=== PATIENT | female | born 1950 | race Caucasian/White ===

== ENCOUNTER 2017-11-15 12:07 | Inpatient (IN) | payer MEDICARE, BC ==
[~2017-11-15] VITALS: Ht 154.9 cm; Wt 88.0 kg
[~2017-11-15 12:07] MED LIST: AZILECT1 MG PO; CALTRATE PLUS1 EACH PO; CARBIDOPA-LEVO1 EAC1 PO; CENTRUM SILVER1 EAC3 PO; CULTURELLE CAP1 EACH PO; LOTRIMIN ULTRA12 GM TOP; LOVASTATIN20 MG PO; MIRALAX17 GM PO; PROPRANOLOL HCL20 MG PO; SINEMET 25-1001 EACH PO; SULFAMETHOXAZO1 EAC1; TRIAMCINOLONE A15 G1 TOP
[2017-11-15] MEDS ORDERED: SODIUM CHLORIDE 0.9% 1000ML 1,000 ML IV STA (12:17)
[2017-11-15] MEDS ORDERED: KETOROLAC TROMETHAMINE 30 MG/ML VIAL IV STA (12:17)
[2017-11-15 12:26] LABS: BASOPHILS % 0.3 % (0.0-1.0); EOSINOPHILS # (AUTO) 0.3 (0.0-0.4); HEMOGLOBIN 13.4 g/dL (12.0-16.0); LYMPHOCYTES # (AUTO) 1.8 (1.0-3.2); LYMPHOCYTES % 25.6 % (18.0-39.1); MEAN CORPUSCULAR HEMOGLOBIN 26.3 pg (28-32); MEAN CORPUSCULAR HGB CONC 31.9 g/dL (31-35); MEAN CORPUSCULAR VOLUME 82.5 fL (81-99); MONOCYTES # (AUTO) 0.5 (0.2-0.8); MONOCYTES % 7.6 % (4.4-11.3); NEUTROPHILS # (AUTO) 4.3 (2.1-6.9); NEUTROPHILS % 62.1 % (38.7-80.0); PLATELET COUNT 224 x10e3/uL (140-360); RED BLOOD COUNT 5.09 x10e6/uL (3.6-5.1); RED CELL DISTRIBUTION WIDTH 13.2 % (11.7-14.4)
[2017-11-15 12:35] LABS: INR 0.84; PROTHROMBIN TIME 12.3 seconds (11.9-14.5)
[2017-11-15 12:41] LABS: ALBUMIN 3.9 g/dL (3.5-5.0); ALBUMIN/GLOBULIN RATIO 1.3 (0.8-2.0); ALKALINE PHOSPHATASE 54 IU/L (40-150); ANION GAP 14.1 mmol/L (8-16); BLOOD UREA NITROGEN 23 mg/dL (7-26); BUN/CREATININE RATIO 21 (6-25); CALCIUM 9.1 mg/dL (8.4-10.2); CARBON DIOXIDE 22 mmol/L (22-29); CHLORIDE 107 mmol/L (98-107); CREATINE KINASE 41 IU/L (29-168); CREATININE, SERUM 1.12 mg/dL (0.57-1.11); EST GLOMERULAR FILTRATION RATE 48 ML/MIN (60-); GLUCOSE 104 mg/dL (74-118); POTASSIUM 4.1 mmol/L (3.5-5.1); SODIUM 139 mmol/L (136-145)
[2017-11-15 12:42] LABS: ALANINE AMINOTRANSFERASE < 6 IU/L (0-55)
[2017-11-15 13:14] LABS: CLARITY,URINE HAZY (CLEAR); COLOR,URINE YELLOW (YELLOW)
--- NOTE | 2017-11-15 13:14 | Diagnostic Imaging Report ---
Exam: Right knee 3 views History: pain Comparison: None. Findings: No fracture or malalignment. Mild degenerative arthrosis. No abnormal soft tissue calcification or soft tissue defect. Impression: No acute osseous abnormality Signed by: Dr. Prosper Harris M.D. on 11/15/2017 1:10 PM
[2017-11-15 13:15] LABS: BILIRUBIN,URINE NEGATIVE (NEGATIVE); KETONES,URINE NEGATIVE (NEGATIVE); LEUKOCYTE ESTERASE ,URINE TRACE (NEGATIVE); NITRITE,URINE NEGATIVE (NEGATIVE); PROTEIN,URINE DIPSTICK NEGATIVE (NEGATIVE); URINE UROBILINOGEN 0.2 mg/dL (0.2 - 1)
--- NOTE | 2017-11-15 13:24 | Diagnostic Imaging Report ---
Exam: right shoulder 2 views History: pain Comparison: None. Findings: No acute fracture or malalignment. Remote healed fracture of the distal clavicle. Joint spaces preserved. No abnormal soft tissue calcification or soft tissue defect. Impression: No acute osseous abnormality Signed by: Dr. Prosper Harris M.D. on 11/15/2017 1:21 PM
--- NOTE | 2017-11-15 13:25 | Diagnostic Imaging Report ---
Examination: Single AP view of the chest. COMPARISON: None. INDICATION: Fall DISCUSSION: Lines/tubes: None. Lungs: Low lung volumes with crowding of the vasculature. Pleura: There is no pleural effusion or pneumothorax. Heart and mediastinum: Cardiomegaly. Bones and soft tissues: No acute bony abnormalities. IMPRESSION: Cardiomegaly without decompensation. Signed by: Dr. Prosper Harris M.D. on 11/15/2017 1:22 PM
[2017-11-15 13:27] LABS: BACTERIA,URINE MANY /HPF; EPITHELIAL CELLS,URINE RARE /LPF
--- NOTE | 2017-11-15 13:48 | Diagnostic Imaging Report ---
Exams: Head and cervical spine CTs without IV contrast History: Trauma, fall, syncope Comparison studies: Head CT 12/29/2015, cervical spine right of 02/21/2015, cervical spine CT 02/20/2015 and cervical spine x-ray 02/22/2015. Technique: Axial images were obtained from the brain and cervical spine. Coronal and sagittal images reconstructed from the axial data. Dose modulation, iterative reconstruction, and/or weight based adjustment of the mA/kV was utilized to reduce the radiation dose to as low as reasonably achievable. Intravenous contrast: None Findings: Head CT: Scalp: No abnormalities. Bones: No fractures, blastic or lytic lesions. Extra-axial spaces: No masses. No fluid collections. Brain sulci: Appropriate for age. Ventricles: Normal in size and configuration. No hydrocephalus. Parenchyma: No mass, acute hemorrhage or acute cortical vascular insults. Small chronic lacunar insults versus perivascular spaces in the bilateral subinsular regions. A few scattered subtle hypodensities in the supratentorial white matter are nonspecific most compatible with chronic microvascular ischemic changes. Sellar/suprasellar region: No abnormalities. Craniocervical junction: The foramen magnum is patent. No Chiari one malformation. Cervical spine CT: Fractures: None. Soft tissues: No gross abnormalities. Atlantoaxial articulation: Intact. Alignment: Straightened curvature. No subluxations. Cervicomedullary junction: No abnormalities. The foramen magnum is patent. Vertebrae: No infection or neoplasm. Postsurgical changes: Anterior cervical discectomy and fusion from C5 to C7 with anterior plate fixated via screws at C5 and at C7 without evidence of hardware failure or hardware loosening. Corpectomy changes at C6 with solid interbody fusion from C5 to C7. The left C5-C6 facets are partially fused. Degenerative changes: Small central C3-C4 disc protrusion indents the thecal sac without significant canal stenosis. Mildly degenerated C4-C5 disc with anterior bridging C4-C5 disc osteophyte complex. Mild bilateral C5-C6 and left C6-C7 foraminal stenosis due to uncovertebral arthrosis. Osteophyte complex at C5 and indents the thecal sac and results in mild central canal stenosis. Incidental findings: Atherosclerotic calcifications in the carotid siphons an at the left cervical carotid bulb. IMPRESSION: Head CT: 1. No acute abnormalities. 2. No changes from the previous head CT of 12/29/2015. 3. Mild chronic microvascular ischemic changes. 4. Chronic bilateral subinsular lacunar infarcts vs. prominent perivascular spaces. Cervical spine CT: 1. No cervical spine fracture or subluxation. 2. Surgical changes of C5-C7 ACDF and C6 corpectomy. 3. Degenerative changes as described. 4. Cannot adequately evaluate ligament, spinal cord and or vascular abnormalities on the basis of this examination. Signed by: Dr. Boone Valles M.D. on 11/15/2017 1:45 PM
[2017-11-15] MEDS ORDERED: ONDANSETRON HCL INJ 2 MG/ML VIAL IV PRN (14:15)
[2017-11-15] MEDS ORDERED: ASPIRIN 81 MG CHEW TAB PO ONE (14:15)
[2017-11-15] MEDS ORDERED: POLYETHYLENE GLYCOL 3350 17 GM PACK PO PRN (14:30)
[2017-11-15 15:00] VITALS: BP 131/76
[2017-11-15] MEDS ORDERED: CARBIDOPA/LEVODOPA 25/100 TAB PO SCH (15:00)
[2017-11-15 15:20] VITALS: BP 131/76
--- NOTE | 2017-11-15 15:41 | Polysomnography ---
Job#: [id number] EV MTDEver
--- NOTE | 2017-11-15 16:01 | History and Physical ---
REFERRING PHYSICIAN: Dr. White. CHIEF COMPLAINT: Parkinson's disease with unsteadiness and falling. HISTORY OF PRESENT ILLNESS: The patient is a 67-year-old woman with a history of Parkinson's disease. She is followed by Dr. Jackson as an outpatient. She takes Synthroid, Sinemet as an outpatient several times a day. She also has problems with recurrent urinary tract infections and is on suppressive antibiotics. The patient was using a walker when her right leg gave way. She felt dizzy and unsteady. She fell and injured her ear. She came to the emergency department and had a CT scan of the head and neck which were negative. She is not complaining of pain, but she does still feel lightheaded. PAST SURGICAL HISTORY: Status post cervical spine fusion for diskitis. PAST MEDICAL HISTORY 1. Parkinson's disease. 2. Neurogenic bladder with recurrent urinary tract infections. 3. Thyroid disease. ALLERGIES: THE PATIENT IS ALLERGIC TO CLINDAMYCIN. FAMILY HISTORY: Family history is noncontributory. SOCIAL HISTORY: Patient is not a smoker or drinker. She has strong family support. REVIEW OF SYSTEMS: The patient has no fever. She does not have headache or neck pain. She does not complain of chest pain or difficulty breathing. She has no abdominal pain, nausea or vomiting. She is not having any leg pain. She did have some unsteadiness and fell to the right side. She also reports increased tone and some muscle pain. PHYSICAL EXAMINATION VITAL SIGNS: The patient is afebrile. The vital signs are stable. HEENT: Examination shows no facial swelling or erythema. The nasal mucosa is normal. The oropharynx is normal. LYMPHATIC: Examination shows no submandibular, cervical or supraclavicular adenopathy. CARDIAC: Exam reveals a regular rate and rhythm with a normal S1 and S2. LUNGS: Auscultation reveals clear breath sounds bilaterally. ABDOMEN: Soft and nontender. There is no rebound or guarding. EXTREMITIES: Examination shows no leg edema or calf tenderness. NEUROLOGICAL: Evaluation shows increased tone and bradykinesia consistent with Parkinson's disease. LABORATORY DATA: White count is within normal limits. The creatinine is 1.12, which is up from a baseline of 0.94. The other electrolytes are within normal limits. PT and INR are normal. IMPRESSION 1. Parkinson's disease with unsteadiness and falling. 2. Syncope. 3. Neurogenic bladder with recurrent urinary tract infections. 4. Thyroid disease. PLAN 1. The patient will be observed on telemetry. She will have serial cardiac enzymes. 2. Neurology evaluation. 3. Possible adjustment of Parkinson's medications depending on the opinion of Neurology. 4. Urine culture. Job#: [id number] EV
[2017-11-15] MEDS: CARBIDOPA/LEVODOPA 25/100 TAB PO SCH ×2 (17:00→20:46)
[2017-11-15] MEDS ORDERED: PROPRANOLOL HCL 20 MG PO SCH (17:00)
[2017-11-15] MEDS: OYST-CAL-D 500MG TABLET PO SCH (17:00)
[2017-11-15] MEDS ORDERED: PROPRANOLOL HCL 10 MG TAB PO SCH (17:00)
[2017-11-15 20:00] VITALS: BP 113/61
[2017-11-15] MEDS: SINEMET CR PO SCH ×2 (20:36→21:06)
[2017-11-15] MEDS: CEFTRIAXONE SOD 1 GM VIAL IV SCH (20:44)
[2017-11-15] MEDS: SIMVASTATIN 20 MG TAB PO SCH (20:46)
[2017-11-15] MEDS: CLOTRIMAZOLE 1% CR 15 GM TOP SCH (20:46)
[2017-11-15 20:50] LABS: CREATINE KINASE MB 0.7 ng/mL (0-5.0)
[2017-11-15] MEDS ORDERED: BUTENAFINE HCL TOP SCH (21:00)
[2017-11-15] MEDS ORDERED: NON-FORMULARY MEDICATION (Lovastatin 20 MG) PO SCH (21:00)
--- NOTE | 2017-11-15 21:08 | Consultation ---
DATE OF CONSULTATION: November 15, 2017 NEUROLOGY CONSULT HISTORY OF PRESENT ILLNESS: Ms. Ashton is a 67-year-old right hand dominant woman with past medical history significant for neurogenic bladder with multiple prior urinary tract infections, essential tremor, and Parkinson's disease, admitted to [facility] on November 15, 2017 status post a syncopal event. On the morning of admission, the patient was standing from a seated position when she suddenly developed lightheadedness. Ms. Ashton did not report chest pain or tightness, palpitations, shortness of breath, vertigo, numbness or tingling, or an epigastric rising sensation associated with the lightheadedness. Following the sudden onset of lightheadedness, the patient abruptly lost consciousness and fell towards the floor. As she fell, Ms. Ashton hit the right side of her head and face on her walker. Ms. Ashton reports the period of unconsciousness lasted only a few seconds. She recalls her , who is standing nearby catching her before she fell to the floor. Ms. Ashton was brought to the emergency center at [facility] for further evaluation following her syncopal event. Upon arrival in the emergency center, the patient was afebrile with a blood pressure of 130/68 mmHg and pulse of 56 beats per minute. The patient's neurological examination was documented as being nonfocal. Routine laboratory data revealed the presence of urinary tract infection. A CT of the brain without contrast was performed while the patient was in the emergency center, and did not show evidence of recent large territorial ischemia or hemorrhage. Ms. Ashton was admitted to the hospital as an inpatient for further evaluation and treatment of her symptoms. Ms. Ashton reports being diagnosed with essential tremor and Parkinson's disease in 2014. The first noticeable symptom was a tremor affecting the right hand. The patient saw her primary care physician who prescribed her propranolol for the essential tremor. Ms. Ashton was referred to Dr. Jackson who diagnosed her with Parkinson's disease based on a clinical evaluation. At present, the patient's symptoms include a quivering quality of the voice, both action and resting tremors with the right arm being more affected than the left, slowness of movement, freezing, poor balance and an unsteady gait, and hypophonia. As regards to her poor balance and unsteady gait, Ms. Ashton reports she began using a walker approximately 1 or 2 months ago. Ms. Ashton is followed as an outpatient by Dr. Jorge Jackson. The patient sees Dr. Jackson approximately once every 6 months. Her last appointment was 1 month ago where her medications were adjusted. At present, Ms. Ashton takes carbidopa-levodopa 25/100 mg as follows: One pill at 0630, two pills at 0900, one pill at 11:30, one pill at 1400, and one pill at 1700. Ms. Ashton takes an extended release preparation of carbidopa-levodopa at bedtime. She does not recall the dose of this medication at present. Ms. Ashton takes Azilect 1 mg by mouth at 0630 daily as well. REVIEW OF SYSTEMS: Syncope, lightheadedness, quivering quality of the voice, action tremor, resting tremor, hypophonia, slowness of movement, freezing, poor balance and unsteady gait, urinary frequency, and urinary urgency. Otherwise, the 12-point review of systems is negative. PAST MEDICAL HISTORY: Hyperlipidemia, multiple urinary tract infections, nephrolithiasis, prior history of anxiety disorder, essential tremor, Parkinson's disease, and neurogenic bladder. PAST SURGICAL HISTORY: section, total hysterectomy/appendectomy, wisdom teeth extraction, ureteral stent placement as treatment for kidney stone, and cervical spine fusion (C5 through C7). PAST HOSPITALIZATIONS: Surgeries/procedures as listed, childbirth x2, multiple hospitalizations for urinary tract infections, and hospitalization for C. difficile infection. FAMILY MEDICAL HISTORY: The patient's paternal grandparents are . Their medical histories are unknown. Ms. Ashton's maternal grandparents are . Her maternal grandfather from cancer. Her maternal grandmother's medical history is unknown. The patient's father is . He had a history of prediabetes mellitus. The patient's mother is . She had a history of macular degeneration. Ms. Ashton had 3 brothers, one of whom is alive and healthy. Her twin brother is from coronary artery disease with myocardial infarction. The third brother is from coronary artery disease and myocardial infarction as well. Ms. Ashton has 3 sons, all of whom are alive. The eldest son has hypertension. The other 2 sons are healthy. SOCIAL HISTORY: The patient is . She is retired. Ms. Ashton does not report current or prior tobacco, alcohol, or recreational drug use. HOME MEDICATIONS: Please see the list of home medications available in the electronic medical records. ALLERGIES: CLINDAMYCIN, POSSIBLE ALLERGY TO THIAZIDE DIURETIC. NO KNOWN FOOD ALLERGIES. NO KNOWN ALLERGIES TO LATEX. NO KNOWN ALLERGIES TO IODINE OR OTHER CONTRAST MATERIALS. PHYSICAL EXAMINATION VITAL SIGNS: Height 61 inches, weight 201 pounds, BMI 38.0 kg per meter squared. Blood pressure 131/76 mmHg, pulse 65 beats per minute, respiratory rate 18 breaths per minute, and oxygen saturation 97% on room air. GENERAL: The patient is awake and alert. Does not appear distressed. Mask feces. Obese. HEENT: Normocephalic. Laceration over the right ear. Pupils are equal, round, and reactive to light. Moist mucous membranes. NECK: Supple. No appreciable thyromegaly. No appreciable carotid bruits. CARDIOVASCULAR: S1, S2, regular rate and rhythm. No murmurs, rubs, or gallops. RESPIRATORY: Clear to auscultation bilaterally. No wheezes, rhonchi, or rales. EXTREMITIES: The skin is warm and dry. No clubbing, cyanosis, or edema. The posterior tibial and dorsalis pedis pulses are 2+ and symmetric. SKIN: No rashes or lesions. NEUROLOGIC: MEMORY/ATTENTION: The patient is awake and alert, oriented to person, place, time, and situation. CRANIAL NERVES: Cranial nerve I - Not tested. Cranial nerve II, III, IV, and - Pupils are equal and round, react briskly to light (from 4 mm to 2 mm). Extraocular movements are intact with the exception of impairment of upward gaze. No nystagmus. Cranial nerve V - Sensation to light touch is intact in the bilateral V1 through V3 distributions. Strength of the temporalis and masseter muscles is within normal limits. Cranial nerve VII - The face is symmetric as are all facial movements. Strength is within normal limits. Cranial nerve VIII - Hearing is intact to finger rub bilaterally. Cranial nerve IX, X - The soft palate elevates equally and symmetrically. Cranial nerve X1 - Normal strength of the bilateral sternocleidomastoid and trapezius muscles. Cranial nerve X11 - The tongue protrudes midline and moves symmetrically from [id number]. STRENGTH: Bulk is normal. Strength is 5/5 in the bilateral deltoids, biceps, triceps, wrist flexors and extensors, finger flexors and extensors, intrinsic hand muscles, hip flexors, knee flexors and extensors, ankle dorsiflexion and plantar flexion, and intrinsic foot muscles. Tone is increased in all 4 extremities with cogwheeling in both arms. DTRs: Deep tendon reflexes are 1+ and symmetric at the triceps, biceps, and brachioradialis. Deep tendon reflexes are trace and symmetric at the patellas. Deep tendon reflexes are absent and symmetric at the Achilles. Plantar responses are flexor bilaterally. SENSATION: Sensation is intact to light touch in both arms and both legs. CEREBELLAR: There is a high-frequency, low-amplitude intention tremor seen with jqtxch-bqtn-lopzzt movements, right greater than left. Heel-murray movements are moderately impaired bilaterally. There is segmental hypokinesis with finger and toe tapping bilaterally. GAIT: Deferred. SPEECH: Spontaneous speech is hypophonic with quivering quality. There is no appreciable dysarthria or aphasia. Repetition is intact. INVOLUNTARY MOVEMENTS: Resting and intention tremor are present. PRONATOR DRIFT: None. LABORATORY DATA: The patient's comprehensive metabolic panel is significant for a mildly elevated creatinine of 1.12 and an estimated GFR of 48. Cardiac enzymes are negative x1. The CBC with differential and platelets is unremarkable. PT and INR are within normal limits. PTT is 23.0. A urinalysis reveals trace leukocyte esterase, 6 to 10 white blood cells, and many bacteria. A urine culture has been collected and is pending. DIAGNOSTIC STUDIES 1. Electrocardiogram on November 15, 2017: Sinus bradycardia at 59 beats per minute. 2. CT of the brain without contrast on November 15, 2017: On my review, there is no evidence of recent large territorial ischemia, hemorrhage, mass, or mass effect. There is diffuse cerebral atrophy, appropriate for age. There are findings compatible with mild chronic microvascular ischemic changes. There are hypodensities in the bilateral subinsular regions suspicious for either chronic lacunar infarcts versus prominent perivascular spaces. 3. CT of the cervical spine without contrast on November 15, 2017: A. No cervical spine fracture or subluxation. B. Surgical changes of C5 through C7 ACDF and C6 corpectomy. C. Degenerative changes as described. D. Cannot adequately evaluate ligament, spinal cord, and/or vascular abnormalities on the basis of this examination. 1. Shoulder x-ray on November 15, 2017: No acute osseous abnormality. 2. Knee x-ray of November 15, 2017: No acute osseous abnormality. 3. Chest x-ray on November 15, 2017: Cardiomegaly without decompensation. ASSESSMENT AND PLAN: Ms. Ashton is a 67-year-old right hand dominant woman with past medical history as documented, admitted to [facility] status post syncopal event with urinary tract infection. The patient has undergone a thorough neurological examination with findings detailed above. The patient's laboratory data and other diagnostic studies have been reviewed and are documented above. Unfortunately, assessment of the patient's essential tremor and Parkinson's disease is compromised at present due to multiple missed doses of medication while the patient was in the emergency center. RECOMMENDATIONS 1. Essential tremor - Continue the patient's home medication of propranolol 20 mg by mouth at 0700 and 1900 daily. 2. Parkinson's disease - Continue the patient's home medication of carbidopa-levodopa 25-100 mg as follows: One pill at 0630, two pills at 0900, one pill at 1130, two pill at 1400, and one pill at 1700. Carbidopa-levodopa (dose unknown at present) extended release - One tablet by mouth at bedtime daily. Azilect 1 mg by mouth at 0630 daily. 3. The patient's symptoms will be monitored clinically and adjustments made to her medications as necessary. 4. Defer treatment of the remaining medical comorbidities to the primary and other services following the patient. Thank you for this consultation. I will continue to follow the patient while she remains in the hospital. TIME SPENT: 70 minutes. Job#: [id number] DIEGO CUTLER
[2017-11-15 23:19] VITALS: BP 113/61
--- NOTE | 2017-11-15 23:28 | Consultation ---
DATE OF CONSULTATION: November 15, 2017 CARDIOLOGY CONSULTATION REQUESTING PHYSICIAN: Dr. Ralph Morales. REASON FOR CONSULTATION: Syncope. HISTORY OF PRESENT ILLNESS: This is a 67-year-old woman with history of hyperlipidemia, Parkinson's disease, hypothyroidism, neurogenic bladder with frequent urinary tract infections, and essential tremor who presents after an episode of syncope. The patient reports that she had just gotten up from the commode when she began to feel dizzy and weak. She lost her balance and fell over her walker. She reports that she may have passed out for approximately 1 minute, but quickly regained consciousness. She denied any chest pain, shortness of breath, or palpations at the time of the fall. This was witnessed by the patient's . She denied any tongue-biting or bowel or bladder incontinence. Due to her prior cervical spine surgery, she presented to the ER for further evaluation. CT of the head and neck were without any acute abnormalities. Cardiology was consulted due to patient's syncope. REVIEW OF SYSTEMS: Negative, except as per HPI. PAST MEDICAL HISTORY: Hyperlipidemia, hypothyroidism, Parkinson disease, essential tremor, and neurogenic bladder with frequent urinary tract infections. PAST SURGICAL HISTORY: Cesarian section, hysterectomy, appendectomy, and cervical spine fusion. ALLERGIES: CLINDAMYCIN. MEDICATIONS: Please see EMR. SOCIAL HISTORY: Denies tobacco, alcohol, or illicit drugs. FAMILY HISTORY: Pertinent for 2 brothers as well as father with myocardial infarction. PHYSICAL EXAMINATION VITAL SIGNS: Temperature 97.3 degrees, pulse 67, respiratory rate 18, blood pressure 113/61, and oxygen saturation 93%. GENERAL: Elderly woman in no acute distress, awake and alert, well-developed and well-nourished. HEENT: Normocephalic. Pupils are equal. No scleral icterus. NECK: Supple. No thyromegaly or cervical lymphadenopathy. No carotid bruits. LUNGS: Clear to auscultation bilaterally. No wheezes or crackles. CARDIOVASCULAR: Normal rate, regular rhythm. No murmur. Normal S1 and S2. ABDOMEN: Soft. Nontender. EXTREMITIES: Nonfocal exam. LABS AND DIAGNOSTICS: WBC 6.96, hemoglobin 13.4, hematocrit 42, and platelets 224. Sodium 139, potassium 4.1, chloride 107, CO2 22, BUN 23, creatinine 1.12, and troponin 0.001. Urinalysis, trace leukocyte esterase, 6-10 wbc's, rare epithelial cells, and many bacteria. Chest x-ray, cardiomegaly without decompensation. EKG, sinus bradycardia, left axis deviation voltage criteria for LVH. IMPRESSION 1. Syncope. 2. Acute kidney injury. 3. Abnormal urinalysis, suggestive of urinary tract infection. 4. Hyperlipidemia. 5. Hypothyroidism. 6. Parkinson's disease. 7. Essential tremor. RECOMMENDATIONS: Echocardiogram and cardiac Dopplers have been ordered. Suspect the etiology of patient's symptoms is orthostatic hypotension given description. We will check orthostatic vitals. If positive, patient would benefit from gentle fluid resuscitation. Monitor patient on telemetry for arrhythmias that may have contributed to her episode. Patient's antibiotics per primary service. Further management of essential tremor and Parkinson's per neurology. Thank you for this consult. We will continue to follow. Job#: [id number] GO CUTLER
[2017-11-16] VITALS (10 sets, daily range): BP systolic 100–146; BP diastolic 55–83
[2017-11-16] MEDS: MELATONIN 3 MG TAB PO SCH ×2 (01:08→21:59)
[2017-11-16 04:25] LABS: BASOPHILS % 0.5 % (0.0-1.0); EOSINOPHILS # (AUTO) 0.3 (0.0-0.4); EOSINOPHILS % 4.5 % (0.0-6.0); HEMATOCRIT 39.6 % (34.2-44.1); HEMOGLOBIN 12.7 g/dL (12.0-16.0); LYMPHOCYTES # (AUTO) 1.9 (1.0-3.2); MEAN CORPUSCULAR HGB CONC 32.1 g/dL (31-35); MONOCYTES # (AUTO) 0.7 (0.2-0.8); MONOCYTES % 10.4 % (4.4-11.3); NEUTROPHILS # (AUTO) 3.7 (2.1-6.9); NEUTROPHILS % 55.4 % (38.7-80.0); PLATELET COUNT 204 x10e3/uL (140-360); RED BLOOD COUNT 4.89 x10e6/uL (3.6-5.1); RED CELL DISTRIBUTION WIDTH 13.2 % (11.7-14.4)
[2017-11-16 04:53] LABS: ALBUMIN 3.7 g/dL (3.5-5.0); ALBUMIN/GLOBULIN RATIO 1.3 (0.8-2.0); ALKALINE PHOSPHATASE 53 IU/L (40-150); ANION GAP 14.3 mmol/L (8-16); BLOOD UREA NITROGEN 29 mg/dL (7-26); BUN/CREATININE RATIO 26 (6-25); CALCIUM 9.3 mg/dL (8.4-10.2); CARBON DIOXIDE 22 mmol/L (22-29); CHLORIDE 106 mmol/L (98-107); CREATINE KINASE 64 IU/L (29-168); CREATININE, SERUM 1.13 mg/dL (0.57-1.11); EST GLOMERULAR FILTRATION RATE 48 ML/MIN (60-); GLUCOSE 99 mg/dL (74-118); POTASSIUM 4.3 mmol/L (3.5-5.1); SODIUM 138 mmol/L (136-145)
[2017-11-16 04:55] LABS: ALANINE AMINOTRANSFERASE < 6 IU/L (0-55)
--- NOTE | 2017-11-16 06:16 | Diagnostic Imaging Report ---
EXAM: CHEST SINGLE (PORTABLE), AP 1 view INDICATION: Syncope COMPARISON: AP view of the chest November 07, 2017 FINDINGS: LINES/TUBES: None LUNGS: No consolidations or edema. Bibasilar subsegmental atelectasis. PLEURA: No effusions or pneumothorax. HEART AND MEDIASTINUM: Normal size and contour. BONES AND SOFT TISSUES: No acute findings. Lower cervical spine surgical hardware. IMPRESSION: Bibasilar subsegmental atelectasis. Signed by: Dr. Harriett Whitlock M.D. on 11/16/2017 6:13 AM
[2017-11-16] MEDS: RASAGILINE 1 MG TAB PO SCH (06:27)
[2017-11-16] MEDS: CARBIDOPA/LEVODOPA 25/100 TAB PO SCH ×7 (06:27→20:30)
[2017-11-16] MEDS ORDERED: RASAGILINE 1 MG TAB PO SCH ×2 (06:30→09:00)
[2017-11-16] MEDS: PROPRANOLOL HCL 10 MG TAB PO SCH ×2 (07:38→18:37)
[2017-11-16] MEDS: MULTIVITAMINS/MINERALS TAB PO SCH (07:39)
[2017-11-16] MEDS: OYST-CAL-D 500MG TABLET PO SCH ×2 (07:39→16:56)
[2017-11-16] MEDS ORDERED: NON-FORMULARY MEDICATION (Mu-Vits-Min Th/Lycopene/Lutein (Centrum Silver Tablet) 1 TAB) PO SCH (09:00)
[2017-11-16] MEDS ORDERED: RHAMNOSUS GG PO SCH (09:00)
[2017-11-16] MEDS ORDERED: INULIN PO SCH (09:00)
[2017-11-16] MEDS ORDERED: MINERALS PO SCH (09:00)
[2017-11-16] MEDS: INULIN PO SCH (09:00)
[2017-11-16] MEDS ORDERED: CALCIUM CARB PO SCH (09:00)
[2017-11-16] MEDS: RHAMNOSUS GG PO SCH (09:00)
[2017-11-16] MEDS ORDERED: VIT D3 PO SCH (09:00)
--- NOTE | 2017-11-16 14:32 | Progress Note ---
DATE: November 16, 2017 CARDIOLOGY PROGRESS NOTE SUBJECTIVE: Patient denies chest pain or shortness of breath. OBJECTIVE VITAL SIGNS: Temperature 97.1 degrees, pulse 78, respiratory rate 20, blood pressure 146/75, oxygen saturation 98%. GENERAL: Elderly woman, no acute distress, awake and alert. LUNGS: Clear to auscultation bilaterally. No wheezes or crackles. CARDIOVASCULAR: Normal rate. Regular rhythm. No murmur. Normal S1 and S2. ABDOMEN: Soft, nontender. EXTREMITIES: No edema. CARDIAC MEDICATIONS 1. Propranolol 20 mg p.o. b.i.d. 2. Simvastatin 10 mg p.o. q.h.s. LABS: WBC 6.61, hemoglobin 12.7, hematocrit 39.6, platelets 204. Sodium 138, potassium 4.3, chloride 106, CO2 of 22, BUN 29, creatinine 1.13. Troponin less than 0.001. Chest x-ray with bibasilar subsegmental atelectasis. TELEMETRY: Normal sinus rhythm. IMPRESSION 1. Syncope. 2. Acute kidney injury. 3. Abnormal urinalysis suggestive of urinary tract infection. 4. Hyperlipidemia. 5. Hypothyroidism. 6. Parkinson's disease. 7. Essential tremor. RECOMMENDATIONS: Echocardiogram has been done. We will review the images once they are downloaded. Carotid Dopplers without evidence of hemodynamically significant stenosis, although vessel tortuosity was noted. No arrhythmias have been demonstrated on telemetry to explain patient's symptoms. Patient's orthostatic vitals were negative. Urine culture is growing gram-negative bacilli. Antibiotics per primary service. Thank you for this consult. We will continue to follow. Job#: [id number] JOSLYN
[2017-11-16] MEDS ORDERED: ACETAMINOPHEN 325 MG TAB PO PRN (17:15)
[2017-11-16] MEDS ORDERED: MELOXICAM 7.5 MG TAB PO ONE (17:30)
[2017-11-16] MEDS: CEFTRIAXONE SOD 1 GM VIAL IV SCH (17:42)
--- NOTE | 2017-11-16 18:25 | Consultation ---
DATE OF CONSULTATION: November 16, 2017 UROLOGY CONSULTATION REASON FOR CONSULTATION: Recurrent urinary tract infections. HISTORY OF PRESENT ILLNESS: Inocencia Ashton is a 67-year-old woman with a neurogenic bladder due to Parkinson's disease. She has both urge and stress-type urinary incontinence. The patient had an episode of obstructing urolithiasis and urosepsis. She was brought to the emergency room here, the hospitalist followed, and she was transferred downtown to the [facility], where Dr. Hoffmann placed a stent, followed by lithotripsy, followed by stent removal. The patient has also been seeing by Dr. Connor Pickett for her neurogenic bladder. She has been managed with a probiotic, Bactrim, Estrace vaginal cream for her vaginal atrophy, and Flomax for incomplete bladder emptying. The patient believe she has a residual kidney stone fragment. She has had recurrent urinary tract infections. Currently, she was brought to the hospital following a fall where she injured her right arm and right ear and urological consultation was sought for the patient's urinary tract infection. PAST MEDICAL AND SURGICAL HISTORY 1. 3, para 3; 2 by normal spontaneous vaginal delivery and the last by section. 2. Status post total abdominal hysterectomy, bilateral salpingo-oophorectomy, and appendectomy. 3. Status post fusion of C5-C6. 4. Parkinson's disease. 5. Hypertension. 6. Gastroesophageal reflux disease. 7. Thyroid disease. ALLERGIES: CLINDAMYCIN. CURRENT MEDICATIONS: Please refer to the MAR. SOCIAL HISTORY: The patient denies smoking, ethanol, and drug use. 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 REVIEW OF SYSTEMS: As discussed above in the history of present illness and past medical history, otherwise negative for all systems. PHYSICAL EXAMINATION GENERAL: Chronically ill-appearing woman, sitting up in bed, in no apparent distress. She has a slurred speech due to her Parkinson's disease. VITAL SIGNS: She is currently afebrile. Vital signs are currently stable. ABDOMEN: Soft, nondistended, nontender without costovertebral angle tenderness. Kidneys are not palpable without hepatosplenomegaly. She is obese. GENITOURINARY: Normal external female genitalia. There is a Jain catheter in place, draining clear urine out. For the remaining physical examination systems, please refer to the admission history and physical on the chart. LABORATORY STUDIES: Urine cultures significant for 2 gram-negative bacilli with sensitivities pending. White blood cell count is 6610, hemoglobin 12.7, platelets 204,000. Creatinine is 1.13, it was 1.12 previously. Urinalysis is significant for pyuria. There are no urologically significant radiographic studies in the computer at this time. ASSESSMENT 1. Recurrent urinary tract infections. 2. Chronic renal insufficiency. 3. Mixed-type urinary incontinence. 4. Neurogenic bladder. 5. Atrophic vaginitis. 6. Incomplete bladder emptying. 7. Kidney stones. 8. Obesity. PLAN 1. Recommend awaiting urine culture and adjusting antibiotics as needed. 2. Stone protocol CT. 3. I would leave the Jain catheter in place at the present time, but she will need follow up for management of her bladder infections, stones, and neurogenic bladder. 4. I will prescribe Flomax while she is here to resume that medication, which she needs. 5. We will follow. Thank you very much for involving us in the care of your patient. We will be happy to follow her along with you as well as on outpatient. Job#: [id number] [facility] cc:DR. JIMBO FONTANA
[2017-11-16] MEDS ORDERED: DEXILANT30 MG PO (19:55)
[2017-11-16] MEDS: SIMVASTATIN 20 MG TAB PO SCH (20:30)
[2017-11-16] MEDS: TAMSULOSIN HCL 0.4 MG CAP PO SCH (20:30)
[2017-11-16] MEDS: SINEMET CR PO SCH (20:30)
[2017-11-16] MEDS: CLOTRIMAZOLE 1% CR 15 GM TOP SCH (20:31)
[2017-11-17] VITALS (8 sets, daily range): BP systolic 90–143; BP diastolic 51–80
[2017-11-17] MEDS: CARBIDOPA/LEVODOPA 25/100 TAB PO SCH ×6 (06:34→21:00)
[2017-11-17] MEDS: RASAGILINE 1 MG TAB PO SCH (06:34)
[2017-11-17] MEDS: PROPRANOLOL HCL 10 MG TAB PO SCH ×2 (06:41→22:09)
[2017-11-17] MEDS: INULIN PO SCH (09:00)
[2017-11-17] MEDS: RHAMNOSUS GG PO SCH (09:00)
[2017-11-17] MEDS: OYST-CAL-D 500MG TABLET PO SCH ×2 (09:05→17:12)
[2017-11-17] MEDS: MULTIVITAMINS/MINERALS TAB PO SCH (09:05)
--- NOTE | 2017-11-17 12:51 | Progress Note ---
DATE: November 17, 2017 CARDIOLOGY PROGRESS NOTE SUBJECTIVE: Patient denies chest pain or shortness of breath. OBJECTIVE VITAL SIGNS: Temperature 97.1 degrees, pulse 74, respiratory rate 20, blood pressure 131/80, and oxygen saturation 98%. GENERAL: Elderly woman, in no acute distress, awake and alert. LUNGS: Clear to auscultation bilaterally. No wheezes or crackles. CARDIOVASCULAR: Normal rate, regular rhythm. No murmur. Normal S1 and S2. ABDOMEN: Soft and nontender. EXTREMITIES: No edema. CARDIAC MEDICATIONS 1. Propranolol 20 mg p.o. b.i.d. 2. Simvastatin 10 mg p.o. at bedtime. LABS: Urine culture growing E. coli as well as ESBL Klebsiella pneumoniae. TELEMETRY: Normal sinus rhythm. IMPRESSION 1. Syncope. 2. Acute kidney injury. 3. Urinary tract infection with Escherichia coli as well as extended-spectrum beta-lactamases Klebsiella pneumoniae. 4. Hyperlipidemia. 5. Hypothyroidism. 6. Parkinson's disease. 7. Essential tremor. RECOMMENDATIONS: No cardiac etiology has been identified for the patent's syncope. Patient has been without arrhythmia on telemetry. We will continue to monitor. Continue current cardiac medications. Antibiotics per primary service. No further cardiac evaluation is indicated at this time. Thank you for this consult. We will continue to follow. Job#: [id number] [facility]IE[facility]
[2017-11-17] MEDS: MEROPENEM 1 GM VIAL IV SCH ×2 (13:02→22:09)
[2017-11-17] MEDS ORDERED: MEROPENEM 1GRAM 1 GM in SODIUM CHLORIDE 0.9% 100 ML 100 ML IV SCH (14:00)
--- NOTE | 2017-11-17 17:46 | Consultation ---
DATE OF CONSULTATION: REASON FOR CONSULTATION: UTI, bacteruria, recommendation on antibiotic. HISTORY OF PRESENT ILLNESS: This is a patient who has history of recurrent UTI for sometime now. She has been seen by urology downtown. She has been on several antibiotics. More recently, she has been on Bactrim. The patient and are telling me that she has history of kidney stone and since then for the last 2 years, she has been having problem with the urine. Mainly, she get bad odor. There is no fever or chills. She just get bad odor. The patient tried several medications and still gets recurrent bad odor. She is most recently on Bactrim. Nevertheless this patient, she was at home this time, apparently she was using a walker and she fell and have a cut on her right ear as well as bruising to her right axilla. The patient was admitted. The patient have an underlying history of neurogenic bladder, multiple UTI, essential tremor, and Parkinson disease. She is also debilitated and weak. Since admission, she had neurological workup. She had cultures of the urine which showed 2 different kind of bacteria. REVIEW OF SYSTEM: She is just weak generally now and lightheaded episode has resolved. 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 There is no fever, no chills, no urgency, no frequency, but the urine smells really bad according to both her and the and that is what bother them the most. PAST MEDICAL HISTORY: She does have history of hyperlipidemia, history of multiple UTI, anxiety disorder, and essential tremor, Parkinson disease, and neurogenic bladder. PAST SURGICAL HISTORY: , total hysterectomy, appendectomy, wisdom tooth extraction, stent placement in the urethra, cervical spine fusion C2, C5, and C7. FAMILY HISTORY: Cancer grandfather and grandmother apparently. SOCIAL HISTORY: She is . No smoking, drug abuse, or alcohol use. ALLERGIES: DYAZIDE. REVIEW OF SYSTEMS HEENT: Negative. There is no headache, visual change, hearing changes. GI: There is no nausea, vomiting, or diarrhea. CARDIAC: There is no arrhythmia. NEURO: No seizure activity or local weakness, but she is weak in general. JOINT: No erythema or edema. URINE: There is no urgency or frequency. Also, the said sometime when she stands up suddenly, she cannot control her urine. LABORATORY DATA: White count is 6.96, hemoglobin is 13.4, hematocrit 42, and her platelet of 224. Sodium 138, potassium 4.3, creatinine 1.13. Her cultures of urine on November 15, showed E. coli which was resistant only to Bactrim and Klebsiella pneumoniae which was ESBL, but sensitive to Cipro. PHYSICAL EXAMINATION GENERAL: She is alert and oriented. Does not seem to be in acute distress. VITALS: Stable. Currently afebrile. HEENT: She is not icteric. NECK: Supple. CHEST: Clear. HEART: S1 and S2. No S3, S4 or murmur. ABDOMEN: Soft. IMPRESSION 1. Cystitis, chronic. She is currently on meropenem. Received 1 gram q.8. I think we can give that for a couple of days, then switch to Cipro 500 mg p.o. b.i.d. She probably would benefit from Hiprex 1 pack p.o. b.i.d. after that to see if that will help the odor of the urine. I think she has chronic bacteriuria because I do not think she can empty her bladder well. I am not so sure if she still have a stent. 2. Parkinson's disease. 3. We will follow with you. Job#: [id number] TORI
[2017-11-17] MEDS: SINEMET CR PO SCH (22:09)
[2017-11-17] MEDS: CLOTRIMAZOLE 1% CR 15 GM TOP SCH (22:09)
[2017-11-17] MEDS: SIMVASTATIN 20 MG TAB PO SCH (22:09)
[2017-11-17] MEDS: TAMSULOSIN HCL 0.4 MG CAP PO SCH (22:09)
[2017-11-17] MEDS: MELATONIN 3 MG TAB PO SCH (23:50)
[2017-11-18] VITALS (8 sets, daily range): BP systolic 96–132; BP diastolic 50–64
[2017-11-18] MEDS: RASAGILINE 1 MG TAB PO SCH (06:31)
[2017-11-18] MEDS: CARBIDOPA/LEVODOPA 25/100 TAB PO SCH ×5 (06:31→17:26)
[2017-11-18] MEDS: MEROPENEM 1 GM VIAL IV SCH ×3 (06:31→21:02)
[2017-11-18] MEDS: RHAMNOSUS GG PO SCH (08:53)
[2017-11-18] MEDS: INULIN PO SCH (08:53)
[2017-11-18] MEDS: OYST-CAL-D 500MG TABLET PO SCH ×2 (08:53→17:26)
[2017-11-18] MEDS: MULTIVITAMINS/MINERALS TAB PO SCH (08:53)
[2017-11-18] MEDS: PROPRANOLOL HCL 10 MG TAB PO SCH ×2 (08:54→20:00)
[2017-11-18] MEDS: LACTOBACILLUS ACIDOPHILUS CAPSULE PO SCH (12:58)
--- NOTE | 2017-11-18 12:58 | Progress Note ---
DATE: November 18, 2017 CARDIOLOGY PROGRESS NOTE SUBJECTIVE: No major events overnight. OBJECTIVE VITAL SIGNS: Temperature 98.4, pulse 67, respiratory rate 16, blood pressure 111/61, satting 97% on room air. GENERAL: A well-developed, well-nourished, female in no acute distress. CARDIOVASCULAR: Regular rate and rhythm. No murmurs, rubs or gallops. Palpable carotid pulses. Palpable radial pulses. LUNGS: Clear to auscultation bilaterally. ABDOMEN: Obese, soft, nontender. No masses. NEURO AND PSYCH: Alert and oriented to person, place and time. Normal affect. TELEMETRY DATA: Reviewed. Normal sinus rhythm. CARDIAC MEDICATIONS: Reviewed. LABORATORY DATA: Reviewed. ASSESSMENT 1. Syncope. 2. Acute kidney injury. 3. Urinary tract infection with extended-spectrum beta-lactamase Escherichia coli. 4. Hyperlipidemia. 5. Hypothyroidism. 6. Parkinson's disease. 7. Essential tremor. RECOMMENDATIONS: No cardiac etiology identified for patient's syncope. No significant arrhythmias on telemetry. Will continue to monitor. Continue current cardiac medications. Improving with antibiotics. No further cardiac evaluation is needed at this time unless clinical status changes. Thank you for this consult. Will continue to follow. Job#: [id number] EV
[2017-11-18] MEDS ORDERED: NEOMYCIN/POLYMYXIN/BACITRACIN 15 GM TUBE TOP PRN (15:30)
[2017-11-18] MEDS: TAMSULOSIN HCL 0.4 MG CAP PO SCH (20:00)
[2017-11-18] MEDS: CLOTRIMAZOLE 1% CR 15 GM TOP SCH (20:00)
[2017-11-18] MEDS: SIMVASTATIN 20 MG TAB PO SCH (20:00)
[2017-11-18] MEDS: SINEMET CR PO SCH (21:00)
[2017-11-19] VITALS: BP 130/76
[2017-11-19 04:00] VITALS: BP 120/65
[2017-11-19] MEDS: RASAGILINE 1 MG TAB PO SCH (05:52)
[2017-11-19] MEDS: CARBIDOPA/LEVODOPA 25/100 TAB PO SCH ×4 (05:52→17:09)
[2017-11-19] MEDS: MEROPENEM 1 GM VIAL IV SCH ×2 (05:52→14:56)
[2017-11-19 07:49] VITALS: BP 118/71
[2017-11-19] MEDS: PROPRANOLOL HCL 10 MG TAB PO SCH (08:18)
[2017-11-19] MEDS: INULIN PO SCH (08:18)
[2017-11-19] MEDS: OYST-CAL-D 500MG TABLET PO SCH ×2 (08:18→17:09)
[2017-11-19] MEDS: LACTOBACILLUS ACIDOPHILUS CAPSULE PO SCH (08:18)
[2017-11-19] MEDS: MULTIVITAMINS/MINERALS TAB PO SCH (08:18)
[2017-11-19] MEDS: RHAMNOSUS GG PO SCH (08:18)
[2017-11-19] MEDS ORDERED: CARBIDOPA/LEVODOPA 25/100 TAB PO SCH (09:00)
[2017-11-19 11:24] VITALS: BP 96/62
[2017-11-19 11:52] VITALS: BP 96/62
--- NOTE | 2017-11-19 12:42 | Progress Note ---
DATE: November 19, 2017 CARDIOLOGY PROGRESS NOTE SUBJECTIVE: Patient denies chest pain or shortness of breath. OBJECTIVE VITAL SIGNS: Temperature 96.7 degrees, pulse 72, respiratory rate 18, blood pressure 96/62, oxygen saturation 95% on room air. GENERAL: Elderly woman, chronically ill-appearing, awake and alert, in no acute distress. LUNGS: Clear to auscultation bilaterally. No wheezes or crackles. CARDIOVASCULAR: Normal rate, regular rhythm. No murmur. Normal S1 and S2. ABDOMEN: Soft and nontender. EXTREMITIES: No edema. CARDIAC MEDICATIONS 1. Propranolol 20 mg p.o. b.i.d. 2. Simvastatin 10 mg p.o. at bedtime. LABS: None today. IMPRESSION 1. Syncope. 2. Acute kidney injury. 3. Urinary tract infection with extended spectrum beta lactamase Escherichia coli. 4. Hyperlipidemia. 5. Hypothyroidism. 6. Parkinson's disease. 7. Essential tremor. RECOMMENDATIONS: No cardiac etiology has been identified for the patent's syncope. Continue monitoring the patient on telemetry. Continue current cardiac medications. Antibiotics per infectious disease. No further cardiac evaluation is indicated at this time. Thank you for this consult. We will continue to follow. Job#: [id number]
--- NOTE | 2017-11-19 14:22 | Diagnostic Imaging Report ---
EXAM: CT Abdomen and Pelvis WITHOUT contrast INDICATION: Pain/kidney stone COMPARISON: None. TECHNIQUE: Abdomen and Pelvis was scanned utilizing a multidetector helical scanner without the use of IV contrast. Coronal and sagittal reformations were obtained. IV CONTRAST: None COMPLICATIONS: None RADIATION DOSE: Total DLP: 716 mGy*cm Estimated effective dose: (DLP x 0.015 x size factor) mSv CTDIvol has been reviewed. It is below the limits set by the Radiation Protocol Committee (RPC). Appropriate CT dose reduction techniques were utilized. FINDINGS: Abdomen: Lung Bases: Linear and groundglass opacities lung bases, nonspecific. Statistically atelectasis. Moderate coronary artery calcifications partially visualized. Solid Organs: Tiny nonobstructing calculus left kidney proximally 2 mm. Nonenhanced images liver, adrenals, spleen, and pancreas unremarkable. Upper GI Tract: Decompressed stomach limits evaluation. No small bowel obstructive changes. Vascularity: Moderate aortic vascular calcifications with no aneurysm. Retroaortic left renal vein. Lymph Nodes: No suspicious adenopathy. Other: Diastases ventral abdominal wall with superimposed fat-containing umbilical hernia. Pelvis: Bladder: Decompressed with Jain catheter. Gas presumed procedural. Other: Uterus absent. Colon: Moderate rectal stool. Bones: Degenerative changes. IMPRESSION: 1. Nonobstructing 2 mm calculus left kidney. No hydronephrosis or ureteral calculi. 2. Other findings as above. Signed by: Dr. Demian Alberts MD on 11/16/2017 4:15 PM
[2017-11-19 16:13] VITALS: BP 135/76
--- NOTE | 2017-11-19 18:26 | Progress Note ---
DATE: INFECTIOUS DISEASE PROGRESS NOTE SUBJECTIVE: Ms. Ashton is doing well. There is no new complaint. I discussed with the at length I think the patient has bacteriuria. She is stable at present time. I would suggest to observe the patient clinically. She can use Hiprex 1 tab p.o. b.i.d. since she is concerned about the smell of the urine. Patient is going to the skilled care facility. She finished 3 days of IV antibiotic, and I think that is adequate for treating cystitis. Will follow with you. Job#: [id number] EV
== END 2017-11-19 17:33 | DRG 872 ==
LOC: ER 12:07 → OBSVTOIN 14:22 → ERHOLD 14:22 → MED/SURG3 15:00
PROVIDERS: ADMIT Internal Medicine Critical Care Medicine; ATTEND Internal Medicine Critical Care Medicine
DX: A41.89 Other specified sepsis (principal); N17.9 Acute kidney failure, unspecified; G20 Parkinson's disease; N95.2 Postmenopausal atrophic vaginitis; N20.0 Calculus of kidney; B96.1 Klebsiella pneumoniae [K. pneumoniae] as the cause of diseases classified elsewhere; B96.20 Unspecified Escherichia coli [E. coli] as the cause of diseases classified elsewhere; Z16.12 Extended spectrum beta lactamase (ESBL) resistance; R55 Syncope and collapse; N31.9 Neuromuscular dysfunction of bladder, unspecified; N39.46 Mixed incontinence; E66.9 Obesity, unspecified; Z68.36 Body mass index [BMI] 36.0-36.9, adult; E78.5 Hyperlipidemia, unspecified; K21.9 Gastro-esophageal reflux disease without esophagitis; I12.9 Hypertensive chronic kidney disease with stage 1 through stage 4 chronic kidney disease, or unspecified chronic kidney disease; N18.9 Chronic kidney disease, unspecified; E03.9 Hypothyroidism, unspecified; R33.9 Retention of urine, unspecified; K59.00 Constipation, unspecified; R26.81 Unsteadiness on feet; R53.81 Other malaise; R53.1 Weakness; Z98.1 Arthrodesis status; F41.9 Anxiety disorder, unspecified; Z88.1 Allergy status to other antibiotic agents; Z88.8 Allergy status to other drugs, medicaments and biological substances; S01.311A Laceration without foreign body of right ear, initial encounter; W18.11XA Fall from or off toilet without subsequent striking against object, initial encounter; Y93.9 Activity, unspecified; Y92.002 Bathroom of unspecified non-institutional (private) residence as the place of occurrence of the external cause; N30.20 Other chronic cystitis without hematuria
CPT/HCPCS: 36415; 51700; 70450; 71045; 72125; 74176; 80053; 81001; 82550; 82553; 82948; 84484; 85025; 85610; 85730; 87086; 87186; 90962; 93005; 93306; 93880; 97139; J0696; J1885; J2185; J7030

== ENCOUNTER → 2018-09-11 | Outpatient (CLI) | payer MEDICARE, BC ==
[~2018-09-11] MED LIST changes: +DEXILANT30 MG PO; +REGADENOSON 0.4 MG/5 ML SYR IV ONE
--- NOTE | 2018-09-18 13:38 | Myoview Stress Test ---
DATE OF STUDY: 09/11/2018 11:32:00 Stress Test - Treadmill ONLY PROCEDURE TITLE: Rest/stress single isotope SPECT imaging with pharmacologic stress and gated SPECT imaging. INDICATION: Chest pain. PROCEDURE IN DETAIL: Pharmacologic stress testing was performed with regadenoson per protocol. The heart rate was 86 beats per minute at rest and increased to 103 beats per minute during the regadenoson infusion. The rest blood pressure was 110/74 mmHg and decreased to 65/54 mmHg, which is a normal response. The resting electrocardiogram demonstrated normal sinus rhythm. There were no ST-segment changes suggestive of myocardial ischemia. Myocardial perfusion imaging was performed at rest following the injection of 11 mCi of tetrofosmin. At peak pharmacologic effect, the patient was injected with 29 mCi of tetrofosmin. Gated post-stress tomographic imaging was performed. FINDINGS: The overall quality of study is fair. Left ventricular cavity is noted to be normal size on the rest and stress studies. SPECT images demonstrate homogeneous tracer distribution throughout the myocardium. Gated SPECT imaging reveals normal myocardial thickening and wall motion. The left ventricular ejection fraction was calculated at 61%. IMPRESSION: Myocardial perfusion imaging is normal. Overall, left ventricular systolic function was normal without regional wall motion abnormalities. Hedy Bay MD ABS/MODL /[id number]
== END ==
LOC: NM 11:11
PROVIDERS: ATTEND Internal Medicine Cardiovascular Disease
DX: I20.8 Other forms of angina pectoris (principal); R07.9 Chest pain, unspecified
CPT/HCPCS: 78452; 93017; A9502; J2785

== ENCOUNTER → 2019-01-26 | Day surgery (SDC) | payer MEDICARE, BC ==
[2019-01-22 12:25] LABS: BASOPHILS % 0.4 % (0.0-1.0); EOSINOPHILS # (AUTO) 0.3 (0.0-0.4); EOSINOPHILS % 3.9 % (0.0-6.0); HEMATOCRIT 46.1 % (34.2-44.1); HEMOGLOBIN 14.1 g/dL (12.0-16.0); LYMPHOCYTES # (AUTO) 2.5 (1.0-3.2); LYMPHOCYTES % 30.9 % (18.0-39.1); MEAN CORPUSCULAR HEMOGLOBIN 24.7 pg (28-32); MEAN CORPUSCULAR HGB CONC 30.6 g/dL (31-35); MEAN CORPUSCULAR VOLUME 80.7 fL (81-99); MONOCYTES # (AUTO) 0.6 (0.2-0.8); MONOCYTES % 7.2 % (4.4-11.3); NEUTROPHILS # (AUTO) 4.7 (2.1-6.9); NEUTROPHILS % 57.4 % (38.7-80.0); PLATELET COUNT 266 x10e3/uL (140-360); RED BLOOD COUNT 5.71 x10e6/uL (3.6-5.1); RED CELL DISTRIBUTION WIDTH 14.3 % (11.7-14.4)
[~2019-01-26] MED LIST changes: +ACETAMINOPHEN325 M1 PO; +ACIDOPHILUS PR1 EAC1 PO; +ATORVASTATIN CA10 MG PO; +BACTRIM DS TAB1 EACH PO; +CARBIDOPA PO; +CIPRO500 MG PO; +CLARITIN-D 241 EACH PO; +COMBIVENT RESPIM4 GM IH; +DOCUSATE SODIU100 MG PO; +LACTULOSE20 GM/30 M PO; +LANSOPRAZOLE30 MG PO; +LASIX20 MG PO; +LEVODOPA PO; +MAALOX MAXIMUM355 ML RC; +MELATONIN3 M1 PO; +MULTI-VITAMIN1 EACH PO; +MUPIROCIN22 GM TOP; +NEOSTIGMINE 1 MG/ML 10ML VIAL ONE; +NEUPRO1 EAC1 TD; +PROPOFOL IV EMULSION 10 MG/ML 50 ML VIAL ONE; +PROPRANOLOL HCL10 MG PO; -REGADENOSON 0.4 MG/5 ML SYR IV ONE; +ROBITUSSIN COL237 ML PO; +SENNA LAX8.6 MG PO; +TRANSDERM-SCOP1 EACH TD; +[UNRECOGNIZED DRUG - OTHER] RC
--- OUTSIDE RECORDS SUMMARY | 2019-01-26 09:28 | XMS REPORT ---
Author Author [facility] Address Unknown Phone Unavailable Care Team Providers Care Copra Sampler Name Role Phone Amarilys VELASQUEZ Unavailable Unavailable KHADRA FONTANA Unavailable Unavailable Problems This patient has no known problems. Allergies, Adverse Reactions, Alerts This patient has no known allergies or adverse reactions. Medications This patient has no known medications. Encounters Start Date/Time End Date/Time Encounter Type Admission Type Attending Clinicians Care Facility Care Department Encounter ID 2018-10-02 05:53:00 Inpatient [facility] [id number] 2018-10-24 08:28:00 2018-10-24 08:28:00 Outpatient [facility] [id number] 2018-09-30 16:06:00 2018-09-30 16:06:00 Outpatient [facility] [id number] Results Test Description Test Time Test Comments Text Results Atomic Results Result Comments Stress Test - Treadmill ONLY 2018-09-18 12:07:00 [place] [address] Patient Name : DEWAYNE ROWE MR #: [id number] : 1950 Age/Sex: 68/F Adm Physician : CLAUS VELASQUEZ DO Admit Date : 09/11/18 Location : NE Room/Bed : REPORT: Myoview Stress Test DATE OF STUDY: 09/11/2018 11:32:00 Stress Test - Treadmill ONLY PROCEDURE TITLE: Rest/stress single isotope SPECT imaging with pharmacologic stress and gated SPECT imaging. INDICATION: Chest pain. PROCEDURE IN DETAIL: Pharmacologic stress testing was performed with regadenoson per protocol. The heart rate was 86 beats per minute at rest and increased to 103 beats per minute during the regadenoson infusion. The rest blood pressure was 110/74 mmHg and decreased to 65/54 mmHg, which is a normal response. The resting electrocardiogram demonstrated normal sinus rhythm. There were no ST-segment changes suggestive of myocardial ischemia. Myocardial perfusion imaging was performed at rest following the injection of 11 mCi of tetrofosmin. At peak pharmacologic effect, the patient was injected with 29 mCi of tetrofosmin. Gated post-stress tomographic imaging was performed. FINDINGS: The overall quality of study is fair. Left ventricular cavity is noted to be normal size on the rest and stress studies. SPECT images demonstrate homogeneous tracer distribution throughout the myocardium. Gated SPECT imaging reveals normal myocardial thickening and wall motion. The left ventricular ejection fraction was calculated at 61%. IMPRESSION: Myocardial perfusion imaging is normal. Overall, left ventricular systolic function was normal without regional wall motion abnormalities. Hedy Bya MD ABS/MARIELENA /[id number] Signature Date Dictated By: HEDY BAY MD Transcribed By: MARIELENA on 09/18/18 <Electronically signed by HEDY BAY MD><<Signature on File>>10/28/18 1255 COPY TO: CT ABDOMEN/PELVIS WO 2017-11-16 16:11:00 [place] [address] Patient Name: DEWAYNE ROWE MR #: [id number] : 1950 Age/Sex: 67/F Req #: [id number] Adm Physician: KHADRA FONTANA MD Ordered by: HOLLIE ELLIS MD Report #: [id number] Location: MED/SURG3 Room/Bed: [facility] Procedure: [id number] CT/CT ABDOMEN/PELVIS WO Exam Date: 11/16/17 Exam Time: 1540 REPORT STATUS: Signed EXAM: CT Abdomen and Pelvis WITHOUT contrast INDICATION: Pain/kidney stone COMPARISON: None. TECHNIQUE: Abdomen and Pelvis was scanned utilizing a multidetector helical scanner without the use of IV contrast. Coronal and sagittal reformations were obtained. IV CONTRAST: None COMPLICATIONS: None RADIATION DOSE: Total DLP: 716 mGy*cm Estimated effective dose: (DLP x 0.015 x size factor) mSv CTDIvol has been reviewed. It is below the limits set by the Radiation Protocol Committee (RPC). Appropriate CT dose reduction techniques were utilized. FINDINGS: Abdomen: Lung Bases: Linear and groundglass opacities lung bases, nonspecific. Statistically atelectasis. Moderate coronary artery calcifications partially visualized. Solid Organs: Tiny nonobstructing calculus left kidney proximally 2 mm. Nonenhanced images liver, adrenals, spleen, and pancreas unremarkable. Upper GI Tract: Decompressed stomach limits evaluation. No small bowel obstructive changes. Vascularity: Moderate aortic vascular calcifications with no aneurysm. Retroaortic left renal vein. Lymph Nodes: No suspicious adenopathy. Other: Diastases ventral abdominal wall with superimposed fat-containing umbilical hernia. Pelvis: Bladder: Decompressed with Jain catheter. Gas presumed procedural. Other: Uterus absent. Colon: Moderate rectal stool. Bones: Degenerative changes. IMPRESSION: 1. Nonobstructing 2 mm calculus left kidney. No hydronephrosis or ureteral calculi. 2. Other findings as above. Signed by: Dr. Demian Alberts MD on 11/16/2017 4:15 PM Dictated By: DEMIAN ALBERTS MD [id number] Transcribed By: JENNIFER on 11/16/17 1611 COPY TO: HOLLIE ELLIS MD CHEST SINGLE (PORTABLE) 2017-11-16 06:12:00 [facility] [address] [place] [address] Patient Name: DEWAYNE ROWE MR #: [id number] : 1950 Age/Sex: 67/F Req #: [id number] Adm Physician: KHADRA FONTANA MD Ordered by: KARAN VILLALBA NP Report #: [id number] Location: [facility]/SURG3 Room/Bed: [facility] Procedure: [id number] DX/CHEST SINGLE (PORTABLE) Exam Date: 11/16/17 Exam Time: 0535 REPORT STATUS: Signed EXAM: CHEST SINGLE (PORTABLE), AP 1 view INDICATION: Syncope COMPARISON: AP view of the chest November 07, 2017 FINDINGS: LINES/TUBES: None LUNGS: No consolidations or edema. Bibasilar subsegmental atelectasis. PLEURA: No effusions or pneumothorax. HEART AND MEDIASTINUM: Normal size and contour. BONES AND SOFT TISSUES: No acute findings. Lower cervical spine surgical hardware. IMPRESSION: Bibasilar subsegmental atelectasis. Signed by: Dr. Ryann Whitlock M.D. on 11/16/2017 6:13 AM Dictated By: RYANN WHITLOCK MD 2 Transcribed By: JENNIFER on 11/16/17612 COPY TO: KARAN VILLALBA NP CT BRAIN WO 2017-11-15 13:22:00 [place] [address] Patient Name: DEWAYNE ROWE MR #: [id number] : 1950 Age/Sex: 67/F Req #: [id number] Adm Physician: Ordered by: KARAN VILLALBA NP Report #: [id number] Location: Room/Bed: Procedure: [id number] CT/CT BRAIN WO Exam Date: 11/15/17 Exam Time: 1230 REPORT STATUS: Signed Exams: Head and cervical spine CTs without IV contrast History: Trauma, fall, syncope Comparison studies: Head CT 12/29/2015, cervical spine right of 02/21/2015, cervical spine CT 02/20/2015 and cervical spine x-ray 02/22/2015. Technique: Axial images were obtained from the brain and cervical spine. Coronal and sagittal images reconstructed from the axial data. Dose modulation, iterative reconstruction, and/or weight based adjustment of the mA/kV was utilized to reduce the radiation dose to as low as reasonably achievable. Intravenous contrast: None Findings: Head CT: Scalp: No abnormalities. Bones: No fractures, blastic or lytic lesions. Extra-axial spaces: No masses. No fluid collections. Brain sulci: Appropriate for age. Ventricles: Normal in size and configuration. No hydrocephalus. Parenchyma: No mass, acute hemorrhage or acute cortical vascular insults. Small chronic lacunar insults versus perivascular spaces in the bilateral subinsular regions. A few scattered subtle hypodensities in the supratentorial white matter are nonspecific most compatible with chronic microvascular ischemic changes. Sellar/suprasellar region: No abnormalities. Craniocervical junction: The foramen magnum is patent. No Chiari one malformation. Cervical spine CT: Fractures: None. Soft tissues: No gross abnormalities. Atlantoaxial articulation: Intact. Alignment: St raightened curvature. No subluxations. Cervicomedullary junction: No abnormalities. The foramen magnum is patent. Vertebrae: No infection or neoplasm. Postsurgical changes: Anterior cervical discectomy and fusion from C5 to C7 with anterior plate fixated via screws at C5 and at C7 without evidence of hardware failure or hardware loosening. Corpectomy changes at C6 with solid interbody fusion from C5 to C7. The left C5-C6 facets are partially fused. Degenerative changes: Small central C3-C4 disc protrusion indents the thecal sac without significant canal stenosis. Mildly degenerated C4-C5 disc with anterior bridging C4-C5 disc osteophyte complex. Mild bilateral C5- C6 and left C6-C7 foraminal stenosis due to uncovertebral arthrosis. Osteophyte complex at C5 and indents the thecal sac and results in mild central canal stenosis. Incidental findings: Atherosclerotic calcifications in the carotid siphons an at the left cervical carotid bulb. IMPRESSION: Head CT: 1. No acute abnormalities. 2. No changes from the previous head CT of 12/29/2015. 3. Mild chronic microvascular ischemic changes. 4. Chronic bilateral subinsular lacunar infarcts vs. prominent perivascular spaces. Cervical spine CT: 1. No cervical spine fracture or subluxation. 2. Surgical changes of C5-C7 ACDF and C6 corpectomy. 3. Degenerative changes as described. 4. Cannot adequately evaluate ligament, spinal cord and or vascular abnormalities on the basis of this examination. Signed by: Dr. Gloria Valles M.D. on 11/15/2017 1:45 PM Dictated By: GLORIA VALLES MD 1345 Transcribed By: JENNIFER on 11/15/17 1345 COPY TO: KARAN VILLALBA NP CT CERVICAL SPINE WO 2017-11-15 13:22:00 [place] [address] Patient Name: DEWAYNE ROWE MR #: [id number] : 1950 Age/Sex: 67/F Req #: [id number] Adm Physician: Ordered by: KARAN VILLALBA NP Report #: [id number] Location: ER Room/Bed: Procedure: [id number] CT/CT CERVICAL SPINE WO Exam Date: 11/15/17 Exam Time: 1230 REPORT STATUS: Signed Exams: Head and cervical spine CTs without IV contrast History: Trauma, fall, syncope Comparison studies: Head CT 12/29/2015, cervical spine right of 02/21/2015, cervical spine CT 02/20/2015 and cervical spine x-ray 02/22/2015. Technique: Axial images were obtained from the brain and cervical spine. Coronal and sagittal images reconstructed from the axial data. Dose modulation, iterative reconstruction, and/or weight based adjustment of the mA/kV was utilized to reduce the radiation dose to as low as reasonably achievable. Intravenous contrast: None Findings: Head CT: Scalp: No abnormalities. Bones: No fractures, blastic or lytic lesions. Extra-axial spaces: No masses. No fluid collections. Brain sulci: Appropriate for age. Ventricles: Normal in size and configuration. No hydrocep halus. Parenchyma: No mass, acute hemorrhage or acute cortical vascular insults. Small chronic lacunar insults versus perivascular spaces in the bilateral subinsular regions. A few scattered subtle hypodensities in the supratentorial white matter are nonspecific most compatible with chronic microvascular ischemic changes. Sellar/suprasellar region: No abnormalities. Craniocervical junction: The foramen magnum is patent. No Chiari one malformation. Cervical spine CT: Fractures: None. Soft tissues: No gross abnormalities. Atlantoaxial articulation: Intact. Alig nment: Straightened curvature. No subluxations. Cervicomedullary junction: No abnormalities. The foramen magnum is patent. Vertebrae: No infection or neoplasm. Postsurgical changes: Anterior cervical discectomy and fusion from C5 to C7 with anterior plate fixated via screws at C5 and at C7 without evidence of hardware failure or hardware loosening. Corpectomy changes at C6 with solid interbody fusion from C5 to C7. The left C5-C6 facets are partially fused. Degenerative changes: Small central C3-C4 disc protrusion indents the thecal sac without significant canal stenosis. Mildly degenerated C4-C5 disc with anterior bridging C4-C5 disc osteophyte complex. Mild bilateral C5- C6 and left C6-C7 foraminal stenosis due to uncovertebral arthrosis. Osteophyte complex at C5 and indents the thecal sac and results in mild central canal stenosis. Incidental findings: Atherosclerotic calcifications in the carotid siphons an at the left cervical carotid bulb. IMPRESSION: Head CT: 1. No acute abnormalities. 2. No changes from the previous head CT of 12/29/2015. 3. Mild chronic microvascular ischemic changes. 4. Chronic bilateral subinsular lacunar infarcts vs. prominent perivascular spaces. Cervical spine CT: 1. No cervical spine fracture or subluxation. 2. Surgical changes of C5-C7 ACDF and C6 corpectomy. 3. Degenerative chowdhury es as described. 4. Cannot adequately evaluate ligament, spinal cord and or vascular abnormalities on the basis of this examination. Signed by: Dr. Gloria Valles M.D. on 11/15/2017 1:45 PM Dictated By: GLORIA VALLES MD 1345 Transcribed By: JENNIFER on 11/15/17 1345 COPY TO: KARAN VILLALBA NP CHEST SINGLE (PORTABLE) 2017-11-15 13:21:00 [place] [address] Patient Name: DEWAYNE ROWE MR #: [id number] : 1950 Age/Sex: 67/F Req #: [id number] Adm Physician: Ordered by: KARAN VILLALBA NP Report #: [id number] Location: ER Room/Bed: Procedure: [id number] DX/CHEST SINGLE (PORTABLE) Exam Date: Exam Time: REPORT STATUS: Signed Examination: Single AP view of the chest. COMPARISON: None. INDICATION: Fall DISCUSSION: Lines/tubes: None. Lungs: Low lung volumes with crowding of the vasculature. Pleura: There is no pleural effusion or pneumothorax. Heart and mediastinum: Cardiomegaly. Bones and soft tissues: No acute bony abnormalities. IMPRESSION: Cardiomegaly without decompensation. Signed by: Dr. Estelle Dao M.D. on 11/15/2017 1:22 PM Dictated By: ESTELLE DAO MD 21 Transcribed By: JENNIFER on 11/15/171321 COPY TO: KARAN VILLALBA NP SHOULDER RIGHT COMPLETE 2017-11-15 13:12:00 [place] [address] Patient Name: DEWAYNE ROWE MR #: [id number] : 1950 Age/Sex: 67/F Req #: [id number] Adm Physician: Ordered by: KARAN VILLALBA NP Report #: [id number] Location: ER Room/Bed: Procedure: [id number] DX/SHOULDER RIGHT COMPLETE Exam Date: Exam Time: REPORT STATUS: Signed Exam: right shoulder 2 views History: pain Comparison: None. Findings: No acute fracture or malalignment. Remote healed fracture of the distal clavicle. Joint spaces preserved. No abnormal soft tissue calcification or soft tissue defect. Impression: No acute osseous abnormality Signed by: Dr. Estelle Dao M.D. on 11/15/2017 1:21 PM Dictated By: ESTELLE DAO MD 20 Transcribed By: JENNIFER on 11/15/171320 COPY TO: KARAN VILLALBA NP KNEE RIGHT THREE VIEWS 2017-11-15 13:06:00 [place] [address] Patient Name: DEWAYNE ROWE MR #: [id number] : 1950 Age/Sex: 67/F Req #: [id number] [facility] Physician: Ordered by: KARAN VILLALBA NP Report #: [id number] Location: ER Room/Bed: Procedure: [id number] DX/KNEE RIGHT THREE VIEWS Exam Date: Exam Time: REPORT STATUS: Signed Exam: Right knee 3 views History: pain Comparison: None. Findings: No fracture or malalignment. Mild degenerative arthrosis. No abnormal soft tissue calcification or soft tissue defect. Impression: No acute osseous abnormality Signed by: Dr. Estelle Dao M.D. on 11/15/2017 1:10 PM Dictated By: ESTELLE DAO MD 131 Transcribed By: JENNIFER on 11/15/17 131 COPY TO: KARAN VILLALBA NP
[2019-01-26 12:35] VITALS: BP 100/59
--- NOTE | 2019-01-26 16:57 | Operative Report ---
DATE OF PROCEDURE: 01/26/2019 SURGEON: Saulo Bhakta MD PROCEDURES: EGD with biopsies and a PEG tube removal. INDICATIONS FOR PROCEDURE: Status post PEG tube insertion, the patient now swallowing well. She is in for an EGD and tube removal. MEDICATIONS: The patient was done under MAC, please see anesthesiologist's note. PROCEDURE IN DETAIL: With the patient in the supine position, the flexible fiberoptic Olympus gastroscope was introduced into the esophagus under direct visualization without any difficulty. There was some patchy erythema noted in distal esophagus. The scope was then advanced with ease into the stomach traversing a small sliding hiatal hernia. The mucosa overlying the antrum and the body revealed some diffuse erythema and [id number] edema, and biopsies were obtained and sent to stain for H. pylori. Pylorus was of normal contour and shape. It was intubated with ease and the scope was advanced all the way to the second portion of the duodenum. The scope was then withdrawn slowly. Mucosa overlying the proximal second portion and duodenal bulb appeared to be within normal limits. The scope was then withdrawn back into the stomach and retroflexed. Mucosa overlying the fundus and the cardia appeared to be within normal limits. The scope was then straightened out. G-tube was then removed and pulled in the usual pull traction method. The scope was subsequently withdrawn and the patient tolerated the procedure well. IMPRESSION: 1. Distal esophagitis, mild. 2. Small sliding hiatal hernia. 3. Gastritis, biopsied, biopsies sent to stain for Helicobacter pylori. 4. PEG tube removed per the pull traction method. The patient tolerated the procedure well. PLAN: Follow up histology. Initiate Protonix 40 mg 1 p.o. q.a.m. before meals. Dietary instructions given. MD JERMAINE Ghosh/MARIELENA /[id number] cc: Jose Ramon White
== END | disposition home or self-care (01) ==
LOC: OR 09:08
PROVIDERS: ATTEND Internal Medicine Gastroenterology
DX: Z43.1 Encounter for attention to gastrostomy (principal); K21.9 Gastro-esophageal reflux disease without esophagitis; K59.00 Constipation, unspecified; Z88.1 Allergy status to other antibiotic agents; G20 Parkinson's disease; E78.5 Hyperlipidemia, unspecified; E55.9 Vitamin D deficiency, unspecified; I10 Essential (primary) hypertension; K20.9 Esophagitis, unspecified; K29.70 Gastritis, unspecified, without bleeding; K44.9 Diaphragmatic hernia without obstruction or gangrene; Z01.810 Encounter for preprocedural cardiovascular examination; Z01.812 Encounter for preprocedural laboratory examination
CPT/HCPCS: 36415; 43239; 43247; 85025; 88305; 88312; 93005; J2704; J2710; 43246

== ENCOUNTER 2019-04-07 09:56 | Inpatient (IN) | payer MEDICARE, BC ==
[~2019-04-07] VITALS: Ht 154.9 cm; Wt 74.4 kg
[~2019-04-07 09:56] MED LIST changes: -NEOSTIGMINE 1 MG/ML 10ML VIAL ONE; -PROPOFOL IV EMULSION 10 MG/ML 50 ML VIAL ONE
[2019-04-07] MEDS ORDERED: SODIUM CHLORIDE 0.9% 1000ML 1,000 ML IV STA ×4 (10:00→16:28)
[2019-04-07] MEDS ORDERED: ACETAMINOPHEN 325 MG TAB PO STA (10:00)
[2019-04-07 10:46] LABS: BASOPHILS % 0.2 % (0.0-1.0); EOSINOPHILS % 0.5 % (0.0-6.0); HEMATOCRIT 38.3 % (34.2-44.1); HEMOGLOBIN 12.1 g/dL (12.0-16.0); LYMPHOCYTES # (AUTO) 1.7 (1.0-3.2); LYMPHOCYTES % 20.3 % (18.0-39.1); MEAN CORPUSCULAR HEMOGLOBIN 25.9 pg (28-32); MEAN CORPUSCULAR HGB CONC 31.6 g/dL (31-35); MEAN CORPUSCULAR VOLUME 81.8 fL (81-99); MONOCYTES % 12.3 % (4.4-11.3); NEUTROPHILS # (AUTO) 5.6 (2.1-6.9); NEUTROPHILS % 66.5 % (38.7-80.0); PLATELET COUNT 161 x10e3/uL (140-360); RED BLOOD COUNT 4.68 x10e6/uL (3.6-5.1); RED CELL DISTRIBUTION WIDTH 15.2 % (11.7-14.4)
[2019-04-07 11:04] LABS: ALBUMIN 3.3 g/dL (3.5-5.0); ALBUMIN/GLOBULIN RATIO 1.1 (0.8-2.0); ALKALINE PHOSPHATASE 53 IU/L (40-150); ANION GAP 14.3 mmol/L (8-16); BLOOD UREA NITROGEN 16 mg/dL (7-26); BUN/CREATININE RATIO 16 (6-25); CALCIUM 9.2 mg/dL (8.4-10.2); CARBON DIOXIDE 23 mmol/L (22-29); CHLORIDE 105 mmol/L (98-107); CREATINE KINASE 37 IU/L (29-168); CREATININE, SERUM 1.03 mg/dL (0.57-1.11); EST GLOMERULAR FILTRATION RATE 53 ML/MIN (60-); GLUCOSE 111 mg/dL (74-118); POTASSIUM 4.3 mmol/L (3.5-5.1); SODIUM 138 mmol/L (136-145)
[2019-04-07] MEDS: PIPER-TAZ 3.375 GM 50 ML IV SCH ×3 (11:09→23:45)
[2019-04-07 11:14] LABS: B-TYPE NATRIURETIC PEPTIDE2 14.9 pg/mL (0-100)
--- NOTE | 2019-04-07 11:16 | Diagnostic Imaging Report ---
EXAMINATION: CHEST 2 VIEWS INDICATION: Fever COMPARISON: Chest radiograph 11/15/2017 FINDINGS: LINES/TUBES:Implanted device in the anterior left chest with leads extending cranially. LUNGS:The lungs are moderately inflated. There is perihilar fullness and indistinctness of the pulmonary vasculature. No focal consolidation. PLEURA:No pleural effusion or pneumothorax. MEDIASTINUM:The cardiomediastinal silhouette appears normal in size and shape. Atherosclerotic calcifications of the thoracic aorta. BONES/SOFT TISSUES:No acute osseous injury. Cervical spine fusion hardware. ABDOMEN:No free air under the diaphragm. IMPRESSION: Mild pulmonary interstitial edema. No focal pneumonia. Signed by: Jordana Girard MD on 04/07/2019 11:14 AM
[2019-04-07 11:22] LABS: ALANINE AMINOTRANSFERASE < 6 IU/L (0-55)
[2019-04-07] MEDS ORDERED: ACETAMINOPHEN 325 MG TAB PO PRN (12:15)
[2019-04-07] MEDS ORDERED: LEVALBUTEROL HCL SOLN NEBU 0.63 MG/3 ML NEB INH PRN (15:30)
[2019-04-07 18:05] LABS: BILIRUBIN,URINE NEGATIVE (NEGATIVE); CLARITY,URINE CLEAR (CLEAR); COLOR,URINE YELLOW (YELLOW); KETONES,URINE NEGATIVE (NEGATIVE); LEUKOCYTE ESTERASE ,URINE NEGATIVE (NEGATIVE); NITRITE,URINE NEGATIVE (NEGATIVE); PROTEIN,URINE DIPSTICK NEGATIVE (NEGATIVE); URINE UROBILINOGEN 0.2 mg/dL (0.2 - 1)
[2019-04-07 18:16] LABS: BACTERIA,URINE FEW /HPF; EPITHELIAL CELLS,URINE MODERATE /LPF
[2019-04-07 18:56] LABS: CREATINE KINASE 78 IU/L (29-168)
[2019-04-07] MEDS: LEVALBUTEROL HCL SOLN NEBU 0.63 MG/3 ML NEB INH SCH (19:05)
--- NOTE | 2019-04-07 20:00 | NUR ---
PATIENT'S REPORTED THAT HE GAVE PATIENT LOVASTATIN 20 MG TAB PO AND WILL CONTINUE HER HOME MEDICATIONS UNTIL THEY ARE RESTARTED BY ATTENDING MD. ALSO REPORTS THAT HE HELD THE PATEINT'S USUALLY SCHEDULED PROPANOLOL DUE TO EPISODES OF LOW BP UPON ARRIVAL TO THE ED.
--- NOTE | 2019-04-07 23:15 | NUR ---
PATIENT'S HAS ELECTED TO ADMINISTER PATIENT'S HOME MEDS UNTIL THEY ARE CONTINUED IN eMAR BY ATTENDING MD. ADMINISTERED PATIENT'S NIGHTTIME MEDS, CARBIDOPA/LEVODOPA ER 50-200 TAB AND COLACE 100 MG PO. PATIENT TOLERATED WITHOUT ANY C/O OR S/S DISTRESS.
[2019-04-08] VITALS (7 sets, daily range): BP systolic 96–187; BP diastolic 56–92
[2019-04-08] MEDS: LEVALBUTEROL HCL SOLN NEBU 0.63 MG/3 ML NEB INH SCH ×4 (01:15→20:30)
[2019-04-08] MEDS ORDERED: COLACE100 MG PO (01:25)
[2019-04-08] MEDS ORDERED: CARBIDOPA-LEVO1 EAC4 PO (01:25)
[2019-04-08] MEDS ORDERED: METHENAMINE HIPP1 GM PO (01:25)
--- NOTE | 2019-04-08 03:03 | NUR ---
SBAR REPORT RECEIVED BY CHEMICALS DISTILLER, PATIENT PENDING ARRIVAL TO THE FLOOR, ADVISED PT IS AOX3, BEDBOUND, WITH IV ACCESS IN RIGHT AND LEFT ARM, PATENT FLUSHING WELL, HX OF PARKINSONS WITH SLOW SLURRED SPEECH, COMING VIA BED TO FLOOR PENDING ARRIVAL
[2019-04-08 03:49] LABS: CREATINE KINASE 230 IU/L (29-168)
--- NOTE | 2019-04-08 03:50 | NUR ---
PATIENT ORIENTED TO THE ROOM AND STAFF, AWAKE ALERT, ORIENTED x 3, SLURRED-SLOW SPEECH, BUT ABLE TO MAKE NEEDS KNOWN, NO FAMILY AT BEDSIDE, STATES " KNOWS" MEDICAL INFORMATION, ORIENTED TO CALL LIGHT USE, ABLE TO CALL FOR ASSISTANCE, PLACED WITHIN REACH, IV ABT PENDING 0400
[2019-04-08] MEDS: PIPER-TAZ 3.375 GM 50 ML IV SCH ×4 (04:32→22:07)
--- NOTE | 2019-04-08 04:33 | NUR ---
PATIENT WORDS ARE SLURRED ONLY ABLE TO UNDERSTAND PARTIAL COMMUNICATION, SIMPLE PHRASES, CALLED AT NUMBER GIVEN BY PATIENT, GOOD HISTORIAN ABLE TO REPORT, HX OF PARKINSON'S, HTN, HYPERLIPIDEMIA, CARDIOMEGALY, DVS(DEEP VEIN STIMULUS IMPLANT),SX HX OF HYSTERECTOMY, , PEG TUBE PLACEMENT(PREVIOUS REMOVED ONE MONTH PRIOR TO ADMISSION), HX OF CONSTIPATION REPORTS LBM OVER 5 DAYS AGO, WILL MAKE MD AWARE, INFORMED ME OF PATIENT CARBIDOPA/LEVODOPA 25-100 QID GIVEN AT 0700, 0930, 1200, AND 1630. DIFFERENT DOSE OF MEDICATION GIVEN AT NIGHT PATIENT STATES HE WILL COME IN THIS MORNING TO GO OVER MEDICATION
[2019-04-08 05:35] LABS: BASOPHILS % 0.2 % (0.0-1.0); EOSINOPHILS # (AUTO) 0.1 (0.0-0.4); EOSINOPHILS % 0.9 % (0.0-6.0); HEMATOCRIT 38.2 % (34.2-44.1); HEMOGLOBIN 11.9 g/dL (12.0-16.0); LYMPHOCYTES # (AUTO) 1.8 (1.0-3.2); LYMPHOCYTES % 19.7 % (18.0-39.1); MEAN CORPUSCULAR HEMOGLOBIN 25.7 pg (28-32); MEAN CORPUSCULAR HGB CONC 31.2 g/dL (31-35); MEAN CORPUSCULAR VOLUME 82.5 fL (81-99); MONOCYTES # (AUTO) 0.8 (0.2-0.8); MONOCYTES % 9.1 % (4.4-11.3); NEUTROPHILS # (AUTO) 6.4 (2.1-6.9); NEUTROPHILS % 69.9 % (38.7-80.0); PLATELET COUNT 158 x10e3/uL (140-360); RED BLOOD COUNT 4.63 x10e6/uL (3.6-5.1); RED CELL DISTRIBUTION WIDTH 15.1 % (11.7-14.4)
[2019-04-08 06:05] LABS: ALANINE AMINOTRANSFERASE 9 IU/L (0-55); ALBUMIN 3.2 g/dL (3.5-5.0); ALBUMIN/GLOBULIN RATIO 1.1 (0.8-2.0); ALKALINE PHOSPHATASE 51 IU/L (40-150); ANION GAP 13.2 mmol/L (8-16); BLOOD UREA NITROGEN 13 mg/dL (7-26); BUN/CREATININE RATIO 14 (6-25); CALCIUM 8.2 mg/dL (8.4-10.2); CARBON DIOXIDE 21 mmol/L (22-29); CHLORIDE 110 mmol/L (98-107); CREATININE, SERUM 0.91 mg/dL (0.57-1.11); EST GLOMERULAR FILTRATION RATE > 60 ML/MIN (60-); GLUCOSE 104 mg/dL (74-118); POTASSIUM 4.2 mmol/L (3.5-5.1); SODIUM 140 mmol/L (136-145)
[2019-04-08] MEDS: SCOPOLAMINE 1.5 MG PATCH TD SCH (12:43)
[2019-04-08] MEDS: PROPRANOLOL HCL 10 MG TAB PO SCH ×2 (12:43→16:55)
--- NOTE | 2019-04-08 13:00 | NUR ---
wound care visited patient and new care orders received.
--- NOTE | 2019-04-08 14:08 | NUR ---
WOUND CARE CONSULT FOR 69 YO FEMALE HX OF PNEUMONIA SARAH 9 ON STRICT PUP STATUS AND INTERVENTIONS AND ALTERNATING PRESSURE MATTRESS LABS: WBC-9.13 HGB_11.9 GLUCOSE-104 SKIN ASSESSMENT COMPLETE PATIENT PRESENTS WITH SACRAL PRESSURE INJURY STAGE 1 AREA SURROUNDING .5CM X.5CMX.1 CM STAGE 2 ULCER RECOMMENDATIONS: NURSING TO CONTINUE TO MAINTAIN STRICT PUP STATUS AND INTERVENTIONS AND ALTERNATING PRESSURE MATTRESS NURSING TO CONTINUE TO ASSIST PATIENT OUT OF BED FOR MEALS AND MUCH TOLERATED NURSING TO CONTINUE TO ASSIST PATIENT NEEDED WITH MEALS AND NUTRITIONAL SUPPLEMENTS TO ENSURE PROPER REQUIREMENTS FOR HEALING NURSING TO CONTINUE TO OFFLOAD FEET AND HEELS NEEDED WITH PILLOW SUSPENSION WHEN IN BED NURSING TO CLEAN SACRAL STAGE 2 WITH NORMAL SALINE DAILY AND APPLY VENELEX OINTMENT AND ALLEVYN FOAM DRESSING Addendum: 04/08/19 at 1414 by Tomer Gr RN Amended: Links added.
--- NOTE | 2019-04-08 14:58 | NUR ---
Nutrition Screen Note RD Recommendation for Physician: - Continue current diet per MD/NEEDLE CONTROL CHENILLER - Assist with meals Plan of Care: RD following, monitoring for tolerance and adequacy Nutrition reason for involvement: Nutrition Risk Trigger- MST2 Primary Diagnose(s): pneumonia PMH: (per RN notes, no H&P available) parkinson's, HTN, HLD, constipation, PEG (removed over a month ago per ) Ht: 61 in Wt: 174.05 lb BMI: 32.9 kg/m2 IBW: [address] Assessment: (04/08) 69 YOF admitted for pneumonia. Pt seen today per MST screen. Pt unable to provided hx, pt's at bedside reports good appetite and intake [employer]. He reports pt passed her MBS and the PEG was removed over a month ago, he reports she does well with a regular textured diet and denies any difficulty chewing or swallowing, however needs feeding assistance. Pt's reports baseline constipation with BM every 3-5 days, he reports there is a plan for an enema today. with no questions or concerns at time of visit. Chart reviewed. Labs and meds reviewed. Will continue to monitor. Current Diet: Cardiac Malnutrition Evaluation (04/08/19) The patient does not meet criteria for a specified degree of malnutrition at this time. Will re-evaluate at follow-up as appropriate. Energy intake: good po intake reported Weight loss: no wt loss reported Fat loss: none, ample skinfold thickness Muscle loss: none, shoulder round, clavicle not visible Supporting Evidence: Fluid accumulation: none observed Functional Status: not assessed Diet Education Needs Assessment: Diet education not indicated. Diet tolerance: tolerating po Nutrition Care Level: low Signed: Madeleine Crowder RD, LD, [facility]
[2019-04-08] MEDS: CARBIDOPA/LEVODOPA 25/100 TAB PO SCH (16:30)
[2019-04-08] MEDS: (Methenamine Hippurate 1 GM) PO SCH (16:49)
[2019-04-08] MEDS ORDERED: PROPRANOLOL HCL 20 MG PO SCH (17:00)
--- NOTE | 2019-04-08 20:30 | NUR ---
PATIENT ADVISED ME THAT PATIENT SCRIPT FOR PROPRANOLOL WAS REFILLED AT HOME PHARMACY, AND HE THE DOSE WAS INCREASED, HAS THE MEDICATION WITH HIM,
[2019-04-08] MEDS ORDERED: NON-FORMULARY MEDICATION (Lovastatin 20 MG) PO SCH (21:00)
[2019-04-08] MEDS ORDERED: CARBIDOPA PO SCH (21:00)
[2019-04-08] MEDS ORDERED: LEVODOPA PO SCH (21:00)
--- NOTE | 2019-04-08 22:02 | Consultation ---
DATE OF CONSULTATION: 04/08/2019 REASON FOR CONSULTATION: Sepsis, UTI, pneumonia. HISTORY OF PRESENT ILLNESS: This is a patient who is a very pleasant and well known to me, 69-year-old white female, who has a history of Parkinson disease pretty severe, history of aspiration pneumonia, history of recurrent UTI. She was recently in a skilled care facility. The patient comes in with fever and chills for 2 days, altered mental status for 2 days. The patient is known to have history of UTI and she is on suppressive treatment, Hiprex as an outpatient. Her at the bedside, who is very knowledgeable and caring. I have met her a couple of times in my office also before. She does have a history of recurrent UTI, anxiety, essential tremor, Parkinson disease, neurogenic bladder. PAST SURGICAL HISTORY: , total hysterectomy, appendectomy, stent placement, urethra, cervical spine fusion. FAMILY HISTORY: Significant for cancer. SOCIAL HISTORY: There is no smoking, drug abuse, or alcohol abuse. FAMILY HISTORY: As above. ALLERGIES: DYAZIDE. REVIEW OF SYSTEMS: GENERAL: She is currently alert. She seems to be more alert according to the . After she came here, her fever came down. She has a Jain catheter. She did have a feeding tube, which was removed. Apparently, she did have some aspiration, but she got better. LABORATORY DATA: White count 8.37, hemoglobin 12. Her sodium is 141, potassium 4.2 with creatinine 0.9. REVIEW OF SYSTEMS: All other symptoms within normal limits at the present time. LABORATORY DATA: Reviewed. MEDICATION LIST: At the present time, she is on: 1. Xopenex. 2. Adderall. 3. Scopolamine. 4. Zosyn. 5. Melatonin. She had a chest x-ray, which showed interstitial infiltrate. PHYSICAL EXAMINATION: GENERAL: She is currently alert, follows commands. VITAL SIGNS: T-max 101.5. HEENT: Normocephalic. NECK: Supple. CHEST: A few crackles. COR: S1 and S2. No S3, S4, or murmur. ABDOMEN: Soft. Bowel sounds present. No tenderness. EXTREMITIES: No edema. SKIN: No rash. IMPRESSION: 1. Sepsis, present on admission. 2. Fever. Agree with Zosyn. Await culture. We will follow. MD ANISA Perez/MARIELENA /[id number]
[2019-04-08] MEDS: SIMVASTATIN 20 MG TAB PO SCH (22:07)
[2019-04-08] MEDS: CARBIDOPA/LEVODOPA 25/100 CR TAB PO SCH (22:07)
[2019-04-08] MEDS: MELATONIN 5 MG TABLET PO SCH (22:07)
[2019-04-08] MEDS: DOCUSATE SODIUM 100 MG CAP PO SCH (22:07)
[2019-04-09] VITALS (10 sets, daily range): BP systolic 81–142; BP diastolic 49–79
[2019-04-09] MEDS: LEVALBUTEROL HCL SOLN NEBU 0.63 MG/3 ML NEB INH SCH ×4 (02:00→20:00)
[2019-04-09] MEDS: PIPER-TAZ 3.375 GM 50 ML IV SCH ×2 (03:27→09:09)
[2019-04-09] MEDS: CARBIDOPA/LEVODOPA 25/100 TAB PO SCH ×3 (06:30→16:50)
[2019-04-09] MEDS: (Methenamine Hippurate 1 GM) PO SCH ×2 (06:48→16:50)
--- NOTE | 2019-04-09 07:02 | NUR ---
BSSR GIVEN TO SILVIA MANCUSO, UPDATED WITH PATIENT VITALS OVERNIGHT AND PLAN OF CARE, PATIENT CURRENTLY STABLE, Q2T, ALERT, SPEECH SLOW & SLURRED AT TIMES, BUT ABLE TO MAKE NEEDS KNOWN, HX OF PARKINSONS, CALL LIGHT WITHIN REACH
[2019-04-09] MEDS: LACTOBACILLUS ACIDOPHILUS CAPSULE PO SCH (08:37)
[2019-04-09] MEDS: MULTIVITAMINS/MINERALS TAB PO SCH (08:37)
[2019-04-09] MEDS: RASAGILINE 1 MG TAB PO SCH (08:40)
[2019-04-09] MEDS: PROPRANOLOL HCL 10 MG TAB PO SCH ×2 (08:43→16:50)
[2019-04-09] MEDS ORDERED: MELATONIN 3 MG TAB PO SCH (09:00)
[2019-04-09] MEDS ORDERED: [UNRECOGNIZED DRUG - MIXTURE] PO SCH (09:00)
[2019-04-09] MEDS: DOCUSATE SODIUM 100 MG CAP PO SCH ×2 (09:00→22:58)
[2019-04-09] MEDS: BALSAM PERU/CASTOR OIL 60 GM OINT...G. TP SCH (09:07)
[2019-04-09] MEDS: CEFTRIAXONE SOD 1 GM/NS 50 ML 50 ML IV SCH (12:37)
[2019-04-09] MEDS: DEXTROSE 5%/0.225% SOD CHL 1,000 ML IV SCH ×2 (13:14→18:43)
--- NOTE | 2019-04-09 18:23 | NUR ---
paged an hour ago for patients family complaint that patient has not had a bm for 11 days. Abd is large, active bowel sounds, not tender. rectal vault is empty per digital stimulation, with no results. MD repaged endy escobar
--- NOTE | 2019-04-09 19:08 | NUR ---
called again for Dr. Bhakta, 3rd call, ans service attempting to contact directly while I am on hold...... came to phone and states he gave gisela the order
[2019-04-09] MEDS ORDERED: LACTULOSE SYRUP 20 GM/30 ML UDC PO PRN (19:30)
[2019-04-09] MEDS: MELATONIN 5 MG TABLET PO SCH (22:58)
[2019-04-09] MEDS: CARBIDOPA/LEVODOPA 25/100 CR TAB PO SCH (22:58)
[2019-04-09] MEDS: SIMVASTATIN 20 MG TAB PO SCH (22:58)
[2019-04-10] VITALS (10 sets, daily range): BP systolic 94–133; BP diastolic 55–81
[2019-04-10] MEDS: LEVALBUTEROL HCL SOLN NEBU 0.63 MG/3 ML NEB INH SCH ×4 (01:30→19:00)
[2019-04-10] MEDS: DEXTROSE 5%/0.225% SOD CHL 1,000 ML IV SCH ×3 (04:16→19:15)
[2019-04-10] MEDS: CARBIDOPA/LEVODOPA 25/100 TAB PO SCH ×3 (05:54→16:30)
[2019-04-10] MEDS: (Methenamine Hippurate 1 GM) PO SCH ×2 (09:00→14:44)
[2019-04-10] MEDS: RASAGILINE 1 MG TAB PO SCH (09:00)
[2019-04-10] MEDS: DOCUSATE SODIUM 100 MG CAP PO SCH ×2 (10:34→21:03)
[2019-04-10] MEDS: MULTIVITAMINS/MINERALS TAB PO SCH (10:35)
[2019-04-10] MEDS: PROPRANOLOL HCL 10 MG TAB PO SCH ×2 (10:35→16:42)
[2019-04-10] MEDS: LACTOBACILLUS ACIDOPHILUS CAPSULE PO SCH (10:35)
[2019-04-10] MEDS: BALSAM PERU/CASTOR OIL 60 GM OINT...G. TP SCH ×2 (10:35→21:30)
[2019-04-10] MEDS ORDERED: SOD PHOSPHATE/SOD BIPHOSPHATE ENEMA 132 ML BTL PR ONE (10:45)
[2019-04-10] MEDS: CEFTRIAXONE SOD 1 GM/NS 50 ML 50 ML IV SCH (14:43)
--- NOTE | 2019-04-10 15:05 | NUR ---
Received patient from [facility], alert and appears slightly confused, history of parkinson's disease, transfer RN giving patient enema at this time, IV fluids in place running, no distress but some audible wheezing noted, call light within reach, will monitor.
--- NOTE | 2019-04-10 15:15 | NUR ---
OBTAINED CHOICE FILED IN CHART, CONTACTED FACILITY AND FAXED CLINICALS
--- NOTE | 2019-04-10 16:24 | NUR ---
Patient had a medium formed stool after administration of enema, repositioned to side
--- NOTE | 2019-04-10 19:00 | NUR ---
WALKING ROUNDS PERFORMED, RECEIVED PT LAYING FOWLERS IN BED, AAOX3, RR EVEN AND NON-LABORED, ON ROOM AIR. NO S/SX OF DISTRESS NOTED. FAMILY AT BEDSIDE. LEFT PT LAYING FOWLERS IN BED, BED IN LOW LOCKED POSITION, SDIE RAILS UPX2, CALL LIGHT AND PHONE WITHIN REACH.
--- NOTE | 2019-04-10 21:00 | NUR ---
APPLIED ALTERNATING AIR PRESSURE PUMP TO MATTRESS FOR PUP.
[2019-04-10] MEDS: CARBIDOPA/LEVODOPA 25/100 CR TAB PO SCH (21:03)
[2019-04-10] MEDS: SIMVASTATIN 20 MG TAB PO SCH (21:03)
[2019-04-10] MEDS: MELATONIN 5 MG TABLET PO SCH (21:03)
--- NOTE | 2019-04-10 21:30 | NUR ---
CLEANSED SACRAL WOUND WITH SOAP AND WATER. PAT DRIED. APPLIED VENELEX AND ALLEVYN TO COVER.
[2019-04-11] VITALS (8 sets, daily range): BP systolic 100–160; BP diastolic 57–78
[2019-04-11] MEDS: LEVALBUTEROL HCL SOLN NEBU 0.63 MG/3 ML NEB INH SCH ×4 (00:35→19:50)
[2019-04-11] MEDS: DEXTROSE 5%/0.225% SOD CHL 1,000 ML IV SCH ×2 (00:42→10:43)
[2019-04-11] MEDS: CARBIDOPA/LEVODOPA 25/100 TAB PO SCH ×3 (06:37→15:32)
--- NOTE | 2019-04-11 07:00 | NUR ---
RECEIVED PATIENT RESTING IN BED NO S/S OF DISTRESS. BED LOW, WHEELS LOCKED, SIDE RAILS X2. CALL LIGHT IN REACH WILL CONTINUE TO MONITOR PATIENT.
[2019-04-11] MEDS: MULTIVITAMINS/MINERALS TAB PO SCH (08:27)
[2019-04-11] MEDS: LACTOBACILLUS ACIDOPHILUS CAPSULE PO SCH (08:27)
[2019-04-11] MEDS: (Methenamine Hippurate 1 GM) PO SCH ×2 (08:27→16:06)
[2019-04-11] MEDS: DOCUSATE SODIUM 100 MG CAP PO SCH ×2 (08:27→20:25)
[2019-04-11] MEDS: RASAGILINE 1 MG TAB PO SCH (08:27)
[2019-04-11] MEDS: PROPRANOLOL HCL 10 MG TAB PO SCH ×2 (08:27→17:27)
[2019-04-11] MEDS: BALSAM PERU/CASTOR OIL 60 GM OINT...G. TP SCH (10:33)
--- NOTE | 2019-04-11 11:30 | NUR ---
PATIENT A/O X3, EVEN RESPIRATIONS ON RA. SLURRED SPEECH, TREMORS PRESENT. TELEMETRY #8 SR. 1+ BLE EDEMA NON-PITTING. NO PAIN OR DISCOMFORT AT THIS TIME. RIGHT AC 20 GAUGE IV WITH D51/4NS @ 125 CC/HR. PATIENT TOTAL ASSIST. STAGE II PRESSURE ULCER TO SACRUM, DAILY DRESSING CHANGE PERFORMED AND VENELEX APPLIED COVERED WITH ALLEVYN. ALTERNATING PRESSURE MATTRESS IN PLACE. CALL LIGHT IN REACH WILL CONTINUE TO MONITOR PATIENT.
[2019-04-11] MEDS: CEFTRIAXONE SOD 1 GM/NS 50 ML 50 ML IV SCH (11:56)
[2019-04-11] MEDS: LISINOPRIL 10 MG TAB PO SCH (13:31)
[2019-04-11] MEDS: SCOPOLAMINE 1.5 MG PATCH TD SCH (13:31)
--- NOTE | 2019-04-11 16:07 | Progress Note ---
DATE: 04/11/2019 Internal Medicine Progress Note SUBJECTIVE: The patient is feeling better today. PHYSICAL EXAMINATION: VITAL SIGNS: Blood pressure 160/73, temperature 37.2, heart rate 72 per minute, respiratory rate 20 per minute, O2 saturation 96%. HEART: Showed regular rhythm. Normal S1, S2 sound. LUNGS: Clear bilaterally. ABDOMEN: Soft. EXTREMITIES: Show no evidence of cyanosis or hematoma. LABORATORY DATA: On the BMP; sodium 140, potassium 4.2, chloride 110, CO2 21, BUN 13, creatinine 0.91, glucose 104. On the CBC; white count 9.13, hemoglobin 11.9, hematocrit 38.2, platelet count 150,000. AST 7, ALT 9, total bilirubin 0.3, alkaline phosphatase 51. Blood cultures so far negative. Urine culture negative. FINAL IMPRESSION: 1. Sepsis, on admission. 2. Anemia of chronic disease. 3. Parkinson disease. 4. Hypertension. 5. Constipation. PLAN OF TREATMENT: Continue albuterol q.6 hours as needed, ceftriaxone 2 g IV once a day, Tylenol 650 mg q.4 hours as needed for pain or fever, 1 mg daily, lactobacillus acidophilus one tablet daily, Sinemet 1 tablet three times a day, multivitamin one tablet daily, scopolamine patch q.72 hours, Balsam Erika/castor oil 1 application daily, Colace 100 mg daily. Melatonin 5 mg at bedtime. Zocor 10 mg daily, lactulose 20 g twice a day. Sinemet 2 tablets at bedtime. Propranolol 20 mg twice a day. Lisinopril 10 mg daily because of hypertension. MD HANNA Womack/MARIELENA /[id number]
--- NOTE | 2019-04-11 19:00 | NUR ---
Received patient from day nurse, patient is stable and in bed, safety and fall precautions maintained as per hospital protocol: bed in lowest position and locked, needed items close to patient, patient encouraged and instructed to call for help at all times, patient is currently stable, will continue to monitor.
[2019-04-11] MEDS: CARBIDOPA/LEVODOPA 25/100 CR TAB PO SCH (20:11)
[2019-04-11] MEDS: MELATONIN 5 MG TABLET PO SCH (20:25)
[2019-04-11] MEDS: SIMVASTATIN 20 MG TAB PO SCH (20:25)
[2019-04-12] VITALS (8 sets, daily range): BP systolic 102–168; BP diastolic 59–75
[2019-04-12] MEDS: LEVALBUTEROL HCL SOLN NEBU 0.63 MG/3 ML NEB INH SCH ×4 (01:00→20:30)
[2019-04-12] MEDS: CARBIDOPA/LEVODOPA 25/100 TAB PO SCH ×3 (06:30→16:30)
--- NOTE | 2019-04-12 07:00 | NUR ---
RECEIVED PATIENT AWAKE RESTING IN BED NO S/S OF DISTRESS. BED LOW, WHEELS LOCKED, SIDE RAILS X2. CALL LIGHT IN REACH WILL CONTINUE TO MONITOR PATIENT.
--- NOTE | 2019-04-12 07:08 | NUR ---
Patient endorsed to next shift for continuity of care.
[2019-04-12] MEDS: (Methenamine Hippurate 1 GM) PO SCH ×2 (08:01→16:48)
[2019-04-12] MEDS: RASAGILINE 1 MG TAB PO SCH (08:01)
--- NOTE | 2019-04-12 08:13 | NUR ---
Met with patient to discuss order on 04/09 for SNF. He stated pt was at [facility] in January, and he would like for her to return there for PT. He signed choice letter and it was placed in pt chart. CM updated nurse. Clinicals faxed to [facility] at [address] [address] office [phone] fax: [phone]
--- NOTE | 2019-04-12 08:22 | NUR ---
Courtyaelbas was notified 04/09 of eval and initiated. CM faxed updated PT notes today.
[2019-04-12] MEDS: BALSAM PERU/CASTOR OIL 60 GM OINT...G. TP SCH (08:41)
[2019-04-12] MEDS: LISINOPRIL 10 MG TAB PO SCH ×2 (09:00→12:09)
[2019-04-12] MEDS: DOCUSATE SODIUM 100 MG CAP PO SCH ×2 (09:14→21:00)
[2019-04-12] MEDS: MULTIVITAMINS/MINERALS TAB PO SCH (09:14)
[2019-04-12] MEDS: LACTOBACILLUS ACIDOPHILUS CAPSULE PO SCH (09:14)
[2019-04-12] MEDS: PROPRANOLOL HCL 10 MG TAB PO SCH ×2 (09:15→17:02)
[2019-04-12] MEDS: CEFTRIAXONE SOD 1 GM/NS 50 ML 50 ML IV SCH (11:09)
--- NOTE | 2019-04-12 13:50 | Progress Note ---
DATE: 04/12/2019 Internal Medicine Progress Note SUBJECTIVE: The patient has no specific complaint. PHYSICAL EXAMINATION: HEART: Showed regular rhythm. Normal S1 and S2 sound. LUNGS: Clear bilaterally. ABDOMEN: Soft. EXTREMITIES: Show no evidence of edema. VITAL SIGNS: Blood pressure is 123/59, temperature 99.3, heart rate 73 per minute, respiratory rate 18 per minute, and oxygen saturation 93%. LABORATORY DATA: On the CBC, white blood count 9.13, hemoglobin 11.9, hematocrit 38.2, and platelet count a 158,000. On the BMP; sodium 140, potassium 4.2, chloride 110, CO2 21, BUN 13, creatinine 0.91, and glucose 104. Lactic acid 1.1. Calcium 8.2. Total bilirubin 0.3, AST7, ALT 9, and alkaline phosphatase 51. Creatine kinase elevated at 230 and troponin 0.001. Total protein 6.2, albumin 3.2, and globulin 3.0. FINAL IMPRESSION: 1. Sepsis. 2. Anemia of chronic disease. 3. Parkinson disease. 4. Constipation. 5. Hypertension. PLAN OF TREATMENT: Continue physical and occupational therapy. Continue current antibiotic regimen with ceftriaxone 1 g IV daily, Tylenol 650 mg every 4 hours as needed for pain or fever, ointment one application daily, Sinemet 25/100 mg 3 times a day, and Sinemet CR 25/100 two tablets at bedtime. Continue Colace 100 mg daily and 100 mg in the morning and 100 mg in the evening. Continue lactobacillus acidophilus one tablet daily, lactulose 20 g twice a day as needed for constipation, Xopenex q.6 hours as needed for shortness of breath, and Xopenex q.6 hours around the clock. Also, continue lisinopril 10 mg daily, melatonin 5 mg at bedtime, multivitamin one tablet daily, propranolol 20 mg twice a day, rasagiline, which is Azilect 1 mg daily, scopolamine patch q.72 hours, and Zocor 100 mg daily. Continue physical and occupational therapy also. Discussed with the . Labs have been reviewed. Medication list has been reviewed. MD HANNA Womack/MODL /[id number]
[2019-04-12] MEDS: CARBIDOPA/LEVODOPA 25/100 CR TAB PO SCH (20:50)
[2019-04-12] MEDS: MELATONIN 5 MG TABLET PO SCH (21:00)
[2019-04-12] MEDS: SIMVASTATIN 20 MG TAB PO SCH (21:00)
[2019-04-13 00:33] VITALS: BP 140/69
[2019-04-13] MEDS: LEVALBUTEROL HCL SOLN NEBU 0.63 MG/3 ML NEB INH SCH ×3 (00:45→13:50)
--- NOTE | 2019-04-13 00:55 | NUR ---
resting comfortably, resp unlabored call light in reach. will cont to monitor.
[2019-04-13 05:40] VITALS: BP 104/55
[2019-04-13] MEDS: CARBIDOPA/LEVODOPA 25/100 TAB PO SCH ×2 (06:30→11:30)
--- NOTE | 2019-04-13 06:59 | NUR ---
Report given to oncoming Nurse, walking rounds complete. Pt stable at this time.
--- NOTE | 2019-04-13 07:00 | NUR ---
BEDSIDE SHIFT REPORT RECEIVED, PT IN STABLE CONDITION, DENIES PAIN AT THIS TIME, R FA 20G SL NO SS OF INFILTRATION NOTED,UPDATED ON POC VOICED UNDERSTANDING, CALL LIGHT IN REACH WILL CONTINUE TO MONITOR
[2019-04-13 08:30] VITALS: BP 109/58
[2019-04-13 08:40] VITALS: BP 109/58
[2019-04-13] MEDS: DOCUSATE SODIUM 100 MG CAP PO SCH (09:00)
[2019-04-13] MEDS: (Methenamine Hippurate 1 GM) PO SCH (09:00)
[2019-04-13] MEDS: RASAGILINE 1 MG TAB PO SCH (09:00)
[2019-04-13] MEDS: PROPRANOLOL HCL 10 MG TAB PO SCH (09:08)
[2019-04-13] MEDS: MULTIVITAMINS/MINERALS TAB PO SCH (09:09)
[2019-04-13] MEDS: LACTOBACILLUS ACIDOPHILUS CAPSULE PO SCH (09:09)
[2019-04-13] MEDS: LISINOPRIL 10 MG TAB PO SCH (09:17)
[2019-04-13] MEDS: BALSAM PERU/CASTOR OIL 60 GM OINT...G. TP SCH (09:18)
[2019-04-13] MEDS: CEFTRIAXONE SOD 1 GM/NS 50 ML 50 ML IV SCH (10:42)
--- NOTE | 2019-04-13 11:33 | NUR ---
CHOICE WAS ALREADY IN CHART PRIOR TO WEEKEND PERSON APPROACHING THE FAMILY, CLINICALS HAD BEEN SENT AND STARTED PROCESS, RTF IS ON CHART AND WAITING ON AUTH, SPOKE WITH BUILDING AND SHOULD GET TODAY.
--- NOTE | 2019-04-13 11:34 | NUR ---
EDUCATED ABOUT IMM, SIGNED, FILED IN CHART, WITH COPY LEFT WITH FAMILY AT BEDSIDE.
--- NOTE | 2019-04-13 11:34 | NUR ---
GAVE COPY OF BPCI LETTER
[2019-04-13 12:28] VITALS: BP 109/53
--- NOTE | 2019-04-13 13:58 | NUR ---
ASSISTED FACILITY DISCHARGE INFORMATION PATIENT HAS BEEN ACCEPTED TO: NAME: [facility] ADDRESS: [id number] ACCEPTING BOARD LINING MACHINE OPERATOR: CAMILLA FORD MD: BETZAIDA ROOM: [id number] NURSE CALL REPORT TO: [phone] IMM SIGNED AND OBTAINED (if applicable): YES THE FOLLOWING DOCUMENTS MUST ACCOMPANY PATIENT FOR TRANSFER: COPIED CHART: PACKET AT NURSES STATION
--- NOTE | 2019-04-13 14:52 | NUR ---
REPORT CALLED TO NIKO WITH [employer], ALL QUESTIONS ANSWERED, R AC 20G LEFT IN PLACE, SUKHWINDER ALVARENGA TO BEDSIDE DRAINAGE, CALL LIGHT IN REACH WILL CONTINUE TO MONITOR
[2019-04-13 16:00] VITALS: BP 109/53
--- NOTE | 2019-04-21 09:11 | Diagnostic Imaging Report ---
PROCEDURE: X-RAY MODIFIED BARIUM SWALLOW COMPARISON: None. INDICATION: Aspiration Radiation Details: Fluoroscopy time: 1.8 minutes Cumulative dose: 2.2 mGy DISCUSSION: Fluoroscopic examination was performed in conjunction with speech pathology during swallowing a variety of thin and thick liquid consistencies. Provided images demonstrate laryngeal penetration but no aspiration. CONCLUSION: Modified barium swallow demonstrating laryngeal penetration but no aspiration. Please refer to the speech pathology report for further details. Signed by: Jordana Girard MD on 04/21/2019 9:08 AM
--- NOTE | 2019-05-26 09:50 | Discharge Summary ---
CHIEF COMPLAINT: Shortness of breath and wheezing. FINAL DIAGNOSES: 1. Parkinsonism. 2. Fever, resolved. 3. Bedbound, wheelchair-bound. DISPOSITION: SNF facility. HOSPITAL COURSE: A 69-year-old female with known history of advanced Parkinsonism, radically wheelchair-bound, able to take few steps with walker with the 's help. Brought into the ER with increasing shortness of breath, wheezing, congestion, fever. No other complaints. The patient does have an onboard PEG tube. She was reviewed in the emergency room, noted to be lethargic, but responds to verbal commands. Chest was showing inspiratory crackles and expiratory wheezes. PEG site reveals healed stoma. Neurological issue appears to be lethargic, hypokinetic. Admitted for treatment regarding increased shortness of breath, wheezing, acute asthmatic bronchitis, questionable problems , parkinsonism. We will begin IV antibiotic coverage, respiratory treatments, home medications will be continued as well. The patient was admitted to [facility], continuing on her cardiac diet, was noted to be resting comfortably. Was started to feel better overall with aggressive care. She was receiving IV fluids, the IV antibiotic. Her daily medications were continuing as well. Vital signs were monitored. Laboratory studies were monitoring. She was also responding well to nebulized treatments. She was noted to be eating well. Her fever was resolving. She was responding well to Zosyn. Even though she was feeling better, she seems to be very weak. She began having some issues with not accepting p.o. intake. She states she has no strength in her leg. Her care was continuing. She is also being placed on Rocephin. She began having issues with constipation, began aggressive bowel cleansing protocols. She was having few words in conversation to having noticeable findings of being aphasic. Discussions are being placed for long-term care. junior account manager was brought into discuss options with family. She will be transferred to the [facility], at [place]. Her IV access will be left. Her Jain catheter will continue at that location. IMAGING: Chest x-ray shows mild pulmonary interstitial edema. No focal pneumonia. Modified barium swallow study for evaluation of possible aspiration. Study shows a modified barium swallow demonstrating laryngeal penetration, but no aspiration. Cultures; blood as well as urine were negative. LABORATORY STUDIES: Begins with a CBC revealing initial white cell count to be normal. H and H were normal. Followup CBC continued to be normal. Urinalysis was revealing 6 to 10 wbc's by high-power field, few bacteria. Chemistries; initial studies, electrolytes stable, glucose 111. Followup chemistries; continued to reveal stable electrolytes. Followup glucose 104. It was pretty well while in the facility, but she will continue to any care regarding her advanced Parkinsonism. No case management assistance. She was able to be transferred to the [facility] at [place] for continued care. She will continue on her current diet. She will continue with her medications. Her IV access will continue. She will need further antibiotics. She will continue with the Jain care. Activity level as tolerated. The patient is the patient's condition by the staff at that location as well as evaluating appropriately at occasion. Staff will be contacting me for any questions or concerns, or updates. Dictated by SANG Comer Yoav Bhakta MD CC/MODL /[id number]
== END 2019-04-13 16:22 | DRG 871 ==
LOC: ER 09:56 → ERHOLD 13:10 → IMCU 04-08 02:31 → OBSVTOIN 04-09 10:58 → MED/SURG 04-10 14:50
DX: A41.9 Sepsis, unspecified organism (principal); J18.9 Pneumonia, unspecified organism; N39.0 Urinary tract infection, site not specified; R47.01 Aphasia; J45.901 Unspecified asthma with (acute) exacerbation; D63.8 Anemia in other chronic diseases classified elsewhere; G20 Parkinson's disease; K59.00 Constipation, unspecified; I10 Essential (primary) hypertension; N31.9 Neuromuscular dysfunction of bladder, unspecified; L89.152 Pressure ulcer of sacral region, stage 2; Z74.01 Bed confinement status
CPT/HCPCS: 36415; 51700; 71046; 74230; 80053; 81001; 82550; 82553; 83605; 83880; 84484; 85025; 87040; 87086; 93005; 94640; 97139; 99251; 99284; G0378; J0696; J2543; J7030

== ENCOUNTER 2019-06-16 14:17 | Inpatient (IN) | payer MEDICARE, BC, OTHER ==
[~2019-06-16] VITALS: Ht 154.9 cm; Wt 68.9 kg
[~2019-06-16 14:17] MED LIST changes: +CARBIDOPA-LEVO1 EAC4 PO; +COLACE100 MG PO; +METHENAMINE HIPP1 GM PO
[2019-06-16] MEDS ORDERED: ONDANSETRON HCL INJ 2MG/ML 2ML 2 MG/ML VIAL IV STA (14:43)
[2019-06-16] MEDS ORDERED: PANTOPRAZOLE 40 MG 10ML VIAL IV STA (14:43)
[2019-06-16] MEDS ORDERED: SODIUM CHLORIDE 0.9% 1000ML 1,000 ML IV STA (14:43)
--- NOTE | 2019-06-16 15:13 | Diagnostic Imaging Report ---
EXAM: CHEST SINGLE (PORTABLE) DATE: 06/16/2019 2:55 PM INDICATION: Hypertension COMPARISON: 04/07/2019 FINDINGS: Implanted neurostimulator device again identified overlying the left hemithorax with leads extending superiorly. Lungs are symmetrically expanded without evidence for large focal consolidation, pneumothorax, or significant pleural effusion. The cardiomediastinal silhouette is stable in appearance. No acute osseous abnormalities identified. IMPRESSION: No acute cardiopulmonary process identified Signed by: Dr. Dany Vasquez MD on 06/16/2019 3:10 PM
[2019-06-16 15:51] LABS: BASOPHILS % 0.4 % (0.0-1.0); EOSINOPHILS # (AUTO) 0.4 (0.0-0.4); EOSINOPHILS % 5.1 % (0.0-6.0); HEMATOCRIT 42.2 % (34.2-44.1); HEMOGLOBIN 13.2 g/dL (12.0-16.0); LYMPHOCYTES # (AUTO) 2.1 (1.0-3.2); LYMPHOCYTES % 28.2 % (18.0-39.1); MEAN CORPUSCULAR HEMOGLOBIN 25.6 pg (28-32); MEAN CORPUSCULAR HGB CONC 31.3 g/dL (31-35); MEAN CORPUSCULAR VOLUME 81.8 fL (81-99); MONOCYTES # (AUTO) 0.6 (0.2-0.8); MONOCYTES % 8.4 % (4.4-11.3); NEUTROPHILS # (AUTO) 4.3 (2.1-6.9); NEUTROPHILS % 57.6 % (38.7-80.0); PLATELET COUNT 241 x10e3/uL (140-360); RED BLOOD COUNT 5.16 x10e6/uL (3.6-5.1); RED CELL DISTRIBUTION WIDTH 13.5 % (11.7-14.4)
[2019-06-16 16:04] LABS: INR 0.97; PROTHROMBIN TIME 13.5 seconds (11.9-14.5)
[2019-06-16 16:05] LABS: PARTIAL THROMBOPLASTIN TIME 26.1 seconds (23.8-35.5)
[2019-06-16 16:08] LABS: ALBUMIN 3.6 g/dL (3.5-5.0); ALBUMIN/GLOBULIN RATIO 1.2 (0.8-2.0); ALKALINE PHOSPHATASE 64 IU/L (40-150); ANION GAP 13.8 mmol/L (8-16); BLOOD UREA NITROGEN 11 mg/dL (7-26); BUN/CREATININE RATIO 14 (6-25); CALCIUM 9.3 mg/dL (8.4-10.2); CARBON DIOXIDE 26 mmol/L (22-29); CHLORIDE 103 mmol/L (98-107); CREATINE KINASE 31 IU/L (29-168); CREATININE, SERUM 0.81 mg/dL (0.57-1.11); EST GLOMERULAR FILTRATION RATE > 60 ML/MIN (60-); GLUCOSE 105 mg/dL (74-118); MAGNESIUM 1.7 MG/DL (1.3-2.1); POTASSIUM 3.8 mmol/L (3.5-5.1); SODIUM 139 mmol/L (136-145)
[2019-06-16] MEDS ORDERED: SIMVASTATIN20 MG PO (16:08)
[2019-06-16] MEDS ORDERED: GLYCOPYRRO0.2 MG/1 M PO (16:08)
[2019-06-16 16:15] LABS: ALANINE AMINOTRANSFERASE < 6 IU/L (0-55)
[2019-06-16 16:39] LABS: BILIRUBIN,URINE NEGATIVE (NEGATIVE); CLARITY,URINE SL CLOUDY (CLEAR); COLOR,URINE STRAW (YELLOW); KETONES,URINE TRACE (NEGATIVE); LEUKOCYTE ESTERASE ,URINE TRACE (NEGATIVE); NITRITE,URINE NEGATIVE (NEGATIVE); PROTEIN,URINE DIPSTICK 1+ (NEGATIVE); URINE UROBILINOGEN 0.2 mg/dL (0.2 - 1)
[2019-06-16] MEDS ORDERED: ONDANSETRON HCL INJ 2MG/ML 2ML 2 MG/ML VIAL IV PRN (16:45)
[2019-06-16 16:53] LABS: BACTERIA,URINE FEW /HPF; CALCIUM OXALATE CRYSTALS,UR RARE (FEW); EPITHELIAL CELLS,URINE FEW /LPF; RBC,URINE 0-5 /HPF (0-5)
[2019-06-16] MEDS ORDERED: PIPER-TAZ 3.375 GM 50 ML IV SCH (18:00)
--- NOTE | 2019-06-16 19:15 | NUR ---
Patient arrived on unit from ER. ER nurse stated that patient going to go to CT. Patient off unit for CT.
[2019-06-16] MEDS ORDERED: SODIUM CHLORIDE 0.9% 50ML 50 ML ONE (19:17)
[2019-06-16] MEDS ORDERED: IOPAMIDOL 370 MG/ML 200 ML INFUS..BTL INJ ONE (19:17)
--- NOTE | 2019-06-16 19:29 | NUR ---
Patient back from CT. Transferred to bed with assistance. Oriented to room and environmnet and call light. Instructed to call for assistance or on the onset of pain or SOB. Call light within reach. Will continue to monitor. Addendum: 06/16/19 at 2147 by Jayshree Barreto RN Environment
[2019-06-16 20:00] VITALS: BP 138/85
[2019-06-16] MEDS: SODIUM CHLORIDE 0.9% 1000ML 1,000 ML IV SCH (20:10)
--- NOTE | 2019-06-16 20:45 | NUR ---
Home medications reviewed with spouse Latoya Phoenix via phone. Phone given to patient to talk with spouse after meds reviewed.
--- NOTE | 2019-06-16 21:17 | Diagnostic Imaging Report ---
EXAM: CT Chest WITH contrast 06/16/2019 7:15 PM INDICATION: Bronchogenic Carcinoma COMPARISON: None TECHNIQUE: Chest was scanned utilizing a multidetector helical scanner from the lung apex through the level of the adrenal glands without administration of IV contrast. Coronal and sagittal reformations were obtained. Routine protocol was performed. IV CONTRAST: 100 mL of Omnipaque 300 COMPLICATIONS: None RADIATION DOSE: Total DLP: 478.02 mGy*cm Estimated effective dose: (DLP x 0.014 x size factor) mSv CTDIvol has been reviewed. It is below the limits set by the Radiation Protocol Committee (RPC). FINDINGS: LINES/ TUBES: Implanted neurostimulator device again identified overlying the left hemithorax with leads extending superiorly. LUNGS AND AIRWAYS: There is bibasilar atelectasis. No focal mass or consolidation is seen. Diffuse groundglass opacities are seen bilaterally predominantly in the right middle lobe and lower lobes seen.There is a 0.6 and 0.7 cm pulmonary nodule in the right lower lobe adjacent to the right major fissure (series 3, images 44 and 49) Bronchiectatic changes are seen predominantly in lower lobes. PLEURA: The pleural spaces are clear. HEART AND MEDIASTINUM: The thyroid gland is normal. Subcentimeter bilateral hilar and mediastinal lymph nodes are nonspecific. The heart is normal in size.. There is no pericardial effusion. There are filling defects within the subsegmental pulmonary arteries of the right lower lobe. UPPER ABDOMEN: Unremarkable. BONES: There are degenerative changes in the thoracic spine. SOFT TISSUES: Unremarkable. IMPRESSION: No definite focal mass or consolidation noted. Two nonspecific right lower lobe pulmonary nodules measuring up to 0.7 cm. Diffuse bilateral groundglass opacities predominantly in the right middle lobe and lower lobes likely infectious in etiology, less likely neoplastic. Bronchiectatic changes are seen predominantly in lower lobes. Questionable filling defects are seen within the subsegmental pulmonary arteries of the right lower lobe. Please note that this study was not obtained to evaluate for pulmonary embolus. Recommend further evaluation with V/Q scan. Signed by: Reyes Sutton MD on 06/16/2019 9:14 PM
--- NOTE | 2019-06-16 21:25 | NUR ---
Radiology called and sated that Dr Sutton would like Dr Morales to know there was a filling defect noted on CT and would recommend a VQ scan in am. If Dr Morales has questions he can call and speak with him.
--- NOTE | 2019-06-16 21:28 | NUR ---
Spoke with Dr Morales regarding CT results, stated to call Dr Sofie Bhakta, patient admitted under him.
--- NOTE | 2019-06-16 21:30 | NUR ---
Page placed to Dr Sofie Bhakta regarding CT results and home medications. Spoke with Linda. Awaiting call back.
[2019-06-16] MEDS ORDERED: CARBIDOPA/LEVODOPA 25/100 TAB PO SCH (22:30)
[2019-06-16] MEDS ORDERED: SCOPOLAMINE 1.5 MG PATCH TD SCH (22:30)
[2019-06-16] MEDS ORDERED: ENOXAPARIN SODIUM INJ 100 MG/ML SYR SC SCH (22:30)
--- NOTE | 2019-06-16 22:36 | NUR ---
Return call from Dr Sofie Bhakta. CT results reviewed regarding filling defect noted and radiologist recommending vq scan in am. New orders received.
[2019-06-16] MEDS ORDERED: ENOXAPARIN INJ 80 MG/0.8 ML SYR SC ONE (23:35)
[2019-06-16] MEDS: ENOXAPARIN INJ 80 MG/0.8 ML SYR SC SCH (23:50)
[2019-06-17] VITALS (8 sets, daily range): BP systolic 80–165; BP diastolic 45–84
[2019-06-17] MEDS: PIPER-TAZ 3.375 GM 50 ML IV SCH ×4 (02:14→20:00)
[2019-06-17] MEDS ORDERED: PANTOPRAZOLE SO40 MG PO (04:31)
[2019-06-17] MEDS: CARBIDOPA/LEVODOPA 25/100 TAB PO SCH ×5 (04:43→20:00)
[2019-06-17] MEDS ORDERED: RASAGILINE 1 MG TAB PO SCH ×4 (04:45→09:00)
[2019-06-17] MEDS: RASAGILINE 1 MG TAB PO SCH (04:53)
[2019-06-17] MEDS: SODIUM CHLORIDE 0.9% 1000ML 1,000 ML IV SCH (05:21)
[2019-06-17 05:50] LABS: BASOPHILS % 0.4 % (0.0-1.0); EOSINOPHILS # (AUTO) 0.3 (0.0-0.4); EOSINOPHILS % 3.4 % (0.0-6.0); HEMATOCRIT 40.3 % (34.2-44.1); HEMOGLOBIN 12.2 g/dL (12.0-16.0); LYMPHOCYTES # (AUTO) 2.5 (1.0-3.2); LYMPHOCYTES % 33.8 % (18.0-39.1); MEAN CORPUSCULAR HEMOGLOBIN 24.8 pg (28-32); MEAN CORPUSCULAR HGB CONC 30.3 g/dL (31-35); MEAN CORPUSCULAR VOLUME 81.9 fL (81-99); MONOCYTES # (AUTO) 0.7 (0.2-0.8); MONOCYTES % 9.8 % (4.4-11.3); NEUTROPHILS # (AUTO) 3.9 (2.1-6.9); NEUTROPHILS % 52.5 % (38.7-80.0); PLATELET COUNT 224 x10e3/uL (140-360); RED BLOOD COUNT 4.92 x10e6/uL (3.6-5.1); RED CELL DISTRIBUTION WIDTH 13.6 % (11.7-14.4)
[2019-06-17 06:13] LABS: ALBUMIN 3.2 g/dL (3.5-5.0); ALBUMIN/GLOBULIN RATIO 1.2 (0.8-2.0); ALKALINE PHOSPHATASE 54 IU/L (40-150); BLOOD UREA NITROGEN 9 mg/dL (7-26); BUN/CREATININE RATIO 12 (6-25); CALCIUM 8.6 mg/dL (8.4-10.2); CARBON DIOXIDE 24 mmol/L (22-29); CHLORIDE 111 mmol/L (98-107); CREATININE, SERUM 0.78 mg/dL (0.57-1.11); EST GLOMERULAR FILTRATION RATE > 60 ML/MIN (60-); GLUCOSE 104 mg/dL (74-118); SODIUM 141 mmol/L (136-145)
[2019-06-17 06:15] LABS: ALANINE AMINOTRANSFERASE < 6 IU/L (0-55)
--- NOTE | 2019-06-17 07:00 | NUR ---
BEDSIDE SHIFT REPORT RECEIVED PT IN STABLE CONDITION, IVF INFUSING TO L AC 20G NO SS OF INFILTRATION NOTED, ARABELLA PAIN AT THIS TIME, CALL LIGHT IN REACH WILL CONTINUE TO MONITOR
--- NOTE | 2019-06-17 07:05 | NUR ---
Bedside report and walking rounds completed with on coming nurse. Patient in bed and call light within reach. No issues or concerns noted.
--- NOTE | 2019-06-17 07:10 | NUR ---
Spoke with regarding non-formulary medication, will bring this am.
[2019-06-17] MEDS: PANTOPRAZOLE SOD 40 MG TABEC PO SCH (07:30)
[2019-06-17] MEDS: PROPRANOLOL HCL 10 MG TAB PO SCH ×2 (09:00→16:27)
[2019-06-17] MEDS: NON-FORMULARY MEDICATION (Methenamine Hippurate 1 GM) PO SCH ×2 (09:00→16:20)
[2019-06-17] MEDS: GLYCOPYRROLATE 1 MG TAB PO SCH ×2 (09:00→16:27)
--- NOTE | 2019-06-17 09:40 | NUR ---
Pt. expressed no spiritual or emotional concerns at this time. [facility] provided hospitality and information on how to reach road design draftsperson, if needed. No need to follow at this time. JASON RAMOS [facility] O: [phone]
[2019-06-17] MEDS: MULTIVITAMINS/MINERALS TAB PO SCH (09:52)
--- NOTE | 2019-06-17 09:52 | NUR ---
BEDSIDE SWALLOW IN PROGRESS
[2019-06-17] MEDS: ENOXAPARIN INJ 80 MG/0.8 ML SYR SC SCH (11:42)
--- NOTE | 2019-06-17 15:42 | Diagnostic Imaging Report ---
Perfusion Lung Scan NOTE: Lung ventilation studies with xenon are not being performed per the recommendation of the Society of Nuclear Medicine and Molecular Imaging. It is not possible to be certain that the ventilation system is adequately disinfected. Ventilation studies with Tc-99m DTPA particles is contraindicated because the delivery by nebulization generates too many water droplets from the patient's airway. Clinical Information: SOB; decreased oral intake Comparison: Chest CT with contrast 06/06/2019; chest radiograph 06/16/2019 Discussion: Ventilation images were not obtained. See note above. Perfusion images of the lungs were obtained in multiple projections following intravenous administration of approximately 5.8 mCi of Tc-99m MAA. Distribution of tracer is irregular throughout the lungs. There are no segmental perfusion defects of any size. The cardiomediastinal silhouette is unremarkable. Impression: 1. Scan findings represent a VERY LOW probability for acute pulmonary embolic disease based on the perfusion-only PIOPED criteria. 2. Scan findings are compatible with diffuse parenchymal and/or obstructive lung disease. 3. A ventilation scan would not have altered the assigned probability for acute PE. Signed by: Dr. Bailey Olivarez M.D. on 06/17/2019 3:39 PM
--- NOTE | 2019-06-17 16:28 | NUR ---
Nutrition Intervention Note RD Recommendation(s) for Physician: - Continue Mechanical Soft diet, texture per MD/PUMP TECHNICIAN - Recommend Ensure Compact BID - Recommend MVI with minerals once daily for adequacy - Assist with meals Pt meets criteria for moderate protein calorie malnutrition Plan of Care: RD following, monitoring for tolerance and adequacy Nutrition reason for involvement: Nutrition Risk Trigger RD Assessment 06/16: 69 YOF admitted from SNF for decreased oral intake and failure to thrive. Pt known from prior admit. 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 Pt denies any N/V/C/D. Pt currently tolerating mechanical soft diet, denies difficulty chewing or swallowing, however reports fatigue and unable finish meal. Assisted/fed pt for lunch, tolerated 50% of meal before needing a break. Noted pt with 19# wt loss since Mar admit, significant change. RN notified that pt requires assistance/needing to be fed for meals. Will continue to monitor. Principal Problems/Diagnoses: decreased oral intake, failure to thrive PMH: Parkinson's, HTN, HLD, hx of PEG GI: LBM 06/16 Skin: sacral stage II PU Labs: 06/16: Na 141, K 4, BUN 9, Cr 0.78, Gluc 109, Ca 8.6 Meds: sinemet, MVI, abx, protonix, zocor, zofran Ht: 61 in Wt: 145.13 lb BMI: 24.7 kg/m2 IBW: 105 lb Malnutrition Evaluation (06/17/19) The patient meets criteria for MODERATE protein-calorie malnutrition. Energy intake: <75% of estimated energy requirements for >7 days Weight loss: >7.5% in 3 months (Acute) Fat loss: none, Muscle loss: none, shoulder round Supporting Evidence: Fluid accumulation: agdaagux observed Functional Status: markedly reduced 2/2 medical condition, no change to baseline Nutrition Prescription (Diet Order): Cardiac Estimated Nutritional Needs: 3854-2346 calories/day (18-22 kcal/kg CBW) 66-99 g protein/day (1-1.5 g pro/kg CBW) Diet Adequacy: Not meeting calorie needs, Not meeting protein needs Diet Tolerance: tolerating po Diet Education Needs Assessment: Diet education not indicated at this time. Nutrition Care Level: Mod Nutrition Diagnosis: Inadequate energy and protein intake related to current medical condition as evidenced by not meeting needs, wt loss, and requiring assistance with meals. Goal: Patient will meet 75-100% of estimated needs by follow up Progress: N/A Interventions: -Texture modified diet, Commercial beverage, Multivitamin/mineral supplement therapy, Recommend modifications Monitoring/Evaluation: -Total energy intake, Total protein intake, Modified diet, Liquid supplement, Weight change Signed: Madeleine Crowder RD, LD, [facility]
--- NOTE | 2019-06-17 19:00 | NUR ---
Bedside report completed with morning nurse. Pt alert to name, lying in bed HOB 75 degrees. No s/o of pain noted. Bed low and locked. Call light within reach. Bed alarm on.
[2019-06-17] MEDS: SIMVASTATIN 20 MG TAB PO SCH (21:00)
[2019-06-18] VITALS (8 sets, daily range): BP systolic 109–147; BP diastolic 55–78
[2019-06-18] MEDS: CARBIDOPA/LEVODOPA 25/100 TAB PO SCH ×6 (00:30→20:55)
[2019-06-18] MEDS: ENOXAPARIN INJ 80 MG/0.8 ML SYR SC SCH ×2 (00:30→12:51)
[2019-06-18] MEDS: PIPER-TAZ 3.375 GM 50 ML IV SCH ×4 (02:00→20:55)
[2019-06-18] MEDS: RASAGILINE 1 MG TAB PO SCH (04:00)
--- NOTE | 2019-06-18 07:00 | NUR ---
bedside shift report received pt in stable condition, denies pain at this time, l ac 20g no ss of infiltration noted, updated on poc voiced understanding, call light in reach will continue to monitor
--- NOTE | 2019-06-18 07:05 | NUR ---
Report given to morning nurse. Pt with no acute distress.
[2019-06-18] MEDS: PANTOPRAZOLE SOD 40 MG TABEC PO SCH (08:20)
[2019-06-18] MEDS: MULTIVITAMINS/MINERALS TAB PO SCH (08:55)
[2019-06-18] MEDS: PROPRANOLOL HCL 10 MG TAB PO SCH ×2 (08:55→17:00)
[2019-06-18] MEDS ORDERED: SODIUM CHLORIDE 0.9% 250ML 250 ML ONE (08:57)
[2019-06-18] MEDS: NON-FORMULARY MEDICATION (Methenamine Hippurate 1 GM) PO SCH ×2 (09:00→17:00)
[2019-06-18] MEDS ORDERED: SCOPOLAMINE 1.5 MG PATCH TD SCH (09:00)
[2019-06-18] MEDS: GLYCOPYRROLATE 1 MG TAB PO SCH ×2 (09:00→17:00)
--- NOTE | 2019-06-18 10:15 | NUR ---
SPOKE WITH DR ESPARZA AND SHARIFA ALL ARE IN AGREEMENT FOR [facility], COMPLETED PAPERWORK WILL CONTACT HOSPICE.
[2019-06-18] MEDS: SCOPOLAMINE 1.5 MG PATCH TD SCH (10:45)
--- NOTE | 2019-06-18 16:08 | NUR ---
SPOKE HELGA KHAN WITH [facility] SIGNED PAPERWORK BUT TOLD THEM PT WILL NOT BE DISCHARGED UNTIL AFTER PEG TUBE PLACED TOMORROW. NO ONE AVAILABLE IN OR TO FIND OUT WHAT TIME, WILL NEED TO LET [facility] KNOW SO CAN SET UP DISCHARGE POST PLACEMENT.
--- NOTE | 2019-06-18 19:00 | NUR ---
RECEIVED PATIENT IN BEDSIDE SHIFT REPORT. PATIENT RESTING WITH EYES CLOSED, SLOW TO AWAKEN, BUT IS RESPONSIVE TO VOICE. NO PAIN NOTED. NO S&S OF DISTRESS NOTED. BED ALARM ON. BED LOCKED IN LOWEST POSITION, SIDE RAILS UPX2, CALL LIGHT IN REACH.
--- NOTE | 2019-06-18 20:45 | NUR ---
ALTERNATING PRESSURE MATTRESS PUMP APPLIED AT THIS TIME.
[2019-06-18] MEDS: SIMVASTATIN 20 MG TAB PO SCH (20:55)
[2019-06-19] VITALS (8 sets, daily range): BP systolic 120–149; BP diastolic 67–91
[2019-06-19] MEDS: ENOXAPARIN INJ 80 MG/0.8 ML SYR SC SCH
[2019-06-19] MEDS: CARBIDOPA/LEVODOPA 25/100 TAB PO SCH ×6 (00:15→20:00)
--- NOTE | 2019-06-19 00:35 | NUR ---
SPOKE WITH MD Augusta ESPARZA TO CONFIRM TO HOLD LOVENOX D/T PROCEDURE TOMORROW, HOLD AT THIS TIME. ALSO NEW ORDER FOR COVID-19 TEST PRIOR TO PROCEDURE D/T NEW POLICY.
[2019-06-19] MEDS: RASAGILINE 1 MG TAB PO SCH (02:25)
[2019-06-19] MEDS: PIPER-TAZ 3.375 GM 50 ML IV SCH ×4 (02:25→21:29)
--- NOTE | 2019-06-19 06:37 | NUR ---
ADDITION OF EGD MADE TO CONSENT FORM VIA TELEPHONE WITH SHARIFA ROWE, . WITNESS WITH RONNY RN.
--- NOTE | 2019-06-19 07:02 | NUR ---
BEDSIDE SHIFT REPORT RECEIVED FROM PM NURSE. PT RESTING IN BED, RESPIRATIONS EVEN AND NONLABORED, EASIILY AROUSABLE, NO SIGNS OF DISTRESS. WILL CONTINUE TO MONITOR.
[2019-06-19] MEDS: PANTOPRAZOLE SOD 40 MG TABEC PO SCH (07:30)
[2019-06-19] MEDS: GLYCOPYRROLATE 1 MG TAB PO SCH ×2 (09:00→17:00)
[2019-06-19] MEDS: PROPRANOLOL HCL 10 MG TAB PO SCH ×2 (09:00→17:00)
[2019-06-19] MEDS: NON-FORMULARY MEDICATION (Methenamine Hippurate 1 GM) PO SCH ×2 (09:00→17:00)
[2019-06-19] MEDS: MULTIVITAMINS/MINERALS TAB PO SCH (09:00)
--- NOTE | 2019-06-19 14:42 | NUR ---
PT GONE TO OR FOR PEG TUBE PLACEMENT.
--- NOTE | 2019-06-19 14:57 | NUR ---
Nutrition Intervention Note RD Recommendation(s) for Physician: When PEG tube is placed, recommend: -If continuous: Jevity 1.2 @ goal rate of 50 mL/hr and water flush of 115 mL q4hrs or water flush per MD (provides 1440 kcal, 67 g protein, and 1658 mL water) -If bolus: Jevity 1.2 @ goal of 240 mL 5x/day and water flush of 70 mL before and after each feed or water flush per MD (provides 1440 kcal, 67 g protein, and 1668 mL water) Pt meets criteria for moderate protein calorie malnutrition Plan of Care: RD following, monitoring for tolerance and adequacy Nutrition reason for involvement: follow up RD Assessment 06/18: Follow up. Pt was discussed during interdisciplinary rounds. Per RN, pt is going to receive a PEG tube today. It is recorded that pt consumed 25% of meals yesterday. Tube feed recommendations provided for when PEG tube is placed. Will continue to monitor. 06/16: 69 YOF admitted from SNF for decreased oral intake and failure to thrive. Pt known from prior admit. 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 Pt denies any N/V/C/D. Pt currently tolerating mechanical soft diet, denies difficulty chewing or swallowing, however reports fatigue and unable finish meal. Assisted/fed pt for lunch, tolerated 50% of meal before needing a break. Noted pt with 19# wt loss since Mar admit, significant change. RN notified that pt requires assistance/needing to be fed for meals. Will continue to monitor. Principal Problems/Diagnoses: decreased oral intake, failure to thrive PMH: Parkinson's, HTN, HLD, hx of PEG GI: soft, non-tender abdomen Skin: sacral stage II PU Labs: 06/16: Na 141, K 4, BUN 9, Cr 0.78, Gluc 109, Ca 8.6 Meds: antibiotic, zocor, protonix, Sinemet, MV with minerals, zofran Ht: 61 in Wt: 151 lbs (06/18) 145.13 lb (06/15) BMI: 28.6 kg/m2 IBW: 105 lb Malnutrition Evaluation (06/17/19) The patient meets criteria for MODERATE protein-calorie malnutrition. Energy intake: <75% of estimated energy requirements for >7 days Weight loss: >7.5% in 3 months (Acute) Fat loss: none, Muscle loss: none, shoulder round Supporting Evidence: Fluid accumulation: none observed Functional Status: markedly reduced 2/2 medical condition, no change to baseline Nutrition Prescription (Diet Order): NPO Estimated Nutritional Needs: Calories: 6488-4078 calories/day (18-22 kcal/kg CBW) Weight used: 145 lbs Protein: 66-99 g protein/day (1-1.5 g pro/kg CBW) Weight used: 145 lbs Fluid: 1647 mL (25 mL/kg) Weight used: 145 lbs Diet Adequacy: Not meeting calorie needs, Not meeting protein needs Diet Tolerance: pt is currently NPO Diet Education Needs Assessment: Diet education not indicated at this time. Nutrition Care Level: Moderate Nutrition Diagnosis: Inadequate energy and protein intake related to current medical condition as evidenced by not meeting needs, wt loss, and need for enteral nutrition Goal: Patient will meet 75-100% of estimated needs by follow up Progress: not progressing Interventions: -EN: Rate, Route, Collaboration with other providers Monitoring/Evaluation: -Total energy intake, Total protein intake, Formula/Solution, Weight change Signed: Kathleen Conrad RD, LD
--- NOTE | 2019-06-19 15:55 | NUR ---
WOUND CARE SCREENING/CONSULT FOR 69 YO FEMALE HX OF DECREASED ORAL INTAKE, AND FAILURE TO THRIVE IN ADULT. SARAH 13 ON MODERATE PUP STATUS AND INTERVENTIONS AND ALTERNATING PRESSURE MATTRESS. LABS: WBC- 7.46 HGB- 12.2 GLUCOSE-104 SKIN ASSESSMENT COMPLETE PATIENT PRESENTS WITH: 1)STAGE II PRESSURE ULCER TO POSTERIO SACROGLUTEAL AREA ; MEASURING 5 CM X 3 CM X 2 CM WITH MINIMAL SEROUSANGUINEOUS DRAINAGE, AND 80 % PINK GRANULATION AND 20 % YELLOW SLOUGH AND RED BLANCHABLE PERIWOUND TO SACROGLUTEAL AREA. RECOMMENDATIONS: NURSING TO CONTINUE TO MONITOR PATIENT AND TO FOLLOW MODERATE PUP INTERVENTIONS NURSING TO CONTINUE TO GET PATIENT OUT OF BED FOR MEALS AND MUCH TOLERATED NURSING TO CLEAN STAGE II PRESSURE POSTERIOR SACROGLUTEAL AREA WITH NORMAL SALINE, PAT DRY WITH 4X4 GAUZE, APPLY FIBRACOL TO WOUND BED AND APPLY VENELEX OINTMENT TO PERIWOUND COVER WITH ALLEVYN FOAM DRESSING DAILY AND NEEDED. NURSING TO CONTINUE TO ASSIST PATIENT NEEDED WITH MEALS AND NUTRITIONAL SUPPLEMENTS TO ENSURE PROPER REQUIREMENTS FOR HEALING NURSING TO CONTINUE TO OFFLOAD FEET AND HEELS NEEDED WITH PILLOW SUSPENSION WHEN IN BED. NURSING TO APPLY BILATERAL HEEL PROTECTORS WHILE IN BED. NURSING TO REPOSITION PATIENT SIDE TO SIDE Q2H AND PRN. NURSING TO CONSULT WOUND CARE NEEDED. Addendum: 06/19/19 at 1603 by Roselia Padilla RN Amended: Links added.
--- NOTE | 2019-06-19 16:01 | NUR ---
CALL THANH WITH [facility] WHEN PT IS READY FOR DISCHARGE. SHE WILL SET UP TRANSPORT HOME VIA AMBULANCE. HER NUMBER IS [phone]
--- NOTE | 2019-06-19 16:17 | NUR ---
REPORT FROM PACU: PT HAD PEG TUBE PLACED, APPLIED ABD BINDER. PT RECEIVED 50 PROPOFOL AND 50 CC'S FLUID. LAST VITALS: 116/74, HR 84, RR 18, 100% ON 2L NC.
--- NOTE | 2019-06-19 16:30 | NUR ---
pt back from PACU; PEG tube in place, clamped off. no signs of distress.
--- NOTE | 2019-06-19 16:46 | NUR ---
SPOKE WITH DR. ESPARZA WHO STATES PT CAN START TUBE FEEDINGS TOMORROW AT 1500.
[2019-06-19] MEDS ORDERED: PROPOFOL IV EMULSION 10 MG/ML 20 ML VIAL ONE (18:30)
[2019-06-19] MEDS ORDERED: LIDOCAINE HCL 2% LOCAL INJ 5 ML SDV VIAL INJ ONE (18:30)
--- NOTE | 2019-06-19 19:00 | NUR ---
RECEIVED PATIENT IN BEDSIDE SHIFT REPORT. PATIENT RESTING IN BED. A&OX3. REMEMBERS WHEN SHE HAD THE SURGERY AND THAT SHE CANNOT EAT OR DRINK UNTIL TOMORROW. MILD PAIN REPORTED. NO S&S OF DISTRESS NOTED. BED LOCKED IN LOWEST POSITION, SIDE RAILS UPX2, CALL LIGHT IN REACH.
[2019-06-19] MEDS: SIMVASTATIN 20 MG TAB PO SCH (21:00)
--- NOTE | 2019-06-19 22:30 | Operative Report ---
DATE OF PROCEDURE: 06/19/2019 SURGEON: Saulo Bhakta MD PROCEDURE: EGD and PEG tube placement. INDICATIONS FOR PROCEDURE: Dysphagia, poor p.o. intake. MEDICATIONS: The patient was done under MAC, please see anesthesiologist's note. PROCEDURE IN DETAIL: With the patient in the supine position, a flexible fiberoptic Olympus gastroscope was introduced into the esophagus under direct visualization without any difficulty. There were some mild inflammatory changes noted in the distal esophagus. The scope was then advanced with ease into the stomach traversing a small hiatal hernia. Mucosa overlying the antrum and the body revealed some patchy erythema. The pylorus was of normal contour and shape, it was intubated with ease and the scope was advanced all the way to the second portion of the duodenum. The scope was then withdrawn slowly. Mucosa overlying the proximal second portion and the duodenal bulb appeared to be within normal limits. The scope was then withdrawn back into the stomach and retroflexed and the previously described hiatal hernia was also noted in the retroflexed position. The fundus appeared to be within normal limits. The scope was then straightened out and after delineation of a safe entry point per external digital palpation and transabdominal illumination, PEG tube insertion was carried out in the usual fashion. The scope was subsequently withdrawn after documenting a good positioning of the intragastric bumper. The patient tolerated the procedure well. IMPRESSION: 1. Distal esophagitis, mild. 2. Small hiatal hernia. 3. Gastritis, mild. 4. PEG tube insertion, carried out in the usual fashion. The patient tolerated the procedure well. PLAN: G-tube to drain to gravity and a Jain bag x24 hours then can use. Apply abdominal binder. Saulo Bhakta MD [facility] /[id number] cc: Yoav Bhakta MD
--- NOTE | 2019-06-19 22:59 | NUR ---
NEW ORDERS FROM MD Augusta ESPARZA FOR PAIN AND IV HYDRATION ENTERED.
[2019-06-19] MEDS ORDERED: MORPHINE SULFATE 2 MG/ML SYR 1ML IV PRN (23:00)
[2019-06-19] MEDS: DEXTROSE 5%/LACTATED RINGERS 1,000 ML IV SCH (23:10)
[2019-06-20] VITALS (8 sets, daily range): BP systolic 92–184; BP diastolic 61–91
[2019-06-20] MEDS: PIPER-TAZ 3.375 GM 50 ML IV SCH ×4 (02:15→20:15)
[2019-06-20] MEDS: CARBIDOPA/LEVODOPA 25/100 TAB PO SCH ×6 (04:00→20:49)
[2019-06-20] MEDS: RASAGILINE 1 MG TAB PO SCH (04:00)
--- NOTE | 2019-06-20 07:00 | NUR ---
RECEIVED PATIENT AWAKE AT THIS TIME. NO S/S OF DISTRESS. BED LOW, WHEELS LOCKED, SIDE RAILS X2. CALL LIGHT IN REACH WILL CONTINUE TO MONITOR PATIENT.
[2019-06-20] MEDS: PANTOPRAZOLE SOD 40 MG TABEC PO SCH (07:30)
[2019-06-20] MEDS: NON-FORMULARY MEDICATION (Methenamine Hippurate 1 GM) PO SCH ×2 (07:48→15:47)
[2019-06-20] MEDS: MULTIVITAMINS/MINERALS TAB PO SCH (07:48)
[2019-06-20] MEDS: GLYCOPYRROLATE 1 MG TAB PO SCH ×2 (07:49→17:00)
[2019-06-20] MEDS: BALSAM PERU/CASTOR OIL 60 GM OINT...G. TP SCH (08:24)
[2019-06-20] MEDS: PROPRANOLOL HCL 10 MG TAB PO SCH ×2 (08:24→17:26)
--- NOTE | 2019-06-20 13:20 | NUR ---
SPOKE WITH DR. ERIN ESPARZA. OK TO FEED PATIENT BY MOUTH AND START JEVITY @ 30 CC/HR. NEW ORDERS IMPLEMENTED.
[2019-06-20] MEDS: DEXTROSE 5%/LACTATED RINGERS 1,000 ML IV SCH (14:13)
[2019-06-20] MEDS: SIMVASTATIN 20 MG TAB PO SCH (20:41)
[2019-06-21] MEDS: CARBIDOPA/LEVODOPA 25/100 TAB PO SCH ×4 (00:10→12:18)
[2019-06-21 00:47] VITALS: BP 101/56
[2019-06-21] MEDS: DEXTROSE 5%/LACTATED RINGERS 1,000 ML IV SCH ×2 (01:40→12:18)
[2019-06-21] MEDS: PIPER-TAZ 3.375 GM 50 ML IV SCH ×2 (02:10→08:45)
[2019-06-21] MEDS: RASAGILINE 1 MG TAB PO SCH (04:10)
[2019-06-21 05:00] VITALS: BP 94/60
--- NOTE | 2019-06-21 07:00 | NUR ---
RECEIVED PATIENT AWAKE AT THIS TIME. NO S/S OF DISTRESS. BED LOW, WHEELS LOCKED, SIDE RAILS X2. CALL LIGHT IN REACH WILL CONTINUE TO MONITOR PATIENT.
[2019-06-21] MEDS: NON-FORMULARY MEDICATION (Methenamine Hippurate 1 GM) PO SCH (07:22)
[2019-06-21] MEDS: GLYCOPYRROLATE 1 MG TAB PO SCH (08:24)
[2019-06-21] MEDS: BALSAM PERU/CASTOR OIL 60 GM OINT...G. TP SCH (08:24)
[2019-06-21 08:28] VITALS: BP 129/66
[2019-06-21] MEDS: PROPRANOLOL HCL 10 MG TAB PO SCH (08:45)
[2019-06-21] MEDS: MULTIVITAMINS/MINERALS TAB PO SCH (08:45)
[2019-06-21] MEDS: SCOPOLAMINE 1.5 MG PATCH TD SCH (08:45)
[2019-06-21] MEDS: PANTOPRAZOLE SOD 40 MG TABEC PO SCH (08:45)
[2019-06-21 09:15] VITALS: BP 129/66
--- NOTE | 2019-06-21 10:20 | NUR ---
SPOKE WITH MR. ROWE REGARDING DR. ESPARZA CLEARING PATIENT TO GO HOME TODAY. NOTIFIED FAMILY MEMBER THAT [facility] WILL BE ARRANGING AMBULANCE FOR TRANSFER HOME.
--- NOTE | 2019-06-21 10:57 | NUR ---
REPORT GIVEN TO NURSE VOGEL WITH [facility].
[2019-06-21] MEDS ORDERED: ONDANSETRON HCL 4 MG ORAL DISINTEGRATING TAB PO PRN (11:15)
--- NOTE | 2019-06-21 11:24 | NUR ---
SPOKE WITH [facility] NURSE DELFINO. [facility] WILL BE PICKING PATIENT UP TO GO HOME AT 2 PM.
--- NOTE | 2019-06-21 11:38 | NUR ---
[facility] WILL HAVE AMBULANCE PICK PT UP AT 14:00 TODAY.
[2019-06-21 12:22] VITALS: BP 183/93
--- NOTE | 2019-06-21 13:47 | NUR ---
removed patients iv. catheter tip intact and pressure dressing applied.
--- NOTE | 2019-06-21 14:09 | NUR ---
PATIENT DISCHARGED FROM FACILITY. GATHERED ALL PATIENTS BELONGINGS. PATIENT LEFT WITH DISCHARGE PACKET. TRANSFERRED HOME WITH [facility]. WENT HOME WITH [facility]. NO S/S OF DISTRESS WHEN LEAVING FACILITY.
== END 2019-06-21 14:10 | disposition home or self-care (01) | DRG 689 ==
LOC: ER 14:17 → ERHOLD 16:46 → MED/SURG 19:15 → OBSVTOIN 06-17 09:23
PROC: 0DH63UZ Insertion of Feeding Device into Stomach, Percutaneous Approach (ICD-10-PCS; principal; 2019-06-19 15:00)
DX: N30.21 Other chronic cystitis with hematuria (principal); J18.9 Pneumonia, unspecified organism; E44.0 Moderate protein-calorie malnutrition; R53.1 Weakness; G20 Parkinson's disease; F02.80 Dementia in other diseases classified elsewhere, unspecified severity, without behavioral disturbance, psychotic disturbance, mood disturbance, and anxiety; I10 Essential (primary) hypertension; E78.5 Hyperlipidemia, unspecified; Z88.1 Allergy status to other antibiotic agents; Z83.3 Family history of diabetes mellitus; Z82.49 Family history of ischemic heart disease and other diseases of the circulatory system; I95.9 Hypotension, unspecified; R55 Syncope and collapse; R62.7 Adult failure to thrive; K20.9 Esophagitis, unspecified; K29.70 Gastritis, unspecified, without bleeding; K44.9 Diaphragmatic hernia without obstruction or gangrene; Z51.5 Encounter for palliative care; Z68.27 Body mass index [BMI] 27.0-27.9, adult; L89.152 Pressure ulcer of sacral region, stage 2
CPT/HCPCS: 36415; 43246; 71045; 71260; 78580; 80053; 81001; 82550; 82553; 83735; 83880; 84484; 85025; 85610; 85730; 87040; 87086; 87635; 93005; 96361; 97139; 99251; 99284; A9540; G0378; J1650; J2001; J2405; J2543; J7030; J7050; Q9967

== ENCOUNTER 2019-11-26 21:28 | Observation (INO) | payer MEDICARE, BC ==
[~2019-11-26] VITALS: Ht 157.5 cm; Wt 68.9 kg
[~2019-11-26 21:28] MED LIST changes: +GLYCOPYRRO0.2 MG/1 M PO; +PANTOPRAZOLE SO40 MG PO; +SIMVASTATIN20 MG PO
--- OUTSIDE RECORDS SUMMARY | 2019-11-26 22:02 | XMS REPORT | Continuity of Care Document ---
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 Role Phone [facility] [employer] Unavailable Un available Problems Problem Status Onset Date Classification Date Reported Comments Source PARKINSON'S DISEASE Active 08/26/[facility] PARKINSON Active 08[facility]26/[facility] G20 Active 0 08/26/2018 [facility] Parkinson's disease (disorder) Active Problem 09/2018 [facility] Simple obesity (disorder) Acti ve Problem 09/2018 [facility] PARKINSON'S DISEASE Active [facility] Medications Medication Details Route Status Patient Instructions Ordering Provider Order Date Source Oxycodone Hydrochloride 1 MG/ML Oral Solution 5 mg, 5 mL, Route: PEG, ONCE, Dosing Weight 77.273, kg, Priority: NOW, Start date: 10/24/18 15:25:00 CDT, Stop date: 10/24/18 15:25:00 CDT Inactive 10/24/2018 [facility] Cephalexin 500 MG Oral Capsule [Keflex] 500 mg = 1 cap, PO, TID, X 10 day, # 30 cap, 0 Refill(s) Active 10/24/2018 [facility] nter Ondansetron 4 MG Disintegrating Tablet [Zofran] 4 mg = 1 tab, PO, BID, PRN Nausea and Vomiting, Dissolve tab under tongue, # 10 tab, 0 Refill(s) Active 10/24/2018 [facility] sugammadex Notes: (Same as: Minh smith) No Longer Active 10/24/2018 [facility] ondansetron (ANES) Route: IV, Drug form: INJ, ONCE, Stop date: 10/24/18 14:24:00 CDT Inactive 10/24/2018 [facility] nt sugammadex (ANES) Route: IV, D rug form: SOLN, ONCE, Stop date: 10/24/18 14:24:00 CDT Inactive 10/24/2018 [facility] nter rocuronium (ANES) Route: IV, D rug form: INJ, ONCE, Stop date: 10/24/18 13:28:00 CDT Inactive 10/24/2018 [facility] nter fentaNYL (ANES) Route: IV, Clark g form: INJ, ONCE, Stop date: 10/24/18 13:28:00 CDT Inactive 10/24/2018 [facility] nter ceFAZolin (ANES) Route: IV, Dr ug form: INJ, ONCE, Stop date: 10/24/18 13:28:00 CDT Inactive 10/24/2018 [facility] nter lidocaine (ANES) Route: IV, Dr ug form: INJ, ONCE, Stop date: 10/24/18 13:23:00 CDT Inactive 10/24/2018 [facility] nter propofol (ANES) Route: IV, Clark g form: INJ, ONCE, Stop date: 10/24/18 13:23:00 CDT Inactive 10/24/2018 [facility] nter Acetaminophen Notes: Max aceta minophen 4000 mg/day (4 gm/day). (Same as: Tylenol Extra Strength) No Longer Active 10/24/2018 [facility] Oxycodone Hydrochloride 5 MG Oral Tablet Notes: (Same as: Roxicodone) No Longer Active 10/24/2018 [facility] Flumazenil Notes: (Same as: Ro mazicon) No Longer Active 10/24/2018 [facility] Naloxone Notes: Same as Narcan No Longer Active 10/24/2018 [facility] Ondansetron Notes: (Same as: Radha sumner) MEDICATION WASTE Product Size: 4 mg Product Wasted: ___ mg No Longer Active 10/24/2018 [facility] Lactated Ringers Injection IV (ANES) 1000 mL Route: IV, Total Volume: 1,000, Start date: 10/24/18 12:24:00 CDT, Stop date: 10/24/18 13:24:00 CDT Inactive 10/24/2018 [facility] ceFAZolin Notes: (Same as Brady f) No Longer Active 10/24/2018 [facility] Zinc Sulfate 220 mg, GT, Daily , 0 Refill(s) Active 10/23/2018 [facility] Vitamin C 500 mg, GT, BID, 0 R efill(s) Active 10/23/2018 [facility] ceFAZolin + sterile water 20 mL Notes: (Same As: Ancef Kefzol) MEDICATION WASTE Product Size: 1000 mg Product Wasted: ___ mg No Longer Active 10/16/2018 [facility] Sulfamethoxazole 800 MG / Trimethoprim 1 60 MG Oral Tablet [Bactrim] 1 tab, PO, Q12H, X 5 day, # 10 tab, 0 Re fill(s) Active 10/15/2018 [facility] atorvastatin 10 mg oral tablet 10 mg = 1 tab, GT, Daily, 0 Refill(s) Active 10/15/2018 [facility] lansoprazole GT, Daily, 0 Refi ll(s) Active 10/15/2018 [facility] 24 HR Rotigotine 0.167 MG/HR Transdermal Patch TOP, Daily, 0 Refill(s) Active 10/15/2018 [facility] sennosides, RESIDENTIAL 8.6 MG Oral Tablet 8.6 mg = 1 tab, PO, BID, 0 Refill(s) Active 10/15/2018 [facility] Sodium Chloride 1000 MG Oral Tablet 3 gm, 3 tab, Route: GT, Drug form: TAB, Q8H, Dosing Weight 86.3, kg, Priority: NOW, Start date: 10/14/18 12:21:00 CDT, Duration: 30 day, Stop date: 11/13/18 14:00:00 CDT, 0 No Longer Active 10/14/2018 [facility] phenol 1 spray, Route: MUCOUS MEM, TID, Drug form: SPRY, PRN Sore Throat, Start date: 10/14/18 6:26:00 CDT, Duration: 30 day, Stop date: 11/13/18 6:25:00 CDT, 0 No Longer Active 10/14/2018 [facility] nter Fentanyl 50 microgram, Route: IV, ONCE, Dosing Weight 86.3, kg, Start date: 10/13/18 16:23:00 CDT, Stop date: 10/13/18 16:23:00 CDT Inactive 10/13/2018 [facility] Epinephrine 0.01 MG/ML / Lidocaine Sterling chloride 10 MG/ML Injectable Solution 12 mL, Route: SUB-Q, Dosing Weight 86.3, ONCE, Start date: 10/13/18 16:22:00 CDT, Stop date: 10/13/18 16:22:00 CDT Inactive 10/13/2018 [facility] Glucagon 1 mg, Route: IV, ONCE , Dosing Weight 86.3, kg, Start date: 10/13/18 16:07:00 CDT, Stop date: 10/13/18 16:07:00 CDT Inactive 10/13/2018 [facility] Lactated Ringers IV 1,000 mL 1 ,000 mL, Rate: 100 ml/hr, Infuse over: 10 hr, Route: IV, Dosing Weight 86.3 kg, Total Volume: 1,000, Start date: 10/13/18 5:32:00 CDT, Duration: 30 day, Stop date: 11/12/18 5:31:00 CDT, 1.97, m2, 0 No Longer Active 10/13/2018 [facility] Vancomycin 2001 mg: infuse ov er 2.5 hours For adult patients only: Round to nearest 250 mg per Medical Staff approval MEDICATION WASTE Product Size: 1000 mg Product Wasted: ___ mg No Longer Active 10/13/2018 [facility] Vancomycin 2001 mg: infuse ov er 2.5 hours For adult patients only: Round to nearest 250 mg per Medical Staff approval MEDICATION WASTE Product Size: 1000 mg Product Wasted: ___ mg Inactive 10/12/2018 [facility] cefepime /= 60 ml/min), Start date: 10/12/18 10:00:00 CDT, Duration: 7 day, Stop date: 10/19/18 2:00:00 CDT, ABX Indication: Pneumonia Inactive 10/12/2018 [facility] Flagyl Notes: (Same as: Flagyl ) Avoid alcohol. No Longer Active 10/12/2018 [facility] Albuterol 0.833 MG/ML / Ipratropium Brom veena 0.167 MG/ML Inhalant Solution [DuoNeb] Notes: (Same as: Duoneb) No Longer Active 10/11/2018 [facility] rasagiline Notes: Same as Azil ect Non Formulary Item No Longer Active 10/10/2018 [facility] rotigotine Notes: (Same as: Katy hendrix) Application sites should be rotated on a daily basis. Do not apply to same application site more than once every 14 days or apply patch to oily, irritated or damaged skin. No Longer Active 10/09/2018 [facility] rasagiline Notes: Same as Azil ect Non Formulary Item No Longer Active 10/09/2018 [facility] 24 HR Rotigotine 0.125 MG/HR Transdermal Patch 1 patch, Route: TOP, Drug Form: ERFILM, Dosing Weight 86.3, kg, Daily, Start date: 10/09/18 9:00:00 CDT, Duration: 30 day, Stop date: 11/07/18 9:00:00 CDT Inactive 10/09/2018 [facility] propofol 10 mg/mL (Titrate.) IV 1,000 mg 1,000 mg, 100 mL, Rate: Titrate, Start Dose: 30 microgram/kg/min, Titration: DO NOT TITRATE, Goal(s): per MD status epilepticus dosing, Route: IV, Dosing Weight 86.3 kg, Total Volume: 100, Start date: 10/08/18 6:41:00 CDT, Duration: 30 day, Stop date:... Inactive 10/08/2018 [facility] Prevacid Notes: Take 1 hour be fore or 2 hours after meal; Expires in 14 days. Shake well before use. (Same as:Prevacid) Compounded Product - formulation not commercially available No Longer Active 10/07/2018 [facility] Dextrose 50% Syringe 12.5 gm, 25 mL, Route: IVP, Drug Form: INJ, Dosing Weight 86.3, kg, PRN, PRN Blood Glucose Results, Start date: 10/07/18 8:27:00 CDT, Duration: 30 day, Stop date: 11/06/18 8:26:00 CDT, 0 No Longer Active 10/07/2018 [facility] Glucagon 1 mg, Route: IM, Drug form: PDR/INJ, PRN, Dosing Weight 86.3, kg, PRN Blood Glucose Results, Start date: 10/07/18 8:27:00 CDT, Duration: 30 day, Stop date: 11/06/18 8:26:00 CDT, 0 No Longer Active 10/07/2018 [facility] Insulin regular Notes: (Same a s: Humulin R) Roll in palms of hands gently; Do not shake vigorously. WASTE: F/P - Black; E - Municipal Trash Bin Stable for 31 days at room temperature Expires in days from Date No Longer Active 10/07/2018 [facility] nter potassium phosphate Notes: ([facility] as: K Phosphate.) Do not infuse phosphorous concurrently in the same line as TPN or IVF that contains calcium. For double lumen central lines, phosphorous may be infused in a separate lumen from TPN. 1 mMol phoshate has 1.47 mEq potassium Infuse over 4 hours Inactive 10/07/2018 [facility] Valproic Acid 100 MG/ML Injectable Solution 3,000 mg, Route: IVPB, ONCE, Dosing Weight 86.3, kg, Priority: STAT, Start date: 10/06/18 17:24:00 CDT, Stop date: 10/06/18 17:24:00 CDT Inactive 10/06/2018 [facility] nter Albuterol 0.833 MG/ML / Ipratropium Brom veena 0.167 MG/ML Inhalant Solution [DuoNeb] Notes: (Same as: Duoneb) No Longer Active 10/06/2018 [facility] Dexamethasone Notes: Concentra tion: 4mg/ml No Longer Active 10/06/2018 [facility] Racepinephrine 22.5 MG/ML Inhalant Solution 11.25 mg, 0.5 mL, Route: NEB, Drug Form: SOLN, Dosing Weight 86.3, kg, RQ6H, PRN Stridor, Start date: 10/06/18 11:37:00 CDT, Duration: 30 day, Stop date: 11/05/18 11:36:00 CDT, Pediatric Dosing, 0 No Longer Active 10/06/2018 [facility] nter remove patch Notes: Remove pat ch 24 hours after application Remove old patch before application of new patch. No Longer Active 10/06/2018 [facility] Amitriptyline Notes: (Same as: Elavil) No Longer Active 10/06/2018 [facility] Lipitor Notes: (Same As: Lipit or) No Longer Active 10/06/2018 [facility] Sodium Chloride 0.9% (Bolus) IV 500 mL, 1000 ml/hr, Infuse Over: 0.5 hr, Route: IV, 500, Drug form: INJ, ONCE, Priority: STAT, Dosing Weight 86.3 kg, Start date: 10/05/18 16:04:00 CDT, Stop date: 10/05/18 16:04:00 CDT, 0 Inactive 10/05/2018 [facility] Zosyn Notes: (Same as: Zosyn) Dosing based on Piperacillin component MEDICATION WASTE Product Size: 3375 mg Product Wasted: ___ mg No Longer Active 10/05/2018 [facility] nter rotigotine Notes: (Same as: Katy upro) Application sites should be rotated on a daily basis. Do not apply to same application site more than once every 14 days or apply patch to oily, irritated or damaged skin. No Longer Active 10/05/2018 [facility] 24 HR Rotigotine 0.0417 MG/HR Transderma l Patch [Neupro] 1 patch, Route: TOP, Drug Form: ERFILM, Dosing Weight 86.3, kg, Daily, Start date: 10/05/18 9:00:00 CDT, Duration: 30 day, Stop date: 11/03/18 9:00:00 CDT Inactive 10/05/2018 [facility] Carbidopa 25 MG / Levodopa 100 MG Oral T ablet [Sinemet 25-100] Notes: Take with milk or food. (Same As: Sinemet) No Longer Active 10/05/2018 [facility] NS (Bolus) IV 1,000 mL, 1,000 ml/hr, Infuse Over: 1 hr, Route: IV, 1,000, Drug form: INJ, ONCE, Priority: STAT, Dosing Weight 86.3 kg, Start date: 10/05/18 0:54:00 CDT, Stop date: 10/05/18 0:54:00 CDT, 0 Inactive 10/05/2018 [facility] Famotidine Notes: (Same as: Pe pcid) Can be dilute in 5- 10cc NS IVP: Slow IV push over at least 2 minutes. Inactive 10/05/2018 [facility] nter chlorhexidine gluconate 1.2 MG/ML Mouthwash Notes: (Same As: Peridex) No Longer Active 10/05/2018 [facility] propofol 10 mg/mL (Titrate.) IV 1,000 mg Notes: If Diprivan - change bottle & tubing every 12 hr Per state nursing law propofol can only be given by a nurse if patient is intubated or being intubated (unless the nurse is a COTTON BREEDER). Same as: Diprivan Inactive 10/04/2018 [facility] nter ocular lubricant Notes: (Same as: Lacri-Lube, Puralube, Duratears Naturale, Artificial Tears, and Tears Again ) No Longer Active 10/04/2018 [facility] Iohexol Notes: (same as:Omnipa que 350). WASTE: F/P - Black; E - Municipal Trash Bin No Longer Active 10/04/2018 [facility] nter chlorhexidine gluconate 1.2 MG/ML Mouthwash Notes: (Same As: Peridex) No Longer Active 10/04/2018 [facility] Potassium Chloride Notes: ([facility] as: KCL) Infuse no faster than 10 mEq/hr if given peripherally. No Longer Active 10/04/2018 [facility] sodium phosphate Notes: Infuse over 4 hour. Do not infuse phosphorous concurrently in the same line as TPN or IVF that contains calcium. For double lumen central lines, phosphorous may be infused in a separate lumen from TPN. No Longer Active 10/04/2018 [facility] nter potassium phosphate Notes: ([facility] as: K Phosphate.) Do not infuse phosphorous concurrently in the same line as TPN or IVF that contains calcium. For double lumen central lines, phosphorous may be infused in a separate lumen from TPN. 1 mMol phoshate has 1.47 mEq potassium Infuse over 4 hours No Longer Active 10/04/2018 [facility] potassium phosphate-sodium phosphate 250 mg-280 mg-160 mg oral powder for reconstitution Notes: (Same as: Phos-NaK) Each 1.5 gm pkt has 250mg phosphorous. Mix w/2.5oz water and stir. No Longer Active 10/04/2018 [facility] Magnesium Sulfate Notes: WASTE : F/P - Sink; E - Municipal Trash Bin No Longer Active 10/04/2018 [facility] nter Magnesium Oxide Notes: (Same a s: Mag-Ox 400) Magnesium oxide [id number] elemental magnesium Dose=____mg magnesium oxide (___mg elemental magnesium) No Longer Active 10/04/2018 [facility] nter Calcium Gluconate Notes: WASTE : F/P - Sink; E - Municipal Trash Bin No Longer Active 10/04/2018 [facility] nter Calcium Carbonate 500 MG Chewable Tablet Notes: (Same As: Tums) Calcium Carbonate 500 mg = 200 mg elemental calcium Dose = mg calcium carbonate ( mg elemental calcium) No Longer Active 10/04/2018 [facility] heparin sodium, porcine 2500 UNT/ML Injectable Solutio n Notes: porcine heparin No Longer Active 10/04/2018 [facility] nter Albuterol 0.833 MG/ML / Ipratropium Brom veena 0.167 MG/ML Inhalant Solution [DuoNeb] Notes: (Same as: Duoneb) No Longer Active 10/04/2018 [facility] Dextrose 50% Syringe 12.5 gm, 25 mL, Route: IVP, Drug Form: INJ, Dosing Weight 86.3, kg, PRN, PRN Blood Glucose Results, Start date: 10/04/18 14:46:00 CDT, Duration: 30 day, Stop date: 11/03/18 14:45:00 CDT, 0 No Longer Active 10/04/2018 [facility] Glucagon 1 mg, Route: IM, Drug form: PDR/INJ, PRN, Dosing Weight 86.3, kg, PRN Blood Glucose Results, Start date: 10/04/18 14:46:00 CDT, Duration: 30 day, Stop date: 11/03/18 14:45:00 CDT, 0 No Longer Active 10/04/2018 [facility] Insulin regular Notes: (Same a s: Humulin R) Roll in palms of hands gently; Do not shake vigorously. WASTE: F/P - Black; E - Municipal Trash Bin Stable for 31 days at room temperature Expires in days from Date No Longer Active 10/04/2018 [facility] nter heparin Notes: porcine heparin No Longer Active 10/03/2018 [facility] Dexilant 30 mg, Route: PO, Clark g form: DRC, Daily, Dosing Weight 86.3, kg, Start date: 10/03/18 9:00:00 CDT, Duration: 30 day, Stop date: 11/01/18 9:00:00 CDT No Longe r Active 10/03/2018 [facility] nter Lovastatin 20 mg, Route: PO, D rug form: TAB, Daily, Dosing Weight 86.3, kg, Start date: 10/03/18 9:00:00 CDT, Duration: 30 day, Stop date: 11/01/18 9:00:00 CDT No Longer Active 10/03/2018 [facility] nter rasagiline 1 mg, 1 tab, Route: PO, Drug form: TAB, Daily, Dosing Weight 86.3, kg, Start date: 10/03/18 9:00:00 CDT, Duration: 30 day, Stop date: 11/01/18 9:00:00 CDT, 0 No Longer Active 10/03/2018 [facility] nt Protonix Notes: Tablet should not be chewed or crushed. (Same as: Protonix) No Longer Active 10/03/2018 [facility] nt Lipitor Notes: (Same As: Lipit or) No Longer Active 10/03/2018 [facility] Saline Flush 0.9% Notes: (Same as: BD Posiflush) No Longer Active 10/03/2018 [facility] Carbidopa 50 MG / Levodopa 200 MG Extend ed Release Tablet Notes: "Do Not Crush" Take with milk or food. (Same As: Sinemet CR) No Longer Active 10/03/2018 [facility] Melatonin Notes: (Same as: Crista atonin) No Longer Active 10/03/2018 [facility] Cefazolin Notes: (Same as Ance f) No Longer Active 10/03/2018 [facility] Docusate 50 mg, Route: PO, Clark g form: CAP, BID, Dosing Weight 86.3, kg, Start date: 10/02/18 17:00:00 CDT, Duration: 30 day, Stop date: 11/01/18 9:00:00 CDT, Pediatric Dosing Inactive 10/02/2018 [facility] nter sennosides, RESIDENTIAL Notes: (Same a s: Senokot) No Longer Active 10/02/2018 [facility] Docusate Sodium 100 MG Oral Capsule [Colace] Notes: (Same as: Colace) No Longer Active 10/02/2018 [facility] nter Amitriptyline Notes: (Same as: Elavil) No Longer Active 10/02/2018 [facility] Propranolol Notes: Give with f ood. (Same as: Inderal) No Longer Active 10/02/2018 [facility] Carbidopa 25 MG / Levodopa 100 MG Oral Tablet Notes: Take with milk or food. (Same As: Sinemet) No Longer Active 10/02/2018 [facility] levETIRAcetam (ANES) Route: IV , Drug form: INJ, ONCE, Stop date: 10/02/18 14:38:00 CDT Inactive 10/02/2018 [facility] nter Sodium Chloride 0.9% IV 1,000 mL 1,000 mL, Rate: 50 ml/hr, Infuse over: 20 hr, Route: IV, Dosing Weight 86.3 kg, Total Volume: 1,000, Start date: 10/02/18 14:24:00 CDT, Duration: 30 day, Stop date: 11/01/18 14:23:00 CDT, 1.97, m2, 0 No Longer Active 10/02/2018 [facility] nter Labetalol 10 mg, 2 mL, Route: IVP, Drug form: INJ, Q15Min, Dosing Weight 86.3, kg, PRN Elevated BP, Start date: 10/02/18 14:24:00 CDT, Duration: 3 doses or times, Stop date: Limited # of times, 0 No Longer Active 10/02/2018 [facility] Hydralazine Notes: (Same as: A presoline) Push over 5 minutes No Longer Active 10/02/2018 [facility] Ondansetron Notes: (Same as: Radha sumner) MEDICATION WASTE Product Size: 4 mg Product Wasted: ___ mg No Longer Active 10/02/2018 [facility] Acetaminophen 325 MG / Hydrocodone Mateo trate 10 MG Oral Tablet [Wilson 10/325] Notes: Do not exceed 4gm/day of acetamin ophen. (Same as: Wilson 325/10) No Longer Active 10/02/2018 [facility] Dilaudid Notes: Same as Dilaud id No Longer Active 10/02/2018 [facility] Benadryl Notes: (Same as: [place] dryl) No Longer Active 10/02/2018 [facility] phenol Notes: Chloraseptic Spr ay (Same as: Chloraseptic, Sore Throat [place]) WASTE: F/P - Black; E - Municipal Trash Bin No Longer Active 10/02/2018 [facility] Bisacodyl Notes: (Same As: Dul colax, Bisco-Lax) No Longer Active 10/02/2018 [facility] Robaxin Notes: (Same as:Robaxi n) No Longer Active 10/02/2018 [facility] Melatonin 3 MG Extended Release Tablet 3 mg, 1 tab, Route: PO, Dosing Weight 86.3, kg, Bedtime, PRN as needed for insomnia, Start date: 10/02/18 14:24:00 CDT, Duration: 30 day, Stop date: 11/01/18 14:23:00 CDT Inactive 10/02/2018 [facility] Tylenol Notes: Do not exceed 4 gm/day. (Same as: Tylenol) No Longer Active 10/02/2018 [facility] Phenergan Notes: Do not give I V push. (Same as: Phenergan) No Longer Active 10/02/2018 [facility] Potassium Chloride Notes: (Bruce e as: K-Dur 20) "Do Not Crush" Give with food and full glass of water For patients unable to swallow tablet, dissolve in one half glass of water. Allow about 2 minutes for the tab lets to disintegrate. Stir before giving to prepare slurry and administer. Please exclude Patients with feeding tube less than 14 Palestinian (Dobhoff, J-tube etc) and pediatric and patients. No Longer Active 10/02/2018 [facility] nter Saline Flush 0.9% Notes: (Same as: BD Posiflush) No Longer Active 10/02/2018 [facility] Tylenol Notes: Max acetaminoph en 4000 mg/day (4 gm/day). (Same as: Tylenol Extra Strength) Inactive 10/02/2018 [facility] nt fentaNYL (ANES) Route: IV, Clark g form: INJ, ONCE, Stop date: 10/02/18 10:55:00 CDT Inactive 10/02/2018 [facility] nt hydrALAZINE (ANES) Route: IV, Drug form: INJ, ONCE, Stop date: 10/02/18 10:55:00 CDT Inactive 10/02/2018 [facility] nt Hydralazine Notes: (Same as: A presoline) Push over 5 minutes Inactive 10/02/2018 [facility] Labetalol 10 mg, 2 mL, Route: IVP, Drug form: INJ, Q5Min, Dosing Weight 86.3, kg, PRN Elevated BP, Start date: 10/02/18 10:46:00 CDT, Duration: 5 doses or times, Stop date: 10/03/18 0:00:00 CDT, 0 Inactive 10/02/2018 [facility] Metoprolol Notes: (Same as: Lo pressor) Push over 2 minutes Inactive 10/02/2018 [facility] Oxycodone Hydrochloride 5 MG Oral Tablet Notes: (Same as: Roxicodone) Inactive 10/02/2018 [facility] Hydromorphone Notes: Same as D ilaudid Inactive 10/02/2018 [facility] Flumazenil Notes: (Same as: Ro mazicon) Inactive 10/02/2018 [facility] Naloxone Notes: Same as Narcan Inactive 10/02/2018 [facility] Ondansetron Notes: (Same as: Radha sumner) MEDICATION WASTE Product Size: 4 mg Product Wasted: ___ mg Inactive 10/02/2018 [facility] ceFAZolin (ANES) Route: IV, Dr ug form: INJ, ONCE, Stop date: 10/02/18 10:45:00 CDT Inactive 10/02/2018 [facility] nt propofol (ANES) Route: IV, Clark g form: INJ, ONCE, Stop date: 10/02/18 10:09:00 CDT Inactive 10/02/2018 [facility] nter acetaminophen (ANES) Route: IV , Drug form: INJ, ONCE, Stop date: 10/02/18 9:54:00 CDT Inactive 10/02/2018 [facility] nt esmolol (ANES) Route: IV, Drug form: INJ, ONCE, Stop date: 10/02/18 9:24:00 CDT Inactive 10/02/2018 [facility] nter dexmedetomidine (ANES) 200 microgram Route: IV, Drug form: INJ, Start date: 10/02/18 9:24:00 CDT, Stop date: 10/02/18 10:24:00 CDT Inactive 10/02/2018 [facility] Isolyte S PH 7.4 (ANES) 1000 mL Route: IV, Total Volume: 1,000, Start date: 10/02/18 9:10:00 CDT, Stop date: 10/02/18 10:10:00 CDT Inactive 10/02/2018 [facility] Lactated Ringers Injection IV (ANES) 1000 mL Route: IV, Total Volume: 1,000, Start date: 10/02/18 8:26:00 CDT, Stop date: 10/02/18 9:26:00 CDT Inactive 10/02/2018 [facility] ceFAZolin + sterile water 20 mL Notes: (Same As: Alicia Jolly) MEDICATION WASTE Product Size: 1000 mg Product Wasted: ___ mg No Longer Active 10/02/2018 [facility] Doxycycline 20 MG Oral Tablet 0 Refill(s) Active 07/08/2018 [facility] amitriptyline 10 mg oral tablet 0 Refill(s) Active 06/23/2018 [facility] Carbidopa 25 MG / Levodopa 100 MG Oral Tablet 0 Refill(s) Active 06/23/2018 [facility] Carbidopa 50 MG / Levodopa 200 MG Extend ed Release Tablet 0 Refill(s) Active 06/23/2018 [facility] ciprofloxacin 500 mg oral tablet 0 Refill(s) Active 06/23/2018 [facility] Docusate Sodium 100 MG Oral Capsule [Colace] 1 tab, At night, 0 Refill(s) Active 06/23/2018 [facility] dexlansoprazole 30 MG Enteric Coated Capsule [Dexilant ] 0 Refill(s) Active 06/23/2018 [facility] Dulcolax Laxative 0 Refill(s) Active 06/23/2018 [facility] lovastatin 20 mg oral tablet 0 Refill(s) Active 06/23/2018 [facility] propranolol 20 mg oral tablet 0 Refill(s) Active 06/23/2018 [facility] Melatonin 10 mg oral capsule 0 Refill(s) Active 06/23/2018 [facility] multivitamin 0 Refill(s) Active 06/23/2018 [facility] rasagiline 1 mg oral tablet 0 Refill(s) Active 06/23/2018 [facility] methenamine hippurate 1 g oral tablet 0 Refill(s) Active 06/23/2018 [facility] Allergies, Adverse Reactions, Alerts Substance Category Reaction Severity Reaction type Status Date Reported Comments Source clindamycin Assertion Drug allergy Active [facility] Immunizations No Data Provided for This Section Results Order Name Results Value Reference Range Date Interpretation Comments Source BLOOD BANK RESULTS ABO/Rh B POS 10/24/2018 [facility] BLOOD BANK RESULTS Antibody Scrn Negative (10/24/18 11:11 AM) 10/24/2018 [facility] CHEM PANEL Glucose Lvl 166 70 - 99 10/15/2018 [facility] CHEM PANEL BUN 21 7 - 22 10/15/2018 [facility] CHEM PANEL Creatinine Lvl 0.60 0.50 - 1.40 10/15/2018 [facility] CHEM PANEL Sodium Lvl 136 135 - 145 10/15/2018 [facility] CHEM PANEL Potassium Lvl 4.3 3.5 - 5.1 10/15/2018 [facility] CHEM PANEL Chloride Lvl 102 95 - 109 10/15/2018 [facility] CHEM PANEL CO2 27 24 - 32 10/15/2018 [facility] CHEM PANEL AGAP 11.3 10.0 - 20.0 10/15/2018 [facility] CHEM PANEL Calcium Lvl 9.0 8.5 - 10.5 10/15/2018 [facility] CHEM PANEL eGFR 93 10/15/2018 Result Comment: The eGFR is calculated using the CKD-EPI formula. In most young, healthy individuals the eGFR will be >90 mL/min/1.73m2. The eGFR declines with age. An eGFR of 60-89 may be normal in some populations, particularly the elderly, for whom the CKD-EPI formula has not been extensively validated. Use of the eGFR is not recommended in the following populations:

Individuals with unstable creatinine concentrations, including patients and those with serious co-morbid conditions.

Patients with extremes in muscle mass or diet.

The data above are obtained from the National Kidney Disease Education Program (NKDEP) which additionally recommends that when the eGFR is used in patients with extremes of body mass index for purposes of drug dosing, the eGFR should be multiplied by the estimated BMI. [facility] HEMATOLOGY PT 14.4 12.0 - 14.7 10/15/2018 [facility] HEMATOLOGY INR 1.14 0.85 - 1.17 10/15/2018 [facility] HEMATOLOGY PTT 30.2 22.9 - 35.8 10/15/2018 [facility] HEMATOLOGY WBC 10.4 3.7 - 10.4 10/15/2018 [facility] HEMATOLOGY RBC 4.43 4.20 - 5.40 10/15/2018 [facility] HEMATOLOGY Hgb 11.7 12.0 - 16.0 10/15/2018 [facility] HEMATOLOGY Hct 35.7 36.0 - 48.0 10/15/2018 [facility] HEMATOLOGY MCV 80.5 80.0 - 98.0 10/15/2018 [facility] HEMATOLOGY MCH 26.5 27.0 - 31.0 10/15/2018 [facility] HEMATOLOGY MCHC 32.9 32.0 - 36.0 10/15/2018 [facility] HEMATOLOGY RDW 13.9 11.5 - 14.5 10/15/2018 [facility] HEMATOLOGY Platelet 297 133 - 450 10/15/2018 [facility] HEMATOLOGY MPV 7.0 7.4 - 10.4 10/15/2018 [facility] HEMATOLOGY Segs 73.3 45.0 - 75.0 10/15/2018 [facility] HEMATOLOGY Lymphocytes 14.5 20.0 - 40.0 10/15/2018 [facility] HEMATOLOGY Monocytes 10.1 2.0 - 12.0 10/15/2018 [facility] HEMATOLOGY Eosinophils 1.5 0.0 - 4.0 10/15/2018 [facility] HEMATOLOGY Basophils 0.6 0.0 - 1.0 10/15/2018 [facility] HEMATOLOGY Neutrophils # 7.6 1.5 - 8.1 10/15/2018 [facility] HEMATOLOGY Lymphocytes # 1.5 1.0 - 5.5 10/15/2018 [facility] HEMATOLOGY Monocytes # 1.1 0.0 - 0.8 10/15/2018 [facility] HEMATOLOGY Eosinophils # 0.2 0.0 - 0.5 10/15/2018 [facility] HEMATOLOGY Basophils # 0.1 0.0 - 0.2 10/15/2018 [facility] CHEM PANEL Glucose Lvl 102 70 - 99 10/14/2018 [facility] CHEM PANEL BUN 16 7 - 22 10/14/2018 [facility] CHEM PANEL Creatinine Lvl 0.61 0.50 - 1.40 10/14/2018 [facility] CHEM PANEL Sodium Lvl 135 135 - 145 10/14/2018 [facility] CHEM PANEL Potassium Lvl 4.5 3.5 - 5.1 10/14/2018 [facility] CHEM PANEL Chloride Lvl 96 95 - 109 10/14/2018 [facility] CHEM PANEL CO2 31 24 - 32 10/14/2018 [facility] CHEM PANEL Calcium Lvl 8.8 8.5 - 10.5 10/14/2018 [facility] CHEM PANEL AGAP 12.5 10.0 - 20.0 10/14/2018 [facility] CHEM PANEL eGFR 92 10/14/2018 Result Comment: The eGFR is calculated using the CKD-EPI formula. In most young, healthy individuals the eGFR will be >90 mL/min/1.73m2. The eGFR declines with age. An eGFR of 60-89 may be normal in some populations, particularly the elderly, for whom the CKD-EPI formula has not been extensively validated. Use of the eGFR is not recommended in the following populations:

Individuals with unstable creatinine concentrations, including patients and those with serious co-morbid conditions.

Patients with extremes in muscle mass or diet.

The data above are obtained from the National Kidney Disease Education Program (NKDEP) which additionally recommends that when the eGFR is used in patients with extremes of body mass index for purposes of drug dosing, the eGFR should be multiplied by the estimated BMI. [facility] CHEM PANEL Glucose Lvl 104 70 - 99 10/14/2018 [facility] CHEM PANEL BUN 16 7 - 22 10/14/2018 [facility] CHEM PANEL Creatinine Lvl 0.57 0.50 - 1.40 10/14/2018 [facility] CHEM PANEL CO2 27 24 - 32 10/14/2018 [facility] CHEM PANEL Calcium Lvl 9.1 8.5 - 10.5 10/14/2018 [facility] CHEM PANEL eGFR 94 10/14/2018 Result Comment: The eGFR is calculated using the CKD-EPI formula. In most young, healthy individuals the eGFR will be >90 mL/min/1.73m2. The eGFR declines with age. An eGFR of 60-89 may be normal in some populations, particularly the elderly, for whom the CKD-EPI formula has not been extensively validated. Use of the eGFR is not recommended in the following populations:

Individuals with unstable creatinine concentrations, including patients and those with serious co-morbid conditions.

Patients with extremes in muscle mass or diet.

The data above are obtained from the National Kidney Disease Education Program (NKDEP) which additionally recommends that when the eGFR is used in patients with extremes of body mass index for purposes of drug dosing, the eGFR should be multiplied by the estimated BMI. [facility] CHEM PANEL Sodium Lvl 130 135 - 145 10/14/2018 [facility] CHEM PANEL Potassium Lvl 4.7 3.5 - 5.1 10/14/2018 [facility] CHEM PANEL Chloride Lvl 96 95 - 109 10/14/2018 [facility] CHEM PANEL AGAP 11.7 10.0 - 20.0 10/14/2018 [facility] HEMATOLOGY WBC 13.8 3.7 - 10.4 10/14/2018 [facility] HEMATOLOGY RBC 4.36 4.20 - 5.40 10/14/2018 [facility] HEMATOLOGY Hgb 11.5 12.0 - 16.0 10/14/2018 [facility] HEMATOLOGY Hct 35.4 36.0 - 48.0 10/14/2018 [facility] HEMATOLOGY MCV 81.2 80.0 - 98.0 10/14/2018 [facility] HEMATOLOGY MCH 26.3 27.0 - 31.0 10/14/2018 [facility] HEMATOLOGY MCHC 32.3 32.0 - 36.0 10/14/2018 [facility] HEMATOLOGY RDW 13.9 11.5 - 14.5 10/14/2018 [facility] HEMATOLOGY Platelet 282 133 - 450 10/14/2018 [facility] HEMATOLOGY MPV 6.7 7.4 - 10.4 10/14/2018 [facility] HEMATOLOGY Segs 79.7 45.0 - 75.0 10/14/2018 [facility] HEMATOLOGY Lymphocytes 4.5 20.0 - 40.0 10/14/2018 [facility] HEMATOLOGY Monocytes 14.4 2.0 - 12.0 10/14/2018 [facility] HEMATOLOGY Eosinophils 0.8 0.0 - 4.0 10/14/2018 [facility] HEMATOLOGY Basophils 0.6 0.0 - 1.0 10/14/2018 [facility] HEMATOLOGY Neutrophils # 11.0 1.5 - 8.1 10/14/2018 [facility] HEMATOLOGY Lymphocytes # 0.6 1.0 - 5.5 10/14/2018 [facility] HEMATOLOGY Monocytes # 2.0 0.0 - 0.8 10/14/2018 [facility] HEMATOLOGY Eosinophils # 0.1 0.0 - 0.5 10/14/2018 [facility] HEMATOLOGY Basophils # 0.1 0.0 - 0.2 10/14/2018 [facility] BLOOD BANK RESULTS Antibody Scrn Negative (10/13/18 12:07 AM) 10/13/2018 [facility] BLOOD BANK RESULTS ABO/Rh B POS 10/13/2018 [facility] HEMATOLOGY RBC Morph Della l (10/13/18 12:07 AM) Normal 10/13/2018 [facility] HEMATOLOGY Plt Morph Della l (10/13/18 12:07 AM) Normal 10/13/2018 [facility] HEMATOLOGY Segs 75.9 45.0 - 75.0 10/13/2018 [facility] HEMATOLOGY Lymphocytes 12.3 20.0 - 40.0 10/13/2018 [facility] HEMATOLOGY Monocytes 9.1 2.0 - 12.0 10/13/2018 [facility] HEMATOLOGY Eosinophils 1.8 0.0 - 4.0 10/13/2018 [facility] HEMATOLOGY Basophils 0.9 0.0 - 1.0 10/13/2018 [facility] HEMATOLOGY Neutrophils # 12.1 1.5 - 8.1 10/13/2018 [facility] HEMATOLOGY Lymphocytes # 2.0 1.0 - 5.5 10/13/2018 [facility] HEMATOLOGY Monocytes # 1.5 0.0 - 0.8 10/13/2018 [facility] HEMATOLOGY Eosinophils # 0.3 0.0 - 0.5 10/13/2018 [facility] HEMATOLOGY Basophils # 0.2 0.0 - 0.2 10/13/2018 [facility] HEMATOLOGY WBC 16.0 3.7 - 10.4 10/13/2018 [facility] HEMATOLOGY RBC 4.16 4.20 - 5.40 10/13/2018 [facility] HEMATOLOGY Hgb 10.9 12.0 - 16.0 10/13/2018 [facility] HEMATOLOGY Hct 33.7 36.0 - 48.0 10/13/2018 [facility] HEMATOLOGY MCV 81.1 80.0 - 98.0 10/13/2018 [facility] HEMATOLOGY MCH 26.3 27.0 - 31.0 10/13/2018 [facility] HEMATOLOGY MCHC 32.4 32.0 - 36.0 10/13/2018 [facility] HEMATOLOGY RDW 13.8 11.5 - 14.5 10/13/2018 [facility] HEMATOLOGY Platelet 238 133 - 450 10/13/2018 [facility] HEMATOLOGY MPV 7.3 7.4 - 10.4 10/13/2018 [facility] HEMATOLOGY INR 0.96 0.85 - 1.17 10/13/2018 [facility] HEMATOLOGY PT 12.6 12.0 - 14.7 10/13/2018 [facility] HEMATOLOGY PTT 26.3 22.9 - 35.8 10/13/2018 [facility] MOXIFLOXACIN:SUSC:PT:ISOLATE:ORDQN:CHRISTA Gram Stain Report Gram Stain Performed By: Raul odell [facility] 10/12/2018 [facility] MOXIFLOXACIN:SUSC:PT:ISOLATE:ORDQN:CHRISTA Culture: Respiratory w/Gram Stain Many Serratia marcescens 10/12/2018 [facility] MOXIFLOXACIN:SUSC:PT:ISOLATE:ORDQN:CHRISTA Serratia marcescens Serratia marcescens 10/12/2018 [facility] URINE AND STOOL UA Color Yellow *NA* (10/12/18 11:31 AM) Yellow 10/12/2018 [facility] URINE AND STOOL UA Turbidity Slight *ABN* (10/12/18 11:31 AM) Clear 10/12/2018 [facility] URINE AND STOOL UA Spec Grav 1.016 <=1.030 10/12/2018 [facility] URINE AND STOOL UA pH 7.0 5.0 - 8.0 10/12/2018 [facility] URINE AND STOOL UA Protein Negative mg/dL Negative mg/dL 10/12/2018 [facility] URINE AND STOOL UA Glucose Negative mg/dL Negative mg/dL 10/12/2018 [facility] URINE AND STOOL UA Ketones Trace mg/dL Negative mg/dL 10/12/2018 [facility] URINE AND STOOL UA Bili Negative *NA* (10/12/18 11:31 AM) Negative 10/12/2018 [facility] URINE AND STOOL UA Blood Negative (10/12/18 11:31 AM) Negative 10/12/2018 [facility] URINE AND STOOL UA Urobilinogen <1.0 0.1 - 1.0 10/12/2018 [facility] URINE AND STOOL UA Nitrite Positive *ABN* (10/12/18 11:31 AM) Negative 10/12/2018 [facility] URINE AND STOOL UA Leuk Est Negative (10/12/18 11:31 AM) Negative 10/12/2018 [facility] URINE AND STOOL UA WBC 2 0 - 5 10/12/2018 [facility] URINE AND STOOL UA RBC 1 0 - 2 10/12/2018 [facility] URINE AND STOOL UA Bacteria Many /HPF None Seen /HPF 10/12/2018 [facility] URINE AND STOOL UA Mucus Few /LPF None Seen /LPF 10/12/2018 [facility] URINE AND STOOL UA Sq Epi None Seen 10/12/2018 [facility] CHEM PANEL Procalcitonin Lvl <0.05 0.00 - 0.10 10/12/2018 [facility] CHEM PANEL Phosphorus 2.9 2.5 - 4.5 10/10/2018 [facility] CHEM PANEL Magnesium Lvl 2.4 1.8 - 2.4 10/10/2018 [facility] PARATHYROID PROFILE Ca Ion WB 1.08 1.05 - 1.25 10/10/2018 [facility] PARATHYROID PROFILE Ca Norm WB 1.12 1.05 - 1.25 10/10/2018 [facility] CHEM PANEL Phosphorus 2.2 2.5 - 4.5 10/09/2018 [facility] CHEM PANEL Magnesium Lvl 2.0 1.8 - 2.4 10/09/2018 [facility] PARATHYROID PROFILE Ca Ion WB 1.14 1.05 - 1.25 10/09/2018 [facility] PARATHYROID PROFILE Ca Norm WB 1.15 1.05 - 1.25 10/09/2018 [facility] CHEM PANEL Procalcitonin Lvl <0.05 ng/mL 0.00 - 0.10 10/08/2018 [facility] CHEM PANEL Magnesium Lvl 2.2 1.8 - 2.4 10/08/2018 [facility] CHEM PANEL Phosphorus 2.7 2.5 - 4.5 10/08/2018 [facility] HEMATOLOGY RBC Morph Della l (10/08/18 12:01 AM) Normal 10/08/2018 [facility] HEMATOLOGY Plt Morph Della l (10/08/18 12:01 AM) Normal 10/08/2018 [facility] PARATHYROID PROFILE Ca Ion WB 1.18 1.05 - 1.25 10/08/2018 [facility] PARATHYROID PROFILE Ca Norm WB 1.21 1.05 - 1.25 10/08/2018 [facility] CARDIAC ENZYMES Troponin-I <0.02 ng/mL 0.00 - 0.40 10/07/2018 [facility] CARDIAC ENZYMES Troponin-I <0.02 0.00 - 0.40 10/05/2018 Result Comment: Specimen Slightly Hemoly zed. [facility] Gram Stain Report Gram Stain Perf ormed By: [facility] [place] [place] 10/05/2018 [facility] Culture: Respiratory w/Gram Stain F ew Yeast Isolated Normal Respiratory Peggy Isolated 10/05/2018 [facility] BACTERIAL - SEROLOGY MRSA by PCR Negative (10/04/18 6:03 PM) 10/04/2018 [facility] CARDIAC ENZYMES Troponin-I <0.02 0.00 - 0.40 10/04/2018 [facility] CHEM PANEL Procalcitonin Lvl <0.05 ng/mL 0.00 - 0.10 10/04/2018 [facility] CHEM PANEL B/C Ratio 31 6 - 25 10/04/2018 [facility] CHEM PANEL Total Protein 6.5 6.4 - 8.4 10/04/2018 [facility] CHEM PANEL Albumin Lvl 2.8 3.5 - 5.0 10/04/2018 [facility] CHEM PANEL Globulin 3.7 2.7 - 4.2 10/04/2018 [facility] CHEM PANEL A/G Ratio 0.8 0.7 - 1.6 10/04/2018 [facility] CHEM PANEL ALT <6 0 - 65 10/04/2018 [facility] CHEM PANEL AST 14 0 - 37 10/04/2018 [facility] CHEM PANEL Alk Phos 70 39 - 136 10/04/2018 [facility] CHEM PANEL Bili Total 0.7 0.2 - 1.3 10/04/2018 [facility] CHEM PANEL Lactic Acid Lvl 0.8 0.5 - 2.2 10/04/2018 [facility] HEMATOLOGY PT 13.4 12.0 - 14.7 10/03/2018 [facility] HEMATOLOGY INR 1.04 0.85 - 1.17 10/03/2018 [facility] HEMATOLOGY PTT 27.2 22.9 - 35.8 10/03/2018 [facility] BLOOD BANK RESULTS ABO/Rh B POS 10/02/2018 [facility] BLOOD BANK RESULTS Antibody Scrn Negative (10/02/18 7:01 AM) 10/02/2018 [facility] CHEM PANEL POC Creatinine 0.8 0.5 - 1.4 09/30/2018 [facility] CHEM PANEL eGFR 75 09/30/2018 Result Comment: The eGFR is calculated using the CKD-EPI formula. In most young, healthy individuals the eGFR will be >90 mL/min/1.73m2. The eGFR declines with age. An eGFR of 60-89 may be normal in some populations, particularly the elderly, for whom the CKD-EPI formula has not been extensively validated. Use of the eGFR is not recommended in the following populations:

Individuals with unstable creatinine concentrations, including patients and those with serious co-morbid conditions.

Patients with extremes in muscle mass or diet.

The data above are obtained from the National Kidney Disease Education Program (NKDEP) which additionally recommends that when the eGFR is used in patients with extremes of body mass index for purposes of drug dosing, the eGFR should be multiplied by the estimated BMI. [facility] Pathology Reports No Data Provided for This Section Diagnostic Reports Report Value Date Source Gastric tube placement VR PROC EDURE: Gastrostomy tube placement Procedural Personnel Attending physician(s): Cisco Drake MD Fellow physician(s): None Resident physician(s): Bayron Irby MD Advanced practice provider(s): None Pre-procedure diagnosis supplemental nutrition Post-procedure diagnosis: Supplemental nutrition Indication: Nutritional support Additional clinical history: None Complications: No immediate complications. IMPRESSION: Percutaneous placement of 18 Palestinian push-type gastrostomy tube. Plan: Nothing by mouth for 12 hours. If no peritoneal signs, then titrated of the distal area. PROCEDURE SUMMARY: - Gastrostomy tube placement under fluor oscopic guidance - Additional procedure(s): None PROCEDURE DETAILS: Pre-procedure Consent: Informed consent for the procedure including risks, benefits and alternatives was obtained and time-out was performed prior to the procedure. Preparation: The site was prepared and draped using maximal sterile barrier technique including cutaneous antisepsis. Anesthesia/sedation Level of anesthesia/sedation: No sedation Anesthesia/sedation administered by: Not applicable Total intra-service sedation time (minutes): 0 Gastrostomy tube placement The liver margin was not localized by ultrasound. An indwelling orogastric/nasogastric tube was already in place. Local anesthesia was administered. The stomach was inflated with air and judged appropriate for access. 3 T-fasteners were placed under fluoroscopic guidance. The stomach was accessed and a wire was placed. The tract was dilated, the gastrostomy tube was advanced into the stomach, and intragastric position was confirmed with contrast injection. The tube was capped. Gastrostomy tube placed: 18-Palestinian CHRISTA Internal catheter securement: Balloon External catheter securement: Retention disc Contrast Contrast agent: 10 mL Visipaque 320 Contrast volume (mL): 10 Radiation Dose Fluoroscopy time (minutes): 1.5 Reference air kerma (mGy): 16.2 Additional Details Additional description of procedure: None Equipment details: None Specimens removed: None Estimated blood loss (mL): Less than 10 Standardized report: [id number] Attestation Signer name: Cisco Drake MD I attest that I was present for the entire procedure. I reviewed the stored images and agree with the report as written. 10/13/2018 [facility] Chest 1view DX EXAM: XR CHEST 1 VIEW DATE: 10/11/2018 7:14 CDT INDICATION: - eval pneumonia COMPARISON: 10/09/2018 TECHNIQUE: AP chest IMPRESSION: Stable feeding tube coursing to the stomach. Stable cardiomediastinal silhouette. The aortic knob is calcified and thoracic aorta is tortuous. Low lung volumes with subsegmental left greater than right linear atelectasis. No pleural effusion. No definite pneumothorax in this non-upright radiograph. Unchanged skeletal structures. Surgical hardware cervical spine. CONCLUSION: No significant change compared to the most recent radiograph. 10/11/2018 [facility] Chest 1view DX EXAM: XR CHEST 1 VIEW DATE: 10/09/2018 0017 hours INDICATION: - secretions, consider pna infection COMPARISON: Chest x-ray from 10/08/2018 0020 hours TECHNIQUE: AP chest. FINDINGS: Lines, tubes and hardware: Partially seen lower neck spinal hardware and feeding tube. Lungs and pleura: Prominent bilateral lung reticulations are unchanged with mild interval improvement in streaky opacities in bilateral lungs.The costophrenic sulci are sharp without effusion. No pneumothorax is identified on this semiupright radiograph. Heart and mediastinum: The cardiomediastinal silhouette is unchanged. Bones, soft tissues: Unchanged. IMPRESSION: 1. Mild interval improvement in bilater al lower lung streaky opacities with residual atelectasis present. 2. Remaining prominent bilateral lung r eticulations, suggestive of ongoing edema or infection. 10/09/2018 [facility] Chest 1view DX EXAM: XR CHEST 1 VIEW DATE: 10/08/2018 3:00 CDT INDICATION: - trach/tube COMPARISON: 10/05/2018 TECHNIQUE: AP chest. IMPRESSION: Stable post surgical changes in the lower neck. ET tube has been removed. Feeding tube remains in position. Stable cardiomediastinal silhouette. Patchy opacities in the left retrocardiac region may represent atelectasis, aspiration or pneumonia. Right lower lung subsegmental atelectasis. Trace left pleural effusion possible. CONCLUSION: 1. ET tube has been removed. 2. Patchy opacities in the left retroca rdiac region may represent atelectasis, aspiration or pneumonia. 3. Right lower lung subsegmental atelec tasis. 4. Trace left pleural effusion possible . 10/08/2018 [facility] Chest 1view DX EXAM: XR CHEST 1 VIEW DATE: 10/06/2018 3:00 CDT INDICATION: - intubated. TECHNIQUE: Chest 1 view FINDINGS: Comparison is made to October 04. Cardiomediastinal silhouette is unchanged. C-spine fusion hardware. Life support lines and tubes remain in place. Bilateral lower lobe and right perihilar subsegmental atelectasis. No pleural effusions. IMPRESSION: Bilateral lower lobe and right perihilar subsegmental atelectasis. 10/06/2018 [facility] Chest Pulmonary Embolism CTA EXAM: CTA CHEST WITH CONTRAST DATE: 10/04/2018 5:16 PM CDT INDICATION: - respiratory distress COMPARISON: No prior CT chest available for comparison. TECHNIQUE: Volumetric CT of the chest is acquired during pulmonary arterial phase following intravenous administration of contrast. Volumetric CT of the abdomen and pelvis during the venous phase. Axial, sagittal, coronal, and oblique MIP reconstructions are created at the acquisition workstation. IV Contrast: 100 cc Omnipaque DLP: 647 mGy-cm FINDINGS: Lines and tubes: Well-positioned ET tube above the delfina. Feeding tube courses the esophagus with distal tip below the diaphragm and outside of field of view of CT chest. Lower neck: Unremarkable. Axilla: No enlarged axillary lymph nodes. Airway: Patent. Lungs and pleura: Mild dependent consolidative opacities with homogeneous enhancing in the bilateral lower lobes are most consistent with subsegmental atelectasis. No pleural effusions. Scattered small linear opacities seen in the bilateral upper lobes and lingula are most consistent of scarring/subsegmental atelectasis. No pneumothorax. Mediastinum, dotty and intrathoracic lymph nodes: No enlarged mediastinal or hilar lymph nodes. Previously seen radiograph at prominence of the right hilar region corresponds to superimposed vascular structures. Heart, pericardium and great vessels: Mild atherosclerotic changes in the aorta and coronary arteries. Pulmonary emboli: None. Pulmonary trunk: 2.6 cm. Ascending aorta: 3.2 cm. Heart: Mild cardiomegaly. No right heart strain. RV/LV less than 1. Pericardium: No pericardial fluid. Upper abdomen: Hypodense focal lesion in the spleen measures 1.6 cm on axial image 132 of series 5. Bones: Hardware fixation in the lower cervical spine. Degenerative changes in the thoracic spine including disc disease in the lower thoracic spine. Bones are diffusely demineralized. No acute osseous lesions. Soft tissues: Normal. IMPRESSION: 1. No CT signs of pulmonary embolism. N o right heart strain. 2. Subsegmental atelectasis in the lowe r lobes. Additional small scarring/subsegmental atelectasis seen the upper lobes and lingula. 3. Mild atherosclerotic changes in the aorta and coronary arteries. 4. Suboptimal evaluation of hypodense f ocal lesion in the spleen, which may represent a cyst although underlying etiology cannot be excluded. Further evaluation with sonographic study or abdominal CT may be performed. 10/04/2018 [facility] Brain wo contrast CT EXAM: CT HEAD WITHOUT CONTRAST DATE: 10/04/2018 5:03 PM CDT INDICATION: 68 years old Female patient with history of - chg in exam. TECHNIQUE: Multiple axial images were obtained through the head from vertex to the skull base. Axial bone algorithm reconstruction images are provided. COMPARISON: MRI brain 09/30/2018 FINDINGS: Interval placement of a stimulating electrodes in bilateral subthalamic regions. The streak metallic artifacts from the electrodes limits evaluation of the adjacent structures. No acute cranial hemorrhage is identified. No significant mass effect or midline shift is present. The ventricles are unchanged in size. Mild. Ventricular white matter hypodensities, nonspecific and most, secondary to chronic microvascular ischemia. The visualized paranasal sinuses are clear. No mastoid effusion is identified. IMPRESSION: 1. Interval placement of a stimulating electrodes in bilateral subthalamic regions. No CT evidence of acute intracranial abnormality to the limitation of exam. 10/04/2018 [facility] Abdomen 1 v for Placement DX E XAM: XR ABDOMEN 1 VIEW DATE: 10/04/2018 5:00 PM CDT INDICATION: - s/p dht ADDITIONAL INFORMATION: None. COMPARISON: 10/02/2018 TECHNIQUE: Limited AP view of the abdomen for tube placement assessment. Number of images: 1 FINDINGS: Transesophageal feeding tube tip: Terminating in the 1st portion of duodenum. Transesophageal suction tube sidehole: None Other tubes and lines: None. Small colonic stool burden. IMPRESSION: 1. Tube position as above. 10/04/2018 [facility] Chest 1 v for Placement DX EXA M: XR CHEST 1 VIEW DATE: 10/04/2018 5:00 PM CDT INDICATION: Line Placement - s/p ETT COMPARISON: 10/04/2018 TECHNIQUE: AP chest. IMPRESSION: Interval placement of well-positioned ET tube above the delfina. Feeding tube remains in position. Small left pleural effusion. Stable bilateral retrocardiac opacities are likely bilateral pleural effusions with or without consolidation or atelectasis. Platelike atelectasis in the right midlung. Prominent right hilar region may represent adenopathy/mass or may be due to low lung volumes. Reassessment recommended. CONCLUSION: 1. Interval placement of well-positione d ET tube above the delfina. 2. Stable bilateral retrocardiac opacit ies. 3. Small left pleural effusion. 4. Platelike atelectasis in the right m idlung. 5. Stable prominent right hilar region. 10/04/2018 [facility] Chest 1view DX EXAM: XR CHEST 1 VIEW DATE: 10/04/2018 3:38 PM CDT INDICATION: - secretions COMPARISON: None. TECHNIQUE: AP chest. IMPRESSION: Postsurgical changes in the cervical spine. Feeding tube has its tip projecting over the antropyloric region. Prominent cardiomediastinal silhouette. Low lung volumes with bronchovascular crowding. Bilateral retrocardiac opacities are likely bilateral pleural effusions with or without consolidation or atelectasis. Small bilateral pleural effusions. No pneumothorax. Prominent right hilar region may be due to low lung volumes, although underlying adenopathy/mass cannot be excluded. CONCLUSION: 1. Bilateral retrocardiac opacities and small bilateral pleural effusions. 2. Postsurgical changes in the cervical spine. 3. Feeding tube in position. 4. Prominent right hilar region may be due to low lung volumes, although underlying adenopathy/mass cannot be excluded. Chest radiograph reassessment with better aerated lungs recommended. 10/04/2018 [facility] Abdomen 1 v for Placement DX E XAM: XR ABDOMEN 1 VIEW DATE: 10/02/2018 18:50 CDT INDICATION: - evaluate NJ tube placement ADDITIONAL INFORMATION: None. COMPARISON: None. TECHNIQUE: Limited AP view of the abdomen for tube placement assessment. Number of images: 4 FINDINGS: Feeding tube (tip): Multiple images showing adjustment of Dobbhoff tube with final image revealing distal tip overlying in the antropyloric region. Enteric suction tube (sidehole): None present. Other tubes, lines and hardware: None. Other: No other changes. IMPRESSION: 1. The final image reveals Dobbhoff tub e with the distal tip in the antropyloric region.. 10/02/2018 [facility] Brain w/wo contrast MRI EXAM: MRI BRAIN WITH AND WITHOUT CONTRAST DATE: 09/30/2018 20:13 CDT INDICATION: P[facility]INSON - MRI BRAIN COMPARISON: None. TECHNIQUE: Multiplanar, multisequence MRI of the brain with and without intravenous contrast. IV contrast: 17 mL MultiHance FINDINGS: No intracranial hemorrhage seen. There is no mass lesion, signal change, or structural abnormality. Diffuse enlargement of the perivascular spaces present. Mild global cerebral volume loss. The ventricles are normal. Periventricular T2 hyperintensities, consistent with chronic microvascular ischemic changes. The intracranial arterial and venous structures demonstrate normal flow voids. The visible paranasal sinuses and skull base are unremarkable. Post-contrast images reveal no abnormal parenchymal or leptomeningeal enhancement. The vascular structures enhance uneventfully. IMPRESSION: Mild global volume loss with mild chronic microvascular ischemic changes. No acute intracranial abnormality. 09/30/2018 [facility] Consultation Notes No Data Provided for This Section Discharge Summaries No Data Provided for This Section History and Physicals No Data Provided for This Section Vital Signs Vital Sign Value Date Comments Source Respitory Rate 16 10/24/2018 [facility] Systolic (mm Hg) 129 10/24/2018 [facility] Diastolic (mm Hg) 60 10/24/2018 [facility] Respitory Rate 16 10/24/2018 [facility] Systolic (mm Hg) 115 10/24/2018 [facility] Diastolic (mm Hg) 63 10/24/2018 [facility] Respitory Rate 17 10/24/2018 [facility] Systolic (mm Hg) 119 10/24/2018 [facility] Diastolic (mm Hg) 58 10/24/2018 [facility] Weight 77.273 10/24/2018 [facility] BMI Calculated 31.16 10/24/2018 [facility] Heart Rate 98 10/24/2018 [facility] Height 157.48 cm 10/23/2018 [facility] Respitory Rate 18 10/15/2018 [facility] Systolic (mm Hg) 113 10/15/2018 [facility] Diastolic (mm Hg) 61 10/15/2018 [facility] Respitory Rate 19 10/15/2018 [facility] Systolic (mm Hg) 134 10/15/2018 [facility] Diastolic (mm Hg) 58 10/15/2018 [facility] Respitory Rate 18 10/15/2018 [facility] Systolic (mm Hg) 129 10/15/2018 [facility] Diastolic (mm Hg) 69 10/15/2018 [facility] Height 157.48 cm 10/12/2018 [facility] Weight 86.3 10/12/2018 [facility] Height 157.48 cm 10/12/2018 [facility] Temperature Oral (F) 98.0 F 10/12/2018 [facility] Height 157.48 cm 10/11/2018 [facility] Temperature Oral (F) 98.0 F 10/11/2018 [facility] Temperature Oral (F) 98.4 F 10/11/2018 [facility] Heart Rate 82 10/02/2018 [facility] Weight 86.3 09/18/2018 [facility] BMI Calculated 34.8 09/18/2018 [facility] Heart Rate 74 09/18/2018 [facility] Weight 86.3 09/18/2018 [facility] BMI Calculated 34.8 09/18/2018 [facility] Encounters Location Location Details Encounter Type Encounter Number Reason For Visit Attending Provider ADM Date DC Date Status Source Outpatient [id number] Thom Evans Jr 07/09/2018 [facility] Outpatient [id number] Thom Evans Jr 07/09/2018 07/10/2018 [facility] Outpatient [id number] Thom Evans Jr 09/30/2018 10/01/2018 [facility] Outpatient [id number] Thom Evans Jr 10/02/2018 [facility] Inpatient [id number] Thom Evans Jr 10/02/2018 10/15/2018 [facility] Outpatient [id number] Thom Evans Jr 10/16/2018 Active [facility] Day Surgery [id number] Thom Evans 10/24/2018 10/25/2018 [facility] Procedures Procedure Code Date Perfomer Comments Source back surgery [id number] 02/18/2015 [facility] Spine surgery [id number] 02/18/2015 [facility] Hysterectomy [id number] 02/18/1993 [facility] section [id number] 02/19/1992 [facility] Procedure<sup>1</sup> [id number] DEEP BRAIN STIMULATOR [facility] Assessment and Plan Assessment and Plan Date Source Extracted from:Title: Medicine Consult F ollow Up Author: Shawn Molina DO Date: 10/14/18 The patient is a 68 year old woman with PMH of Parkinson's, chronic dysphagia, recurrent UTI'swho [facility] and developed acute hypoxic respiratory failure post-operatively in the setting of narcotic administrationbut has been extubated, now with worsening leukocytosis since 10/09. Patient has not fevered yet, but given she has multiple risk factors for pneumonia (particularly aspiration), would obtain cultures and start empiric antibiotics. Other potential sources of infection also include UTI (hx of recurrent UTI's per ), [employer] source given recent instrumentation,less likely to bereactive from recent surgery given time frame and recent worsening. 1.Hospital-acquired pneumonia(J18.9) 2.Pneumonia due to Serratia marcescens(J15.6) -As noted on sputum culture -c/w Cefepime for now at current dose, I have taken the liberty ofdiscontinuing Vancomycin and Flagyl >Can continue Cefepime while inpatient and then discharge on Bactrim DS 1 tab PO BID to complete a seven day course of antibiotics (last full day is 10/18) 3.Renal insufficiency(N28.9) -resolving -can discontinue LR as now on TF's 4.Hyponatremia(E87.1) -would repeat as result may be contaminated by LR Acute neuromuscular respiratory failure(J96.90) Dysphagia(R13.10) Feeding difficulties(R63.3) Nutritional deficiency(E63.9) Parkinson's disease(G20) -s/p PEG by GI Status post deep brain stimulator placement(Z96.89) -management as per primary team heparin TID as per primary team Addendum by Shawn Molina DO on 10/14/2018 13:42 CDT Thank you for the courtesy of this consult. Medicine will continue to follow. Please [employer] with any additional questions or concerns. Addendum by Shawn Molina DO on 10/14/2018 22:08 CDT Hyponatremia likely lab error from IV draw. Medicine will sign off. Please re- consult as needed. Extracted from:Title: Interventional Radiology Author: Irasema Song NP Date: 10/13/18 Interventional Radiology Consult Reason for Consultation: Peg placment for Enteral Nutrition Referring Physician: Dr. Nathan Tavarez History of Present Illness: Patient is a 68 yo female with a History of HLD, Parkinson's Disease, and recent Level 1 Deep Brain Stimulation Surgery on 10/02/2018. Postoperatively she remains drowsy and difficult to awake at times and has required enteral nutrition per her NGT, IR is now consulted for a Peg tube. Past Medical History: HLD Parkinson's Disease Hx Cdiff Hx Recurrent UTI Past Surgical History: DBS Stage I Procedure: Left and Right frontal craniotomy for DBS electrode placement, Stereotactic volumetric 3-D imaging for target determination, Microelectrode recording of deep brain structures, Intraoperative programming assessment of implanted devices. Hx C1/C2 cervical fusion Total hysterectomy Section Social History: Tobacco Details: Use: Unknown if ever smoked. Tobacco smoke exposure: None. Did the Patient Smoke Cigarettes Anytime During the Last 365 Days? No. Cessation Counseling Provided? No. Drug Abuse: None Alcohol: None Family History: Heart disease Hx. PD in cousin Allergies Reviewed: Allergies: clindamycin Current Medications: Medications (53) Active Scheduled Meds (15): 10/06/18 atorvastatin (Lipitor) 10 mg GT Daily 10/05/18 (Suspended) carbidopa-levodopa (carbidopa-levodopa 50 mg-200 mg oral tablet, extended release) 1 tab PO Bedtime 10/05/18 carbidopa-levodopa (Sinemet 25 mg-100 mg oral tablet) 1 tab GT Q4Hnow 10/12/18 cefepime 2 gm IVPB ABXQ8H 10/02/18 docusate 100 mg PO QPM 10/04/18 heparin (heparin 5000 units/mL injectable solution) 5,000 unit SUB-Q Q8H 10/07/18 lansoprazole (Prevacid) 30 mg G T Daily 10/12/18 metroNIDAZOLE (Flagyl) 500 mg I VPB ABXQ8H 200 ml/hr 10/08/18 propranolol 20 mg GT BID 10/10/18 rasagiline 1 mg PO Daily 10/06/18 remove patch 1 patch TOP Q24H 10/09/18 rotigotine 4 mg TOP Daily 10/02/18 senna 8.6 mg PO BID 10/02/18 sodium chloride (Saline Flush 0 .9%) 10 ml IVP Q12H 10/12/18 vancomycin + Sodium Chloride 0. 9% IV 250 mL 1.25 gm IVPB [id number] 166.67 ml/hr Unscheduled Meds (1): 10/01/18 ceFAZolin + sterile water 20 mL 2 gm IV PRE OP 200 ml/hr PRN Meds (35): 10/07/18 Dextrose 50% in Water IV (Dextr ose 50% Syringe) 12.5 gm IVP PRN 10/07/18 Dextrose 50% in Water IV (Dextr ose 50% Syringe) 25 gm IVP PRN 10/07/18 Insulin regular 2 unit SUB-Q Sl iding Scale 10/07/18 Insulin regular 4 unit SUB-Q Sl iding Scale 10/07/18 Insulin regular 6 unit SUB-Q Sl iding Scale 10/07/18 Insulin regular 8 unit SUB-Q Sl iding Scale 10/07/18 Insulin regular 10 unit SUB-Q S liding Scale 10/02/18 acetaminophen (Tylenol) 650 mg PO Q6H 10/11/18 albuterol-ipratropium (DuoNeb i nhalation solution) 3 ml NEB RQ6H 10/02/18 bisacodyl 10 mg FL Daily 10/04/18 calcium carbonate (calcium carb clara 500 mg (200 mg elemental calcium) oral tablet) 500 mg PO PRN 10/04/18 calcium carbonate (calcium carb clara 500 mg (200 mg elemental calcium) oral tablet) 1,000 mg PO PRN 10/04/18 calcium gluconate + Sodium Chlo ride 0.9% IV 50 mL 1 gm IVPB PRN 120 ml/hr 10/07/18 glucagon 1 mg IM PRN 10/02/18 hydrALAZINE 20 mg IVP Q4H 10/02/18 labetalol 10 mg IVP Q15Min 10/04/18 magnesium oxide 800 mg PO PRN 10/04/18 magnesium sulfate 2 gm IVPB PRN 25 ml/hr 10/02/18 ondansetron 4 mg IVP Q6H 10/02/18 phenol topical (Chloraseptic 1. 4% spray) 1 spray TOP Daily 10/02/18 potassium chloride 40 mEq PO FL N 10/04/18 potassium chloride 20 mEq IVPB PRN 50 ml/hr 10/04/18 potassium chloride 10 mEq IVPB PRN 50 ml/hr 10/04/18 potassium chloride 20 mEq PO FL N 10/04/18 potassium chloride 20 mEq NJ FL N 10/04/18 potassium phosphate + Sodium Ch loride 0.9% IV 250 mL 15 mmol IVPB PRN 63.75 ml/hr 10/04/18 potassium phosphate + Sodium Ch loride 0.9% IV 250 mL 30 mmol IVPB PRN 65 ml/hr 10/04/18 potassium phosphate + Sodium Ch loride 0.9% IV 250 mL 45 mmol IVPB PRN 66.25 ml/hr 10/04/18 potassium phosphate-sodium phos phate (potassium phosphate-sodium phosphate 250 mg-280 mg-160 mg oral powder for reconstitution) 2 pkt PO PRN 10/02/18 promethazine (Phenergan) 12.5 m g IVPB Q6H 10/06/18 racepinephrine (racemic epineph rine 2.25% inhalation solution) 11.25 mg NEB RQ6H 10/02/18 sodium chloride (Saline Flush 0 .9%) 10 ml IVP PRN 10/04/18 sodium phosphate + Sodium Chlor veena 0.9% IV 250 mL 15 mmol IVPB PRN 63.75 ml/hr 10/04/18 sodium phosphate + Sodium Chlor veena 0.9% IV 250 mL 30 mmol IVPB PRN 65 ml/hr 10/04/18 sodium phosphate + Sodium Chlor veena 0.9% IV 250 mL 45 mmol IVPB PRN 66.25 ml/hr One Time Meds (1): 10/12/18 (Completed) vancomycin + Sodiu m Chloride 0.9% IV 500 mL 1.75 gm IVPB ONCE 250 ml/hr Continuous Infusions (1): 10/13/18 Lactated Ringers Injection IV 1 ,000 mL (Lactated Ringers IV 1,000 mL) 1,000 mL 100 ml/hr Labs: 24hr Labs 10/13 0007 ABO/Rh B POS Antibody Scrn Negative Glucose Lvl 169 H BUN 26 H Creatinine Lvl 0.61 Sodium Lvl 133 L Potassium Lvl 4.7 Chloride Lvl 100 CO2 28 AGAP 9.7 L Calcium Lvl 8.8 eGFR 92 WBC 16.0 H RBC 4.16 L Hgb 10.9 L Hct 33.7 L MCV 81.1 MCH 26.3 L MCHC 32.4 RDW 13.8 Platelet 238 MPV 7.3 L PT 12.6 INR 0.96 PTT 26.3 Segs 75.9 H Monocytes 9.1 Lymphocytes 12.3 L Eosinophils 1.8 Basophils 0.9 Neutrophils # 12.1 H Lymphocytes # 2.0 Monocytes # 1.5 H Eosinophils # 0.3 Basophils # 0.2 RBC Morph Normal Plt Morph Normal 10/12 1131 UA Color Yellow UA Turbidity Slight UA Spec Grav 1.016 UA pH 7.0 UA Protein Negative UA Glucose Negative UA Ketones Trace UA Bili Negative UA Blood Negative UA Urobilinogen <1.0 UA Nitrite Positive UA Leuk Est Negative UA RBC 1 UA WBC 2 UA Bacteria Many UA Mucus Few UA Sq Epi None Seen 10/12 0552 Procalcitonin Lvl <0.05 Imaging Studies: Review of Systems: Difficult to assess as patient is somnolent. She did not answer questions when asked, just smiled. Physical Examination: Gen: AAO x3, NAD, WNWD Vitals Tmp(F) Pulse BP RR SpO2 FIO2 10/13 07:55 ---- --- ----- - - 94 2.0L/m 10/13 07:00 ---- 83 106/51 1 7 97 --- 10/13 06:00 ---- 81 109/53 1 7 96 2.0L/m 10/13 05:00 ---- 80 102/50 1 8 96 --- 10/13 04:00 98.2 80 129/56 2 1 95 2.0L/m 24 Hr Tmax: 98.8F (37.11c) at 10/13 00:0 0 Vital Signs are the last 5 in the past 48 hours. HEENT: normocephalic, PERRLA, no drainage, mouth dry , +FlexiFlow NGT clamped Neck: Supple, no JVD Resp: Mildly course bilaterally anteriorly, nonlabored, nasal trupet in lef nare CV: RRR, no murmurs, rubs, or gallops Abd: soft, non-tender, non-distended, BS present Extrem: mild BLE edema Neuro: Somnolent, did not answer questions, follows simple commands Skin: Clear, no rashes or jaundice Impression: 1. Parkinson's Disease 2. Dysphagia 3. Acute Encephalopathy 4. Leukocytosis Plan: IR is consulted for an Image Guided Peg placement. Risks, benefits, alternative therapies, and moderate sedation have been discussed with the patient who is willing to proceed with the procedure. Informed consent has been obtained. Patient has been NPO since midnight. Anticoagulation is currently on hold. IR plans to perform the procedure as soon as the schedule allows (today or tomorrow. I will let her RN know when we schedule it. Please call if there are any questions. Thank you. Plan of care discussed with patient, , RN, Primary Team, and IR Attending, Dr. Echeverria. Irasema Song, [facility] Interventional Radiology THANK YOU FOR CONSULTING INTERVENTIONAL RADIOLOGY, IF YOU HAVE ANY QUESTIONS, PLEASE CONTACT [phone]. 10/15/2018 [facility] Plan of Care No Data Provided for This Section Social History Social History Date Source Social History TypeResponse Smoking Status Unknown if ever smoked; Type: Cigarettes; Exposure to Tobacco Smoke None; Cigarette Smoking Last 365 Days No; Reg Smoking Cessation Counseling No entered on: 10/24/18 10/24/2018 [facility] Social History TypeResponse Smoking Status Unknown if ever smoked; Exposure to Tobacco Smoke None; Cigarette Smoking Last 365 Days No; Reg Smoking Cessation Counseling No entered on: 07/08/18 07/08/2018 [facility] Family History No Data Provided for This Section Advance Directives No Data Provided for This Section Functional Status No Data Provided for This Section
--- OUTSIDE RECORDS SUMMARY | 2019-11-26 22:02 | XMS REPORT | Clinical Summary ---
Author Author [email or web address] Organization 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 Active carbidopa-levodopa Take 1 half 0 (SINEMET) 12.5-50 mg tablet by halftab half tablet mouth 2 (two) times daily. Active rasagiline 1 mg Tab Take 1 mg by 0 mouth daily. Active propranolol (INDERAL) 20 Take 20 mg by 0 MG tabletIndications: mouth 2 (two) essential tremor times daily Takes for tremors, not HTN.. Active lovastatin (MEVACOR) 20 Take 20 mg by 0 MG tablet mouth nightly. Active docusate sodium (COLACE) Take 100 mg 0 100 MG capsule by mouth daily. Active bisacodyl (DULCOLAX) 5 mg Take 5 mg by 0 EC tablet mouth daily as needed for Constipation. Active L.ACID/B.INF/B.BIFID/B.AN Take 1 0 IMAL (PROBIOTIC DIGESTIVE capsule by SYSTEM SUP ORAL) mouth daily . Active multivitamin per tablet Take 1 tablet 0 by mouth daily gummies. Active calcium carbonate-vitamin Take 2 0 D3 (CALCIUM-VITAMIN D) tablets by 500 mg(1,250mg) -200 unit mouth daily. per tablet Active levofloxacin (LEVAQUIN) Take 500 mg 0 500 MG tablet by mouth daily. Active Problems Problem Noted Date Renal stone 02/29/2016 E coli bacteremia 01/01/2016 Acute pyelonephritis 01/01/2016 Nephrolithiasis 01/01/2016 Hydronephrosis with obstructing calculus 01/01/2016 Thrombocytopenia 12/31/2015 Anemia 12/31/2015 Acute kidney injury 12/31/2015 Sepsis 12/30/2015 Septic shock 12/30/2015 H/O Parkinson's disease 12/30/2015 Social History Date Tobacco Use Types Packs/Day Years Used Never Smoker Smokeless Tobacco: Never Used Alcohol Use Drinks/Week oz/Week Comments No Sex Assigned at Date Recorded Not on file Industry Job Start Date Occupation Not on file Not on file Not on file Travel End Travel History Travel Start No recent travel history available. Last Filed Vital Signs Not on file Plan of Treatment Not on file Implants Device Identifier Shelf Expiration Date Model / Serial / L ot Implanted Type Area Manufactur er 06/07/2017 [id number] / / [id number] Stent Uret Cntour Inj [id number] Uro Stent Left: Ureter [employer] [id number] - [id number] SCI:UROLOG Implanted: Qty: 1 on 02/29/2016 by Y/Edwar Gonzalez MD GY Results Not on fileafter 11/25/2018 Insurance Payer Benefit Subscriber ID Type Phone Address Plan / Group MEDICARE MEDICARE A xxxxxxxxxx Medicare B BLUE CROSS/BLUE SHIELD BCBS xxxxxxxxxxxx [facility] [address] [place] [address] [place] [phone] Advance Directives For more information, please contact: [facility] [address] [place] [id number] Date Inactivated Comments Code Status Date Activated 03/01/2016 12:32 PM Full Code 02/29/2016 10:15 PM This code status was determined by: Patient 01/05/2016 7:49 PM Full Code 12/30/2015 2:19 AM This code status was determined by: Patient 12/30/2015 2:19 AM Full Code 12/30/2015 2:19 AM This code status was determined by: Patient
--- OUTSIDE RECORDS SUMMARY | 2019-11-26 22:03 | XMS REPORT | Continuity of Care Document ---
Author Author [facility] t Organization [facility] Address [facility] [place] [address] Phone Unavailable Care Team Providers Care Body And Frame Technician Name Role Phone MYNOR, (NON STAFF) JIMBO PCP ESPARZA, SOUHEIL Attphys Unavailable Leon Evans Jr Attphys Amarilys VELASQUEZ Attphys Unavailable KHADRA FONTANA Attphys Unavailable ESPARZA, SOUHEIL Admphys Unavailable Leon Evans Jr Admphys KHADRA FONTANA Admphys Unavailable Payers Payer Name Policy Type Policy Number Effective Date Expiration Date S [facility] NA 2014 00:00:00 [facility] Medicare A & B NA 2013 00:00:00 [facility] Problems Condition Name Condition Details Condition Category Status Onset Date Resolution Date Last Treatment Date Treating Clinician Comments Source PARKINSON'S DISEASE PARK INSON'S DISEASE Active 08/26/2018 [facility] Diagnosis Active 2018-08-26 00:00:00 2018-10-27 22:22:00 Raul William PARKINSON PARK INSON Active 08/26/2018 [facility] Diagnosis Active 2018-08-26 00:00:00 2018-09-30 16:16:00 Raul William G20 G20 Active 08/26/2018 [facility] Diagnosis Active 2018-08-26 00:00:00 2018-10-24 10:13:00 Raul William Renal stone Renal stone Disease Active 2016-02-29 00:00:00 [facility] E coli bacteremia E coli bacteremia Disease Active 2016-01-01 00:00:00 [facility] Acute pyelonephritis Acute pyelonephritis Disease Active 00:00:00 [facility] Nephrolithiasis Nephrolithiasis Disease Active 2016-01-01 00:00:00 [facility] Hydronephrosis with obstructing calculus Hydronephrosi s with obstructing calculus Disease Active 2016-01-01 00:00:00 [facility] Thrombocytopenia Thrombocytopenia Disease Active 2015-12-31 00:00:00 [facility] Anemia Anemia Disease Active 2015-12-31 00:00:00 [facility] Acute kidney injury Acute kidney injury Disease Active 2015-12-31 [facility] Active 2015-12-30 00:00:00 [facility] Septic shock Septic shock Disease Active 2015-12-30 00:00:00 [facility] H/O Parkinson's disease H/O Parkinson's disease Disease Active 2015-12-30 00:00:00 [facility] Cervical radiculopathy Cervical radiculopathy Problem Active 2015-02-21 00:00:00 [facility] 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 Active [facility] Decreased oral intake Problem Active [facility] Urinary tract infection Problem Active [facility] Parkinson's disease (disorder) Parkinson's disease (disorder) Active Problem 10/26/2018 [facility] Problem Active 2018-10-26 22:53:26 [facility] Simple obesity (disorder) Simp le obesity (disorder) Active Problem 10/26/2018 [facility] Problem Active 2018-10-26 22:53:26 [facility] Allergies, Adverse Reactions, Alerts Allergy Name Allergy Type Status Severity Reaction(s) Onset Date Inacti ve Date Treating Clinician Comments Source Clindamycin Drug Intolerance Active Other (See Comments) 2015-12-30 00:00:00 Had c diff after taking clinda in the [facility] clindamycin clindamycin Active [facility] Social History Social Habit Start Date Stop Date Quantity Comments Source Sex Assigned At [facility] Smoking Status Start Date Stop Date Source Never smoker [facility] Medications Ordered Medication Name Filled Medication Name Start Date Stop Da te Current Medication? Ordering Clinician Indication Dosage Frequency Signature (SIG) Comments Components Source Oxycodone Hydrochloride 1 MG/ML Oral Solution 2018-10-24 20:25:0 0 No 5 mg, 5 mL, Route: PEG, ONCE, Dosing Juan ght 77.273, kg, Priority: NOW, Start date: 10/24/18 15:25:00 CDT, Stop date: 10/24/18 15:25:00 CDT Raul Chamberlainann Cephalexin 500 MG Oral Capsule [Keflex] 2018-10-24 19:36:00 Yes 500 mg = 1 cap, PO, TID, X 10 day, # 30 cap, 0 Refill(s) Raul Chamberlainann Ondansetron 4 MG Disintegrating Tablet [Zofran] 2018-10-24 19:36 :00 Yes 4 mg = 1 tab, PO, BID, PRN N ausea and Vomiting, Dissolve tab under tongue, # 10 tab, 0 Refill(s) Raul Chamberlainann sugammadex 2018-10-24 19:25:00 No Notes: (S leobardo as: Bridion) Raul Chamberlainann ondansetron (ANES) 2018-10-24 19:24:00 No Route: IV, Drug form: INJ, ONCE, Stop date: 10/24/18 14:24:00 CDT Raul Chamberlainann sugammadex (ANES) 2018-10-24 19:24:00 No Route: IV, Drug form: SOLN, ONCE, Stop date: 10/24/18 14:24:00 CDT Raul Chamberlainann rocuronium (ANES) 2018-10-24 18:28:00 No Route: IV, Drug form: INJ, ONCE, Stop date: 10/24/18 13:28:00 CDT Augusta William fentaNYL (ANES) 2018-10-24 18:28:00 No Route: IV, Drug form: INJ, ONCE, Stop date: 10/24/18 13:28:00 CDT Augusta nayeli William ceFAZolin (ANES) 2018-10-24 18:28:00 No Route: IV, Drug form: INJ, ONCE, Stop date: 10/24/18 13:28:[facility] 2018-10-24 18:23:00 No Route: IV, Drug form: INJ, ONCE, Stop date: 10/24/18 13:23:00 CDT [facility] propofol (ANES) 2018-10-24 18:23:00 No Route: IV, Drug form: INJ, ONCE, Stop date: 10/24/18 13:23:00 [facility]T [facility] Acet[facility] 2018-10-24 18:14:00 No Notes: Max acetaminophen 4000 mg/day (4 gm/day). (Same as: Tylenol Extra Strength) [facility] Oxycodone Hydrochloride 5 MG Oral Tablet 2018-10-24 18:14:00 No Notes: (Same as: Roxicodone) [facility] Flumazenil 2018-10-24 18:14:00 No Notes: (S leobardo as: Romazicon) [facility] Naloxone 2018-10-24 18:14:00 No Notes: Same as Narcan [facility] Ondansetron 2018-10-24 18:14:00 No Notes: (Same as: Zofran) MEDICATION WASTE Product Size: 4 mg Product Wasted: ___ mg [facility] Lactated Ringers Injection IV ([facility]) 1000 mL 2018-10-24 17:24:00 No Route: IV, Total Volume: 1,000, Start date: 10/24/18 12:24:00 CDT, Stop date: 10/24/18 13:24:[address] [facility] ceFAZolin 2018-10-24 04:00:00 No Notes: (Sa me as Ancef) [facility] Zinc Sulfate 2018-10-23 14:39:00 Yes 220 mg, GT, Daily, 0 Refill(s) [facility] Vitamin C 2018-10-23 14:38:00 Yes 500 mg, GT , BID, 0 Refill(s) [facility] ceFAZolin + sterile water 20 mL 2018-10-16 08:00:00 No Notes: (Same As: Ancef, Kefzol) MEDICATION WASTE Product Size: 1000 mg Product Wasted: ___ mg [facility] Sulfamethoxazole 800 MG / Trimethoprim 160 MG Oral Tablet [B actrim] 2018-10-15 22:16:00 Yes 1 tab, PO, Q12H, X 5 day, # 10 tab, 0 Refill(s) Raul William atorvastatin 10 mg oral tablet 2018-10-15 22:01:00 Yes 10 mg = 1 tab, GT, Daily, 0 Refill(s) Raul de leon lansoprazole 2018-10-15 22:01:00 Yes GT, Heidy ly, 0 Refill(s) Raul Stewart 24 HR Rotigotine 0.167 MG/HR Transdermal Patch 2018-10-15 22:01: 00 Yes TOP, Daily, 0 Refill(s) Haja William sennosides, [facility] 8.6 MG Oral Tablet 2018-10-15 22:01:00 Yes 8.6 mg = 1 tab, PO, BID, 0 Refill(s) Raul de leon Sodium Chloride 1000 MG Oral Tablet 2018-10-14 17:21:00 No 3 gm, 3 tab, Route: GT, Drug form: TAB, Q8H, Dosing Weight 86.3, kg, Priority: NOW, Start date: 10/14/18 12:21:00 CDT, Duration: 30 day, Stop date: 11/13/18 14:00:00 CDT, 0 Raul William phenol 2018-10-14 11:26:00 No 1 spray, Route: MUCOUS MEM, TID, Drug form: SPRY, PRN Sore Throat, Start date: 10/14/18 6:26:00 CDT, Duration: 30 day, Stop date: 11/13/18 6:25:00 CDT, 0 Haja quinn Stewart Fentanyl 2018-10-13 21:23:00 No 50 microgram, Route: IV, ONCE, Dosing Weight 86.3, kg, Start date: 10/13/18 16:23:00 CDT, Stop date: 10/13/18 16:23:00 CDT Raul William Epinephrine 0.01 MG/ML / Lidocaine Hydrochloride 10 MG/ML In jectable Solution 2018-10-13 21:22:00 No 12 mL, Route: SUB-Q, Dosing Weight 86.3, ONCE, Start date: 10/13/18 16:22:00 CDT, Stop date: 10/13/18 16:22:00 CDT Raul William Glucagon 2018-10-13 21:07:00 No 1 mg, Route: IV, ONCE, Dosing Weight 86.3, kg, Start date: 10/13/18 16:07:00 CDT, Stop date: 10/13/18 16:07:00 CDT Raul William Lactated Ringers IV 1,000 mL 2018-10-13 10:32:00 No 1,000 mL, Rate: 100 ml/hr, Infuse over: 10 hr, Route: IV, Dosing Weight 86.3 kg, Total Volume: 1,000, Start date: 10/13/18 5:32:00 CDT, Duration: 30 day, Stop date: 11/12/18 5:31:00 CDT, 1.97, m2, 0 Raul Calderon n Vancomycin 2018-10-13 04:30:00 No 2001 mg: infuse over 2.5 hours For adult patients only: Round to nearest 250 mg per Medical Staff approval MEDICATION WASTE Product Size: 1000 mg Product Wasted: ___ mg Raul William Vancomycin 2018-10-12 15:57:00 No 2001 mg: infuse over 2.5 hours For adult patients only: Round to nearest 250 mg per Medical Staff approval MEDICATION WASTE Product Size: 1000 mg Product Wasted: ___ mg Raul William cefepime 2018-10-12 15:00:00 No /= 60 ml/min), Start date: 10/12/18 10:00:00 CDT, Duration: 7 day, Stop date: 10/19/18 2:00:00 CDT, ABX Indication: Pneumonia Raul William Flagyl 2018-10-12 15:00:00 No Notes: (Same as: Flagyl) Avoid alcohol. Raul Chamberlainann Albuterol 0.833 MG/ML / Ipratropium Brom veena 0.167 MG/ML Inhalant Solution [DuoNeb] 2018-10-11 12:12:00 No Notes: (S leobardo as: Duoneb) Raul Wililam rasagiline 2018-10-10 16:00:00 No Notes: Same as Azilect Non Formulary Item Raul William rotigotine 2018-10-09 18:00:00 No Notes: (Same as: Neupro) Application sites should be rotated on a daily basis. Do not apply to same application site more than once every 14 days or apply patch to oily, irritated or damaged skin. Raul William rasagiline 2018-10-09 15:00:00 No Notes: Same as Azilect Non Formulary Item Raul William 24 HR Rotigotine 0.125 MG/HR Transdermal Patch 2018-10-09 14:00: 00 No 1 patch, Route: TOP, Drug Form: ERFILM, Dosing Weight 86.3, kg, Daily, Start date: 10/09/18 9:00:00 CDT, Duration: 30 day, Stop date: 11/07/18 9:00:00 CDT Raul William propofol 10 mg/mL (Titrate.) IV 1,000 mg 2018-10-08 11:41:00 No 1,000 mg, 100 mL, Rate: Titrate, Start Dose: 30 microgram/kg/min, Titration: DO NOT TITRATE, Goal(s): per MD status epilepticus dosing, Route: IV, Dosing Weight 86.3 kg, Total Volume: 100, Start date: 10/08/18 6:41:00 CDT, Duration: 30 day, Stop date:... Raul William Prevacid 2018-10-07 14:00:00 No Notes: Take 1 hour before or 2 hours after meal; Expires in 14 days. Shake well before use. (Same as:Prevacid) Compounded Product - formulation not commercially available Raul William Dextrose 50% Syringe 2018-10-07 13:27:00 No 12.5 gm, 25 mL, Route: IVP, Drug Form: INJ, Dosing Weight 86.3, kg, PRN, PRN Blood Glucose Results, Start date: 10/07/18 8:27:00 CDT, Duration: 30 day, Stop date: 11/06/18 8:26:00 CDT, 0 Raul William Glucagon 2018-10-07 13:27:00 No 1 mg, Route: IM, Drug form: PDR/INJ, PRN, Dosing Weight 86.3, kg, PRN Blood Glucose Results, Start date: 10/07/18 8:27:00 CDT, Duration: 30 day, Stop date: 11/06/18 8:26:00 CDT, 0 Raul William Insulin regular 2018-10-07 13:27:00 No Notes: (Same as: Humulin R) Roll in palms of hands gently; Do not shake vigorously. WASTE: F/P - Black; E - Municipal Trash Bin Stable for 31 days at room temperature Expires in days from Date Raul William potassium phosphate 2018-10-07 12:22:00 No Notes: (Same as: K Phosphate.) Do not infuse phosphorous concurrently in the same line as TPN or IVF that contains calcium. For double lumen central lines, phosphorous may be infused in a separate lumen from TPN. 1 mMol phoshate has 1.47 mEq potassium Infuse over 4 hours Raul William Valproic Acid 100 MG/ML Injectable Solution 2018-10-06 22:24:00 No 3,000 mg, Route: IVPB, ONCE, Dosing Weight 86.3, kg, Priority: STAT, Start date: 10/06/18 17:24:00 CDT, Stop date: 10/06/18 17:24:00 CDT aRul William Albuterol 0.833 MG/ML / Ipratropium Brom veena 0.167 MG/ML Inhalant Solution [DuoNeb] 2018-10-06 20:00:00 No Notes: (S leobardo as: Duoneb) Raul [place] Dexamethasone 2018-10-06 17:00:00 No Notes: Concentration: 4mg/ml Raul William Racepinephrine 22.5 MG/ML Inhalant Solution 2018-10-06 16:37:00 No 11.25 mg, 0.5 mL, Route: NEB, Drug Form: SOLN, Dosing Weight 86.3, kg, RQ6H, PRN Stridor, Start date: 10/06/18 11:37:00 CDT, Duration: 30 day, Stop date: 11/05/18 11:36:00 CDT, Pediatric Dosing, 0 Raul [place] remove patch 2018-10-06 15:00:00 No Notes: Remove patch 24 hours after application Remove old patch before application of new patch. Raul William Amitriptyline 2018-10-06 14:00:00 No Notes: (Same as: Elavil) Raul William Lipitor 2018-10-06 14:00:00 No Notes: (Same As: Lipitor) Raul William Sodium Chloride 0.9% (Bolus) IV 2018-10-05 21:04:00 No 500 mL, 1000 ml/hr, Infuse Over: 0.5 hr, Route: IV, 500, Drug form: INJ, ONCE, Priority: STAT, Dosing Weight 86.3 kg, Start date: 10/05/18 16:04:00 CDT, Stop date: 10/05/18 16:04:00 CDT, 0 Raul Kvng n Zosyn 2018-10-05 21:00:00 No Notes: (Same as: Zosyn) Dosing based on Piperacillin component MEDICATION WASTE Product Size: 3375 mg Product Wasted: ___ mg Raul William rotigotine 2018-10-05 15:00:00 No Notes: (Same as: Neupro) Application sites should be rotated on a daily basis. Do not apply to same application site more than once every 14 days or apply patch to oily, irritated or damaged skin. Raul William 24 HR Rotigotine 0.0417 MG/HR Transdermal Patch [Neupro] 2018-10-05 14:00:00 No 1 patch, Route : TOP, Drug Form: ERFILM, Dosing Weight 86.3, kg, Daily, Start date: 10/05/18 9:00:00 CDT, Duration: 30 day, Stop date: 11/03/18 9:00:00 CDT Raul William Carbidopa 25 MG / Levodopa 100 MG Oral Tablet [Sinemet 25-10 0] 2018-10-05 07:00:00 No Notes: Take with milk or food . (Same As: Sinemet) Raul William NS (Bolus) IV 2018-10-05 05:54:00 No 1,000 mL, 1,000 ml/hr, Infuse Over: 1 hr, Route: IV, 1,000, Drug form: INJ, ONCE, Priority: STAT, Dosing Weight 86.3 kg, Start date: 10/05/18 0:54:00 CDT, Stop date: 10/05/18 0:54:00 CDT, 0 Raul William Famotidine 2018-10-05 02:00:00 No Notes: (Same as: Pepcid) Can be dilute in 5-10cc NS IVP: Slow IV push over at least 2 minutes. Raul William chlorhexidine gluconate 1.2 MG/ML Mouthwash 2018-10-05 01:00:00 No Notes: (Same As: Peridex) Raul leyva propofol 10 mg/mL (Titrate.) IV 1,000 mg 2018-10-04 23:20:00 No Notes: If Diprivan - change bottle & tubing every 12 hr Per state nursing law propofol can only be given by a nurse if patient is intubated or being intubated (unless the nurse is a [employer] MANAGER). Same as: Diprivan Raul William ocular lubricant 2018-10-04 23:00:00 No Notes: (Same as: Lacri-Lube, Puralube, Duratears Naturale, Artificial Tears, and Tears Again ) Raul William Iohexol 2018-10-04 22:21:00 No Notes: (same as:Omnipaque 350). WASTE: F/P - Black; E - Municipal Trash Bin Raul William chlorhexidine gluconate 1.2 MG/ML Mouthwash 2018-10-04 21:41:00 No Notes: (Same As: Peridex) Raul leyva Potassium Chloride 2018-10-04 21:40:00 No Notes: (Same as: KCL) Infuse no faster than 10 mEq/hr if given peripherally. Raul William sodium phosphate 2018-10-04 21:40:00 No Notes: Infuse over 4 hour. Do not infuse phosphorous concurrently in the same line as TPN or IVF that contains calcium. For double lumen central lines, phosphorous may be infused in a separate lumen from TPN. Raul hutchison potassium phosphate 2018-10-04 21:40:00 No Notes: (Same as: K Phosphate.) Do not infuse phosphorous concurrently in the same line as TPN or IVF that contains calcium. For double lumen central lines, phosphorous may be infused in a separate lumen from TPN. 1 mMol phoshate has 1.47 mEq potassium Infuse over 4 hours [facility] potassium phosphate-sodium phosphate 250 mg-280 mg-160 mg oral powder for reconstitution 2018-10-04 21:40:00 No Notes: (Same as: Phos-NaK) Each 1.5 gm pkt has 250mg phosphorous. Mix w/2.5oz water and stir. [facility] Magnesium Sulfate 2018-10-04 21:40:00 No Notes: WASTE: F/P - Sink; E - Municipal Trash Bin [facility] Magnesium Oxide 2018-10-04 21:40:00 No Notes: (Same as: Mag-Ox 400) Magnesium oxide [id number] elemental magnesium Dose=____mg magnesium oxide (___mg elemental magnesium) Raul de leon Calcium Gluconate 2018-10-04 21:40:00 No Notes: WASTE: F/P - Sink; E - [facility] Calcium Carbonate 500 MG Chewable Tablet 2018-10-04 21:40:00 No Notes: (Same As: Tums) Calcium Carbonate 500 mg = 200 mg elemental calcium Dose = mg calcium carbonate ( mg elemental calcium) [facility] heparin sodium, porcine 2500 UNT/ML Injectable Solution 2018-10-04 21:00:00 No Notes: porcine heparin [facility] Albuterol 0.833 MG/ML / Ipratropium Brom veena 0.167 MG/ML Inhalant Solution [DuoNeb] 2018-10-04 20:38:00 No Notes: (S leobardo as: Duoneb) [facility] Dextrose 50% Syringe 2018-10-04 19:46:00 No 12.5 gm, 25 mL, Route: IVP, Drug Form: INJ, Dosing Weight 86.3, kg, PRN, PRN Blood Glucose Results, Start date: 10/04/18 14:46:00 CDT, Duration: 30 day, Stop date: 11/03/18 14:45:00 CDT, 0 [facility] Glucagon 2018-10-04 19:46:00 No 1 mg, Route: IM, Drug form: PDR/INJ, PRN, Dosing Weight 86.3, kg, PRN Blood Glucose Results, Start date: 10/04/18 14:46:00 CDT, Duration: 30 day, Stop date: 11/03/18 14:45:00 CDT, 0 [facility] Insulin regular 2018-10-04 19:46:00 No Notes: (Same as: Humulin R) Roll in palms of hands gently; Do not shake vigorously. WASTE: F/P - Black; E - Municipal Trash Bin Stable for 31 days at room temperature Expires in days from Date [facility] heparin 2018-10-03 21:00:00 No Notes: porci ne heparin [facility] Dexilant 2018-10-03 14:00:00 No 30 mg, Route: PO, Drug form: DRC, Daily, Dosing Weight 86.3, kg, Start date: 10/03/18 9:00:00 CDT, Duration: 30 day, Stop date: 11/01/18 9:00:[facility] 2018-10-03 14:00:00 No 20 mg, Route: PO, Drug form: TAB, Daily, Dosing Weight 86.3, kg, Start date: 10/03/18 9:00:00 CDT, Duration: 30 day, Stop date: 11/01/18 9:00:[facility] 2018-10-03 14:00:00 No 1 mg, 1 tab, Route: PO, Drug form: TAB, Daily, Dosing Weight 86.3, kg, Start date: 10/03/18 9:00:00 CDT, Duration: 30 day, Stop date: 11/01/18 9:00:00 CDT, [address] [facility] Protonix 2018-10-03 14:00:00 No Notes: Tablet should not be chewed or crushed. (Same as: Protonix) [facility] Lipitor 2018-10-03 14:00:00 No Notes: (Same As: Lipitor) [facility] Saline Flush 0.9% 2018-10-03 02:00:00 No Notes: (Same as: BD Posiflush) [facility] Carbidopa 50 MG / Levodopa 200 MG Extended Release Tablet 2018-10-03 02:00:00 No Notes: "Do Not Crush" Take with milk or food. (Same As: Sinemet CR) [facility] Melatonin 2018-10-03 02:00:00 No Notes: (Sa me as: Melatonin) [facility] Cefazolin 2018-10-03 00:00:00 No Notes: (Sa me as Ancef) [facility] Docusate 2018-10-02 22:00:00 No 50 mg, Route: PO, Drug form: CAP, BID, Dosing Weight 86.3, kg, Start date: 10/02/18 17:00:00 CDT, Duration: 30 day, Stop date: 11/01/18 9:00:00 CDT, Pediatric Dosing Raul Chamberlainann sennosides, [facility] 2018-10-02 22:00:00 No Notes: (Same as: Senokot) Raul William Docusate Sodium 100 MG Oral Capsule [Colace] 2018-10-02 22:00:00 No Notes: (Same as: Colace) Raul Calderon n Amitriptyline 2018-10-02 22:00:00 No Notes: (Same as: Elavil) Raul William Propranolol 2018-10-02 22:00:00 No Notes: Give with food. (Same as: Inderal) Raul William Carbidopa 25 MG / Levodopa 100 MG Oral Tablet 2018-10-02 21:00:0 0 No Notes: Take with milk or food. (Same As: Sinemet) Raul William levETIRAcetam (ANES) 2018-10-02 19:38:00 No Route: IV, Drug form: INJ, ONCE, Stop date: 10/02/18 14:38:00 CDT Raul William Sodium Chloride 0.9% IV 1,000 mL 2018-10-02 19:24:00 No 1,000 mL, Rate: 50 ml/hr, Infuse over: 20 hr, Route: IV, Dosing Weight 86.3 kg, Total Volume: 1,000, Start date: 10/02/18 14:24:00 CDT, Duration: 30 day, Stop date: 11/01/18 14:23:00 CDT, 1.97, m2, 0 Memor ial Stewart Labetalol 2018-10-02 19:24:00 No 10 mg, 2 mL, Route: IVP, Drug form: INJ, Q15Min, Dosing Weight 86.3, kg, PRN Elevated BP, Start date: 10/02/18 14:24:00 CDT, Duration: 3 doses or times, Stop date: Limited # of times, 0 Raul William Hydralazine 2018-10-02 19:24:00 No Notes: (Same as: Apresoline) Push over 5 minutes [facility] Ondansetron 2018-10-02 19:24:00 No Notes: (Same as: Zofran) MEDICATION WASTE Product Size: 4 mg Product Wasted: ___ mg [facility] Acetaminophen 325 MG / Hydrocodone Bitartrate 10 MG Or al Tablet [Schlater 10/325] 2018-10-02 19:24:00 No Note s: Do not exceed 4gm/day of acetaminophen. (Same as: Schlater 325/10) [facility] Dilaudid 2018-10-02 19:24:00 No Notes: Same as Dilaudid [facility] Benadryl 2018-10-02 19:24:00 No Notes: (Bruce e as: Benadryl) [facility] phenol 2018-10-02 19:24:00 No Notes: Chloraseptic Eagar (Same as: Chloraseptic, Sore Throat Eagar) WASTE: F/P - Black; E - Municipal Trash Bin [facility] Bisacodyl 2018-10-02 19:24:00 No Notes: (Same As: Dulcolax, Bisco-Lax) [facility] Robaxin 2018-10-02 19:24:00 No Notes: (Same as:Robaxin) [facility] Melatonin 3 MG Extended Release Tablet 2018-10-02 19:24:00 No 3 mg, 1 tab, Route: PO, Dosing Weight 86.3, kg, Bedtime, PRN as needed for insomnia, Start date: 10/02/18 14:24:00 CDT, Duration: 30 day, Stop date: 11/01/18 14:23:00 CDT [facility] Tylenol 2018-10-02 19:24:00 No Notes: Do not exceed 4 gm/day. (Same as: Tylenol) [facility] Phenergan 2018-10-02 19:24:00 No Notes: Do not give IV push. (Same as: Phenergan) [facility] Potassium Chloride 2018-10-02 19:24:00 No Notes: (Same as: K-Dur 20) "Do Not Crush" Give with food and full glass of water For patients unable to swallow tablet, dissolve in one half glass of water. Allow about 2 minutes for the tablets to disintegrate. Stir before giving to prepare slurry and administer. Please exclude Patient s with feeding tube less than 14 Montserratian (Dobhoff, J-tube etc) and pediatric and patients. [facility] Saline Flush 0.9% 2018-10-02 19:24:00 No Notes: (Same as: BD Posiflush) [facility] Tylenol 2018-10-02 19:16:00 No Notes: Max acetaminophen 4000 mg/day (4 gm/day). (Same as: Tylenol Extra Strength) [facility] fentaNYL ([facility]) 2018-10-02 15:55:00 No Route: IV, Drug form: INJ, ONCE, Stop date: 10/02/18 10:55:00 CDT [facility] hydrALAZINE ([facility]) 2018-10-02 15:55:00 No Route: IV, Drug form: INJ, ONCE, Stop date: 10/02/18 10:55:[facility] 2018-10-02 15:46:00 No Notes: (Same as: Apresoline) Push over [address] [facility] Labetalol 2018-10-02 15:46:00 No 10 mg, 2 mL, Route: IVP, Drug form: INJ, Q5Min, Dosing Weight 86.3, kg, PRN Elevated BP, Start date: 10/02/18 10:46:00 CDT, Duration: 5 doses or times, Stop date: 10/03/18 0:00:00 CDT, [address] [facility] Metoprolol 2018-10-02 15:46:00 No Notes: (Same as: Lopressor) Push over [address] [facility] Oxycodone Hydrochloride 5 MG Oral Tablet 2018-10-02 15:46:00 No Notes: (Same as: Roxicodone) [facility] Hydromorphone 2018-10-02 15:46:00 No Notes: Same as Dilaudid [facility] Flumazenil 2018-10-02 15:46:00 No Notes: (S leobardo as: Romazicon) [facility] Naloxone 2018-10-02 15:46:00 No Notes: Same as Narcan [facility] Ondansetron 2018-10-02 15:46:00 No Notes: (Same as: Zofran) MEDICATION WASTE Product Size: 4 mg Product Wasted: ___ mg Raul William ceFAZolin (ANES) 2018-10-02 15:45:00 No Route: IV, Drug form: INJ, ONCE, Stop date: 10/02/18 10:45:00 CDT nayeli William propofol (ANES) 2018-10-02 15:09:00 No Route: IV, Drug form: INJ, ONCE, Stop date: 10/02/18 10:09:00 CDT nayeli William acetaminophen (ANES) 2018-10-02 14:54:00 No Route: IV, Drug form: INJ, ONCE, Stop date: 10/02/18 9:54:00 CDT [facility] Stewart esmolol (ANES) 2018-10-02 14:24:00 No Route: IV, Drug form: INJ, ONCE, Stop date: 10/02/18 9:24:00 CDT [facility] Stewart dexmedetomidine (ANES) 200 microgram 2018-10-02 14:24:00 No Route: IV, Drug form: INJ, Start date: 10/02/18 9:24:00 CDT, Stop date: 10/02/18 10:24:00 [facility] Is[facility] S PH 7.4 (ANES) 1000 mL 2018-10-02 14:10:00 No Route: IV, Total Volume: 1,000, Start date: 10/02/18 9:10:00 CDT, Stop date: 10/02/18 10:10:00 CDT [facility] Lactated Ringers Injection IV (ANES) 1000 mL 2018-10-02 13:26:00 No Route: IV, Total Volume: 1,000, Start date: 10/02/18 8:26:00 CDT, Stop date: 10/02/18 9:26:00 CDT [facility] ceFAZolin + sterile water 20 mL 2018-10-02 04:00:00 No Notes: (Same As: Alicia Jolly) MEDICATION WASTE Product Size: 1000 mg Product Wasted: ___ mg [facility] Doxycycline 20 MG Oral Tablet 2018-07-08 14:39:00 Yes 0 Refill(s) [facility] amitriptyline 10 mg oral tablet 2018-06-23 21:48:00 Yes 0 Refill(s) Raul William Carbidopa 25 MG / Levodopa 100 MG Oral Tablet 2018-06-23 21:47:0 0 Yes 0 Refill(s) Raul William Carbidopa 50 MG / Levodopa 200 MG Extended Release Tablet 2018-06-23 21:47:00 Yes 0 Refill(s) Haja William ciprofloxacin 500 mg oral tablet 2018-06-23 21:47:00 Yes 0 Refill(s) Raul William Docusate Sodium 100 MG Oral Capsule [Colace] 2018-06-23 21:46:00 Yes 1 tab, At night, 0 Refill(s) Maria De Jesus orial [facility] dexlansoprazole 30 MG Enteric Coated Capsule [Dexilant] 2018-06-23 21:46:00 Yes 0 Refill(s) Raul de leon Dulcolax Laxative 2018-06-23 21:46:00 Yes 0 Refill(s) Raul William lovastatin 20 mg oral tablet 2018-06-23 21:46:00 Yes 0 Refill(s) Raul William propranolol 20 mg oral tablet 2018-06-23 21:46:00 Yes 0 Refill(s) Raul William Melatonin 10 mg oral capsule 2018-06-23 21:46:00 Yes 0 Refill(s) Raul William multivitamin 2018-06-23 21:45:00 Yes 0 Refil l(s) Raul William rasagiline 1 mg oral tablet 2018-06-23 21:45:00 Yes 0 Refill(s) Raul William methenamine hippurate 1 g oral tablet 2018-06-23 21:45:00 Y es 0 Refill(s) Raul William L.ACID/B.INF/B.BIFID/B.ANIMAL (PROBIOTIC DIGESTIVE SYSTEM KOEHLER P ORAL) 2016-02-29 11:12:22 Yes 1{capsule} QD Take 1 capsule by mouth daily . [facility] propranolol (INDERAL) 20 MG tablet 2016-02-22 12:15:02 Yes essential tremor 20mg Q.5D Take 20 mg by mouth 2 (two) times daily Takes for tremors, not HTN.. [facility] multivitamin per tablet 2016-02-22 12:15:02 Yes 1{tbl} QD Take 1 tablet by mouth daily gummies. [facility] levofloxacin (LEVAQUIN) 500 MG tablet 2016-02-22 12:15:02 Y es 500mg QD Take 500 mg by mouth daily. [facility] carbidopa-levodopa (SINEMET) 25-100 mg per tablet 2016-01-02 10:56:05 Yes 1{tbl} Q.25D Take 1 tablet by mouth 4 (four) times daily . [facility] rasagiline 1 mg Tab 2016-01-02 10:56:05 Yes 1mg QD Take 1 mg by mouth daily. [facility] lovastatin (MEVACOR) 20 MG tablet 2016-01-02 10:56:05 Yes 20mg QD Take 20 mg by mouth nightly. [facility] docusate sodium (COLACE) 100 MG capsule 2016-01-02 10:56:05 Yes 100mg QD Take 100 mg by mouth daily. [facility] bisacodyl (DULCOLAX) 5 mg EC tablet 2016-01-02 10:56:05 Yes 5mg Take 5 mg by mouth daily as needed for Constipation. [facility] calcium carbonate-vitamin D3 (CALCIUM- TAMIN D) 500 mg(1,250mg) -200 unit per tablet 2016-01-02 10:56:05 Yes 2{tbl} QD Take 2 tablets by mouth daily. [facility] carbid[facility] (SINEMET) 12.5-50 mg halftab half tablet 2016-01-02 10:49:41 Yes Q.5D Take 1 half tablet by mouth 2 (two) times daily. [facility] Carbidopa/Levodopa (Carbidopa-Levodopa 25-100 Tab) 1 E ach TABLET Carbidopa/Levodopa (Carbidopa-Levodopa 25-100 Tab) 1 Each TABLET Yes 1 Every 4 Hours [facility] Glycopyrrolate Glycopyrrolate Yes 2 Three Time s A Day [facility] Methenamine Hippurate Methenamine Hippurate Yes 1 Twice A Day [facility] Multivitamin (Multi-Vitamin Daily) 1 Each TABLET Multi vitamin (Multi-Vitamin Daily) 1 Each TABLET Yes 1 Daily [facility] Pantoprazole Sodium (Protonix) 40 Mg TABLET. Pantopr azole Sodium (Protonix) 40 Mg TABLET. Yes 40 Before Breakfast [facility] Propranolol Hcl Propranolol Hcl Yes 10 Twice A Day [facility] Rasagiline Mesylate (Azilect) 1 Mg TABLET Rasagiline M esylate (Azilect) 1 Mg TABLET Yes 1 Daily [facility] Scopolamine Hydrobromide (Transderm-Scop) 1 Each PATCH .TD72 Scopolamine Hydrobromide (Transderm-Scop) 1 Each PATCH.TD72 Yes 1 Every 3 Days [facility] Simvastatin Simvastatin Yes 20 Today At 9:00PM [facility] Carbidopa/Levodopa (Carbidopa-Levo Er 50-200 Tab) 1 Ea ch TABLET.ER Carbidopa/Levodopa (Carbidopa-Levo Er 50-200 Tab) 1 Each TABLET.ER 2019-06-16 00:00:00 No 1 Bedtime [facility] Docusate Sodium Docusate Sodium 2019-06-16 00:00:00 No 100 Daily [facility] Docusate Sodium (Colace) 100 Mg CAP Docusate Sodium (Colace) 100 Mg CAP 2019-06-16 00:00:00 No 100 Bedtime [facility] Lactobacillus Acidophilus/Fos (Acidophilus Probiotic T ablet) 1 Each TABLET Lactobacillus Acidophilus/Fos (Acidophilus Probiotic Tablet) 1 Each TABLET 2019-06-16 00:00:00 No 1 Daily [facility] Lovastatin Lovastatin 2019-06-16 00:00:00 No 20 Bed time [facility] Melatonin Melatonin 2019-06-16 00:00:00 No 5 Daily [facility] Atorvastatin Calcium Atorvastatin Calcium 2019-04-08 00:00:00 No 10 Bedtime [facility] Acetaminophen Acetaminophen 2019-01-26 00:00:00 No 32 5 Every 6 Hours [facility] Bysacodyl Bysacodyl 2019-01-26 00:00:00 No 10 As Ne eded [facility] Carvidopa-Levodopa Carvidopa-Levodopa 2019-01-26 00:00:00 No Daily [facility] Ciprofloxacin Hcl (Cipro) 500 Mg TABLET Ciprofloxacin Hcl (C ipro) 500 Mg TABLET 2019-01-26 00:00:00 No 250 Daily [facility] Diphenhyd/Phenyleph/Acetaminop (Robitussin Cold-Flu Ni ght Liq) 237 Ml LIQUID Diphenhyd/Phenyleph/Acetaminop (Robitussin Cold-Flu Night Liq) 237 Ml LIQUID 2019-01-26 00:00:00 No As Needed [facility] Furosemide (Lasix) 20 Mg TABLET Furosemide (Lasix) 20 Mg TABLET 2019-01-26 00:00:00 No 20 Daily [facility] Ipratropium/Albuterol Sulfate (Combivent Respimat Inha l Eagar) 4 Gm AER.W.ADAP Ipratropium/Albuterol Sulfate (Combivent Respimat Inhal Eagar) 4 Gm AER.W.ADAP 2019-01-26 00:00:00 No 0 As Needed [facility] Lactulose Lactulose 2019-01-26 00:00:00 No 30 [facility] Lansoprazole Lansoprazole 2019-01-26 00:00:00 No 30 Daily [facility] Loratadine/Pseudoephedrine (Claritin-D 24 Hour Tablet) 1 Each TAB.ER.24H Loratadine/Pseudoephedrine (Claritin-D 24 Hour Tablet) 1 Each TAB.ER.24H 2019-01-26 00:00:00 No 1 Daily [facility] Mag Hydrox/Al Hydrox/Simeth (Maalox Maximum Strength S fpc) 355 Ml ORAL.SUSP Mag Hydrox/Al Hydrox/Simeth (Maalox Maximum Strength Susp) 355 Ml ORAL.SUSP 2019-01-26 00:00:00 No As Needed [facility] Mu-Vits-Min Th/Lycopene/Lutein (Centrum Silver Tablet) 1 Each TABLET Mu-Vits-Min Th/Lycopene/Lutein (Centrum Silver Tablet) 1 Each TABLET 20 05-02-09 00:00:00 No 1 Daily [facility] Mupirocin Mupirocin 2019-01-26 00:00:00 No 0 Twice A Day [facility] Propranolol Hcl Propranolol Hcl 2019-01-26 00:00:00 No 20 [facility] Rasagiline Mesylate (Azilect) 1 Mg TABLET Rasagiline M esylate (Azilect) 1 Mg TABLET 2019-01-26 00:00:00 No 1 Daily [facility] Rotigotine (Neupro) 1 Each PATCH.TD24 Rotigotine (Neupro) 1 Each PATCH.TD24 2019-01-26 00:00:00 No [facility] Sennosides (Senna Lax) 8.6 Mg TABLET Sennosides (Senna Lax) 8.6 Mg TABLET 2019-01-26 00:00:00 No 8.6 Daily [facility] Sulfamethoxazole/Trimethoprim (Bactrim Ds Tablet) 1 Ea ch TABLET Sulfamethoxazole/Trimethoprim (Bactrim Ds Tablet) 1 Each TABLET 2019-01-26 00:00:00 No 1 Twice A Day [facility] Triamcinolone Acet (Triamcinolone Acetonide) 15 Gm CR Triamcinolone Acet (Triamcinolone Acetonide) 15 Gm CR 2019-01-26 00:00:00 No 1 Twice A Day [facility] Butenafine Hcl (Lotrimin Ultra) 12 Gm CREAM..G. Butena fine Hcl (Lotrimin Ultra) 12 Gm CREAM..G. 2019-01-22 00:00:00 No 1 Bedtime [facility] Calcium Carb/Vit D3/Minerals (Caltrate Plus Tablet) 1 Each TABLET Calcium Carb/Vit D3/Minerals (Caltrate Plus Tablet) 1 Each TABLET 20 05-02-05 00:00:00 No 2 Daily [facility] Dexlansoprazole (Dexilant) 30 Mg Dexlansopra zole (Dexilant) 30 Mg 2019-01-22 00:00:00 No 30 Daily [facility] L. Rhamnosus Gg/Inulin (Culturelle Capsule) 1 Each CAP .SPRINK L. Rhamnosus Gg/Inulin (Culturelle Capsule) 1 Each CAP.SPRINK 2019-01-22 00:00:00 N o 1 Daily [facility] Polyethylene Glycol 3350 (Miralax) 17 Gm POWD.PACK [place] yethylene Glycol 3350 (Miralax) 17 Gm POWD.PACK 2019-01-22 00:00:00 No 1 Daily as needed for Constipation [facility] Carbidopa/Levodopa (Sinemet 25-100 Mg Tablet) 1 Each T ABLET Carbidopa/Levodopa (Sinemet 25-100 Mg Tablet) 1 Each TABLET 2017-11-15 00:00:00 No .5 Twice A Day [facility] Sulfamethoxazole/Trimethoprim (Sulfamethoxazole-Tmp Ds Tablet) 1 Each TABLET Sulfamethoxazole/Trimethoprim (Sulfamethoxazole-Tmp Ds Tablet) 1 Each TABLET 2015-02-20 00:00:00 No [facility] Vital Signs Vital Name Observation Time Observation Value Comments Source Body Temperature 2019-06-21 12:22:00 96.9 [degF] [facility] Weight 2019-06-20 00:41:00 152 [lb_av] [facility] BMI (Body Mass Index) 2019-06-20 00:41:00 28.7 kg/m2 [facility] Respitory Rate 2018-10-24 21:15:00 [facility] Systolic (mm Hg) 2018-10-24 21:15:00 Haja rial [place] Diastolic (mm Hg) 2018-10-24 21:15:00 Mem o[facility] Respitory Rate 2018-10-24 21:00:00 [facility] Systolic (mm Hg) 2018-10-24 21:00:00 Haja rial [place] Diastolic (mm Hg) 2018-10-24 21:00:00 Mem [facility] [place] Respitory Rate 2018-10-24 20:45:00 [facility] [place] Systolic (mm Hg) 2018-10-24 20:45:00 Haja rial [place] Diastolic (mm Hg) 2018-10-24 20:45:00 [facility] Weight 2018-10-24 15:00:00 [facility] BMI Calculated 2018-10-24 15:00:00 [facility] Heart Rate 2018-10-24 15:00:00 [facility] Height 2018-10-23 14:44:00 157.48 cm [facility] Respitory Rate 2018-10-15 20:00:00 [facility] [place] Systolic (mm Hg) 2018-10-15 20:00:00 Haja rial [place] Diastolic (mm Hg) 2018-10-15 20:00:00 Mem [facility] [place] Respitory Rate 2018-10-15 17:00:00 [facility] Systolic (mm Hg) 2018-10-15 17:00:00 Haja rial [place] Diastolic (mm Hg) 2018-10-15 17:00:00 Mem [facility] [place] Respitory Rate 2018-10-15 16:00:00 [facility] Systolic (mm Hg) 2018-10-15 16:00:00 Haja rial [facility] Diastolic (mm Hg) 2018-10-15 16:00:00 [facility] [place] Height 2018-10-12 14:37:00 157.48 cm [facility] Weight 2018-10-12 14:37:00 [facility] Height 2018-10-12 12:50:00 157.48 cm [facility] Temperature Oral (F) 2018-10-12 01:00:00 98.0 F [facility] Height 2018-10-11 11:48:00 157.48 cm [facility] Temperature Oral (F) 2018-10-11 09:00:00 98.0 F [facility] Temperature Oral (F) 2018-10-11 05:00:00 98.4 F [facility] Heart Rate 2018-10-02 11:53:00 [facility] Weight 2018-09-18 20:02:00 [facility] BMI Calculated 2018-09-18 20:02:00 [facility] Heart Rate 2018-09-18 19:31:00 [facility] Weight 2018-09-18 19:30:00 [facility] BMI Calculated 2018-09-18 19:30:00 [facility] Procedures Procedure Date / Time Performed Performing Clinician [facility] e Computed tomography of chest with contrast 2019-06-16 00:00:00 [facility] X-ray of chest, two views 2019-04-07 00:00:00 SALOME KAPOOR CH, I [facility] EGD BIOPSY SINGLE/MULTIPLE 2019-01-26 00:00:00 Jannie PAREKH [facility] EGD REMOVE FOREIGN BODY 2019-01-26 00:00:00 [facility] back surgery 2015-02-18 00:00:00 [facility] Her de leon Hysterectomy 1993-02-18 00:00:00 [facility] Her de leon section 1992-02-19 00:00:00 [facility] Procedure<sup>1</sup> [facility] Plan of Care Planned Activity Planned Date Details Comments Source Instructions Urinary Tract Infection - Women [facility] Encounters Start Date/Time End Date/Time Encounter Type Admission Type [facility] Care Department Encounter ID Source 2018-10-02 05:53:00 Inpatient [id number] [facility] 2019-06-17 09:23:00 2019-06-21 14:10:00 Discharged Inpatient 1 [facility] [id number] [facility] 2019-04-09 09:58:00 2019-04-13 15:22:00 Discharged Inpatient 1 [facility] [id number] [facility] 2019-01-26 08:08:00 2019-01-26 08:08:00 Registered Surgical Day Care [facility] [id number] [facility] 2018-10-24 08:28:00 2018-10-24 23:59:00 Outpatient Nadine Evans [facility] [id number] 2018-10-24 08:28:00 2018-10-24 08:28:00 Outpatient [facility] [id number] [facility] 2018-10-02 05:53:00 2018-10-15 18:09:00 Outpatient Nadine Evans [facility] [id number] 2018-09-30 16:06:00 2018-09-30 23:59:00 Outpatient Nadine Evans [facility] [id number] 2018-09-30 16:06:00 2018-09-30 16:06:00 Outpatient [facility] [id number] [facility] 2018-09-11 11:11:00 2018-09-11 11:11:00 Registered Clinic 3 CLAUS VELASQUEZ [facility] [id number] [facility] 2018-07-09 15:30:00 2018-07-09 23:59:59 Outpatient Thom Evans [facility] [id number] 2017-11-15 14:22:00 2017-11-19 17:33:00 Discharged Inpatient 1 [facility] [id number] [facility] Results Test Description Test Time Test Comments Results Result Comments Source Fluoroscopic procedure less than one hour duration 1 00:49:00 Test Item Coronavirus (PCR) (test code = Coronavirus (PCR)) NOT DETECTED NOTD ETECTED SARS-COV2/RT-PCRNegative results do not preclude SARS-CoV-2 infection and should not be used as the sole basis for patient management decisions. Negative result s must be combined with clinical observations, patient history, and epidemiologi ruby information. A false negative result may occur if a specimen is improperly c ollected, transported or handled.The limit of detection for this assay is 250 co pies/mLThe SARS-CoV-2 test is a rapid, real-time RT-PCR test intended for the qu alitative detection of nucleic acid from SARS-CoV-2 in nasopharyngeal swab speci men collected from individuals suspected of COVID-19 by their healthcare provide r. This test has not been Food and Drug Administration (FDA) cleared or approved and has been authorized by FDA under an Emergency Use Authorization (EUA). This EUA will be effective until the declaration that circumstances exist justifying the authorization of the emergency use of in vitro diagnostic test for detectio n and or diagnosis of COVID-19 is terminated under section 564(b) of the Act, or the the EUA is revoked under 564(g) of the ACT.Testing performed by [address] [id number] [id number] 15:34:00 [facility] [address] [address] Patient Name: DEWAYNE ROWE MR #: [id number] : [id number] Age/Sex: 69/F Req #: [id number] Adm Physician: JASBIR ESPARZA MD Ordered by: JASBIR ESPARZA MD Report #: [id number] Location: MED/SURG Room/Bed: [facility] Procedure: [id number] NM/LUNG PER FUSION Exam Date: 06/17/19 Exam Time: 1400 REPORT STATUS: Signed Perfusion Lung Scan NOTE: Lung ventilation studies with xenon are not being performed per the recommendation of the Society of Nuclear Medicine and Molecular Imaging. It i s not possible to be certain that the ventilation system is adequately disin fected. Ventilation studies with Tc-99m DTPA particles is contraindicated bec ause the delivery by nebulization generates too many water droplets from the p atient's airway. Clinical Information: SOB; decreased oral intake Co mparison: Chest CT with contrast 06/06/2019; chest radiograph 06/16/2019 Disc ussion: Ventilation images were not obtained. See note above. Perfusion i mages of the lungs were obtained in multiple projections following intravenous administration of approximately 5.8 mCi of Tc-99m MAA. Distribution of tracer is irregular throughout the lungs. There are no segmental perfusion defects of any size. The cardiomediastinal silhouette is unremarkable. Impre ssion: 1. Scan findings represent a VERY LOW probability for acute pulmon maik embolic disease based on the perfusion-only PIOPED criteria. 2. Scan findings are compatible with diffuse parenchymal and/or obstructive lung disea se. 3. A ventilation scan would not have altered the assigned probability fo r acute PE. Signed by: Dr. Bailey Olivarez M.D. on 06/17/2019 3:39 PM Dictated By: BAILEY OLIVAREZ MD 38 COPY TO: OBEY ESPARZA MD Blood leukocytes automated count (number/volume)2019-06-17 05:25:00 * Test Item Value Reference Range Interpretation Comments White Blood Count (test code = 6690-2) 7.46 4.8-10.8 [facility] count (number/volume)2019-06-17 05:25:00* Test Item Value Reference Range Interpretation Comments Red Blood Count (test code = 789-8) 4.92 3.6-5.1 [facility] measurement (moles/volume)2019-06-17 05:25:00* Test Item Value Reference Range Interpretation Comments Hemoglobin (test code = 32373-1) 12.2 12.0-16.0 [facility] hematocrit (volume fraction)2019-06-17 05:25:00* Test Item Value Reference Range Interpretation Comments Hematocrit (test code = 4544-3) 40.3 34.2-44.1 [facility] mean corpuscular [id number] 05:25:00* Test Item Value Reference Range Interpretation Comments Mean Corpuscular Volume (test code = 787-2) 81.9 81-99 [facility] mean corpuscular hemoglobin (mass per erythrocyte)2019-06-17 05:25:00* Test Item Value Reference Range Interpretation Comments Mean Corpuscular Hemoglobin (test code = 785-6) 24.8 28-32 [facility] mean corpuscular hemoglobin concentration measurement (mass/volume)2019-06-17 05:25:00* Test Item Value Reference Range Interpretation Comments Mean Corpuscular Hemoglobin Concent (test code = 786-4) 30.3 31-35 [facility] [id number] 05:25:00* Test Item Value Reference Range Interpretation Comments Red Cell Distribution Width (test code = 52004-8) 13.6 11.7 -14.4 [facility] platelet count (count/volume)2019-06-17 05:25:00* Test Item Value Reference Range Interpretation Comments Platelet Count (test code = 777-3) 224 140-360 [facility] segmented neutrophil count as percentage of total [id number] 05:25:00* Test Item Value Reference Range Interpretation Comments Neutrophils (%) (Auto) (test code = 99650-0) 52.5 38.7-80.0 [facility] lymphocyte count as percentage ot total [id number] 05:25:00* Test Item Value Reference Range Interpretation Comments Lymphocytes (%) (Auto) (test code = 736-9) 33.8 18.0-39.1 [facility] monocyte count as percentage of total [id number] 05:25:00* Test Item Value Reference Range Interpretation Comments Monocytes (%) (Auto) (test code = 5905-5) 9.8 4.4-11.3 [facility] eosinophil count as percentage of total [id number] 05:25:00* Test Item Value Reference Range Interpretation Comments Eosinophils (%) (Auto) (test code = 713-8) 3.4 0.0-6.0 [facility] basophil count as percentage of total [id number] 05:25:00* Test Item Value Reference Range Interpretation Comments Basophils (%) (Auto) (test code = 706-2) 0.4 0.0-1.0 [facility] Austin[facility]oroscopic procedure less than one hour [id number] 05:25:00* Test Item Value Reference Range Interpretation Comments IM GRANULOCYTES % (test code = IM GRANULOCYTES %) 0.1 0.0- 1.0 [facility] neutrophil count 2019-06-17 05:25:00* Test Item Value Reference Range Interpretation Comments Neutrophils # (Auto) (test code = 751-8) 3.9 2.1-6.9 [facility] lymphocytes count (number/volume) 2019-06-17 05:25:00* Test Item Value Reference Range Interpretation Comments Lymphocytes # (Auto) (test code = 42081-5) 2.5 1.0-3.2 [facility] monocytes automated count (number/volume)2019-06-17 05:25:00* Test Item Value Reference Range Interpretation Comments Monocytes # (Auto) (test code = 742-7) 0.7 0.2-0.8 [facility] eosinophil count 2019-06-17 05:25:00* Test Item Value Reference Range Interpretation Comments Eosinophils # (Auto) (test code = 711-2) 0.3 0.0-0.4 [facility] basophil count (count/volume)2019-06-17 05:25:00* Test Item Value Reference Range Interpretation Comments Basophils # (Auto) (test code = 704-7) 0.0 0.0-0.1 [facility]or[facility] procedure less than one hour [id number] 05:25:00* Test Item Value Reference Range Interpretation Comments Absolute Immature Granulocyte (auto (felecia t code = Absolute Immature Granulocyte (auto) 0.01 0-0.1 [facility] sodium measurement (moles/volume)2019-06-17 05:25:00* Test Item Value Reference Range Interpretation Comments Sodium Level (test code = 2951-2) 141 136-145 [facility] Antonio[facility] or plasma potassium measurement (moles/volume)2019-06-17 05:25:00* Test Item Value Reference Range Interpretation Comments Potassium Level (test code = 2823-3) 4.0 3.5-5.1 [facility] Antonio[facility] or plasma chloride measurement (moles/volume)2019-06-17 05:25:00* Test Item Value Reference Range Interpretation Comments Chloride Level (test code = 2075-0) 111 98-107 [facility] Antonio[facility]um or plasma carbon dioxide, total measurement (moles/volume)2019-06-17 05:25:00* Test Item Value Reference Range Interpretation Comments Carbon Dioxide Level (test code = 2028-9) 24 22-29 [facility] Antonio[facility] or plasma anion [id number] 05:25:00* Test Item Value Reference Range Interpretation Comments Anion Gap (test code = 87163-1) 10.0 8-16 [facility] Antonio[facility] or plasma urea nitrogen measurement (mass/volume)2019-06-17 05:25:00* Test Item Value Reference Range Interpretation Comments Blood Urea Nitrogen (test code = 3094-0) 9 7-26 [facility] Antonio[facility] or plasma creatinine measurement (mass/volume)2019-06-17 05:25:00* Test Item Value Reference Range Interpretation Comments Creatinine (test code = 2160-0) 0.78 0.57-1.11 [facility] Antonio[facility]um or plasma urea nitrogen/creatinine mass whjbm9139-43-47 05:25:00* Test Item Value Reference Range Interpretation Comments BUN/Creatinine Ratio (test code = 3097-3) 12 6-25 [facility] AustinEstimated glomerular filtration rate (GFR) xnxpsonpshdxz8147-57-19 05:25:00* Test Item Value Reference Range Interpretation Comments Estimat Glomerular Filtration Rate (test code = 993170087) > 60 >60 Ranges were taken from the National Kidney Disease Education Program and the [facility] literature.Reference ranges:60 or greater: Hpacas02-62 ( for 3 consecutive months): Chronic kidney disease 15 or less: Kidney failureHeart Hospital of AustinGlucose qasruiaefun9513-54-55 05:25:00* Test Item Value Reference Range Interpretation Comments Glucose Level (test code = FKW3782) 104 74-118 [facility] Antonio[facility] or plasma calcium measurement (mass/volume)2019-06-17 05:25:00* Test Item Value Reference Range Interpretation Comments Calcium Level (test code = 06025-6) 8.6 8.4-10.2 [facility] Antonio[facility]um or plasma total bilirubin measurement (mass/volume)2019-06-17 05:25:00* Test Item Value Reference Range Interpretation Comments Total Bilirubin (test code = 1975-2) 0.6 0.2-1.2 [facility] AustinFluoroscopic procedure less than one hour srmzmket9811-91-27 05:25:00* Test Item Value Reference Range Interpretation Comments Aspartate Amino Transf (AST/SGOT) (test code = Aspartate Amino Transf (AST/SGOT)) 8 5-34 [facility] Antonioerum or plasma alanine aminotransferase measurement (enzymatic activity/volume)2019-06-17 05:25:00* Test Item Value Reference Range Interpretation Comments Alanine Aminotransferase (ALT/SGPT) (test code = 1742-6) < 6 0-55 [facility] Antonioerum or plasma protein measurement (mass/volume)2019-06-17 05:25:00* Test Item Value Reference Range Interpretation Comments Total Protein (test code = 2885-2) 5.8 6.5-8.1 [facility] Antonioerum or plasma albumin measurement (mass/volume)2019-06-17 05:25:00* Test Item Value Reference Range Interpretation Comments Albumin (test code = 1751-7) 3.2 3.5-5.0 [facility] AustinPlasma globulin measurement (mass/volume) 2019-06-17 05:25:00* Test Item Value Reference Range Interpretation Comments Globulin (test code = 69607-9) 2.6 2.3-3.5 [facility] Antonioerum or plasma albumin/globulin mass zsmrw9995-61-86 05:25:00* Test Item Value Reference Range Interpretation Comments Albumin/Globulin Ratio (test code = 1759-0) 1.2 0.8-2.0 [facility] Antonioerum or plasma alkaline phosphatase measurement (enzymatic activity/volume)2019-06-17 05:25:00* Test Item Value Reference Range Interpretation Comments Alkaline Phosphatase (test code = 6768-6) 54 40-150 [facility] AustinCT CHEST J3104-30-83 20:34:00 [facility] [address] [address] Patient Name: DEWAYNE ROWE MR #: [id number] : 1950 Age/Sex: 69/F Req #: [id number] Adm Physician: KHADRA FONTANA MD Ordered by: KHADRA FONTANA MD Report #: [id number] Location: MED/SURG Room/Bed: [facility] Procedure: [id number] CT/CT CHEST W Exam Date: 06/16/19 Exam Time: 1914 REPORT STATUS: Signed EXAM: CT Chest WITH contra st 06/16/2019 7:15 PM INDICATION: Bronchogenic Carcinoma COMPARISON: None TECHNIQUE: Chest was scanned utilizing a multidetector helical scanner from the lung apex through the level of the adrenal glands without administration o f IV contrast. Coronal and sagittal reformations were obtained. Routine protoc ol was performed. IV CONTRAST: 100 mL of Omnipaque 300 COMPLICATIO NS: None RADIATION DOSE: Total DLP: 478.02 mGy*cm Estimated effective dose: (DLP x 0.014 x size factor) mSv CTDIvol has been reviewed . It is below the limits set by the Radiation Protocol Committee (RPC). F INDINGS: LINES/ TUBES: Implanted neurostimulator device again identified ov erlying the left hemithorax with leads extending superiorly. LUNGS AND AI RWAYS: There is bibasilar atelectasis. No focal mass or consolidation is see n. Diffuse groundglass opacities are seen bilaterally predominantly in the rig ht middle lobe and lower lobes seen.There is a 0.6 and 0.7 cm pulmonary nodule in the right lower lobe adjacent to the right major fissure (series 3, images 44 and 49) Bronchiectatic changes are seen predominantly in lower lobes. PLEURA: The pleural spaces are clear. HEART AND MEDIASTINUM: The thyroid g land is normal. Subcentimeter bilateral hilar and mediastinal lymph nodes are nonspecific. The heart is normal in size.. There is no pericardial effus ion. There are filling defects within the subsegmental pulmonary arteries of the right lower lobe. UPPER ABDOMEN: Unremarkable. BONES: There are degenerative changes in the thoracic spine. SOFT TISSUES: Unremarkable. IMPRESSION: No definite focal mass or consolidation noted. Two nonspecif ic right lower lobe pulmonary nodules measuring up to 0.7 cm. Diffuse bi lateral groundglass opacities predominantly in the right middle lobe and lower lobes likely infectious in etiology, less likely neoplastic. Bronchiectati c changes are seen predominantly in lower lobes. Questionable filling defec ts are seen within the subsegmental pulmonary arteries of the right lower lobe . Please note that this study was not obtained to evaluate for pulmonary embol us. Recommend further evaluation with V/Q scan. Signed by: Reyes tanner MD on 06/16/2019 9:14 PM Dictated By: REYES BERNAL MD Elect ronically Signed By: REYES BERNAL MD on 06/16/192113 Transcribed By: TIMO GARVIN on 06/16/192113 COPY TO: KHADRA FONTANA MD Urine color gpaehltexfhhe0728-20-18 16:15:00* Test Item Value Reference Range Interpretation Comments Urine Color (test code = 5778-6) STRAW YELLOW [facility] AustinUrine pktjnzw2105-70-30 16:15:00* Test Item Value Reference Range Interpretation Comments Urine Clarity (test code = 16755-4) SL CLOUDY CLEAR [facility] Antoniopecific gravity of Urine by Test strip 2019-06-16 16:15:00* Test Item Value Reference Range Interpretation Comments Urine Specific [place] (test code = 5811-5) 1.025 1.010-1.02 5 [facility] AustinUrine pH measurement by automated test qxgcy0536-48-61 16:15:00* Test Item Value Reference Range Interpretation Comments Urine pH (test code = 99946-1) 6.5 5-7 [facility] AustinUrine leukocyte esterase detection by pjrxacha1534-31-71 16:15:00* Test Item Value Reference Range Interpretation Comments Urine Leukocyte Esterase (test code = 5799-2) TRACE NEGATIVE [facility] AustinUrine nitrite rfscykblp7320-28-09 16:15:00* Test Item Value Reference Range Interpretation Comments Urine Nitrite (test code = 23532-3) NEGATIVE NEGATIVE [facility] AustinUrine protein measurement by test strip (mass/volume)2019-06-16 16:15:00* Test Item Value Reference Range Interpretation Comments Urine Protein (test code = 5804-0) 1+ NEGATIVE [facility] AustinUrine glucose fjjagwbij8763-70-96 16:15:00* Test Item Value Reference Range Interpretation Comments Urine Glucose (UA) (test code = 2349-9) NEGATIVE NEGATIVE [facility] AustinUrine ketones detection by automated test yvpjb2727-98-99 16:15:00* Test Item Value Reference Range Interpretation Comments Urine Ketones (test code = 69899-3) TRACE NEGATIVE [facility] AustinUrine urobilinogen measurement by test strip (mass/volume)2019-06-16 16:15:00* Test Item Value Reference Range Interpretation Comments Urine Urobilinogen (test code = 12385-2) 0.2 0.2-1 [facility] AustinUrine total bilirubin measurement (mass/volume)2019-06-16 16:15:00* Test Item Value Reference Range Interpretation Comments Urine Bilirubin (test code = 1978-6) NEGATIVE NEGATIVE [facility] AustinUrine erythrocytes kdwwkpbwb2692-27-75 16:15:00* Test Item Value Reference Range Interpretation Comments Urine Blood (test code = 68225-8) TRACE NEGATIVE [facility] AustinAutomated urine sediment leukocyte count by microscopy (number/high power field)2019-06-16 16:15:00* Test Item Value Reference Range Interpretation Comments Urine WBC (test code = 5821-4) 6-10 0-5 [facility] AustinErythrocytes detection in urine sediment by light zoruijaoqz0024-05-30 16:15:00* Test Item Value Reference Range Interpretation Comments Urine RBC (test code = 70606-9) 0-5 0-5 [facility] AustinBacteria detection in urine sediment by light looisikwal5985-91-19 16:15:00* Test Item Value Reference Range Interpretation Comments Urine Bacteria (test code = 65352-1) FEW NONE [facility] AustinEpithelial cells detection in urine sediment by light tdnhcftoaw9435-99-06 16:15:00* Test Item Value Reference Range Interpretation Comments Urine Epithelial Cells (test code = 44936-8) FEW NONE [facility] AustinCalcium oxalate crystals detection in urine sediment by light djuxmykdle3011-98-01 16:15:00* Test Item Value Reference Range Interpretation Comments Urine Calcium Oxalate Crystals (test code = 5774-5) RARE FE W [facility] AustinProthrombin time (PT) in platelet poor plasma by coagulation dixox2173-14-54 15:41:00* Test Item Value Reference Range Interpretation Comments Prothrombin Time (test code = 5902-2) 13.5 11.9-14.5 [facility] AustinINR in Platelet poor plasma by Coagulation picge4531-33-36 15:41:00* Test Item Value Reference Range Interpretation Comments Prothromb Time International Ratio (test code = 6301-6) 0.97 Oral Anticoagulant Therapy INR Values:1. Low Intensity Therapy 1.5 - 2.02 . Moderate Intensity Therapy 2.0 - 3.03. High Intensity Therapy(1) 2.5 - 3. 54. High Intensity Therapy(2) 3.0 - 4.05. Panic Value INR > 5.0 [facility] AustinActivated partial thromboplastin time (aPTT) in platelet poor plasma by coagulation omdwm8285-46-79 15:41:00* Test Item Value Reference Range Interpretation Comments Activated Partial Thromboplast Time (test code = 30361-8) 26.1 23.8-35.5 [facility] Antonioerum or plasma magnesium measurement (mass/volume)2019-06-16 15:41:00* Test Item Value Reference Range Interpretation Comments Magnesium Level (test code = 85979-1) 1.7 1.3-2.1 [facility] AustinBNP Zpw-cCpw4928-26-28 15:41:00* Test Item Value Reference Range Interpretation Comments B-Type Natriuretic Peptide (test code = 49479-1) 17.9 0-100 [facility] Antonioerum or plasma creatine kinase measurement (enzymatic activity/volume)2019-06-16 15:41:00* Test Item Value Reference Range Interpretation Comments Creatine Kinase (test code = 2157-6) 31 29-168 [facility] Antonioerum or plasma creatine kinase MB measurement (mass/volume)2019-06-16 15:41:00* Test Item Value Reference Range Interpretation Comments Creatine Kinase MB (test code = 05775-0) 0.80 0-5.0 [facility] AustinTroponin I measurement by highly sensitive enzyme biarlbqkkqf2405-88-27 15:41:00* Test Item Value Reference Range Interpretation Comments Troponin I (test code = 58417-4) < 0.001 0-0.300 [facility] AustinBlood fqbpuwk4547-97-42 15:41:00* Test Item Value Reference Range Interpretation Comments Blood Culture (test code = 39381659) NO GROWTH AFTER 5 DAYS, FINAL REPORT [facility] AustinCHEST SINGLE (PORTABLE)2019-06-16 15:02:00 [facility] [address] [place] [address] Patient Name: DEWAYNE ROWE MR #: [id number] : 1950 Age/Sex: 69/F Req #: [id number] Adm Physician: JASBIR ESPARZA MD Ordered by: MATT HOUSE MD Report #: [id number] Location: MED/SURG Room/Bed: 110 Procedure: [id number] DX/CHEST SIN GLE (PORTABLE) Exam Date: 06/16/19 Exam Time: 1455 REPORT STATUS: Signed EXAM: VILLA Serra SINGLE (PORTABLE) DATE: 06/16/2019 2:55 PM INDICATION: Hypertension COMPARISON: 04/07/2019 FINDINGS: Implanted neurostimulator device again identified overlying the left hemithorax with leads extending superiorly . Lungs are symmetrically expanded without evidence for large focal conso lidation, pneumothorax, or significant pleural effusion. The cardiomediastinal silhouette is stable in appearance. No acute osseous abnormalities identified . IMPRESSION: No acute cardiopulmonary process identified Sign ed by: Dr. Dany Vasquez MD on 06/16/2019 3:10 PM Dictated By: DANY Looney MD 09 Transcribed By : JENNIFER on 06/16/191509 COPY TO: MATT HOUSE MD MODIFIED BA. IJYDXYQ1000-58-88 09:05:[address] [address] Patient Name: DEWAYNE ROWE MR #: [id number] : 1950 Age/Sex: 69/F Req #: [id number] Adm Physician: JASBIR ESPARZA MD Ordered by: JASBIR ESPARZA MD Report #: [id number] Location: MED/SURG Room/Bed: Replaced by [facility] Procedure: [id number] DX/MODIFIED BA. SWALLOW Exam Date: 04/10/19 Exam T bruna: 0930 REPORT STATUS: Signed PROCEDURE: X-RAY MODIFIED BARIUM SWALLOW COMPARISON: None. INDICATION : Aspiration Radiation Details: Fluoroscopy time: 1.8 minutes Cumulativ e dose: 2.2 mGy DISCUSSION: Fluoroscopic examination was performed in conju nction with speech pathology during swallowing a variety of thin and thick liq uid consistencies. Provided images demonstrate laryngeal penetration but no as piration. CONCLUSION: Modified barium swallow demonstrating laryngeal p enetration but no aspiration. Please refer to the speech pathology report for further details. Signed by: Marcella Higgins MD on 04/21/2019 9:08 AM Dicta greardo By: MARCELLA HIGGINS MD 7 Transcribed By: JENNIFER on 04/21/19907 COPY TO: JASBIR ESPARZA MD Blood Cbrmquv6871-47-51 10:40:00* Test Item Value Reference Range Interpretation Comments Blood Culture (test code = 06401498) NO GROWTH AFTER 5 DAYS, FINAL REPORT [facility] Antonioodium Svyef4965-45-32 06:09:00* Test Item Value Reference Range Interpretation Comments Sodium Level (test code = 2951-2) 140 136-145 [facility] AustinPotassium Cdhfv2851-44-68 06:09:00* Test Item Value Reference Range Interpretation Comments Potassium Level (test code = 2823-3) 4.2 3.5-5.1 [facility] AustinChloride Teyis1762-96-08 06:09:00* Test Item Value Reference Range Interpretation Comments Chloride Level (test code = 2075-0) 110 98-107 H [facility] AustinCarbon Dioxide Oxhrn3999-34-61 06:09:00* Test Item Value Reference Range Interpretation Comments Carbon Dioxide Level (test code = 2028-9) 21 22-29 L [facility] AustinAnion Kao7478-92-55 06:09:00* Test Item Value Reference Range Interpretation Comments Anion Gap (test code = 93491-4) 13.2 8-16 [facility] AustinBlood Urea Okfpvtpp6351-90-22 06:09:00* Test Item Value Reference Range Interpretation Comments Blood Urea Nitrogen (test code = 3094-0) 13 7-26 [facility] AustinCreatinine2020-02-19 06:09:00* Test Item Value Reference Range Interpretation Comments Creatinine (test code = 2160-0) 0.91 0.57-1.11 [facility] AustinBUN/Creatinine Hjiiq6245-17-21 06:09:00* Test Item Value Reference Range Interpretation Comments BUN/Creatinine Ratio (test code = 3097-3) 14 6-25 [facility] AustinEstimat Glomerular Filtration Rate 2019-04-08 06:09:00* Test Item Value Reference Range Interpretation Comments Estimat Glomerular Filtration Rate (test code = 812141634) > 60 >60 Ranges were taken from the National Kidney Disease Education Program and the [facility] Kidney Foundation literature.Reference ranges:60 or greater: Krdvrt82-56 ( for 3 consecutive months): Chronic kidney disease 15 or less: Kidney failureHeart Hospital of AustinGlucose Eeujd5647-61-84 06:09:00* Test Item Value Reference Range Interpretation Comments Glucose Level (test code = KXN5958) 104 74-118 [facility] AustinCalcium Cgqab3152-80-16 06:09:00* Test Item Value Reference Range Interpretation Comments Calcium Level (test code = 95458-5) 8.2 8.4-10.2 L [facility] AustinTotal Qoghyurym0918-01-87 06:09:00* Test Item Value Reference Range Interpretation Comments Total Bilirubin (test code = 1975-2) 0.3 0.2-1.2 [facility] AustinAspartate Amino Transf (AST/SGOT) 2019-04-08 06:09:00* Test Item Value Reference Range Interpretation Comments Aspartate Amino Transf (AST/SGOT) (test code = Aspartate Amino Transf (AST/SGOT)) 7 5-34 [facility] AustinAlanine Aminotransferase (ALT/SGPT) 2019-04-08 06:09:00* Test Item Value Reference Range Interpretation Comments Alanine Aminotransferase (ALT/SGPT) (test code = 1742-6) 9 0-55 [facility] AustinTotal Cogvjbf8010-58-16 06:09:00* Test Item Value Reference Range Interpretation Comments Total Protein (test code = 2885-2) 6.2 6.5-8.1 L [facility] AustinAlbumin2020-02-19 06:09:00* Test Item Value Reference Range Interpretation Comments Albumin (test code = 1751-7) 3.2 3.5-5.0 L [facility] AustinGlobulin2020-02-19 06:09:00* Test Item Value Reference Range Interpretation Comments Globulin (test code = 62762-6) 3.0 2.3-3.5 [facility] AustinAlbumin/Globulin Uozci8979-36-42 06:09:00 * Test Item Value Reference Range Interpretation Comments Albumin/Globulin Ratio (test code = 1759-0) 1.1 0.8-2.0 [facility] AustinAlkaline Tfglhaxmyuc7793-13-29 06:09:00* Test Item Value Reference Range Interpretation Comments Alkaline Phosphatase (test code = 6768-6) 51 40-150 [facility] AustinWhite Blood Jmrne0408-49-92 05:36:00* Test Item Value Reference Range Interpretation Comments White Blood Count (test code = 6690-2) 9.13 4.8-10.8 [facility] AustinRed Blood Iagby3383-12-02 05:36:00* Test Item Value Reference Range Interpretation Comments Red Blood Count (test code = 789-8) 4.63 3.6-5.1 [facility] AustinHemoglobin2020-02-19 05:36:00* Test Item Value Reference Range Interpretation Comments Hemoglobin (test code = 75304-7) 11.9 12.0-16.0 L [facility] AustinHematocrit2020-02-19 05:36:00* Test Item Value Reference Range Interpretation Comments Hematocrit (test code = 4544-3) 38.2 34.2-44.1 [facility] AustinMean Corpuscular Thwffg0372-72-81 05:36:00* Test Item Value Reference Range Interpretation Comments Mean Corpuscular Volume (test code = 787-2) 82.5 81-99 [facility] AustinMean Corpuscular Twqkudsmmp7379-20-43 05:36:00* Test Item Value Reference Range Interpretation Comments Mean Corpuscular Hemoglobin (test code = 785-6) 25.7 28-32 L [facility] AustinMean Corpuscular Hemoglobin Concent 2019-04-08 05:36:00* Test Item Value Reference Range Interpretation Comments Mean Corpuscular Hemoglobin Concent (test code = 786-4) 31.2 31-35 [facility] AustinRed Cell Distribution Pdtdw7407-86-17 05:36:00* Test Item Value Reference Range Interpretation Comments Red Cell Distribution Width (test code = 36592-6) 15.1 11.7 -14.4 H [facility] AustinPlatelet Oabqo9448-69-57 05:36:00* Test Item Value Reference Range Interpretation Comments Platelet Count (test code = 777-3) 158 140-360 [facility] AustinNeutrophils (%) (Auto)2019-04-08 05:36:00 * Test Item Value Reference Range Interpretation Comments Neutrophils (%) (Auto) (test code = 11161-0) 69.9 38.7-80.0 [facility] AustinLymphocytes (%) (Auto)2019-04-08 05:36:00 * Test Item Value Reference Range Interpretation Comments Lymphocytes (%) (Auto) (test code = 736-9) 19.7 18.0-39.1 [facility] AustinMonocytes (%) (Auto)2019-04-08 05:36:00* Test Item Value Reference Range Interpretation Comments Monocytes (%) (Auto) (test code = 5905-5) 9.1 4.4-11.3 [facility] AustinEosinophils (%) (Auto)2019-04-08 05:36:00 * Test Item Value Reference Range Interpretation Comments Eosinophils (%) (Auto) (test code = 713-8) 0.9 0.0-6.0 [facility] AustinBasophils (%) (Auto)2019-04-08 05:36:00* Test Item Value Reference Range Interpretation Comments Basophils (%) (Auto) (test code = 706-2) 0.2 0.0-1.0 [facility] AustinIM GRANULOCYTES %2019-04-08 05:36:00* Test Item Value Reference Range Interpretation Comments IM GRANULOCYTES % (test code = IM GRANULOCYTES %) 0.2 0.0- 1.0 [facility] AustinNeutrophils # (Auto)2019-04-08 05:36:00* Test Item Value Reference Range Interpretation Comments Neutrophils # (Auto) (test code = 751-8) 6.4 2.1-6.9 [facility] AustinLymphocytes # (Auto)2019-04-08 05:36:00* Test Item Value Reference Range Interpretation Comments Lymphocytes # (Auto) (test code = 86443-2) 1.8 1.0-3.2 [facility] AustinMonocytes # (Auto)2019-04-08 05:36:00* Test Item Value Reference Range Interpretation Comments Monocytes # (Auto) (test code = 742-7) 0.8 0.2-0.8 [facility] AustinEosinophils # (Auto)2019-04-08 05:36:00* Test Item Value Reference Range Interpretation Comments Eosinophils # (Auto) (test code = 711-2) 0.1 0.0-0.4 [facility] AustinBasophils # (Auto)2019-04-08 05:36:00* Test Item Value Reference Range Interpretation Comments Basophils # (Auto) (test code = 704-7) 0.0 0.0-0.1 [facility] AustinAbsolute Immature Granulocyte (auto 2019-04-08 05:36:00* Test Item Value Reference Range Interpretation Comments Absolute Immature Granulocyte (auto (felecia t code = Absolute Immature Granulocyte (auto) 0.02 0-0.1 [facility] AustinCreatine Uqbarm8165-55-54 03:49:00* Test Item Value Reference Range Interpretation Comments Creatine Kinase (test code = 2157-6) 230 29-168 H VERIFIED PREVIOUS RESULTSHeart Hospital of AustinCreatine Kinase SZ1900-41-42 03:49:00* Test Item Value Reference Range Interpretation Comments Creatine Kinase MB (test code = 38797-3) 1.10 0-5.0 [facility] AustinTroponin B1341-53-00 03:49:00* Test Item Value Reference Range Interpretation Comments Troponin I (test code = HLN9249) < 0.001 0-0.300 [facility] AustinLactic Acid Nlbrj0385-52-54 18:52:00* Test Item Value Reference Range Interpretation Comments Lactic Acid Level (test code = Lactic Acid Level) 1.1 0.5- 2.0 [facility] AustinUrine WPY6596-46-58 18:16:00* Test Item Value Reference Range Interpretation Comments Urine WBC (test code = 5821-4) 6-10 0-5 H [facility] AustinUrine PGQ9907-17-23 18:16:00* Test Item Value Reference Range Interpretation Comments Urine RBC (test code = 22399-0) NONE 0-5 [facility] AustinUrine Nerkwvht8929-55-51 18:16:00* Test Item Value Reference Range Interpretation Comments Urine Bacteria (test code = 93082-2) FEW NONE [facility] AustinUrine Epithelial Pxozt2089-61-51 18:16:00 * Test Item Value Reference Range Interpretation Comments Urine Epithelial Cells (test code = 56540-7) MODERATE NONE [facility] AustinUrine Btadv1560-88-37 18:05:00* Test Item Value Reference Range Interpretation Comments Urine Color (test code = 5778-6) YELLOW YELLOW [facility] AustinUrine Kijcowv4483-05-80 18:05:00* Test Item Value Reference Range Interpretation Comments Urine Clarity (test code = 37874-4) CLEAR CLEAR [facility] AustinUrine Specific Cnhrwwm0391-04-90 18:05:00 * Test Item Value Reference Range Interpretation Comments Urine Specific [place] (test code = 5811-5) 1.020 1.010-1.02 5 [facility] AustinUrine yC7972-90-22 18:05:00* Test Item Value Reference Range Interpretation Comments Urine pH (test code = 09131-0) 6 5-7 [facility] AustinUrine Leukocyte Uwjwzdkc2194-66-62 18:05:00* Test Item Value Reference Range Interpretation Comments Urine Leukocyte Esterase (test code = 5799-2) NEGATIVE NEGATIVE [facility] AustinUrine Wgmwjgx2992-29-13 18:05:00* Test Item Value Reference Range Interpretation Comments Urine Nitrite (test code = 94851-5) NEGATIVE NEGATIVE [facility] AustinUrine Jrnhwku2007-64-29 18:05:00* Test Item Value Reference Range Interpretation Comments Urine Protein (test code = 5804-0) NEGATIVE NEGATIVE [facility] AustinUrine Glucose (UA)2019-04-07 18:05:00* Test Item Value Reference Range Interpretation Comments Urine Glucose (UA) (test code = 2349-9) NEGATIVE NEGATIVE [facility] AustinUrine Xicqwiy8806-85-21 18:05:00* Test Item Value Reference Range Interpretation Comments Urine Ketones (test code = 96451-3) NEGATIVE NEGATIVE [facility] AustinUrine Kudezfwssqjm8571-34-11 18:05:00* Test Item Value Reference Range Interpretation Comments Urine Urobilinogen (test code = 60399-3) 0.2 0.2-1 [facility] AustinUrine Yovvtisia1907-24-25 18:05:00* Test Item Value Reference Range Interpretation Comments Urine Bilirubin (test code = 1978-6) NEGATIVE NEGATIVE [facility] Austin[facility] Cmeah7305-30-44 18:05:00* Test Item Value Reference Range Interpretation Comments Urine Blood (test code = 47559-5) NEGATIVE NEGATIVE [facility] AustinFluoroscopic procedure less than one hour golezuya4079-65-83 17:21:00* Test Item Value Reference Range Interpretation Comments Lactic Acid Level (test code = Lactic Acid Level) 1.1 0.5- 2.0 [facility] AustinB-Type Natriuretic Wkrnbje2580-93-98 11:22:00* Test Item Value Reference Range Interpretation Comments B-Type Natriuretic Peptide (test code = 72231-9) 14.9 0-100 [facility] AustinCHEST 2 FEMIW1504-28-64 11:11:00 [facility] [address] [place] [address] Patient Name: DEWAYNE ROWE MR #: [id number] : 1950 Age/Sex: 69/F Req #: [id number] Adm Physician: Ordered by: SALOME KAPOOR DO Report #: [id number] Location: ER Room/Bed: Procedure: [id number] DX /CHEST 2 VIEWS Exam Date: Exam Time: REPORT STATUS: Signed EXAMINATION: CHEST 2 V IEWS INDICATION: Fever COMPARISON: Chest radiograph 11/15/2017 FINDINGS: LINES/TUBES:Implanted device in the anterior left chest wit h leads extending cranially. LUNGS:The lungs are moderately inflated. The re is perihilar fullness and indistinctness of the pulmonary vasculature. No f ocal consolidation. PLEURA:No pleural effusion or pneumothorax. MEDIAS TINUM:The cardiomediastinal silhouette appears normal in size and shape. Ather osclerotic calcifications of the thoracic aorta. BONES/SOFT TISSUES:No acut e osseous injury. Cervical spine fusion hardware. ABDOMEN:No free air under the diaphragm. IMPRESSION: Mild pulmonary interstitial edema. No foc al pneumonia. Signed by: Marcella Higgins MD on 04/07/2019 11:14 AM Dictat ed By: MARCELLA HIGGINS MD 1114 Transcribed By: JENNIFER on 04/07/19 1114 COPY TO: SALOME KAPOOR DO BLOOD BANK NZGLRXS3927-26-06 16:11:00Negative (10/24/18 11:11 AM)[facility] ZQNTR1938-63-70 09:45:95218Dbvtltac HermannCHEM FPOMK7863-24-88 09:45:0021[facility]annCHEM LQJAK7490-76-46 09:45:000.60[facility]annCHEM YURTW4840-67-92 09:45:32299Dpapuoru [facility]annCHEM CWYLT5548-75-40 09:45:004.3 [facility] NSWAJ5739-71-76 09:45:30006Frxxsxvr [facility]annCHEM PANEL 2018-10-15 09:45:0027[facility]annCHEM FNKIQ3391-50-36 09:45:0011.3[facility]annCHE[facility] TNOWB7724-58-06 09:45:009.0[facility]annCHE[facility] PHVHP8776-41-62 09:45:0093[facility] DnvosgeJOICHHWVDY6170-65-12 09:45:00* Test Item Value Reference Range Interpretation Comments PT (test code = PT) 14.4 s 12.0-14.7 [facility] PhpvgmpZGYQOBJAVG5287-11-45 09:45:00* Test Item Value Reference Range Interpretation Comments INR (test code = INR) 1.14 1 0.85-1.17 [facility] HdyvriuISXXZUKOEO2329-79-04 09:45:00* Test Item Value Reference Range Interpretation Comments PTT (test code = PTT) 30.2 s 22.9-35.8 [facility] HpfhgwuKDUAZOLAFP1962-34-97 09:45:0010.4[facility]annHEMATOLOGY 2018-10-15 09:45:004.43[facility] ZsnoobxEJYQYHUSJI5880-74-00 09:45:0011.7[facility] QyennphCFCYOJYJUB0038-47-23 09:45:0035.7[facility] QtbqjmeFGFZJRBWNV1890-38-88 09:45:0080.5[facility] MkdgvffUTCBVEJRNT7064-97-57 09:45:00* Test Item Value Reference Range Interpretation Comments MCH (test code = MCH) 26.5 pg 27.0-31.0 [facility] QzdvwsyNPUKSTSKQY3681-94-60 09:45:0032.9[facility]annHEMATOLOGY 2018-10-15 09:45:0013.9[facility] OdoqgqpJPHSOUKTER7171-05-15 09:45:31130Hbtrtduj YkexrmjVRIWUOJRHG0178-00-66 09:45:007.0[facility] VmdomwtXWHYKPCSPZ5603-62-66 09:45:0073.3[facility] IqawetqQJRXUOXDHR6038-62-54 09:45:0014.5[facility] ZLJRGTPCEK5066-89-76 09:45:0010.1[facility] PtkymfoKEHUXHAHEK4796-90-17 09:45:00 1.5[facility] DieqlqgTTCSEWCTNT2241-55-60 09:45:000.6[facility]annHEMATOLOGY 2018-10-15 09:45:007.6[facility] KqckyxfCXHNTOXOXA4869-64-87 09:45:001.5[facility] AsfdbjeXUVVEFIEKL6171-47-04 09:45:001.1[facility] LxgvuhiQGFEQBKVKZ4074-74-74 09:45:000.2[facility] FvuxibjPISHSNBQHS0018-73-19 09:45:000.1[facility]annCHEM GGUNQ7747-53-55 17:47:30904Rqupraxl [facility]annCHE[facility] YWKXQ0800-94-31 17:47:0016 [facility]annCHE[facility] LWENB5433-19-69 17:47:000.61[facility]annCHEM PANEL 2018-10-14 17:47:69098Gkklnmai [facility]annCHEM URXHT1175-23-82 17:47:004.5[facility]annCHE[facility] YGJLE5385-73-45 17:47:0096[facility]annCHE[facility] RBFHA3696-93-77 17:47:0031[facility]CHE[facility] XISQJ6315-05-98 17:47:008.8[facility]annCHEM ELXXA3936-32-09 17:47:0012.5[facility]annCHE[facility] BYUBZ3570-03-36 17:47:0092 [facility]CHE[facility] QKHYJ1859-01-44 12:55:12795Zwnaznzd HermannCHEM PANEL 2018-10-14 12:55:0016[facility]annCHEM DMHRV4649-71-78 12:55:000.57[facility]annCHEM YWRWD0469-56-19 12:55:0027[facility]CHE[facility] GFSGJ3044-03-39 12:55:009.1[facility]annCHE[facility] DZYAH8908-73-84 12:55:0094[facility]annCHE[facility] WKBOF3147-04-03 12:55:50142Hopbdhcp [facility]annCHEM IWEOY1528-79-28 12:55:004.7 [facility]CHE[facility] QKCEP2651-37-74 12:55:0096[facility]annCHEM PANEL 2018-10-14 12:55:0011.7[facility] JgknpwrQQVOYWFKWM7608-00-16 12:55:0013.8[facility] PrzvzixCKLBKGNOSW2931-18-08 12:55:004.36[facility] RfvtextHMWZYJLGFD5725-42-86 12:55:0011.5[facility] ZwmleyqHGFWAWMAWH9735-55-20 12:55:0035.4[facility] WXBWNRODLG9151-55-56 12:55:0081.2[facility] EvdxsqrMUUNSMJRFG3328-70-72 12:55:00* Test Item Value Reference Range Interpretation Comments MCH (test code = MCH) 26.3 pg 27.0-31.0 [facility] IbeqdcdLPLMUWTFBS3491-87-98 12:55:0032.3[facility] HermannHEMATOLOGY 2018-10-14 12:55:0013.9[facility] RwtlbhmKJMMLAEVPY0414-59-92 12:55:75619Nnaeztpa AkjajfmWQINCYXOXC2243-50-57 12:55:006.7[facility] GsfvybwILOIGKXIVF9737-48-96 12:55:0079.7[facility] RpbdcouDMJHTBHWGS1065-75-13 12:55:004.5[facility] JMTTQPHYWO5813-08-25 12:55:0014.4[facility] MbdqouvVZNOWEYXCK1465-29-25 12:55:00 0.8[facility] DrcctifACHOSFUFJN3929-39-82 12:55:000.6[facility]annHEMATOLOGY 2018-10-14 12:55:0011.0[facility] GfswvgwWMTEYJDMIV3716-02-09 12:55:000.6[facility] YtgbredMSCZZIRGRR5001-76-92 12:55:002.0[facility] ErmowmjJGNMJGVKCK1898-03-14 12:55:000.1[facility] CaytabzLLAUJMGWMW7043-65-97 12:55:000.1[facility] HermannBLOOD BANK HMSRYLX5109-17-86 05:07:00Negative (10/13/18 12:07 AM)[facility] QBPPCNFRID8593-19-55 05:07:00Normal (10/13/18 12:07 AM)[facility]annHEMATOLOGY 2018-10-13 05:07:00Normal (10/13/18 12:07 AM)[facility] NgcvpbgIDYVYPOOSM2106-20-75 05:07:0075.9[facility] IwpspgxAYOQXNTFYS2920-26-08 05:07:0012.3[facility] PJQZXUDUPV5903-50-40 05:07:009.1[facility] IjgycukGFKHAPDDGC3685-96-39 05:07:001.8 [facility] UplxfsyQHHXMVTXWY1980-91-66 05:07:000.9[facility]annHEMATOLOGY 2018-10-13 05:07:0012.1[facility] MlmckvxHBUUUEYEBM8583-31-59 05:07:002.0[facility] VateiotTQWGTCMEBD5741-11-43 05:07:001.5[facility] AvcxfouPYKUEAWLGU7271-55-33 05:07:000.3[facility] YrsjumvZVSSXKTOZS3002-10-89 05:07:000.2[facility] RWKOOMCXDM4923-84-72 05:07:0016.0[facility] NaswpubVQCQLKFEWP3686-07-01 05:07:00 4.16[facility] SaczbksTDWRRAUACB0978-48-22 05:07:0010.9[facility] HermannHEMATOLOGY 2018-10-13 05:07:0033.7[facility] GkftfrmDLXTWYMRZH7266-06-23 05:07:0081.1[facility] UfikwuxPHKYBEKUNR7693-48-82 05:07:00* Test Item Value Reference Range Interpretation Comments MCH (test code = MCH) 26.3 pg 27.0-31.0 [facility] EzqegtvQHTNKWMPMZ2700-07-69 05:07:0032.4[facility]annHEMATOLOGY 2018-10-13 05:07:0013.8[facility] UeguijoKSJDQMFTOS7035-12-35 05:07:46820Juedpuil PvwemwmFMAFOIHUEM4619-38-78 05:07:007.3[facility] WvlvkjaHIPNWHLKUD4086-30-15 05:07:00* Test Item Value Reference Range Interpretation Comments INR (test code = INR) 0.96 1 0.85-1.17 [facility] NgkprkhNBPLKZAZSI4893-76-46 05:07:00* Test Item Value Reference Range Interpretation Comments PT (test code = PT) 12.6 s 12.0-14.7 [facility] OfpquynXTBGHUEYQJ7061-77-13 05:07:00* Test Item Value Reference Range Interpretation Comments PTT (test code = PTT) 26.3 s 22.9-35.8 [facility] HermannMOXIFLOXACIN:SUSC:PT:ISOLATE:ORDQN:SMO1513-91-41 22:30:00 Serratia marcescensMemorial HermannURINE AND HIYTJ0124-59-79 16:31:00Yellow *NA*(10/12/18 11:31 AM)[facility] AND FDQVE5808-59-57 16:31:00Slight *ABN*(10/12/18 11:31 AM)[facility] EHVFA0124-54-22 16:31:00* Test Item Value Reference Range Interpretation Comments UA Spec Grav (test code = UA Spec Grav) 1.016 1 [facility] AND WSVEY3219-92-72 16:31:00* Test Item Value Reference Range Interpretation Comments UA pH (test code = UA pH) 7.0 1 5.0-8.0 [facility] IVBER5307-83-69 16:31:00Negative *NA*(10/12/18 11:31 AM)[facility] AND WUOOH0678-57-57 16:31:00Negative (10/12/18 11:31 AM) [facility] COAMA3625-08-44 16:31:00<1.0[facility] AND HBQSU1439-03-93 16:31:00Positive *ABN*(10/12/18 11:31 AM)[facility] TALIN6605-05-57 16:31:00Negative (10/12/18 11:31 AM)[facility] AND GOPHT8309-53-86 16:31:002[facility]annURINE AND IZMEB2779-61-62 16:31:001 [facility]annCHEM OFXJC5618-06-54 10:52:00<0.05[facility] HermannCHEM PANEL 2018-10-10 05:38:002.9[facility] HermannCHEM XJVIZ0448-78-80 05:38:002.4[facility] HermannPARATHYROID BOQMEPK2366-20-01 05:38:001.08[facility] HermannPARATHYROID GYSXDYH9758-92-20 05:38:001.12[facility]annCHEM ZHPKM4899-62-18 05:48:002.2 [facility]annCHEM HYAIL6761-29-46 05:48:002.0[facility] HermannPARATHYROID HYNKSIS5957-75-44 05:48:001.14[facility] HermannPARATHYROID WKYWAMV8904-22-23 05:48:001.15[facility]annCHEM QOBLV5700-99-98 05:01:002.2[facility]annCHEM HVYAM0883-17-01 05:01:002.7[facility] WranvbnPJJLYTZYRS9124-59-39 05:01:00Normal (10/08/18 12:01 AM)[facility] IwisdzjEQEFGBYBBB8033-15-15 05:01:00Normal (10/08/18 12:01 AM)[facility] HermannPARATHYROID HIMCZNT1072-82-92 05:01:001.18[facility] HermannPARATHYROID DUZUEXN0447-57-67 05:01:001.21[facility] HermannCARDIAC ENZYMES 2018-10-05 06:36:00<0.02[facility] HermannBACTERIAL - SAQVQPJI8501-73-57 23:03:00 Negative (10/04/18 6:03 PM)[facility] HermannCARDIAC PLKTSEN3862-29-21 23:03:00< 0.02[facility]annCHEM ZRBTF8555-25-73 23:03:00* Test Item Value Reference Range Interpretation Comments B/C Ratio (test code = B/C Ratio) 31 1 -25 [facility]annCHEM MNKSQ8648-86-95 23:03:006.5[facility]annCHEM PANEL 2018-10-04 23:03:002.8[facility]annCHEM MBTZV5535-35-88 23:03:003.7[facility]annCHEM WPBTF3764-88-66 23:03:00* Test Item Value Reference Range Interpretation Comments A/G Ratio (test code = A/G Ratio) 0.8 1 0.7-1.6 [facility]annCHE[facility] YVKON5579-98-75 23:03:00<6[facility]annCHEM PANEL 2018-10-04 23:03:0014[facility]annCHEM DWYCQ1635-35-83 23:03:0070[facility]annCHEM SJOZM5440-95-17 23:03:000.7[facility]annCHEM SONYP7989-05-43 23:03:000.8[facility] UwzigfvAGATYJCSXO6030-10-99 01:47:00* Test Item Value Reference Range Interpretation Comments PT (test code = PT) 13.4 s 12.0-14.7 [facility]HizaxmzSGGDIZMADA3928-82-88 01:47:00* Test Item Value Reference Range Interpretation Comments INR (test code = INR) 1.04 1 0.85-1.17 [facility]enPlhtpzkGJPDYUCRSJ8502-77-51 01:47:00* Test Item Value Reference Range Interpretation Comments PTT (test code = PTT) 27.2 s 22.9-35.8 [facility] BANK IKENIOX7151-42-53 12:01:00Negative (10/02/18 7:01 AM) [facility] HermannCHEM VVJBH8517-65-19 23:59:000.8[facility] HermannCHEM PANEL 2018-09-30 23:59:0075[facility] HermannStress Test - Treadmill BTFG5822-20-27 12:07:00 [place] [address] Patient Name : DEWAYNE ROWE MR #: [id number] : 1950 Age/Sex: 68/F Adm Physician : CLAUS VELASQUEZ DO Admit Date : 09/11/18 Location : PA Room/Bed : _ REPORT: Mallory Chacko s Test DATE OF STUDY: 09/11/2018 11:32:00 Stress Test - Treadmill ONLY PROCEDURE TITLE: Rest/stress single isotope SPECT imaging with pharmacol ogic stress and gated SPECT imaging. INDICATION: Chest pain. PRO CEDURE IN DETAIL: Pharmacologic stress testing was performed with regadenoson p er protocol. The heart rate was 86 beats per minute at rest and increased to 103 beats per minute during the regadenoson infusion. The rest blood pressure was 110/74 mmHg and decreased to 65/54 mmHg, which is a normal response. The resting electrocardiogram demonstrated normal sinus rhythm. There were no ST -segment changes suggestive of myocardial ischemia. Myocardial perfusio n imaging was performed at rest following the injection of 11 mCi of tetrofosm in. At peak pharmacologic effect, the patient was injected with 29 mCi of tet rofosmin. Gated post-stress tomographic imaging was performed. FINDINGS: The overall quality of study is fair. Left ventricular cavity is noted to be normal size on the rest and stress studies. SPECT images demonstrate homogene ous tracer distribution throughout the myocardium. Gated SPECT imaging reveal s normal myocardial thickening and wall motion. The left ventricular ejection fraction was calculated at 61%. IMPRESSION: Myocardial perfusion imag ing is normal. Overall, left ventricular systolic function was normal without regional wall motion abnormalities. Hedy Bay MD ABS/MARIELENA T: 09/18 12:46:45 /[id number] Signature Date D ictated By: HEDY BAY MD Transcribed By: KATELINL on 09/18/18 < Electronically signed by HEDY BAY MD><<Signature on File>>10/28/18 1255 COPY TO: Bacterial urine uetsukm8894-46-03 05:57:00* Test Item Value Reference Range Interpretation Comments Urine Culture (test code = 630-4) Organism: ESCHERICHIA COLI [facility]PELVIS BL2837-51-33 16:11:00 [facility] [address] [address] Patient Name: DEWAYNE ROWE MR #: [id number] : 1950 Age/Sex: 67/F Req #: [id number] Adm Physicia n: KHADRA FONTANA MD Ordered by: HOLLIE ELLIS MD Report #: [id number] Location: MED/SURG3 Room/Bed: [facility] Procedure: [id number] CT/CT ABDOMEN/PELVIS WO Exam Date: 11/16/17 Exam Time: 15 40 REPORT STATUS: Signed EXAM: CT Abdomen and Pelvis WITHOUT contrast INDICATION: Pain/kidney stone COMPARISON: None. TECHNIQUE: Ab domen and Pelvis was scanned utilizing a multidetector helical scanner without the use of IV contrast. Coronal and sagittal reformations were obtained. IV CONTRAST: None COMPLICATIONS: None RADI ATION DOSE: Total DLP: 716 mGy*cm Estimated effective dose: (DLP x 0.015 x size factor) mSv CTDIvol has been reviewed. It is below the limi ts set by the Radiation Protocol Committee (RPC). Appropriate CT dose reductio n techniques were utilized. FINDINGS: Abdomen: Lung Bases : Linear and groundglass opacities lung bases, nonspecific. Statistically atel ectasis. Moderate coronary artery calcifications partially visualized. So lid Organs: Tiny nonobstructing calculus left kidney proximally 2 mm. Nonenhan ozzie images liver, adrenals, spleen, and pancreas unremarkable. Upper GI Tra ct: Decompressed stomach limits evaluation. No small bowel obstructive changes . Vascularity: Moderate aortic vascular calcifications with no aneurysm. Retroaortic left renal vein. Lymph Nodes: No suspicious adenopathy. Ot her: Diastases ventral abdominal wall with superimposed fat-containing umbilic al hernia. Pelvis: Bladder: Decompressed with Jain catheter. G as presumed procedural. Other: Uterus absent. Colon: Moderate rectal s tool. Bones: Degenerative changes. IMPRESSION: 1. Nonobstructin g 2 mm calculus left kidney. No hydronephrosis or ureteral calculi. 2. O ther findings as above. Signed by: Dr. Merissa Alberts MD on 11/16/2017 4:15 P M Dictated By: MERISSA ALBERTS MD 14 Transcribed By: JENNIFER on 11/16/171614 COPY TO: HOLLIE ELLIS MD Bedside Toynykg5853-47-12 16:07:00* Test Item Value Reference Range Interpretation Comments Bedside Glucose (test code = 55265-2) 106 70-120 Meter ID: [id number] [facility] SINGLE (PORTABLE)2017-11-16 06:12:00 [place] [address] Patient Name: DEWAYNE ROWE MR #: [id number] : 1950 Age/Sex: 67/F Req #: [id number] Adm Physician: KHADRA FONTANA MD Ordered by: KARAN VILLALBA PRESCRIPTION CLERK LENSES Report #: [id number] Location: MED/SURG3 Room/Bed: 284-1 Procedure: [id number] DX /CHEST SINGLE (PORTABLE) Exam Date: 11/16/17 Exam Ti me: 0535 REPORT STATUS: Signed EXAM: CHEST SINGLE (PORTABLE), AP 1 view INDICATION: Syncope COMPARISON: AP view of the chest November 07, 2017 FINDINGS: LINES/TUBES: None LUNGS: No consolidations or edema. Bibasila r subsegmental atelectasis. PLEURA: No effusions or pneumothorax. HEAR T AND MEDIASTINUM: Normal size and contour. BONES AND SOFT TISSUES: No acut e findings. Lower cervical spine surgical hardware. IMPRESSION: Bibasil ar subsegmental atelectasis. Signed by: Dr. Ryann Whitlock M.D. o cass 11/16/2017 6:13 AM Dictated By: RYANN WHITLOCK MD 2 Transcribed By: JENNIFER on 11/16/17612 COPY TO: KARAN VILLALBA NP Creatine Kinase YV2865-79-21 05:06:00* Test Item Value Reference Range Interpretation Comments Creatine Kinase MB (test code = 97163-8) 0.60 0-5.0 [facility]Troponin C7972-27-48 05:06:00* Test Item Value Reference Range Interpretation Comments Troponin I (test code = PMP9563) -0.001 0-0.300 [facility] Qnroi7176-29-49 04:55:00* Test Item Value Reference Range Interpretation Comments Sodium Level (test code = 2951-2) 138 136-145 [facility] AustinPotassium Ysaqj2164-74-20 04:55:00* Test Item Value Reference Range Interpretation Comments Potassium Level (test code = 2823-3) 4.3 3.5-5.1 [facility] AustinChloride Ithvw0109-03-57 04:55:00* Test Item Value Reference Range Interpretation Comments Chloride Level (test code = 2075-0) 106 98-107 [facility] AustinCarbon Dioxide Dtwfr4301-13-29 04:55:00* Test Item Value Reference Range Interpretation Comments Carbon Dioxide Level (test code = 2028-9) 22 22-29 [facility] AustinAnion Tfo7281-57-12 04:55:00* Test Item Value Reference Range Interpretation Comments Anion Gap (test code = 55253-6) 14.3 8-16 [facility] AustinBlood Urea Dbrtfyql4355-49-47 04:55:00* Test Item Value Reference Range Interpretation Comments Blood Urea Nitrogen (test code = 3094-0) 29 7-26 H [facility] AustinCreatinine2018-09-29 04:55:00* Test Item Value Reference Range Interpretation Comments Creatinine (test code = 2160-0) 1.13 0.57-1.11 H [facility] AustinBUN/Creatinine Cxhsm0944-28-06 04:55:00* Test Item Value Reference Range Interpretation Comments BUN/Creatinine Ratio (test code = 3097-3) 26 6-25 H [facility] AustinEstimat Glomerular Filtration Rate 2017-11-16 04:55:00* Test Item Value Reference Range Interpretation Comments Estimat Glomerular Filtration Rate (test code = 601530982) 48 >60 L Ranges were taken from the National Kidney Disease Education Program and the [facility] Kidney Foundation literature.Reference ranges:60 or greater: Cyphae39-30 ( for 3 consecutive months): Chronic kidney disease 15 or less: Kidney failureHeart Hospital of AustinGlucose Kvazy4837-63-47 04:55:00* Test Item Value Reference Range Interpretation Comments Glucose Level (test code = CBD4250) 99 74-118 [facility] AustinCalcium Otjux3259-67-12 04:55:00* Test Item Value Reference Range Interpretation Comments Calcium Level (test code = 65734-6) 9.3 8.4-10.2 [facility] AustinTotal Cgrpkxzvn7240-75-11 04:55:00* Test Item Value Reference Range Interpretation Comments Total Bilirubin (test code = 1975-2) 0.5 0.2-1.2 [facility] AustinAspartate Amino Transf (AST/SGOT) 2017-11-16 04:55:00* Test Item Value Reference Range Interpretation Comments Aspartate Amino Transf (AST/SGOT) (test code = Aspartate Amino Transf (AST/SGOT)) 8 5-34 [facility] AustinAlanine Aminotransferase (ALT/SGPT) 2017-11-16 04:55:00* Test Item Value Reference Range Interpretation Comments Alanine Aminotransferase (ALT/SGPT) (test code = 1742-6) -6 0-55 [facility] AustinTotal Vjdhtnu6068-05-41 04:55:00* Test Item Value Reference Range Interpretation Comments Total Protein (test code = 2885-2) 6.5 6.5-8.1 [facility] AustinAlbumin2018-09-29 04:55:00* Test Item Value Reference Range Interpretation Comments Albumin (test code = 1751-7) 3.7 3.5-5.0 [facility] AustinGlobulin2018-09-29 04:55:00* Test Item Value Reference Range Interpretation Comments Globulin (test code = 04637-3) 2.8 2.3-3.5 [facility] AustinAlbumin/Globulin Swxth5752-40-81 04:55:00 * Test Item Value Reference Range Interpretation Comments Albumin/Globulin Ratio (test code = 1759-0) 1.3 0.8-2.0 [facility] AustinAlkaline Fshgqlahsoc6483-38-64 04:55:00* Test Item Value Reference Range Interpretation Comments Alkaline Phosphatase (test code = 6768-6) 53 40-150 [facility] AustinCreatine Uzujcg5168-27-48 04:55:00* Test Item Value Reference Range Interpretation Comments Creatine Kinase (test code = 2157-6) 64 29-168 [facility] AustinWhite Blood Xlxea9293-10-90 04:32:00* Test Item Value Reference Range Interpretation Comments White Blood Count (test code = 6690-2) 6.61 4.8-10.8 [facility] AustinRed Blood Yraii4560-32-03 04:32:00* Test Item Value Reference Range Interpretation Comments Red Blood Count (test code = 789-8) 4.89 3.6-5.1 [facility] AustinHemoglobin2018-09-29 04:32:00* Test Item Value Reference Range Interpretation Comments Hemoglobin (test code = 97669-5) 12.7 12.0-16.0 [facility] AustinHematocrit2018-09-29 04:32:00* Test Item Value Reference Range Interpretation Comments Hematocrit (test code = 4544-3) 39.6 34.2-44.1 [facility] AustinMean Corpuscular Otfjxm6977-48-63 04:32:00* Test Item Value Reference Range Interpretation Comments Mean Corpuscular Volume (test code = 787-2) 81.0 81-99 [facility] AustinMean Corpuscular Bkfqctpjzg4390-15-12 04:32:00* Test Item Value Reference Range Interpretation Comments Mean Corpuscular Hemoglobin (test code = 785-6) 26.0 28-32 L [facility] AustinMean Corpuscular Hemoglobin Concent 2017-11-16 04:32:00* Test Item Value Reference Range Interpretation Comments Mean Corpuscular Hemoglobin Concent (test code = 786-4) 32.1 31-35 [facility] AustinRed Cell Distribution Nafvi3663-98-64 04:32:00* Test Item Value Reference Range Interpretation Comments Red Cell Distribution Width (test code = 88118-8) 13.2 11.7 -14.4 [facility] AustinPlatelet Cacrx8376-14-35 04:32:00* Test Item Value Reference Range Interpretation Comments Platelet Count (test code = 777-3) 204 140-360 [facility] AustinNeutrophils (%) (Auto)2017-11-16 04:32:00 * Test Item Value Reference Range Interpretation Comments Neutrophils (%) (Auto) (test code = 85553-3) 55.4 38.7-80.0 [facility] AustinLymphocytes (%) (Auto)2017-11-16 04:32:00 * Test Item Value Reference Range Interpretation Comments Lymphocytes (%) (Auto) (test code = 736-9) 29.0 18.0-39.1 [facility] AustinMonocytes (%) (Auto)2017-11-16 04:32:00* Test Item Value Reference Range Interpretation Comments Monocytes (%) (Auto) (test code = 5905-5) 10.4 4.4-11.3 [facility] AustinEosinophils (%) (Auto)2017-11-16 04:32:00 * Test Item Value Reference Range Interpretation Comments Eosinophils (%) (Auto) (test code = 713-8) 4.5 0.0-6.0 [facility] AustinBasophils (%) (Auto)2017-11-16 04:32:00* Test Item Value Reference Range Interpretation Comments Basophils (%) (Auto) (test code = 706-2) 0.5 0.0-1.0 [facility] %2017-11-16 04:32:00* Test Item Value Reference Range Interpretation Comments IM GRANULOCYTES % (test code = IM GRANULOCYTES %) 0.2 0.0- 1.0 [facility]Neut[facility] # (Auto)2017-11-16 04:32:00* Test Item Value Reference Range Interpretation Comments Neutrophils # (Auto) (test code = 751-8) 3.7 2.1-6.9 [facility]Lymph[facility] # (Auto)2017-11-16 04:32:00* Test Item Value Reference Range Interpretation Comments Lymphocytes # (Auto) (test code = 64898-7) 1.9 1.0-3.2 [facility] # (Auto)2017-11-16 04:32:00* Test Item Value Reference Range Interpretation Comments Monocytes # (Auto) (test code = 742-7) 0.7 0.2-0.8 [facility] # (Auto)2017-11-16 04:32:00* Test Item Value Reference Range Interpretation Comments Eosinophils # (Auto) (test code = 711-2) 0.3 0.0-0.4 [facility] # (Auto)2017-11-16 04:32:00* Test Item Value Reference Range Interpretation Comments Basophils # (Auto) (test code = 704-7) 0.0 0.0-0.1 [facility] (auto 2017-11-16 04:32:00* Test Item Value Reference Range Interpretation Comments Absolute Immature Granulocyte (auto (felecia t code = Absolute Immature Granulocyte (auto) 0.01 0-0.1 [facility] [id number] 13:27:00* Test Item Value Reference Range Interpretation Comments Urine WBC (test code = 5821-4) 6-10 0-5 H [facility] [id number] 13:27:00* Test Item Value Reference Range Interpretation Comments Urine RBC (test code = 93783-7) NONE 0-5 [facility] [id number] 13:27:00* Test Item Value Reference Range Interpretation Comments Urine Bacteria (test code = 43262-1) MANY NONE [facility] Epithelial [id number] 13:27:00 * Test Item Value Reference Range Interpretation Comments Urine Epithelial Cells (test code = 01685-4) RARE NONE [facility] BRAIN [id number] 13:22:00 [facility] [address] [address] Patient Name: DEWAYNE ROWE MR #: [id number] : 1950 Age/Sex: 67/F Req #: [id number] Adm Physician: Ordered by: KARAN VILLALBA PRESCRIPTION CLERK LENSES Report #: [id number] Location: Room/B ed: Procedure: [id number] CT/CT BRAIN WO Exam Date: 0 11/15/17 Exam Time: 1230 REPORT STATUS: Signed Exams: Head and cervical spine CTs without IV contrast History: Trauma, fall , syncope Comparison studies: Head CT 12/29/2015, cervical spine right of 2015, cervical spine CT 02/20/2015 and cervical spine x-ray 02/22/2015. Techn ique: Axial images were obtained from the brain and cervical spine. Coronal and sagittal images reconstructed from the axial data. Dose modulation, iterat pauline reconstruction, and/or weight based adjustment of the mA/kV was utilized t o reduce the radiation dose to as low as reasonably achievable. Intraveno us contrast: None Findings: Head CT: Scalp: No abnormalities. B ones: No fractures, blastic or lytic lesions. Extra-axial spaces: No masses . No fluid collections. Brain sulci: Appropriate for age. Ventricles: No rmal in size and configuration. No hydrocephalus. Parenchyma: No mass, a cute hemorrhage or acute cortical vascular insults. Small chronic lacunar insu lts versus perivascular spaces in the bilateral subinsular regions. A few scat tered subtle hypodensities in the supratentorial white matter are nonspecific most compatible with chronic microvascular ischemic changes. Sellar/suprase llar region: No abnormalities. Craniocervical junction: The foramen magnum is patent. No Chiari one malformation. Cervical spine CT: Fractures: N one. Soft tissues: No gross abnormalities. Atlantoaxial articulation: Int act. Alignment: Straightened curvature. No subluxations. Cervicomedullary ju nction: No abnormalities. The foramen magnum is patent. Vertebrae: No in fection or neoplasm. Postsurgical changes: Anterior cervical discectomy and fu filiberto from C5 to C7 with anterior plate fixated via screws at C5 and at C7 with out evidence of hardware failure or hardware loosening. Corpectomy changes at C6 with solid interbody fusion from C5 to C7. The left C5-C6 facets are partia lly fused. Degenerative changes: Small central C3-C4 disc protrusion ind ents the thecal sac without significant canal stenosis. Mildly degenerated C4- C5 disc with anterior bridging C4-C5 disc osteophyte complex. Mild bilateral C 5-C6 and left C6-C7 foraminal stenosis due to uncovertebral arthrosis. Osteoph yte complex at C5 and indents the thecal sac and results in mild central canal stenosis. Incidental findings: Atherosclerotic calcifications in the carot id siphons an at the left cervical carotid bulb. IMPRESSION: Head CT : 1. No acute abnormalities. 2. No changes from the previous head CT of . 3. Mild chronic microvascular ischemic changes. 4. Chronic bilat eral subinsular lacunar infarcts vs. prominent perivascular spaces. Cervi ruby spine CT: 1. No cervical spine fracture or subluxation. 2. Surgical ch anges of C5-C7 ACDF and C6 corpectomy. 3. Degenerative changes as described. 4. Cannot adequately evaluate ligament, spinal cord and or vascular abnorma lities on the basis of this examination. Signed by: Avinash Greenwood on 11/15/2017 1:45 PM Dictated By: GLORIA HICKEY MD Electronically Si gned By: GLORIA HICKEY MD on 11/15/17 1345 Transcribed By: JENNIFER on 8 1345 COPY TO: KARAN VILLALBA NP CT CERVICAL SPINE [id number] 13:22:00 [address] [address] Patient Name: DEWAYNE ROWE MR #: [id number] : 1950 Age/Sex: 67/F Req #: [id number] Adm Physician: Ordered by: KARAN VILLALBA NP Report #: [id number] Location: ER Room/Bed: Procedure: [id number] CT/CT CERVICAL SPINE WO Ex m Date: 11/15/17 Exam Time: 1230 REPORT STATUS: Signed Exams: Head and cervical spine CTs without IV contrast History: Tra rosa, fall, syncope Comparison studies: Head CT 12/29/2015, cervical spine righ t of 02/21/2015, cervical spine CT 02/20/2015 and cervical spine x-ray 02/22/2015. Technique: Axial images were obtained from the brain and cervical spine. Coronal and sagittal images reconstructed from the axial data. Dose modulation, iterative reconstruction, and/or weight based adjustment of the mA/kV was u tilized to reduce the radiation dose to as low as reasonably achievable. Intravenous contrast: None Findings: Head CT: Scalp: No abnormali ties. Bones: No fractures, blastic or lytic lesions. Extra-axial spaces: No masses. No fluid collections. Brain sulci: Appropriate for age. Ventr icles: Normal in size and configuration. No hydrocephalus. Parenchyma: N o mass, acute hemorrhage or acute cortical vascular insults. Small chronic lac unar insults versus perivascular spaces in the bilateral subinsular regions. A few scattered subtle hypodensities in the supratentorial white matter are non specific most compatible with chronic microvascular ischemic changes. Sella r/suprasellar region: No abnormalities. Craniocervical junction: The foramen m agnum is patent. No Chiari one malformation. Cervical spine CT: Fra ctures: None. Soft tissues: No gross abnormalities. Atlantoaxial articula tion: Intact. Alignment: Straightened curvature. No subluxations. Cervicomed ullary junction: No abnormalities. The foramen magnum is patent. Vertebrae: No infection or neoplasm. Postsurgical changes: Anterior cervical discecto my and fusion from C5 to C7 with anterior plate fixated via screws at C5 and a t C7 without evidence of hardware failure or hardware loosening. Corpectomy ch anges at C6 with solid interbody fusion from C5 to C7. The left C5-C6 facets a re partially fused. Degenerative changes: Small central C3-C4 disc protr usion indents the thecal sac without significant canal stenosis. Mildly degene rated C4-C5 disc with anterior bridging C4-C5 disc osteophyte complex. 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 Osteophyte complex at C5 and indents the thecal sac and results in mild cent ral canal stenosis. Incidental findings: Atherosclerotic calcifications in the carotid siphons an at the left cervical carotid bulb. IMPRESSION: Head CT: 1. No acute abnormalities. 2. No changes from the previous head CT of 12/29/2015. 3. Mild chronic microvascular ischemic changes. 4. Wash Rack Operator dennis bilateral subinsular lacunar infarcts vs. prominent perivascular spaces. Cervical spine CT: 1. No cervical spine fracture or subluxation. 2. Koehler rgical changes of C5-C7 ACDF and C6 corpectomy. 3. Degenerative changes as de scribed. 4. Cannot adequately evaluate ligament, spinal cord and or vascular abnormalities on the basis of this examination. Signed by: Dr. Gloria casiano M.D. on 11/15/2017 1:45 PM Dictated By: GLORIA HICKEY MD [facility] Signed By: GLORIA HICKEY MD on 11/15/17 1345 Transcribed By: JENNIFER odell 11/15/17 1346 COPY TO: KARAN VILLALBA NP CHEST SINGLE (PORTABLE) 2017-11-15 13:21:00 [address] [address] Patient Name: DEWAYNE ROWE MR #: [id number] : 1950 Age/Sex: 67/F Req #: [id number] Adm Physician: Ordered by: KARAN VILLALBA NP Report #: [id number] Location: ER Room/Bed: Procedure: [id number] DX/CHEST SINGLE (PORTABLE) Exam Date: Exam Time: REPORT STATUS: Signed Examination: Single AP view of the chest. COMPARISON: None. INDICATI ON: Fall DISCUSSION: Lines/tubes: None. Lungs: Low lung vo lumes with crowding of the vasculature. Pleura: There is no pleural effusi on or pneumothorax. Heart and mediastinum: Cardiomegaly. Bones and so ft tissues: No acute bony abnormalities. IMPRESSION: Cardiomega ly without decompensation. Signed by: Dr. Estelle Dao M.D. on 11/15/2017 1:22 PM Dictated By: ESTELLE DAO MD 1322 Transcribed By: JENNIFER on 11/15/17 1322 COPY TO: KARAN VILLABLA PRESCRIPTION CLERK LENSES Urine [id number] 13:15:00* Test Item Value Reference Range Interpretation Comments Urine Color (test code = 5778-6) YELLOW YELLOW [facility] [id number] 13:15:00* Test Item Value Reference Range Interpretation Comments Urine Clarity (test code = 28183-2) HAZY CLEAR [facility] Specific [id number] 13:15:00 * Test Item Value Reference Range Interpretation Comments Urine Specific [place] (test code = 5811-5) 1.015 1.010-1.02 5 [facility] [id number] 13:15:00* Test Item Value Reference Range Interpretation Comments Urine pH (test code = 32583-8) 6 5-7 [facility] Leukocyte [id number] 13:15:00* Test Item Value Reference Range Interpretation Comments Urine Leukocyte Esterase (test code = 5799-2) TRACE NEGATIVE H [facility] [id number] 13:15:00* Test Item Value Reference Range Interpretation Comments Urine Nitrite (test code = 51115-2) NEGATIVE NEGATIVE [facility] [id number] 13:15:00* Test Item Value Reference Range Interpretation Comments Urine Protein (test code = 5804-0) NEGATIVE NEGATIVE [facility] Glucose (UA)2017-11-15 13:15:00* Test Item Value Reference Range Interpretation Comments Urine Glucose (UA) (test code = 2349-9) NEGATIVE NEGATIVE [facility] [id number] 13:15:00* Test Item Value Reference Range Interpretation Comments Urine Ketones (test code = 18322-1) NEGATIVE NEGATIVE [facility] [id number] 13:15:00* Test Item Value Reference Range Interpretation Comments Urine Urobilinogen (test code = 75221-2) 0.2 0.2-1 [facility] [id number] 13:15:00* Test Item Value Reference Range Interpretation Comments Urine Bilirubin (test code = 1978-6) NEGATIVE NEGATIVE [facility] [id number] 13:15:00* Test Item Value Reference Range Interpretation Comments Urine Blood (test code = 87323-2) NEGATIVE NEGATIVE [facility] [id number] 13:12:00 [address] [address] Patient Name: DEWAYNE ROWE MR #: [id number] : 1950 Age/Sex: 67/F Req #: [id number] Adm Physician: Ordered by: KARAN VILLALBA NP Report #: [id number] Location: ER Room/Bed: Procedure: [id number] DX/SHOULDER RIGHT COMPLETE Exam Date: Exam Time: REPORT STATUS: Signed Exam: right shoulder 2 views History: pain Comparison: None. Findings: No acute fracture or malalignment. Remote healed fracture of the distal clavicle. Joint spaces preserved. No abnormal soft tissue calcification or soft tissue defect. Impression: No acute osseous abnormality Signed by: Dr. Estelle Dao M.D. on 11/15/2017 1:21 PM Dictated By : ESTELLE DAO MD 1321 Transcribed By: JENNIFER on 11/15/17 1321 COPY TO: KARAN VILLALBA KNEE RIGHT THREE [id number] 13:06:00 [address] [address] Patient Name: DEWAYNE ROWE MR #: [id number] : 1950 Age/Sex: 67/F Req #: [id number] Adm Physician: Ordered by: KARAN VILLALBA NP Report #: [id number] Location: ER Room/Bed: Procedure: [id number] DX/KNEE RIGHT THREE VIEWS E xam Date: Exam Time: REPORT STATUS: Signed Exam: Right knee 3 views History: pain Comparison: None. Fi ndings: No fracture or malalignment. Mild degenerative arthrosis. No abnormal soft tissue calcification or soft tissue defect. Impression: No acut e osseous abnormality Signed by: Dr. Estelle Dao M.D. on 11/15/2017 1 :10 PM Dictated By: ESTELLE DAO MD 09 Transcribed By: JENNIFER on 11/15/17 1310 C OPY TO: KARAN VILLALBA NP Activated Partial Thromboplast [id number] 13:00:00* Test Item Value Reference Range Interpretation Comments Activated Partial Thromboplast Time (test code = 44397-8) 23.0 23.8-35.5 L [facility]th[facility] [id number] 12:41:00* Test Item Value Reference Range Interpretation Comments Prothrombin Time (test code = 5902-2) 12.3 11.9-14.5 [facility] Time International Ratio 2017-11-15 12:41:00* Test Item Value Reference Range Interpretation Comments Prothromb Time International Ratio (test code = 6301-6) 0.84 Oral Anticoagulant Therapy INR Values:1. Low Intensity Therapy 1.5 - 2.02 . Moderate Intensity Therapy 2.0 - 3.03. High Intensity Therapy(1) 2.5 - 3. 54. High Intensity Therapy(2) 3.0 - 4.05. Panic Value INR > 5.0 [facility]
--- NOTE | 2019-11-26 22:15 | Emergency Department Note ---
History of Present Illnes History of Present Illness Chief Complaint: Abdominal Complaints History of Present Illness This is a 69 year old female PRESENTS TO ED WITH CONSTIPATION X5 DAYS AND VOMITING X1 DAY; PT TO ED RM #10 ON ARRIVAL; PT HAD LARGE BOWEL MOVEMENT ON ARRIVAL, ER MD NOTIFIED; STAGE 2 PRESSURE WOUND NOTED TO SACRAL AREA, MEASURES APPROX 8 CM X 8 CM, RED IN COLOR; PT RESPONDS APPROPRIATELY TO YES/NO QUESTIONS, PT IS REPORTED AT [facility] AND HAS ADVANCED PARKINSON'S DX; PER EMS PT IS ON HOSPICE . Historian: Patient, Family Member, Unit Director/EMS Arrival Mode: [place] Onset (how long ago): day(s) (1) Location: ABD Quality: DISTENSION, VOMITING, NO BM IN 5 DAYS Radiation: Reports non-radiation Severity: moderate Duration (how long): day(s) (5) Progression: worsening Chronicity: new Relieving factors: none Exacerbating factors: none Associated symptoms: Reports denies other symptoms Past Medical/Family History Physician Review I have reviewed the patient's past medical and family history. Any updates have been documented here. Past Medical History Recent Fever: No Clinical Suspicion of Infectio: No New/Unexplained Change in Ment: No Past Medical History: Hypertension, Hyperlipedemia Other Medical History: PARKINSON'S DISEASE DEEP VEINS STIMULUS (LOCATED ON TOP OF HEAD) Past Surgical History: Hysterectomy, , Back Surgery Other Surgery: PEG TUBE PLACEMENT AND REMOVAL Social History Smoking Cessation: Never Smoker Alcohol Use: None Any Illegal Drug Use: No Family History Family history of heart diseas: No Other Last Tetanus: 10 YEARS AGO Review of Systems Review of Systems Constitutional: Reports no symptoms EENTM: Reports no symptoms Cardiovascular: Reports no symptoms Respiratory: Reports no symptoms Gastrointestinal: Reports as per HPI Genitourinary: Reports no symptoms Musculoskeletal: Reports no symptoms Integumentary: Reports no symptoms Neurological: Reports no symptoms Psychological: Reports no symptoms Endocrine: Reports no symptoms Hematological/Lymphatic: Reports no symptoms Physical Exam Related Data Allergies: Coded Allergies: clindamycin (Verified Allergy, Unknown, 12/29/15) Triage Vital Signs Vital Signs Date Time Temp Pulse Resp B/P (MAP) Pulse Ox O2 Delivery O2 Flow Rate FiO2 11/26/19 21:30 92 16 117/77 99 Room Air Vital signs reviewed: Yes Physical Exam CONSTITUTIONAL Constitutional: Present well-developed, Present well-nourished; Absent distressed HENT HENT: Present normocephalic, Present atraumatic, Present oropharynx clear/moist, Present nose normal HENT L/R: Present left ext ear normal, Present right ext ear normal EYES Eyes: Reports PERRL, Reports conjunctivae normal NECK Neck: Present ROM normal PULMONARY Pulmonary: Present effort normal, Present breath sounds normal CARDIOVASCULAR Cardiovascular: Present regular rhythm, Present heart sounds normal, Present capillary refill normal, Present normal rate GASTROINTESTINAL Abdominal: Present soft, Present distension (MODERATE), Present tender (MILD), Present other (BOWEL SOUNDS HYPOACTIVE); Absent guarding, Absent mass, Absent rebound GENITOURINARY Genitourinary: Present other (INDWELLING PRETTY CATH PRESENT ON ARRIVAL) SKIN Skin: Present warm, Present dry MUSCULOSKELETAL Musculoskeletal: Present ROM normal NEUROLOGICAL Neurological: Present alert, Present other (NODS YES AND NO APPROPRIATELY, AT BASELINE) PSYCHOLOGICAL Psychological: Present mood/affect normal, Present judgement normal Results Laboratory Laboratory Laboratory Tests Test 11/26/19 22:10 White Blood Count 13.00 x10e3/uL (4.8-10.8) Red Blood Count 4.87 x10e6/uL (3.6-5.1) Hemoglobin 12.8 g/dL (12.0-16.0) Hematocrit 40.0 % (34.2-44.1) Mean Corpuscular Volume 82.1 fL (81-99) Mean Corpuscular Hemoglobin 26.3 pg (28-32) Mean Corpuscular Hemoglobin Concent 32.0 g/dL (31-35) Red Cell Distribution Width 13.5 % (11.7-14.4) Platelet Count 282 x10e3/uL (140-360) Neutrophils (%) (Auto) 66.6 % (38.7-80.0) Lymphocytes (%) (Auto) 23.1 % (18.0-39.1) Monocytes (%) (Auto) 6.1 % (4.4-11.3) Eosinophils (%) (Auto) 3.5 % (0.0-6.0) Basophils (%) (Auto) 0.5 % (0.0-1.0) Neutrophils # (Auto) 8.7 (2.1-6.9) Lymphocytes # (Auto) 3.0 (1.0-3.2) Monocytes # (Auto) 0.8 (0.2-0.8) Eosinophils # (Auto) 0.5 (0.0-0.4) Basophils # (Auto) 0.1 (0.0-0.1) Absolute Immature Granulocyte (auto 0.03 x10e3/uL (0-0.1) Urine Color Yellow (YELLOW) Urine Clarity Cloudy (CLEAR) Urine pH 7 (5 - 7) Urine Specific [place] 1.015 (1.010-1.025) Urine Protein Trace (NEGATIVE) Urine Glucose (UA) Negative (NEGATIVE) Urine Ketones Negative (NEGATIVE) Urine Blood Small (NEGATIVE) Urine Nitrite Positive (NEGATIVE) Urine Bilirubin Negative (NEGATIVE) Urine Urobilinogen 0.2 mg/dL (0.2 - 1) Urine Leukocyte Esterase Large (NEGATIVE) Urine RBC 6-10 /HPF (0-5) Urine WBC 21-50 /HPF (0-5) Urine Epithelial Cells Few /LPF (NONE) Urine Amorphous Sediment Many (FEW) Urine Bacteria Moderate /HPF (NONE) Sodium Level 133 mmol/L (136-145) Potassium Level 4.0 mmol/L (3.5-5.1) Chloride Level 97 mmol/L (98-107) Carbon Dioxide Level 25 mmol/L (22-29) Anion Gap 15.0 mmol/L (8-16) Blood Urea Nitrogen 8 mg/dL (7-26) Creatinine 0.77 mg/dL (0.57-1.11) Estimat Glomerular Filtration Rate > 60 ML/MIN (60-) BUN/Creatinine Ratio 10 (6-25) Glucose Level 122 mg/dL (74-118) Calcium Level 9.4 mg/dL (8.4-10.2) Total Bilirubin 0.6 mg/dL (0.2-1.2) Aspartate Amino Transf (AST/SGOT) 4 IU/L (5-34) Alanine Aminotransferase (ALT/SGPT) < 6 IU/L (0-55) Alkaline Phosphatase 66 IU/L (40-150) Total Protein 7.2 g/dL (6.5-8.1) Albumin 3.8 g/dL (3.5-5.0) Globulin 3.4 g/dL (2.3-3.5) Albumin/Globulin Ratio 1.1 (0.8-2.0) Amylase Level 27 U/L (25-125) Lipase 7 U/L (8-78) Lab results reviewed: Yes Imaging Imaging results reviewed: Yes Impressions Procedure: [id number] CT/CT ABDOMEN/PELVIS W Exam Date: 11/26/19 Exam Time: 2345 REPORT STATUS: Signed EXAM: CT Abdomen and Pelvis WITH contrast INDICATION: abd distension and vomiting COMPARISON: None. TECHNIQUE: Abdomen and pelvis were scanned utilizing a multidetector helical scanner from the lung base to the pubic symphysis after administration of IV contrast. Coronal and sagittal reformations were obtained. Routine protocol was performed. Scan was performed when during portal venous phase. IV CONTRAST: 100 mL of Isovue 370 ORAL CONTRAST: None COMPLICATIONS: None FINDINGS: LINES and TUBES: Gastrostomy tube. LOWER THORAX: Strandy and patchy groundglass bibasilar lung opacities, similar to prior CT, likely atelectasis. HEPATOBILIARY: No focal hepatic lesions. Unchanged mild dilatation of the intrahepatic biliary ducts. No extrahepatic biliary duct dilatation. GALLBLADDER: No radio-opaque stones or sludge. No wall thickening. SPLEEN: No splenomegaly. PANCREAS: No focal masses or ductal dilatation. ADRENALS: No adrenal nodules KIDNEYS/URETERS: Kidneys enhance symmetrically. No hydronephrosis. No cystic or solid mass lesions. Nonobstructive right intrarenal calculi measuring up to 1.2 cm. GI TRACT: Very large and colonic stool burden that spares the sigmoid colon and rectum. Marked circumferential wall thickening and hyperenhancement of the rectum. Appendix is not clearly identified. There is however no fat stranding or adenopathy in the right lower quadrant to suggest appendicitis. Gastrostomy tube. PELVIC ORGANS/BLADDER: Pretty catheter in a nondistended urinary bladder which limits evaluation. Uterus is absent or atrophic. LYMPH NODES: No lymphadenopathy. VESSELS: Unremarkable. PERITONEUM / RETROPERITONEUM: No free air or fluid. BONES: Unremarkable. SOFT TISSUES: Unremarkable. IMPRESSION: 1. Very large pancolonic stool burden that spares the rectum consistent with recent disimpaction. 2. Marked circumferential wall thickening and hyperenhancement of the rectum may be reactive change to recent disimpacted stool ball (stercoral colitis). Proctitis could have a similar appearance. Signed by: Calista Millan MD on 11/27/2019 12:48 AM Dictated By: CALISTA MILLAN MD Transcribed By: JENNIFER on 11/27/1949 COPY TO: CHRIS COLLINS MD~ Assessment & Plan Medical Decision Making MDM PT WITH ABD DISTENSION, VOMITING CBC, CMP, AMYLASE, LIPASE, UA, CT ABD PELVIS ORDERED TO EVAL FOR PANCREATITIS, BOWEL OBSTRUCTION, COLITIS, UTI I SPOKE WITH DR Sofie ESPARZA PLACE IN OBS Assessment & Plan Final Impression: (1) Fecal impaction of colon (2) UTI (urinary tract infection) Depart Disposition: ADMITTED Last Vital Signs Date Time Temp Pulse Resp B/P (MAP) Pulse Ox O2 Delivery O2 Flow Rate FiO2 11/26/19 21:30 92 16 117/77 99 Room Air Home Meds Reported Medications Pantoprazole Sodium* (PROTONIX) 40 Mg Tablet.dr, 40 MG PO ACB, TAB 06/17/19 Glycopyrrolate (GLYCOPYRROLATE) 0.2 Mg/1 Ml Vial, 2 MG PO TID, VIAL 06/16/19 Simvastatin (SIMVASTATIN) 20 Mg Tablet, 20 MG PO 2100, EA 06/16/19 Methenamine Hippurate (METHENAMINE HIPPURATE) 1 Gm Tablet, 1 GM PO BID 04/08/19 Scopolamine Hydrobromide (TRANSDERM-SCOP) 1 Each Patch.td72, 1 PATCH TD Q3D, PATCH 01/22/19 Multivitamin (MULTI-VITAMIN DAILY) 1 Each Tablet, 1 TAB PO DAILY 01/22/19 Rasagiline Mesylate (AZILECT) 1 Mg Tablet, 1 MG PO DAILY 02/20/15 Carbidopa/Levodopa (CARBIDOPA-LEVODOPA 25-100 TAB) 1 Each Tablet, 1 TAB PO Q4HR first in morning dose 0630 02/20/15 Propranolol Hcl (PROPRANOLOL HCL) 20 Mg Tablet, 10 MG PO BID 06/29/13 CHRIS COLLINS MD Nov 26, 2019 22:15
--- NOTE | 2019-11-26 22:15 | NUR ---
pt c large bm during assessment and repositioning. urine noted leaking around catheter. md informed, ordered to exchange catheter. willis replaced c 16 fr catheter using sterile technique. 300cc cloudy milky yellow urine return noted. specimen collected and sent to lab per orders.
[2019-11-26 22:18] LABS: BASOPHILS # (AUTO) 0.1 (0.0-0.1); BASOPHILS % 0.5 % (0.0-1.0); EOSINOPHILS # (AUTO) 0.5 (0.0-0.4); EOSINOPHILS % 3.5 % (0.0-6.0); HEMOGLOBIN 12.8 g/dL (12.0-16.0); LYMPHOCYTES % 23.1 % (18.0-39.1); MEAN CORPUSCULAR HEMOGLOBIN 26.3 pg (28-32); MEAN CORPUSCULAR VOLUME 82.1 fL (81-99); MONOCYTES # (AUTO) 0.8 (0.2-0.8); MONOCYTES % 6.1 % (4.4-11.3); NEUTROPHILS # (AUTO) 8.7 (2.1-6.9); NEUTROPHILS % 66.6 % (38.7-80.0); PLATELET COUNT 282 x10e3/uL (140-360); RED BLOOD COUNT 4.87 x10e6/uL (3.6-5.1); RED CELL DISTRIBUTION WIDTH 13.5 % (11.7-14.4)
[2019-11-26 22:19] LABS: CLARITY,URINE CLOUDY (CLEAR); COLOR,URINE YELLOW (YELLOW); LEUKOCYTE ESTERASE ,URINE LARGE (NEGATIVE); NITRITE,URINE POSITIVE (NEGATIVE); PROTEIN,URINE DIPSTICK TRACE (NEGATIVE)
[2019-11-26 22:20] LABS: BILIRUBIN,URINE NEGATIVE (NEGATIVE); KETONES,URINE NEGATIVE (NEGATIVE); URINE UROBILINOGEN 0.2 mg/dL (0.2 - 1)
[2019-11-26 22:30] LABS: AMORPHOUS SEDIMENT,URINE MANY (FEW); BACTERIA,URINE MODERATE /HPF; EPITHELIAL CELLS,URINE FEW /LPF; WBC,URINE (MAN) 21-50 /HPF (0-5)
[2019-11-26 22:36] LABS: AMYLASE 27 U/L (25-125); LIPASE 7 U/L (8-78)
[2019-11-26 22:40] LABS: ALBUMIN 3.8 g/dL (3.5-5.0); ALBUMIN/GLOBULIN RATIO 1.1 (0.8-2.0); ALKALINE PHOSPHATASE 66 IU/L (40-150); BLOOD UREA NITROGEN 8 mg/dL (7-26); BUN/CREATININE RATIO 10 (6-25); CALCIUM 9.4 mg/dL (8.4-10.2); CARBON DIOXIDE 25 mmol/L (22-29); CHLORIDE 97 mmol/L (98-107); CREATININE, SERUM 0.77 mg/dL (0.57-1.11); EST GLOMERULAR FILTRATION RATE > 60 ML/MIN (60-); GLUCOSE 122 mg/dL (74-118); SODIUM 133 mmol/L (136-145)
[2019-11-26 22:41] LABS: ALANINE AMINOTRANSFERASE < 6 IU/L (0-55)
[2019-11-26] MEDS ORDERED: CEFTRIAXONE SOD 1 GM/NS 50 ML 50 ML IV ONE (23:15)
[2019-11-26] MEDS ORDERED: SODIUM CHLORIDE 0.9% 50ML 50 ML ONE (23:30)
[2019-11-26] MEDS ORDERED: IOPAMIDOL 370 MG/ML 200 ML INFUS..BTL INJ ONE (23:30)
[2019-11-27] VITALS (8 sets, daily range): BP systolic 102–132; BP diastolic 52–71
--- NOTE | 2019-11-27 00:51 | Diagnostic Imaging Report ---
EXAM: CT Abdomen and Pelvis WITH contrast INDICATION: abd distension and vomiting COMPARISON: None. TECHNIQUE: Abdomen and pelvis were scanned utilizing a multidetector helical scanner from the lung base to the pubic symphysis after administration of IV contrast. Coronal and sagittal reformations were obtained. Routine protocol was performed. Scan was performed when during portal venous phase. IV CONTRAST: 100 mL of Isovue 370 ORAL CONTRAST: None COMPLICATIONS: None FINDINGS: LINES and TUBES: Gastrostomy tube. LOWER THORAX: Strandy and patchy groundglass bibasilar lung opacities, similar to prior CT, likely atelectasis. HEPATOBILIARY: No focal hepatic lesions. Unchanged mild dilatation of the intrahepatic biliary ducts. No extrahepatic biliary duct dilatation. GALLBLADDER: No radio-opaque stones or sludge. No wall thickening. SPLEEN: No splenomegaly. PANCREAS: No focal masses or ductal dilatation. ADRENALS: No adrenal nodules KIDNEYS/URETERS: Kidneys enhance symmetrically. No hydronephrosis. No cystic or solid mass lesions. Nonobstructive right intrarenal calculi measuring up to 1.2 cm. GI TRACT: Very large and colonic stool burden that spares the sigmoid colon and rectum. Marked circumferential wall thickening and hyperenhancement of the rectum. Appendix is not clearly identified. There is however no fat stranding or adenopathy in the right lower quadrant to suggest appendicitis. Gastrostomy tube. PELVIC ORGANS/BLADDER: Jain catheter in a nondistended urinary bladder which limits evaluation. Uterus is absent or atrophic. LYMPH NODES: No lymphadenopathy. VESSELS: Unremarkable. PERITONEUM / RETROPERITONEUM: No free air or fluid. BONES: Unremarkable. SOFT TISSUES: Unremarkable. IMPRESSION: 1. Very large pancolonic stool burden that spares the rectum consistent with recent disimpaction. 2. Marked circumferential wall thickening and hyperenhancement of the rectum may be reactive change to recent disimpacted stool ball (stercoral colitis). Proctitis could have a similar appearance. Signed by: Griffin Montes MD on 11/27/2019 12:48 AM
--- OUTSIDE RECORDS SUMMARY | 2019-11-27 00:56 | XMS REPORT | Continuity of Care Document ---
Author Author TablefinderDEWAYNE Tablefinder Address Unknown Phone Unavailable Care Team Providers Care Government Relations Director Name Role Phone [facility] [employer] Information Exchange Unavailable Un available Problems Problem Status Onset Date Classification Date Reported Comments Source PARKINSON'S DISEASE Active 08/26/2018 [facility] PARKINSON Active 08/26/2018 [facility] G20 Active 0 08/26/2018 [facility] Parkinson's disease (disorder) Active Problem 09/2018 [facility] Simple obesity (disorder) Acti ve Problem 09/2018 [facility] PARKINSON'S DISEASE Active [facility] Medications Medication Details Route Status Patient Instructions Ordering Provider Order Date Source Oxycodone Hydrochloride 1 MG/ML Oral Solution 5 mg, 5 mL, Route: PEG, ONCE, Dosing Weight 77.273, kg, Priority: NOW, Start date: 10/24/18 15:25:00 CDT, Stop date: 10/24/18 15:25:00 CDT Inactive 10/24/2018 [facility] Cephalexin 500 MG Oral Capsule [Keflex] 500 mg = 1 cap, PO, TID, X 10 day, # 30 cap, 0 Refill(s) Active 10/24/2018 [facility] nter Ondansetron 4 MG Disintegrating Tablet [Zofran] 4 mg = 1 tab, PO, BID, PRN Nausea and Vomiting, Dissolve tab under tongue, # 10 tab, 0 Refill(s) Active 10/24/2018 [facility] sugammadex Notes: (Same as: Minh smith) No Longer Active 10/24/2018 [facility] ondansetron (ANES) Route: IV, Drug form: INJ, ONCE, Stop date: 10/24/18 14:24:00 CDT Inactive 10/24/2018 [facility] nt sugammadex (ANES) Route: IV, D rug form: SOLN, ONCE, Stop date: 10/24/18 14:24:00 CDT Inactive 10/24/2018 [facility] nter rocuronium (ANES) Route: IV, D rug form: INJ, ONCE, Stop date: 10/24/18 13:28:00 CDT Inactive 10/24/2018 [facility] nter fentaNYL (ANES) Route: IV, Clark g form: INJ, ONCE, Stop date: 10/24/18 13:28:00 CDT Inactive 10/24/2018 [facility] nter ceFAZolin (ANES) Route: IV, Dr ug form: INJ, ONCE, Stop date: 10/24/18 13:28:00 CDT Inactive 10/24/2018 [facility] nter lidocaine (ANES) Route: IV, Dr ug form: INJ, ONCE, Stop date: 10/24/18 13:23:00 CDT Inactive 10/24/2018 [facility] nter propofol (ANES) Route: IV, Clark g form: INJ, ONCE, Stop date: 10/24/18 13:23:00 CDT Inactive 10/24/2018 [facility] nter Acetaminophen Notes: Max aceta minophen 4000 mg/day (4 gm/day). (Same as: Tylenol Extra Strength) No Longer Active 10/24/2018 [facility] Oxycodone Hydrochloride 5 MG Oral Tablet Notes: (Same as: Roxicodone) No Longer Active 10/24/2018 [facility] Flumazenil Notes: (Same as: Ro mazicon) No Longer Active 10/24/2018 [facility] Naloxone Notes: Same as Narcan No Longer Active 10/24/2018 [facility] Ondansetron Notes: (Same as: Radha sumner) MEDICATION WASTE Product Size: 4 mg Product Wasted: ___ mg No Longer Active 10/24/2018 [facility] Lactated Ringers Injection IV (ANES) 1000 mL Route: IV, Total Volume: 1,000, Start date: 10/24/18 12:24:00 CDT, Stop date: 10/24/18 13:24:00 CDT Inactive 10/24/2018 [facility] ceFAZolin Notes: (Same as Brady f) No Longer Active 10/24/2018 [facility] Zinc Sulfate 220 mg, GT, Daily , 0 Refill(s) Active 10/23/2018 [facility] Vitamin C 500 mg, GT, BID, 0 R efill(s) Active 10/23/2018 [facility] ceFAZolin + sterile water 20 mL Notes: (Same As: Ancef Kefzol) MEDICATION WASTE Product Size: 1000 mg Product Wasted: ___ mg No Longer Active 10/16/2018 [facility] Sulfamethoxazole 800 MG / Trimethoprim 1 60 MG Oral Tablet [Bactrim] 1 tab, PO, Q12H, X 5 day, # 10 tab, 0 Re fill(s) Active 10/15/2018 [facility] atorvastatin 10 mg oral tablet 10 mg = 1 tab, GT, Daily, 0 Refill(s) Active 10/15/2018 [facility] lansoprazole GT, Daily, 0 Refi ll(s) Active 10/15/2018 [facility] 24 HR Rotigotine 0.167 MG/HR Transdermal Patch TOP, Daily, 0 Refill(s) Active 10/15/2018 [facility] sennosides, SENIOR CARE 8.6 MG Oral Tablet 8.6 mg = 1 tab, PO, BID, 0 Refill(s) Active 10/15/2018 [facility] Sodium Chloride 1000 MG Oral Tablet 3 gm, 3 tab, Route: GT, Drug form: TAB, Q8H, Dosing Weight 86.3, kg, Priority: NOW, Start date: 10/14/18 12:21:00 CDT, Duration: 30 day, Stop date: 11/13/18 14:00:00 CDT, 0 No Longer Active 10/14/2018 [facility] phenol 1 spray, Route: MUCOUS MEM, TID, Drug form: SPRY, PRN Sore Throat, Start date: 10/14/18 6:26:00 CDT, Duration: 30 day, Stop date: 11/13/18 6:25:00 CDT, 0 No Longer Active 10/14/2018 [facility]ter Fentanyl 50 microgram, Route: IV, ONCE, Dosing Weight 86.3, kg, Start date: 10/13/18 16:23:00 CDT, Stop date: 10/13/18 16:23:00 CDT Inactive 10/13/2018 [facility] Epinephrine 0.01 MG/ML / Lidocaine Halma chloride 10 MG/ML Injectable Solution 12 mL, Route: SUB-Q, Dosing Weight 86.3, ONCE, Start date: 10/13/18 16:22:00 CDT, Stop date: 10/13/18 16:22:00 CDT Inactive 10/13/2018 [facility] Glucagon 1 mg, Route: IV, ONCE , Dosing Weight 86.3, kg, Start date: 10/13/18 16:07:00 CDT, Stop date: 10/13/18 16:07:00 CDT Inactive 10/13/2018 [facility] Lactated Ringers IV 1,000 mL 1 ,000 mL, Rate: 100 ml/hr, Infuse over: 10 hr, Route: IV, Dosing Weight 86.3 kg, Total Volume: 1,000, Start date: 10/13/18 5:32:00 CDT, Duration: 30 day, Stop date: 11/12/18 5:31:00 CDT, 1.97, m2, 0 No Longer Active 10/13/2018 [facility] Vancomycin 2001 mg: infuse ov er 2.5 hours For adult patients only: Round to nearest 250 mg per Medical Staff approval MEDICATION WASTE Product Size: 1000 mg Product Wasted: ___ mg No Longer Active 10/13/2018 [facility] Vancomycin 2001 mg: infuse ov er 2.5 hours For adult patients only: Round to nearest 250 mg per Medical Staff approval MEDICATION WASTE Product Size: 1000 mg Product Wasted: ___ mg Inactive 10/12/2018 [facility] cefepime /= 60 ml/min), Start date: 10/12/18 10:00:00 CDT, Duration: 7 day, Stop date: 10/19/18 2:00:00 CDT, ABX Indication: Pneumonia Inactive 10/12/2018 [facility] Flagyl Notes: (Same as: Flagyl ) Avoid alcohol. No Longer Active 10/12/2018 [facility] Albuterol 0.833 MG/ML / Ipratropium Brom veena 0.167 MG/ML Inhalant Solution [DuoNeb] Notes: (Same as: Duoneb) No Longer Active 10/11/2018 [facility] rasagiline Notes: Same as Azil ect Non Formulary Item No Longer Active 10/10/2018 [facility] rotigotine Notes: (Same as: Katy hendrix) Application sites should be rotated on a daily basis. Do not apply to same application site more than once every 14 days or apply patch to oily, irritated or damaged skin. No Longer Active 10/09/2018 [facility] rasagiline Notes: Same as Azil ect Non Formulary Item No Longer Active 10/09/2018 [facility] 24 HR Rotigotine 0.125 MG/HR Transdermal Patch 1 patch, Route: TOP, Drug Form: ERFILM, Dosing Weight 86.3, kg, Daily, Start date: 10/09/18 9:00:00 CDT, Duration: 30 day, Stop date: 11/07/18 9:00:00 CDT Inactive 10/09/2018 [facility] propofol 10 mg/mL (Titrate.) IV 1,000 mg 1,000 mg, 100 mL, Rate: Titrate, Start Dose: 30 microgram/kg/min, Titration: DO NOT TITRATE, Goal(s): per MD status epilepticus dosing, Route: IV, Dosing Weight 86.3 kg, Total Volume: 100, Start date: 10/08/18 6:41:00 CDT, Duration: 30 day, Stop date:... Inactive 10/08/2018 [facility] Prevacid Notes: Take 1 hour be fore or 2 hours after meal; Expires in 14 days. Shake well before use. (Same as:Prevacid) Compounded Product - formulation not commercially available No Longer Active 10/07/2018 [facility] Dextrose 50% Syringe 12.5 gm, 25 mL, Route: IVP, Drug Form: INJ, Dosing Weight 86.3, kg, PRN, PRN Blood Glucose Results, Start date: 10/07/18 8:27:00 CDT, Duration: 30 day, Stop date: 11/06/18 8:26:00 CDT, 0 No Longer Active 10/07/2018 [facility] Glucagon 1 mg, Route: IM, Drug form: PDR/INJ, PRN, Dosing Weight 86.3, kg, PRN Blood Glucose Results, Start date: 10/07/18 8:27:00 CDT, Duration: 30 day, Stop date: 11/06/18 8:26:00 CDT, 0 No Longer Active 10/07/2018 [facility] Insulin regular Notes: (Same a s: Humulin R) Roll in palms of hands gently; Do not shake vigorously. WASTE: F/P - Black; E - Municipal Trash Bin Stable for 31 days at room temperature Expires in days from Date No Longer Active 10/07/2018 [facility] nter potassium phosphate Notes: ([facility] as: K Phosphate.) Do not infuse phosphorous concurrently in the same line as TPN or IVF that contains calcium. For double lumen central lines, phosphorous may be infused in a separate lumen from TPN. 1 mMol phoshate has 1.47 mEq potassium Infuse over 4 hours Inactive 10/07/2018 [facility] Valproic Acid 100 MG/ML Injectable Solution 3,000 mg, Route: IVPB, ONCE, Dosing Weight 86.3, kg, Priority: STAT, Start date: 10/06/18 17:24:00 CDT, Stop date: 10/06/18 17:24:00 CDT Inactive 10/06/2018 [facility] nter Albuterol 0.833 MG/ML / Ipratropium Brom veena 0.167 MG/ML Inhalant Solution [DuoNeb] Notes: (Same as: Duoneb) No Longer Active 10/06/2018 [facility] Dexamethasone Notes: Concentra tion: 4mg/ml No Longer Active 10/06/2018 [facility] Racepinephrine 22.5 MG/ML Inhalant Solution 11.25 mg, 0.5 mL, Route: NEB, Drug Form: SOLN, Dosing Weight 86.3, kg, RQ6H, PRN Stridor, Start date: 10/06/18 11:37:00 CDT, Duration: 30 day, Stop date: 11/05/18 11:36:00 CDT, Pediatric Dosing, 0 No Longer Active 10/06/2018 [facility] nter remove patch Notes: Remove pat ch 24 hours after application Remove old patch before application of new patch. No Longer Active 10/06/2018 [facility] Amitriptyline Notes: (Same as: Elavil) No Longer Active 10/06/2018 [facility] Lipitor Notes: (Same As: Lipit or) No Longer Active 10/06/2018 [facility] Sodium Chloride 0.9% (Bolus) IV 500 mL, 1000 ml/hr, Infuse Over: 0.5 hr, Route: IV, 500, Drug form: INJ, ONCE, Priority: STAT, Dosing Weight 86.3 kg, Start date: 10/05/18 16:04:00 CDT, Stop date: 10/05/18 16:04:00 CDT, 0 Inactive 10/05/2018 [facility] Zosyn Notes: (Same as: Zosyn) Dosing based on Piperacillin component MEDICATION WASTE Product Size: 3375 mg Product Wasted: ___ mg No Longer Active 10/05/2018 [facility] nter rotigotine Notes: (Same as: Katy upro) Application sites should be rotated on a daily basis. Do not apply to same application site more than once every 14 days or apply patch to oily, irritated or damaged skin. No Longer Active 10/05/2018 [facility] 24 HR Rotigotine 0.0417 MG/HR Transderma l Patch [Neupro] 1 patch, Route: TOP, Drug Form: ERFILM, Dosing Weight 86.3, kg, Daily, Start date: 10/05/18 9:00:00 CDT, Duration: 30 day, Stop date: 11/03/18 9:00:00 CDT Inactive 10/05/2018 [facility] Carbidopa 25 MG / Levodopa 100 MG Oral T ablet [Sinemet 25-100] Notes: Take with milk or food. (Same As: Sinemet) No Longer Active 10/05/2018 [facility] NS (Bolus) IV 1,000 mL, 1,000 ml/hr, Infuse Over: 1 hr, Route: IV, 1,000, Drug form: INJ, ONCE, Priority: STAT, Dosing Weight 86.3 kg, Start date: 10/05/18 0:54:00 CDT, Stop date: 10/05/18 0:54:00 CDT, 0 Inactive 10/05/2018 [facility] Famotidine Notes: (Same as: Pe pcid) Can be dilute in 5- 10cc NS IVP: Slow IV push over at least 2 minutes. Inactive 10/05/2018 [facility] nter chlorhexidine gluconate 1.2 MG/ML Mouthwash Notes: (Same As: Peridex) No Longer Active 10/05/2018 [facility] propofol 10 mg/mL (Titrate.) IV 1,000 mg Notes: If Diprivan - change bottle & tubing every 12 hr Per state nursing law propofol can only be given by a nurse if patient is intubated or being intubated (unless the nurse is a ROBOTYPE OPERATOR). Same as: Diprivan Inactive 10/04/2018 [facility] nter ocular lubricant Notes: (Same as: Lacri-Lube, Puralube, Duratears Naturale, Artificial Tears, and Tears Again ) No Longer Active 10/04/2018 [facility] Iohexol Notes: (same as:Omnipa que 350). WASTE: F/P - Black; E - Municipal Trash Bin No Longer Active 10/04/2018 [facility] nter chlorhexidine gluconate 1.2 MG/ML Mouthwash Notes: (Same As: Peridex) No Longer Active 10/04/2018 [facility] Potassium Chloride Notes: ([facility] as: KCL) Infuse no faster than 10 mEq/hr if given peripherally. No Longer Active 10/04/2018 [facility] sodium phosphate Notes: Infuse over 4 hour. Do not infuse phosphorous concurrently in the same line as TPN or IVF that contains calcium. For double lumen central lines, phosphorous may be infused in a separate lumen from TPN. No Longer Active 10/04/2018 [facility] nter potassium phosphate Notes: ([facility] as: K Phosphate.) Do not infuse phosphorous concurrently in the same line as TPN or IVF that contains calcium. For double lumen central lines, phosphorous may be infused in a separate lumen from TPN. 1 mMol phoshate has 1.47 mEq potassium Infuse over 4 hours No Longer Active 10/04/2018 [facility] potassium phosphate-sodium phosphate 250 mg-280 mg-160 mg oral powder for reconstitution Notes: (Same as: Phos-NaK) Each 1.5 gm pkt has 250mg phosphorous. Mix w/2.5oz water and stir. No Longer Active 10/04/2018 [facility] Magnesium Sulfate Notes: WASTE : F/P - Sink; E - Municipal Trash Bin No Longer Active 10/04/2018 [facility]ter Magnesium Oxide Notes: (Same a s: Mag-Ox 400) Magnesium oxide [id number] elemental magnesium Dose=____mg magnesium oxide (___mg elemental magnesium) No Longer Active 10/04/2018 [facility] Calcium Gluconate Notes: WASTE : F/P - Sink; E - Municipal Trash Bin No Longer Active 10/04/2018 [facility] Calcium Carbonate 500 MG Chewable Tablet Notes: (Same As: Tums) Calcium Carbonate 500 mg = 200 mg elemental calcium Dose = mg calcium carbonate ( mg elemental calcium) No Longer Active 10/04/2018 [facility] heparin sodium, porcine 2500 UNT/ML Injectable Solutio n Notes: porcine heparin No Longer Active 10/04/2018 [facility] Albuterol 0.833 MG/ML / Ipratropium Brom veena 0.167 MG/ML Inhalant Solution [DuoNeb] Notes: (Same as: Duoneb) No Longer Active 10/04/2018 [facility] Dextrose 50% Syringe 12.5 gm, 25 mL, Route: IVP, Drug Form: INJ, Dosing Weight 86.3, kg, PRN, PRN Blood Glucose Results, Start date: 10/04/18 14:46:00 CDT, Duration: 30 day, Stop date: 11/03/18 14:45:00 CDT, 0 No Longer Active 10/04/2018 [facility] Glucagon 1 mg, Route: IM, Drug form: PDR/INJ, PRN, Dosing Weight 86.3, kg, PRN Blood Glucose Results, Start date: 10/04/18 14:46:00 CDT, Duration: 30 day, Stop date: 11/03/18 14:45:00 CDT, 0 No Longer Active 10/04/2018 [facility] Insulin regular Notes: (Same a s: Humulin R) Roll in palms of hands gently; Do not shake vigorously. WASTE: F/P - Black; E - Municipal Trash Bin Stable for 31 days at room temperature Expires in days from Date No Longer Active 10/04/2018 [facility] nter heparin Notes: porcine heparin No Longer Active 10/03/2018 [facility] Dexilant 30 mg, Route: PO, Clark g form: DRC, Daily, Dosing Weight 86.3, kg, Start date: 10/03/18 9:00:00 CDT, Duration: 30 day, Stop date: 11/01/18 9:00:00 CDT No Longe r Active 10/03/2018 [facility] Lovastatin 20 mg, Route: PO, D rug form: TAB, Daily, Dosing Weight 86.3, kg, Start date: 10/03/18 9:00:00 CDT, Duration: 30 day, Stop date: 11/01/18 9:00:00 CDT No Longer Active 10/03/2018 [facility] rasagiline 1 mg, 1 tab, Route: PO, Drug form: TAB, Daily, Dosing Weight 86.3, kg, Start date: 10/03/18 9:00:00 CDT, Duration: 30 day, Stop date: 11/01/18 9:00:00 CDT, 0 No Longer Active 10/03/2018 [facility] nt Protonix Notes: Tablet should not be chewed or crushed. (Same as: Protonix) No Longer Active 10/03/2018 [facility] nt Lipitor Notes: (Same As: Lipit or) No Longer Active 10/03/2018 [facility] Saline Flush 0.9% Notes: (Same as: BD Posiflush) No Longer Active 10/03/2018 [facility] Carbidopa 50 MG / Levodopa 200 MG Extend ed Release Tablet Notes: "Do Not Crush" Take with milk or food. (Same As: Sinemet CR) No Longer Active 10/03/2018 [facility] Melatonin Notes: (Same as: Crista atonin) No Longer Active 10/03/2018 [facility] Cefazolin Notes: (Same as Ance f) No Longer Active 10/03/2018 [facility] Docusate 50 mg, Route: PO, Clark g form: CAP, BID, Dosing Weight 86.3, kg, Start date: 10/02/18 17:00:00 CDT, Duration: 30 day, Stop date: 11/01/18 9:00:00 CDT, Pediatric Dosing Inactive 10/02/2018 [facility] sennosides, SENIOR CARE Notes: (Same a s: Senokot) No Longer Active 10/02/2018 [facility] Docusate Sodium 100 MG Oral Capsule [Colace] Notes: (Same as: Colace) No Longer Active 10/02/2018 [facility] Amitriptyline Notes: (Same as: Elavil) No Longer Active 10/02/2018 [facility] Propranolol Notes: Give with f ood. (Same as: Inderal) No Longer Active 10/02/2018 [facility] Carbidopa 25 MG / Levodopa 100 MG Oral Tablet Notes: Take with milk or food. (Same As: Sinemet) No Longer Active 10/02/2018 [facility] levETIRAcetam (ANES) Route: IV , Drug form: INJ, ONCE, Stop date: 10/02/18 14:38:00 CDT Inactive 10/02/2018 [facility] Sodium Chloride 0.9% IV 1,000 mL 1,000 mL, Rate: 50 ml/hr, Infuse over: 20 hr, Route: IV, Dosing Weight 86.3 kg, Total Volume: 1,000, Start date: 10/02/18 14:24:00 CDT, Duration: 30 day, Stop date: 11/01/18 14:23:00 CDT, 1.97, m2, 0 No Longer Active 10/02/2018 [facility] Labetalol 10 mg, 2 mL, Route: IVP, Drug form: INJ, Q15Min, Dosing Weight 86.3, kg, PRN Elevated BP, Start date: 10/02/18 14:24:00 CDT, Duration: 3 doses or times, Stop date: Limited # of times, 0 No Longer Active 10/02/2018 [facility] Hydralazine Notes: (Same as: A presoline) Push over 5 minutes No Longer Active 10/02/2018 [facility] Ondansetron Notes: (Same as: Radha sumner) MEDICATION WASTE Product Size: 4 mg Product Wasted: ___ mg No Longer Active 10/02/2018 [facility] Acetaminophen 325 MG / Hydrocodone Mateo trate 10 MG Oral Tablet [Pelion 10/325] Notes: Do not exceed 4gm/day of acetamin ophen. (Same as: Pelion 325/10) No Longer Active 10/02/2018 [facility] Dilaudid Notes: Same as Dilaud id No Longer Active 10/02/2018 [facility] Benadryl Notes: (Same as: Solo dryl) No Longer Active 10/02/2018 [facility] phenol Notes: Chloraseptic Spr ay (Same as: Chloraseptic, Sore Throat [place]) WASTE: F/P - Black; E - Municipal Trash Bin No Longer Active 10/02/2018 [facility] Bisacodyl Notes: (Same As: Dul colax, Bisco-Lax) No Longer Active 10/02/2018 [facility] Robaxin Notes: (Same as:Robaxi n) No Longer Active 10/02/2018 [facility] Melatonin 3 MG Extended Release Tablet 3 mg, 1 tab, Route: PO, Dosing Weight 86.3, kg, Bedtime, PRN as needed for insomnia, Start date: 10/02/18 14:24:00 CDT, Duration: 30 day, Stop date: 11/01/18 14:23:00 CDT Inactive 10/02/2018 [facility] Tylenol Notes: Do not exceed 4 gm/day. (Same as: Tylenol) No Longer Active 10/02/2018 [facility] Phenergan Notes: Do not give I V push. (Same as: Phenergan) No Longer Active 10/02/2018 [facility] Potassium Chloride Notes: (Bruce e as: K-Dur 20) "Do Not Crush" Give with food and full glass of water For patients unable to swallow tablet, dissolve in one half glass of water. Allow about 2 minutes for the tab lets to disintegrate. Stir before giving to prepare slurry and administer. Please exclude Patients with feeding tube less than 14 [place] ([place]obhoff, J-tube etc) and pediatric and patients. No Longer Active 10/02/2018 [facility] Saline Flush 0.9% Notes: (Same as: BD Posiflush) No Longer Active 10/02/2018 [facility] Tylenol Notes: Max acetaminoph en 4000 mg/day (4 gm/day). (Same as: Tylenol Extra Strength) Inactive 10/02/2018 [facility] nt fentaNYL (ANES) Route: IV, Clark g form: INJ, ONCE, Stop date: 10/02/18 10:55:00 CDT Inactive 10/02/2018 [facility] nt hydrALAZINE (ANES) Route: IV, Drug form: INJ, ONCE, Stop date: 10/02/18 10:55:00 CDT Inactive 10/02/2018 [facility] Hydralazine Notes: (Same as: A presoline) Push over 5 minutes Inactive 10/02/2018 [facility] Labetalol 10 mg, 2 mL, Route: IVP, Drug form: INJ, Q5Min, Dosing Weight 86.3, kg, PRN Elevated BP, Start date: 10/02/18 10:46:00 CDT, Duration: 5 doses or times, Stop date: 10/03/18 0:00:00 CDT, 0 Inactive 10/02/2018 [facility] Metoprolol Notes: (Same as: Lo pressor) Push over 2 minutes Inactive 10/02/2018 [facility] Oxycodone Hydrochloride 5 MG Oral Tablet Notes: (Same as: Roxicodone) Inactive 10/02/2018 [facility] Hydromorphone Notes: Same as D ilaudid Inactive 10/02/2018 [facility] Flumazenil Notes: (Same as: Ro mazicon) Inactive 10/02/2018 [facility] Naloxone Notes: Same as Narcan Inactive 10/02/2018 [facility] Ondansetron Notes: (Same as: Radha sumner) MEDICATION WASTE Product Size: 4 mg Product Wasted: ___ mg Inactive 10/02/2018 [facility] ceFAZolin (ANES) Route: IV, Dr ug form: INJ, ONCE, Stop date: 10/02/18 10:45:00 CDT Inactive 10/02/2018 [facility] nt propofol (ANES) Route: IV, Clark g form: INJ, ONCE, Stop date: 10/02/18 10:09:00 CDT Inactive 10/02/2018 [facility] nter acetaminophen (ANES) Route: IV , Drug form: INJ, ONCE, Stop date: 10/02/18 9:54:00 CDT Inactive 10/02/2018 [facility] nt esmolol (ANES) Route: IV, Drug form: INJ, ONCE, Stop date: 10/02/18 9:24:00 CDT Inactive 10/02/2018 [facility] dexmedetomidine (ANES) 200 microgram Route: IV, Drug form: INJ, Start date: 10/02/18 9:24:00 CDT, Stop date: 10/02/18 10:24:00 CDT Inactive 10/02/2018 [facility] Isolyte S PH 7.4 (ANES) 1000 mL Route: IV, Total Volume: 1,000, Start date: 10/02/18 9:10:00 CDT, Stop date: 10/02/18 10:10:00 CDT Inactive 10/02/2018 [facility] Lactated Ringers Injection IV (ANES) 1000 mL Route: IV, Total Volume: 1,000, Start date: 10/02/18 8:26:00 CDT, Stop date: 10/02/18 9:26:00 CDT Inactive 10/02/2018 [facility] ceFAZolin + sterile water 20 mL Notes: (Same As: Alicia Jolly) MEDICATION WASTE Product Size: 1000 mg Product Wasted: ___ mg No Longer Active 10/02/2018 [facility] Doxycycline 20 MG Oral Tablet 0 Refill(s) Active 07/08/2018 [facility] amitriptyline 10 mg oral tablet 0 Refill(s) Active 06/23/2018 [facility] Carbidopa 25 MG / Levodopa 100 MG Oral Tablet 0 Refill(s) Active 06/23/2018 [facility] Carbidopa 50 MG / Levodopa 200 MG Extend ed Release Tablet 0 Refill(s) Active 06/23/2018 [facility] ciprofloxacin 500 mg oral tablet 0 Refill(s) Active 06/23/2018 [facility] Docusate Sodium 100 MG Oral Capsule [Colace] 1 tab, At night, 0 Refill(s) Active 06/23/2018 [facility] dexlansoprazole 30 MG Enteric Coated Capsule [Dexilant ] 0 Refill(s) Active [facility] [facility] Dulcolax Laxative 0 Refill(s) Active 06/23/2018 [facility] lovastatin 20 mg oral tablet 0 Refill(s) Active 06/23/2018 [facility] propranolol 20 mg oral tablet 0 Refill(s) Active 06/23/2018 [facility] Melatonin 10 mg oral capsule 0 Refill(s) Active 06/23/2018 [facility] multivitamin 0 Refill(s) Active 06/23/2018 [facility] rasagiline 1 mg oral tablet 0 Refill(s) Active 06/23/2018 [facility] methenamine hippurate 1 g oral tablet 0 Refill(s) Active 06/23/2018 [facility] Allergies, Adverse Reactions, Alerts Substance Category Reaction Severity Reaction type Status Date Reported Comments Source clindamycin Assertion Drug allergy Active [facility] Immunizations No Data Provided for This Section Results Order Name Results Value Reference Range Date Interpretation Comments Source BLOOD BANK RESULTS ABO/Rh B POS 10/24/2018 [facility] BLOOD BANK RESULTS Antibody Scrn Negative (10/24/18 11:11 AM) 10/24/2018 [facility] CHEM PANEL Glucose Lvl 166 70 - 99 10/15/2018 [facility] CHEM PANEL BUN 21 7 - 22 10/15/2018 [facility] CHEM PANEL Creatinine Lvl 0.60 0.50 - 1.40 10/15/2018 [facility] CHEM PANEL Sodium Lvl 136 135 - 145 10/15/2018 [facility] CHEM PANEL Potassium Lvl 4.3 3.5 - 5.1 10/15/2018 [facility] CHEM PANEL Chloride Lvl 102 95 - 109 10/15/2018 [facility] CHEM PANEL CO2 27 24 - 32 10/15/2018 [facility] CHEM PANEL AGAP 11.3 10.0 - 20.0 10/15/2018 [facility] CHEM PANEL Calcium Lvl 9.0 8.5 - 10.5 10/15/2018 [facility] CHEM PANEL eGFR 93 10/15/2018 Result [...] should be multiplied by the estimated BMI. [facility] HEMATOLOGY PT 14.4 12.0 - 14.7 10/15/2018 [facility] HEMATOLOGY INR 1.14 0.85 - 1.17 10/15/2018 [facility] HEMATOLOGY PTT 30.2 22.9 - 35.8 10/15/2018 [facility] HEMATOLOGY WBC 10.4 3.7 - 10.4 10/15/2018 [facility] HEMATOLOGY RBC 4.43 4.20 - 5.40 10/15/2018 [facility] HEMATOLOGY Hgb 11.7 12.0 - 16.0 10/15/2018 [facility] HEMATOLOGY Hct 35.7 36.0 - 48.0 10/15/2018 [facility] HEMATOLOGY MCV 80.5 80.0 - 98.0 10/15/2018 [facility] HEMATOLOGY MCH 26.5 27.0 - 31.0 10/15/2018 [facility] HEMATOLOGY MCHC 32.9 32.0 - 36.0 10/15/2018 [facility] HEMATOLOGY RDW 13.9 11.5 - 14.5 10/15/2018 [facility] HEMATOLOGY Platelet 297 133 - 450 10/15/2018 [facility] HEMATOLOGY MPV 7.0 7.4 - 10.4 10/15/2018 [facility] HEMATOLOGY Segs 73.3 45.0 - 75.0 10/15/2018 [facility] HEMATOLOGY Lymphocytes 14.5 20.0 - 40.0 10/15/2018 [facility] HEMATOLOGY Monocytes 10.1 2.0 - 12.0 10/15/2018 [facility] HEMATOLOGY Eosinophils 1.5 0.0 - 4.0 10/15/2018 [facility] HEMATOLOGY Basophils 0.6 0.0 - 1.0 10/15/2018 [facility] HEMATOLOGY Neutrophils # 7.6 1.5 - 8.1 10/15/2018 [facility] HEMATOLOGY Lymphocytes # 1.5 1.0 - 5.5 10/15/2018 [facility] HEMATOLOGY Monocytes # 1.1 0.0 - 0.8 10/15/2018 [facility] HEMATOLOGY Eosinophils # 0.2 0.0 - 0.5 10/15/2018 [facility] HEMATOLOGY Basophils # 0.1 0.0 - 0.2 10/15/2018 [facility] CHEM PANEL Glucose Lvl 102 70 - 99 10/14/2018 [facility] CHEM PANEL BUN 16 7 - 22 10/14/2018 [facility] CHEM PANEL Creatinine Lvl 0.61 0.50 - 1.40 10/14/2018 [facility] CHEM PANEL Sodium Lvl 135 135 - 145 10/14/2018 [facility] CHEM PANEL Potassium Lvl 4.5 3.5 - 5.1 10/14/2018 [facility] CHEM PANEL Chloride Lvl 96 95 - 109 10/14/2018 [facility] CHEM PANEL CO2 31 24 - 32 10/14/2018 [facility] CHEM PANEL Calcium Lvl 8.8 8.5 - 10.5 10/14/2018 [facility] CHEM PANEL AGAP 12.5 10.0 - 20.0 10/14/2018 [facility] CHEM PANEL eGFR 92 10/14/2018 Result [...] should be multiplied by the estimated BMI. [facility] CHEM PANEL Glucose Lvl 104 70 - 99 10/14/2018 [facility] CHEM PANEL BUN 16 7 - 22 10/14/2018 [facility] CHEM PANEL Creatinine Lvl 0.57 0.50 - 1.40 10/14/2018 [facility] CHEM PANEL CO2 27 24 - 32 10/14/2018 [facility] CHEM PANEL Calcium Lvl 9.1 8.5 - 10.5 10/14/2018 [facility] CHEM PANEL eGFR 94 10/14/2018 Result [...] should be multiplied by the estimated BMI. [facility] CHEM PANEL Sodium Lvl 130 135 - 145 10/14/2018 [facility] CHEM PANEL Potassium Lvl 4.7 3.5 - 5.1 10/14/2018 [facility] CHEM PANEL Chloride Lvl 96 95 - 109 10/14/2018 [facility] CHEM PANEL AGAP 11.7 10.0 - 20.0 10/14/2018 [facility] HEMATOLOGY WBC 13.8 3.7 - 10.4 10/14/2018 [facility] HEMATOLOGY RBC 4.36 4.20 - 5.40 10/14/2018 [facility] HEMATOLOGY Hgb 11.5 12.0 - 16.0 10/14/2018 [facility] HEMATOLOGY Hct 35.4 36.0 - 48.0 10/14/2018 [facility] HEMATOLOGY MCV 81.2 80.0 - 98.0 10/14/2018 [facility] HEMATOLOGY MCH 26.3 27.0 - 31.0 10/14/2018 [facility] HEMATOLOGY MCHC 32.3 32.0 - 36.0 10/14/2018 [facility] HEMATOLOGY RDW 13.9 11.5 - 14.5 10/14/2018 [facility] HEMATOLOGY Platelet 282 133 - 450 10/14/2018 [facility] HEMATOLOGY MPV 6.7 7.4 - 10.4 10/14/2018 [facility] HEMATOLOGY Segs 79.7 45.0 - 75.0 10/14/2018 [facility] HEMATOLOGY Lymphocytes 4.5 20.0 - 40.0 10/14/2018 [facility] HEMATOLOGY Monocytes 14.4 2.0 - 12.0 10/14/2018 [facility] HEMATOLOGY Eosinophils 0.8 0.0 - 4.0 10/14/2018 [facility] HEMATOLOGY Basophils 0.6 0.0 - 1.0 10/14/2018 [facility] HEMATOLOGY Neutrophils # 11.0 1.5 - 8.1 10/14/2018 [facility] HEMATOLOGY Lymphocytes # 0.6 1.0 - 5.5 10/14/2018 [facility] HEMATOLOGY Monocytes # 2.0 0.0 - 0.8 10/14/2018 [facility] HEMATOLOGY Eosinophils # 0.1 0.0 - 0.5 10/14/2018 [facility] HEMATOLOGY Basophils # 0.1 0.0 - 0.2 10/14/2018 [facility] BLOOD BANK RESULTS Antibody Scrn Negative (10/13/18 12:07 AM) 10/13/2018 [facility] BLOOD BANK RESULTS ABO/Rh B POS 10/13/2018 [facility] HEMATOLOGY RBC Morph Della l (10/13/18 12:07 AM) Normal 10/13/2018 [facility] HEMATOLOGY Plt Morph Della l (10/13/18 12:07 AM) Normal 10/13/2018 [facility] HEMATOLOGY Segs 75.9 45.0 - 75.0 10/13/2018 [facility] HEMATOLOGY Lymphocytes 12.3 20.0 - 40.0 10/13/2018 [facility] HEMATOLOGY Monocytes 9.1 2.0 - 12.0 10/13/2018 [facility] HEMATOLOGY Eosinophils 1.8 0.0 - 4.0 10/13/2018 [facility] HEMATOLOGY Basophils 0.9 0.0 - 1.0 10/13/2018 [facility] HEMATOLOGY Neutrophils # 12.1 1.5 - 8.1 10/13/2018 [facility] HEMATOLOGY Lymphocytes # 2.0 1.0 - 5.5 10/13/2018 [facility] HEMATOLOGY Monocytes # 1.5 0.0 - 0.8 10/13/2018 [facility] HEMATOLOGY Eosinophils # 0.3 0.0 - 0.5 10/13/2018 [facility] HEMATOLOGY Basophils # 0.2 0.0 - 0.2 10/13/2018 [facility] HEMATOLOGY WBC 16.0 3.7 - 10.4 10/13/2018 [facility] HEMATOLOGY RBC 4.16 4.20 - 5.40 10/13/2018 [facility] HEMATOLOGY Hgb 10.9 12.0 - 16.0 10/13/2018 [facility] HEMATOLOGY Hct 33.7 36.0 - 48.0 10/13/2018 [facility] HEMATOLOGY MCV 81.1 80.0 - 98.0 10/13/2018 [facility] HEMATOLOGY MCH 26.3 27.0 - 31.0 10/13/2018 [facility] HEMATOLOGY MCHC 32.4 32.0 - 36.0 10/13/2018 [facility] HEMATOLOGY RDW 13.8 11.5 - 14.5 10/13/2018 [facility] HEMATOLOGY Platelet 238 133 - 450 10/13/2018 [facility] HEMATOLOGY MPV 7.3 7.4 - 10.4 10/13/2018 [facility] HEMATOLOGY INR 0.96 0.85 - 1.17 10/13/2018 [facility] HEMATOLOGY PT 12.6 12.0 - 14.7 10/13/2018 [facility] HEMATOLOGY PTT 26.3 22.9 - 35.8 10/13/2018 [facility] MOXIFLOXACIN:SUSC:PT:ISOLATE:ORDQN:CHRISTA Gram Stain Report Gram Stain Performed By: Raul odell [facility] 10/12/2018 [facility] MOXIFLOXACIN:SUSC:PT:ISOLATE:ORDQN:CHRISTA Culture: Respiratory w/Gram Stain Many Serratia marcescens 10/12/2018 [facility] MOXIFLOXACIN:SUSC:PT:ISOLATE:ORDQN:CHRISTA Serratia marcescens Serratia marcescens 10/12/2018 [facility] URINE AND STOOL UA Color Yellow *NA* (10/12/18 11:31 AM) Yellow 10/12/2018 [facility] URINE AND STOOL UA Turbidity Slight *ABN* (10/12/18 11:31 AM) Clear 10/12/2018 [facility] URINE AND STOOL UA Spec Grav 1.016 <=1.030 10/12/2018 [facility] URINE AND STOOL UA pH 7.0 5.0 - 8.0 10/12/2018 [facility] URINE AND STOOL UA Protein Negative mg/dL Negative mg/dL 10/12/2018 [facility] URINE AND STOOL UA Glucose Negative mg/dL Negative mg/dL 10/12/2018 [facility] URINE AND STOOL UA Ketones Trace mg/dL Negative mg/dL 10/12/2018 [facility] URINE AND STOOL UA Bili Negative *NA* (10/12/18 11:31 AM) Negative 10/12/2018 [facility] URINE AND STOOL UA Blood Negative (10/12/18 11:31 AM) Negative 10/12/2018 [facility] URINE AND STOOL UA Urobilinogen <1.0 0.1 - 1.0 10/12/2018 [facility] URINE AND STOOL UA Nitrite Positive *ABN* (10/12/18 11:31 AM) Negative 10/12/2018 [facility] URINE AND STOOL UA Leuk Est Negative (10/12/18 11:31 AM) Negative 10/12/2018 [facility] URINE AND STOOL UA WBC 2 0 - 5 10/12/2018 [facility] URINE AND STOOL UA RBC 1 0 - 2 10/12/2018 [facility] URINE AND STOOL UA Bacteria Many /HPF None Seen /HPF 10/12/2018 [facility] URINE AND STOOL UA Mucus Few /LPF None Seen /LPF 10/12/2018 [facility] URINE AND STOOL UA Sq Epi None Seen 10/12/2018 [facility] CHEM PANEL Procalcitonin Lvl <0.05 0.00 - 0.10 10/12/2018 [facility] CHEM PANEL Phosphorus 2.9 2.5 - 4.5 10/10/2018 [facility] CHEM PANEL Magnesium Lvl 2.4 1.8 - 2.4 10/10/2018 [facility] PARATHYROID PROFILE Ca Ion WB 1.08 1.05 - 1.25 10/10/2018 [facility] PARATHYROID PROFILE Ca Norm WB 1.12 1.05 - 1.25 10/10/2018 [facility] CHEM PANEL Phosphorus 2.2 2.5 - 4.5 10/09/2018 [facility] CHEM PANEL Magnesium Lvl 2.0 1.8 - 2.4 10/09/2018 [facility] PARATHYROID PROFILE Ca Ion WB 1.14 1.05 - 1.25 10/09/2018 [facility] PARATHYROID PROFILE Ca Norm WB 1.15 1.05 - 1.25 10/09/2018 [facility] CHEM PANEL Procalcitonin Lvl <0.05 ng/mL 0.00 - 0.10 10/08/2018 [facility] CHEM PANEL Magnesium Lvl 2.2 1.8 - 2.4 10/08/2018 [facility] CHEM PANEL Phosphorus 2.7 2.5 - 4.5 10/08/2018 [facility] HEMATOLOGY RBC Morph Della l (10/08/18 12:01 AM) Normal 10/08/2018 [facility] HEMATOLOGY Plt Morph Della l (10/08/18 12:01 AM) Normal 10/08/2018 [facility] PARATHYROID PROFILE Ca Ion WB 1.18 1.05 - 1.25 10/08/2018 [facility] PARATHYROID PROFILE Ca Norm WB 1.21 1.05 - 1.25 10/08/2018 [facility] CARDIAC ENZYMES Troponin-I <0.02 ng/mL 0.00 - 0.40 10/07/2018 [facility] CARDIAC ENZYMES Troponin-I <0.02 0.00 - 0.40 10/05/2018 Result Comment: Specimen Slightly Hemoly zed. [facility] Gram Stain Report Gram Stain Perf ormed By: [facility] 10/05/2018 [facility] Culture: Respiratory w/Gram Stain F ew Yeast Isolated Normal Respiratory Peggy Isolated 10/05/2018 [facility] BACTERIAL - SEROLOGY MRSA by PCR Negative (10/04/18 6:03 PM) 10/04/2018 [facility] CARDIAC ENZYMES Troponin-I <0.02 0.00 - 0.40 10/04/2018 [facility] CHEM PANEL Procalcitonin Lvl <0.05 ng/mL 0.00 - 0.10 10/04/2018 [facility] CHEM PANEL B/C Ratio 31 6 - 25 10/04/2018 [facility] CHEM PANEL Total Protein 6.5 6.4 - 8.4 10/04/2018 [facility] CHEM PANEL Albumin Lvl 2.8 3.5 - 5.0 10/04/2018 [facility] CHEM PANEL Globulin 3.7 2.7 - 4.2 10/04/2018 [facility] CHEM PANEL A/G Ratio 0.8 0.7 - 1.6 10/04/2018 [facility] CHEM PANEL ALT <6 0 - 65 10/04/2018 [facility] CHEM PANEL AST 14 0 - 37 10/04/2018 [facility] CHEM PANEL Alk Phos 70 39 - 136 10/04/2018 [facility] CHEM PANEL Bili Total 0.7 0.2 - 1.3 10/04/2018 [facility] CHEM PANEL Lactic Acid Lvl 0.8 0.5 - 2.2 10/04/2018 [facility] HEMATOLOGY PT 13.4 12.0 - 14.7 10/03/2018 [facility] HEMATOLOGY INR 1.04 0.85 - 1.17 10/03/2018 [facility] HEMATOLOGY PTT 27.2 22.9 - 35.8 10/03/2018 [facility] BLOOD BANK RESULTS ABO/Rh B POS 10/02/2018 [facility] BLOOD BANK RESULTS Antibody Scrn Negative (10/02/18 7:01 AM) 10/02/2018 [facility] CHEM PANEL POC Creatinine 0.8 0.5 - 1.4 09/30/2018 [facility] CHEM PANEL eGFR 75 09/30/2018 Result [...] should be multiplied by the estimated BMI. [facility] Pathology Reports No Data Provided for [...] immediate complications. IMPRESSION: Percutaneous placement of 18 Cook Islander push-type gastrostomy tube. Plan: Nothing by mouth [...] The tube was capped. Gastrostomy tube placed: 18-[place] Islander CHRISTA Internal catheter securement: Balloon External catheter [...] agree with the report as written. 10/13/2018 [facility] Chest 1view DX EXAM: XR CHEST [...] compared to the most recent radiograph. 10/11/2018 [facility] Chest 1view DX EXAM: XR CHEST [...] suggestive of ongoing edema or infection. 10/09/2018 [facility] Chest 1view DX EXAM: XR CHEST [...] Trace left pleural effusion possible . 10/08/2018 [facility] Chest 1view DX EXAM: XR CHEST 1 VIEW DATE: 10/06/2018 3:00 CDT INDICATION: - intubated. TECHNIQUE: Chest 1 view FINDINGS: Comparison is made to October 04. Cardiomediastinal silhouette is unchanged. C-spine fusion hardware. Life support lines and tubes remain in place. Bilateral lower lobe and right perihilar subsegmental atelectasis. No pleural effusions. IMPRESSION: Bilateral lower lobe and right perihilar subsegmental atelectasis. 10/06/2018 [facility] Chest Pulmonary Embolism CTA EXAM: CTA [...] or abdominal CT may be performed. 10/04/2018 [facility] Brain wo contrast CT EXAM: CT [...] abnormality to the limitation of exam. 10/04/2018 [facility] Abdomen 1 v for Placement DX [...] IMPRESSION: 1. Tube position as above. 10/04/2018 [facility] Chest 1 v for Placement DX [...] 5. Stable prominent right hilar region. 10/04/2018 [facility] Chest 1view DX EXAM: XR CHEST [...] reassessment with better aerated lungs recommended. 10/04/2018 [facility] Abdomen 1 v for Placement DX [...] distal tip in the antropyloric region.. 10/02/2018 [facility] Brain w/wo contrast MRI EXAM: MRI [...] ischemic changes. No acute intracranial abnormality. 09/30/2018 [facility] Consultation Notes No Data Provided for This Section Discharge Summaries No Data Provided for This Section History and Physicals No Data Provided for This Section Vital Signs Vital Sign Value Date Comments Source Respitory Rate 16 10/24/2018 [facility] Systolic (mm Hg) 129 10/24/2018 [facility] Diastolic (mm Hg) 60 10/24/2018 [facility] Respitory Rate 16 10/24/2018 [facility] Systolic (mm Hg) 115 10/24/2018 [facility] Diastolic (mm Hg) 63 10/24/2018 [facility] Respitory Rate 17 10/24/2018 [facility] Systolic (mm Hg) 119 10/24/2018 [facility] Diastolic (mm Hg) 58 10/24/2018 [facility] Weight 77.273 10/24/2018 [facility] BMI Calculated 31.16 10/24/2018 [facility] Heart Rate 98 10/24/2018 [facility] Height 157.48 cm 10/23/2018 [facility] Respitory Rate 18 10/15/2018 [facility] Systolic (mm Hg) 113 10/15/2018 [facility] Diastolic (mm Hg) 61 10/15/2018 [facility] Respitory Rate 19 10/15/2018 [facility] Systolic (mm Hg) 134 10/15/2018 [facility] Diastolic (mm Hg) 58 10/15/2018 [facility] Respitory Rate 18 10/15/2018 [facility] Systolic (mm Hg) 129 10/15/2018 [facility] Diastolic (mm Hg) 69 10/15/2018 [facility] Height 157.48 cm 10/12/2018 [facility] Weight 86.3 10/12/2018 [facility] Height 157.48 cm 10/12/2018 [facility] Temperature Oral (F) 98.0 F 10/12/2018 [facility] Height 157.48 cm 10/11/2018 [facility] Temperature Oral (F) 98.0 F 10/11/2018 [facility] Temperature Oral (F) 98.4 F 10/11/2018 [facility] Heart Rate 82 10/02/2018 [facility] Weight 86.3 09/18/2018 [facility] BMI Calculated 34.8 09/18/2018 [facility] Heart Rate 74 09/18/2018 [facility] Weight 86.3 09/18/2018 [facility] BMI Calculated 34.8 09/18/2018 [facility] Encounters Location Location Details Encounter Type Encounter Number Reason For Visit Attending Provider ADM Date DC Date Status Source Outpatient [id number] Thom Evans Jr 07/09/2018 [facility] Neurosurgery [facility] Outpatient [id number] Thom Evans Jr 07/09/2018 07/10/2018 [facility] Outpatient [id number] Thom Evans Jr 09/30/2018 10/01/2018 [facility] Outpatient [id number] Thom Evans Jr 10/02/2018 [facility] Inpatient [id number] Thom Evans Jr 10/02/2018 10/15/2018 [facility] Outpatient [id number] Thom Evans Jr 10/16/2018 Active [facility] Day Surgery [id number] Thom Evans 10/24/2018 10/25/2018 [facility] Procedures Procedure Code Date Perfomer Comments Source back surgery [id number] 02/18/2015 [facility] Spine surgery [id number] 02/18/2015 [facility] Hysterectomy [id number] 02/18/1993 [facility] section [id number] 02/19/1992 [facility] Procedure<sup>1</sup> [id number] DEEP BRAIN STIMULATOR [facility] Assessment and Plan Assessment and Plan Date Source Extracted from:Title: Medicine Consult F ollow Up Author: Shawn Molina DO Date: 10/14/18 The patient is a 68 year old woman with PMH of Parkinson's, chronic dysphagia, recurrent UTI'swho presented to [facility] for elective DBS placement and developed acute hypoxic respiratory failure post-operatively in the setting of narcotic administrationbut has been extubated, now with worsening leukocytosis since 10/09. Patient has not fevered yet, but given she has multiple risk factors for pneumonia (particularly aspiration), would obtain cultures and start empiric antibiotics. Other potential sources of infection also include UTI (hx of recurrent UTI's per ), FIGHTING [employer]IN[employer] source given recent instrumentation,less likely to bereactive [...] 9% IV 250 mL 1.25 gm IVPB [id number] 166.67 ml/hr Unscheduled Meds (1): 10/01/18 ceFAZolin [...] ml NEB RQ6H 10/02/18 bisacodyl 10 mg NC Daily 10/04/18 calcium carbonate (calcium carb clara [...] Daily 10/02/18 potassium chloride 40 mEq PO NC N 10/04/18 potassium chloride 20 mEq IVPB PRN 50 ml/hr 10/04/18 potassium chloride 10 mEq IVPB PRN 50 ml/hr 10/04/18 potassium chloride 20 mEq PO NC N 10/04/18 potassium chloride 20 mEq NJ NC N 10/04/18 potassium phosphate + Sodium Ch [...] and IR Attending, Dr. Echeverria. Irasema Song, [facility]- [facility] Interventional Radiology THANK YOU FOR CONSULTING INTERVENTIONAL RADIOLOGY, IF YOU HAVE ANY QUESTIONS, PLEASE CONTACT [phone]. 10/15/2018 [facility] Plan of Care No Data Provided for This Section Social History Social History Date Source Social History TypeResponse Smoking Status Unknown if ever smoked; Type: Cigarettes; Exposure to Tobacco Smoke None; Cigarette Smoking Last 365 Days No; Reg Smoking Cessation Counseling No entered on: 10/24/18 10/24/2018 [facility] Social History TypeResponse Smoking Status Unknown if ever smoked; Exposure to Tobacco Smoke None; Cigarette Smoking Last 365 Days No; Reg Smoking Cessation Counseling No entered on: 07/08/18 07/08/2018 [facility] Family History No Data Provided for This Section Advance Directives No Data Provided for This Section Functional Status No Data Provided for This Section
--- OUTSIDE RECORDS SUMMARY | 2019-11-27 00:56 | XMS REPORT | Clinical Summary ---
Author Author 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 [address] [place] [address] [place] [address] Advance Directives For more information, please contact: [facility] [address] [place] [address] Date Inactivated Comments Code Status Date Activated 03/01/2016 12:32 PM Full Code 02/29/2016 10:15 PM This code status was determined by: Patient 01/05/2016 7:49 PM Full Code 12/30/2015 2:19 AM This code status was determined by: Patient 12/30/2015 2:19 AM Full Code 12/30/2015 2:19 AM This code status was determined by: Patient
--- OUTSIDE RECORDS SUMMARY | 2019-11-27 00:57 | XMS REPORT | Continuity of Care Document ---
Author Author [facility] t Organization [facility] Address [facility] [place] [address] Phone Unavailable Care Team Providers Care Scientific Investigator Name Role Phone MYNOR, (NON STAFF) JIMBO PCP Vielka COLLINS Attphys Unavailable ESPARZA, SOUHEIL Attphys Unavailable Leon Evans Jr Attphys Amarilys VELASQUEZ Attphys Unavailable KHADRA FONTANA Attphys Unavailable ESPARZA, SOUHEIL Admphys Unavailable Leon Evans Jr Admphys KHADRA FONTANA Admphys Unavailable Payers Payer Name Policy Type Policy Number Effective Date Expiration Date [facility] NA 2014 00:00:00 [facility] Medicare A & B NA 2013 00:00:00 [facility] Problems Condition Name Condition Details Condition Category Status Onset Date Resolution Date Last Treatment Date Treating Clinician Comments Source PARKINSON'S DISEASE PARK INSON'S DISEASE Active 08/26/2018 [facility] Diagnosis Active 2018-08-26 00:00:00 2018-10-27 22:22:00 Raul William PARKINSON PARK INSON Active 08/26/2018 [facility] Diagnosis Active 2018-08-26 00:00:00 2018-09-30 16:16:00 Raul William G20 G20 Active 08/26/2018 [facility] Diagnosis Active 2018-08-26 00:00:00 2018-10-24 10:13:00 Raul William Renal stone Renal stone Disease Active 2016-02-29 00:00:00 [facility] E coli bacteremia E coli bacteremia Disease Active 2016-01-01 00:00:00 [facility] Acute pyelonephritis Acute pyelonephritis Disease Active 00:00:00 [facility] Nephrolithiasis Nephrolithiasis Disease Active 2016-01-01 00:00:00 [facility] Hydronephrosis with obstructing calculus Hydronephrosi s with obstructing calculus Disease Active 2016-01-01 00:00:00 [facility] Thrombocytopenia Thrombocytopenia Disease Active 2015-12-31 00:00:00 [facility] Anemia Anemia Disease Active 2015-12-31 00:00:00 [facility] Acute kidney injury Acute kidney injury Disease Active 2015-12-31 [facility] S[facility] Active 2015-12-30 00:00:00 [facility] Septic shock Septic shock Disease Active 2015-12-30 00:00:00 [facility] H/O Parkinson's disease H/O Parkinson's disease Disease Active 2015-12-30 00:00:00 [facility] Cervical radiculopathy Cervical radiculopathy Problem Active 2015-02-21 00:00:00 [facility] 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 Active [facility] Decreased oral intake Problem Active [facility] Urinary tract infection Problem Active [facility] Parkinson's disease (disorder) Parkinson's disease (disorder) Active Problem 10/26/2018 [facility] Problem Active 2018-10-26 22:53:26 [facility] Simple obesity (disorder) Simp le obesity (disorder) Active Problem 10/26/2018 [facility] Problem Active 2018-10-26 22:53:26 [facility] Allergies, Adverse Reactions, Alerts Allergy Name Allergy Type Status Severity Reaction(s) Onset Date Inacti ve Date Treating Clinician Comments Source Clindamycin Drug Intolerance Active Other (See Comments) 2015-12-30 00:00:00 Had c diff after taking clinda in the [facility] clindamycin clindamycin Active [facility] Social History Social Habit Start Date Stop Date Quantity Comments Source Sex Assigned At [facility] Smoking Status Start Date Stop Date Source Never smoker [facility] Medications Ordered Medication Name Filled Medication Name Start Date Stop Da te Current Medication? Ordering Clinician Indication Dosage Frequency Signature (SIG) Comments Components Source Oxycodone Hydrochloride 1 MG/ML Oral Solution 2018-10-24 20:25:0 0 No 5 mg, 5 mL, Route: PEG, ONCE, Dosing Juan suarez 77.273, kg, Priority: NOW, Start date: 10/24/18 15:25:00 CDT, Stop date: 10/24/18 15:25:00 CDT Raul William Cephalexin 500 MG Oral Capsule [Keflex] 2018-10-24 19:36:00 Yes 500 mg = 1 cap, PO, TID, X 10 day, # 30 cap, 0 Refill(s) Raul William Ondansetron 4 MG Disintegrating Tablet [Zofran] 2018-10-24 19:36 :00 Yes 4 mg = 1 tab, PO, BID, PRN N ausea and Vomiting, Dissolve tab under tongue, # 10 tab, 0 Refill(s) Raul Chamberlainann sugammadex 2018-10-24 19:25:00 No Notes: (S leobardo as: Bridion) Raul William ondansetron (TOMS) 2018-10-24 19:24:00 No Route: IV, Drug form: INJ, ONCE, Stop date: 10/24/18 14:24:00 CDT Raul William sugammadex (ANES) 2018-10-24 19:24:00 No Route: IV, Drug form: SOLN, ONCE, Stop date: 10/24/18 14:24:00 CDT Raul Chamberlainann rocuronium (ANES) 2018-10-24 18:28:00 No Route: IV, Drug form: INJ, ONCE, Stop date: 10/24/18 13:28:00 CDT Augusta William fentaNYL (ANES) 2018-10-24 18:28:00 No Route: IV, Drug form: INJ, ONCE, Stop date: 10/24/18 13:28:00 CDT Augusta William ceFAZolin (ANES) 2018-10-24 18:28:00 No Route: IV, Drug form: INJ, ONCE, Stop date: 10/24/18 13:28:00 CDT [facility] lidocaine (ANES) 2018-10-24 18:23:00 No Route: IV, Drug form: INJ, ONCE, Stop date: 10/24/18 13:23:00 CDT [facility] propofol (ANES) 2018-10-24 18:23:00 No Route: IV, Drug form: INJ, ONCE, Stop date: 10/24/18 13:23:00 [facility] Acet[facility] 2018-10-24 18:14:00 No Notes: Max acetaminophen 4000 mg/day (4 gm/day). (Same as: Tylenol Extra Strength) [facility] Oxycodone Hydrochloride 5 MG Oral Tablet 2018-10-24 18:14:00 No Notes: (Same as: Roxicodone) [facility] Flumazenil 2018-10-24 18:14:00 No Notes: (S leobardo as: Romazicon) [facility] Naloxone 2018-10-24 18:14:00 No Notes: Same as Narcan [facility] Ondansetron 2018-10-24 18:14:00 No Notes: (Same as: Zofran) MEDICATION WASTE Product Size: 4 mg Product Wasted: ___ mg [facility] Lactated Ringers Injection IV (ANES) 1000 mL 2018-10-24 17:24:00 No Route: IV, Total Volume: 1,000, Start date: 10/24/18 12:24:00 CDT, Stop date: 10/24/18 13:24:00 CDT [facility] ceFAZolin 2018-10-24 04:00:00 No Notes: (Sa me as Ancef) [facility] Zinc Sulfate 2018-10-23 14:39:00 Yes 220 mg, GT, Daily, 0 Refill(s) [facility] Vitamin C 2018-10-23 14:38:00 Yes 500 mg, GT , BID, 0 Refill(s) [facility] ceFAZolin + sterile water 20 mL 2018-10-16 08:00:00 No Notes: (Same As: Ancef, Kefzol) MEDICATION WASTE Product Size: 1000 mg Product Wasted: ___ mg Raul William Sulfamethoxazole 800 MG / Trimethoprim 160 MG Oral Tablet [B actrim] 2018-10-15 22:16:00 Yes 1 tab, PO, Q12H, X 5 day, # 10 tab, 0 Refill(s) Raul William atorvastatin 10 mg oral tablet 2018-10-15 22:01:00 Yes 10 mg = 1 tab, GT, Daily, 0 Refill(s) Raul de leon lansoprazole 2018-10-15 22:01:00 Yes GT, Heidy ly, 0 Refill(s) Raul William 24 HR Rotigotine 0.167 MG/HR Transdermal Patch 2018-10-15 22:01: 00 Yes TOP, Daily, 0 Refill(s) Haja quinn Chamberlainann sennosides, GROUP HOME 8.6 MG Oral Tablet 2018-10-15 22:01:00 [...] Stop date: 11/13/18 6:25:00 CDT, 0 Haja finevielka Stewart Fentanyl 2018-10-13 21:23:00 No 50 microgram, [...] No Notes: (S leobardo as: Duoneb) Raul William rasagiline 2018-10-10 16:00:00 No Notes: Same as [...] temperature Expires in days from Date Raul Chamberlainann potassium phosphate 2018-10-07 12:22:00 No Notes: (Same as: K Phosphate.) Do not infuse phosphorous concurrently in the same line as TPN or IVF that contains calcium. For double lumen central lines, phosphorous may be infused in a separate lumen from TPN. 1 mMol phoshate has 1.47 mEq potassium Infuse over 4 hours Raul Stewart Valproic Acid 100 MG/ML Injectable Solution 2018-10-06 22:24:00 No 3,000 mg, Route: IVPB, ONCE, Dosing Weight 86.3, kg, Priority: STAT, Start date: 10/06/18 17:24:00 CDT, Stop date: 10/06/18 17:24:00 CDT Raul Chamberlainann Albuterol 0.833 MG/ML / Ipratropium Brom veena 0.167 MG/ML Inhalant Solution [DuoNeb] 2018-10-06 20:00:00 No Notes: (S leobardo as: Duoneb) Raul Chamberlainann Dexamethasone 2018-10-06 17:00:00 No Notes: Concentration: 4mg/ml Raul William Racepinephrine 22.5 MG/ML Inhalant Solution 2018-10-06 16:37:00 No 11.25 mg, 0.5 mL, Route: NEB, Drug Form: SOLN, Dosing Weight 86.3, kg, RQ6H, PRN Stridor, Start date: 10/06/18 11:37:00 CDT, Duration: 30 day, Stop date: 11/05/18 11:36:00 CDT, Pediatric Dosing, 0 Raul Chamberlainann remove patch 2018-10-06 15:00:00 No Notes: Remove [...] Stop date: 10/05/18 16:04:00 CDT, 0 Raul Chamberlainan n Zosyn 2018-10-05 21:00:00 No Notes: (Same as: Zosyn) Dosing based on Piperacillin component MEDICATION WASTE Product Size: 3375 mg Product Wasted: ___ mg [facility] rotigotine 2018-10-05 15:00:00 No Notes: (Same as: [...] being intubated (unless the nurse is a FISH ICER). Same as: Diprivan Raul William ocular lubricant [...] in a separate lumen from TPN. Raul Chamberlain ryann potassium phosphate 2018-10-04 21:40:00 No Notes: (Same as: K Phosphate.) Do not infuse phosphorous concurrently in the same line as TPN or IVF that contains calcium. For double lumen central lines, phosphorous may be infused in a separate lumen from TPN. 1 mMol phoshate has 1.47 mEq potassium Infuse over 4 hours [facility] potassium phosphate-sodium phosphate 250 mg-280 mg-160 mg oral powder for reconstitution 2018-10-04 21:40:00 No Notes: (Same as: Phos-NaK) Each 1.5 gm pkt has 250mg phosphorous. Mix w/2.5oz water and stir. [facility] Magnesium Sulfate 2018-10-04 21:40:00 No Notes: WASTE: F/P - Sink; E - Municipal Tra Bin [facility] Magnesium Oxide 2018-10-04 21:40:00 No Notes: (Same as: Mag-Ox 400) Magnesium oxide [id number] elemental magnesium Dose=____mg magnesium oxide (___mg elemental magnesium) [facility] Her de leon Calcium Gluconate 2018-10-04 21:40:00 No Notes: WASTE: F/P - Sink; [facility] Calcium Carbonate 500 MG Chewable Tablet 2018-10-04 21:40:00 No Notes: (Same As: Tums) Calcium Carbonate 500 mg = 200 mg elemental calcium Dose = mg calcium carbonate ( mg elemental calcium) [facility] heparin sodium, porcine 2500 UNT/ML Injectable Solution 2018-10-04 21:00:00 No Notes: porcine heparin [facility] Albuterol 0.833 MG/ML / Ipratropium Brom veena 0.167 MG/ML Inhalant Solution [DuoNeb] 2018-10-04 20:38:00 No Notes: (S leobardo as: Duoneb) [facility] Dextrose 50% Syringe 2018-10-04 19:46:00 No 12.5 gm, 25 mL, Route: IVP, Drug Form: INJ, Dosing Weight 86.3, kg, PRN, PRN Blood Glucose Results, Start date: 10/04/18 14:46:00 CDT, Duration: 30 day, Stop date: 11/03/18 14:45:00 CDT, 0 [facility] Glucagon 2018-10-04 19:46:00 No 1 mg, Route: IM, Drug form: PDR/INJ, PRN, Dosing Weight 86.3, kg, PRN Blood Glucose Results, Start date: 10/04/18 14:46:00 CDT, Duration: 30 day, Stop date: 11/03/18 14:45:00 CDT, 0 [facility] Insulin regular 2018-10-04 19:46:00 No Notes: (Same as: Humulin R) Roll in palms of hands gently; Do not shake vigorously. WASTE: F/P - Black; E - Municipal Trash Bin Stable for 31 days at room temperature Expires in days from Date [facility] heparin 2018-10-03 21:00:00 No Notes: porci ne heparin [facility] Dexilant 2018-10-03 14:00:00 No 30 mg, Route: PO, Drug form: DRC, Daily, Dosing Weight 86.3, kg, Start date: 10/03/18 9:00:00 CDT, Duration: 30 day, Stop date: 11/01/18 9:00:00 [facility] Lovastatin 2018-10-03 14:00:00 No 20 mg, Route: PO, Drug form: TAB, Daily, Dosing Weight 86.3, kg, Start date: 10/03/18 9:00:00 CDT, Duration: 30 day, Stop date: 11/01/18 9:00:00 [facility] ras[facility] 2018-10-03 14:00:00 No 1 mg, 1 tab, Route: PO, Drug form: TAB, Daily, Dosing Weight 86.3, kg, Start date: 10/03/18 9:00:00 CDT, Duration: 30 day, Stop date: 11/01/18 9:00:00 CDT, 0 [facility] Protonix 2018-10-03 14:00:00 No Notes: Tablet should not be chewed or crushed. (Same as: Protonix) [facility] Lipitor 2018-10-03 14:00:00 No Notes: (Same As: Lipitor) [facility] Saline Flush 0.9% 2018-10-03 02:00:00 No Notes: (Same as: BD Posiflush) [facility] Carbidopa 50 MG / Levodopa 200 MG Extended Release Tablet 2018-10-03 02:00:00 No Notes: "Do Not Crush" Take with milk or food. (Same As: Sinemet CR) [facility] Melatonin 2018-10-03 02:00:00 No Notes: (Sa me as: Melatonin) [facility] Cefazolin 2018-10-03 00:00:00 No Notes: (Sa me as Ancef) [facility] Docusate 2018-10-02 22:00:00 No 50 mg, Route: PO, Drug form: CAP, BID, Dosing Weight 86.3, kg, Start date: 10/02/18 17:00:00 CDT, Duration: 30 day, Stop date: 11/01/18 9:00:00 CDT, Pediatric Dosing Raul William sennosides, GROUP HOME 2018-10-02 22:00:00 No Notes: (Same as: Senokot) Raul William Docusate Sodium 100 MG Oral Capsule [Colace] 2018-10-02 22:00:00 No Notes: (Same as: Colace) Raul Calderon n Amitriptyline 2018-10-02 22:00:00 No Notes: (Same as: Elavil) Raul Chamberlainann Propranolol 2018-10-02 22:00:00 No Notes: Give with food. (Same as: Inderal) Rual Chamberlainann Carbidopa 25 MG / Levodopa 100 MG Oral Tablet 2018-10-02 21:00:0 0 No Notes: Take with milk or food. (Same As: Sinemet) [facility] levETIRAcetam (ANES) 2018-10-02 19:38:00 No Route: IV, Drug form: INJ, ONCE, Stop date: 10/02/18 14:38:00 CDT Raul William Sodium Chloride 0.9% IV 1,000 mL 2018-10-02 19:24:00 No 1,000 mL, Rate: 50 ml/hr, Infuse over: 20 hr, Route: IV, Dosing Weight 86.3 kg, Total Volume: 1,000, Start date: 10/02/18 14:24:00 CDT, Duration: 30 day, Stop date: 11/01/18 14:23:00 CDT, 1.97, m2, 0 [facility] Labetalol 2018-10-02 19:24:00 No 10 mg, 2 mL, Route: IVP, Drug form: INJ, Q15Min, Dosing Weight 86.3, kg, PRN Elevated BP, Start date: 10/02/18 14:24:00 CDT, Duration: 3 doses or times, Stop date: Limited # of times, 0 [facility] Hydralazine 2018-10-02 19:24:00 No Notes: (Same as: Apresoline) Push over 5 minutes [facility] Ondansetron 2018-10-02 19:24:00 No Notes: (Same as: Zofran) MEDICATION WASTE Product Size: 4 mg Product Wasted: ___ mg [facility] Acetaminophen 325 MG / Hydrocodone Bitartrate 10 MG Or al Tablet [[place] 10/325] 2018-10-02 19:24:00 No Note s: Do not exceed 4gm/day of acetaminophen. (Same as: [place] 325/10) [facility] Dilaudid 2018-10-02 19:24:00 No Notes: Same as Dilaudid [facility] Benadryl 2018-10-02 19:24:00 No Notes: (Bruce e as: Benadryl) [facility] phenol 2018-10-02 19:24:00 No Notes: Chloraseptic [place] (Same as: Chloraseptic, Sore Throat [place]) WASTE: F/P - Black; E - Municipal Trash Bin [facility] Bisacodyl 2018-10-02 19:24:00 No Notes: (Same As: Dulcolax, Bisco-Lax) [facility] Robaxin 2018-10-02 19:24:00 No Notes: (Same as:Robaxin) [facility] Melatonin 3 MG Extended Release Tablet 2018-10-02 19:24:00 No 3 mg, 1 tab, Route: PO, Dosing Weight 86.3, kg, Bedtime, PRN as needed for insomnia, Start date: 10/02/18 14:24:00 CDT, Duration: 30 day, Stop date: 11/01/18 14:23:00 CDT [facility] Tylenol 2018-10-02 19:24:00 No Notes: Do not exceed 4 gm/day. (Same as: Tylenol) [facility] Phenergan 2018-10-02 19:24:00 No Notes: Do not give IV push. (Same as: Phenergan) [facility] Potassium Chloride 2018-10-02 19:24:00 No Notes: (Same as: K-Dur 20) "Do Not Crush" Give with food and full glass of water For patients unable to swallow tablet, dissolve in one half glass of water. Allow about 2 minutes for the tablets to disintegrate. Stir before giving to prepare slurry and administer. Please exclude Patient s with feeding tube less than 14 Swedish (Dobhoff, J-tube etc) and pediatric and patients. [facility] Saline Flush 0.9% 2018-10-02 19:24:00 No Notes: (Same as: BD Posiflush) [facility] Tylenol 2018-10-02 19:16:00 No Notes: Max acetaminophen 4000 mg/day (4 gm/day). (Same as: Tylenol Extra Strength) [facility] fentaNYL ([facility]) 2018-10-02 15:55:00 No Route: IV, Drug form: INJ, ONCE, Stop date: 10/02/18 10:55:00 CDT [facility] hydrALAZINE ([facility]) 2018-10-02 15:55:00 No Route: IV, Drug form: INJ, ONCE, Stop date: 10/02/18 10:55:00 CDT [facility] Hydralazine 2018-10-02 15:46:00 No Notes: (Same as: Apresoline) Push over 5 minutes [facility] Labetalol 2018-10-02 15:46:00 No 10 mg, 2 mL, Route: IVP, Drug form: INJ, Q5Min, Dosing Weight 86.3, kg, PRN Elevated BP, Start date: 10/02/18 10:46:00 CDT, Duration: 5 doses or times, Stop date: 10/03/18 0:00:00 CDT, 0 [facility] Metoprolol 2018-10-02 15:46:00 No Notes: (Same as: Lopressor) Push over 2 minutes [facility] Oxycodone Hydrochloride 5 MG Oral Tablet 2018-10-02 15:46:00 No Notes: (Same as: Roxicodone) [facility] Hydromorphone 2018-10-02 15:46:00 No Notes: Same as Dilaudid [facility] Flumazenil 2018-10-02 15:46:00 No Notes: (S leobardo as: Romazicon) [facility] Naloxone 2018-10-02 15:46:00 No Notes: Same as Narcan [facility] Ondansetron 2018-10-02 15:46:00 No Notes: (Same as: Zofran) MEDICATION WASTE Product Size: 4 mg Product Wasted: ___ mg [facility] ceFAZolin (ANES) 2018-10-02 15:45:00 No Route: IV, Drug form: INJ, ONCE, Stop date: 10/02/18 10:45:00 [facility] propof[facility] (ANES) 2018-10-02 15:09:00 No Route: IV, Drug form: INJ, ONCE, Stop date: 10/02/18 10:09:00 [facility] acetaminophen (ANES) 2018-10-02 14:54:00 No Route: IV, Drug form: INJ, ONCE, Stop date: 10/02/18 9:54:00 CDT [facility] esmolol (ANES) 2018-10-02 14:24:00 No Route: IV, Drug form: INJ, ONCE, Stop date: 10/02/18 9:24:00 CDT [facility] dexmedetomidine (ANES) 200 microgram 2018-10-02 14:24:00 No Route: IV, Drug form: INJ, Start date: 10/02/18 9:24:00 CDT, Stop date: 10/02/18 10:24:00 CDT [facility] Isolyte S PH 7.4 (ANES) 1000 mL 2018-10-02 14:10:00 No Route: IV, Total Volume: 1,000, Start date: 10/02/18 9:10:00 CDT, Stop date: 10/02/18 10:10:00 CDT [facility] Lactated Ringers Injection IV (ANES) 1000 mL 2018-10-02 13:26:00 No Route: IV, Total Volume: 1,000, Start date: 10/02/18 8:26:00 CDT, Stop date: 10/02/18 9:26:00 CDT [facility] ceFAZolin + sterile water 20 mL 2018-10-02 04:00:00 No Notes: (Same As: Alciia Jolly) MEDICATION WASTE Product Size: 1000 mg Product Wasted: ___ mg [facility] Doxycycline 20 MG Oral Tablet 2018-07-08 14:39:00 Yes 0 Refill(s) [facility] amitriptyline 10 mg oral tablet 2018-06-23 21:48:00 [...] tablet 2018-06-23 21:45:00 Y es 0 Refill(s) [facility] L.ACID/B.INF/B.BIFID/B.ANIMAL (PROBIOTIC DIGESTIVE SYSTEM KOEHLER P ORAL) 2016-02-29 11:12:22 Yes 1{capsule} QD Take 1 capsule by mouth daily . [facility] propranolol (INDERAL) 20 MG tablet 2016-02-22 12:15:02 Yes essential tremor 20mg Q.5D Take 20 mg by mouth 2 (two) times daily Takes for tremors, not HTN.. [facility] multivitamin per tablet 2016-02-22 12:15:02 Yes 1{tbl} QD Take 1 tablet by mouth daily gummies. [facility] levofloxacin (LEVAQUIN) 500 MG tablet 2016-02-22 12:15:02 Y es 500mg QD Take 500 mg by mouth daily. [facility] carbidopa-levodopa (SINEMET) 25-100 mg per tablet 2016-01-02 10:56:05 Yes 1{tbl} Q.25D Take 1 tablet by mouth 4 (four) times daily . [facility] rasagiline 1 mg Tab 2016-01-02 10:56:05 Yes 1mg QD Take 1 mg by mouth daily. [facility] lovastatin (MEVACOR) 20 MG tablet 2016-01-02 10:56:05 Yes 20mg QD Take 20 mg by mouth nightly. [facility] docusate sodium (COLACE) 100 MG capsule 2016-01-02 10:56:05 Yes 100mg QD Take 100 mg by mouth daily. [facility] bisacodyl (DULCOLAX) 5 mg EC tablet 2016-01-02 10:56:05 Yes 5mg Take 5 mg by mouth daily as needed for Constipation. [facility] calcium carbonate-vitamin D3 (CALCIUM- TAMIN D) 500 mg(1,250mg) -200 unit per tablet 2016-01-02 10:56:05 Yes 2{tbl} QD Take 2 tablets by mouth daily. [facility] carbidopa-levodopa (SINEMET) 12.5-50 mg halftab half tablet 2016-01-02 10:49:41 Yes Q.5D Take 1 half tablet by mouth 2 (two) times daily. [facility] Carbidopa/Levodopa (Carbidopa-Levodopa 25-100 Tab) 1 E [...] Atorvastatin Calcium 2019-04-08 00:00:00 No 10 Bedtime [facility] Acetaminophen Acetaminophen 2019-01-26 00:00:00 No 32 5 Every 6 Hours [facility] Bysacodyl Bysacodyl 2019-01-26 00:00:00 No 10 As Ne eded [facility] Carvidopa-Levodopa Carvidopa-Levodopa 2019-01-26 00:00:00 No Daily [facility] Ciprofloxacin Hcl (Cipro) 500 Mg TABLET Ciprofloxacin [...] [place] Ipratropium/Albuterol Sulfate (Combivent Respimat Inha l [place]) 4 Gm AER.W.ADAP Ipratropium/Albuterol Sulfate (Combivent Respimat Inhal [place]) 4 Gm AER.W.ADAP 2019-01-26 00:00:00 No 0 [...] Mag Hydrox/Al Hydrox/Simeth (Maalox Maximum Strength S penitentiary) 355 Ml ORAL.SUSP Mag Hydrox/Al Hydrox/Simeth (Maalox [...] Hcl Propranolol Hcl 2019-01-26 00:00:00 No 20 [facility] Rasagiline Mesylate (Azilect) [...] 2019-01-26 00:00:00 No 1 Twice A Day [facility] Butenafine Hcl (Lotrimin Ultra) 12 Gm CREAM..G. Butena fine Hcl (Lotrimin Ultra) 12 Gm CREAM..G. 2019-01-22 00:00:00 No 1 Bedtime [facility] Calcium Carb/Vit D3/Minerals (Caltrate Plus Tablet) 1 Each TABLET Calcium Carb/Vit D3/Minerals (Caltrate Plus Tablet) 1 Each TABLET 05-02-05 00:00:00 No 2 Daily [facility] Dexlansoprazole (Dexilant) 30 Mg CAP. Dexlansopra zole (Dexilant) 30 Mg CAP. 2019-01-22 00:00:00 No 30 Daily [facility] L. Rhamnosus Gg/Inulin (Culturelle Capsule) 1 Each CAP .FLORIN L. Rhamnosus Gg/Inulin (Culturelle Capsule) 1 Each CAP.SPRINK 2019-01-22 00:00:00 N o 1 Daily [facility] Polyethylene Glycol 3350 (Miralax) 17 Gm POWD.PACK [place] yethylene Glycol 3350 (Miralax) 17 Gm POWD.PACK 2019-01-22 00:00:00 No 1 Daily as needed for Constipation [facility] Carbidopa/Levodopa (Sinemet 25-100 Mg Tablet) 1 Each T ABLET Carbidopa/Levodopa (Sinemet 25-100 Mg Tablet) 1 Each TABLET 2017-11-15 00:00:00 No .5 Twice A Day [facility] Sulfamethoxazole/Trimethoprim (Sulfamethoxazole-Tmp Ds Tablet) 1 Each TABLET [...] Diastolic (mm Hg) 2018-10-24 21:15:00 [facility] Respitory Rate 2018-10-24 21:00:00 [facility] Systolic (mm Hg) 2018-10-24 21:00:00 [facility] Diastolic (mm Hg) 2018-10-24 21:00:00 [facility] Respitory Rate 2018-10-24 20:45:00 [facility] Systolic (mm Hg) 2018-10-24 20:45:00 [facility] Diastolic (mm Hg) 2018-10-24 20:45:00 [facility] Weight 2018-10-24 15:00:00 [facility] BMI Calculated 2018-10-24 15:00:00 [facility] Heart Rate 2018-10-24 15:00:00 [facility] Height 2018-10-23 14:44:00 157.48 cm [facility] Respitory Rate 2018-10-15 20:00:00 [facility] Systolic (mm Hg) 2018-10-15 20:00:00 [facility] Diastolic (mm Hg) 2018-10-15 20:00:00 [facility] Respitory Rate 2018-10-15 17:00:00 [facility] Systolic (mm Hg) 2018-10-15 17:00:00 [facility] Diastolic (mm Hg) 2018-10-15 17:00:00 [facility] Respitory Rate 2018-10-15 16:00:00 [facility] Systolic (mm Hg) 2018-10-15 16:00:00 [facility] Diastolic (mm Hg) 2018-10-15 16:00:00 [facility] Height 2018-10-12 14:37:00 157.48 cm [facility] Weight 2018-10-12 14:37:00 [facility] Height 2018-10-12 12:50:00 157.48 cm [facility] Temperature Oral (F) 2018-10-12 01:00:00 98.0 F [facility] Height 2018-10-11 11:48:00 157.48 cm [facility] Temperature Oral (F) 2018-10-11 09:00:00 98.0 F [facility] Temperature Oral (F) 2018-10-11 05:00:00 98.4 F [facility] Heart Rate 2018-10-02 11:53:00 [facility] Weight 2018-09-18 20:02:00 [facility] BMI Calculated 2018-09-18 20:02:00 [facility] Heart Rate 2018-09-18 19:31:00 [facility] Weight 2018-09-18 19:30:00 [facility] BMI Calculated 2018-09-18 19:30:00 [facility] Procedures Procedure Date / Time Performed Performing Clinician Raymond real Computed tomography of chest with contrast 2019-06-16 00:00:00 [facility] X-ray of chest, two views 2019-04-07 00:00:00 SALOME KAPOOR CH I [facility] EGD BIOPSY SINGLE/MULTIPLE 2019-01-26 00:00:00 Jannie PAREKH [facility] EGD REMOVE FOREIGN BODY 2019-01-26 00:00:00 [facility] back surgery 2015-02-18 00:00:00 [facility] Her de leon Hysterectomy 1993-02-18 00:00:00 [facility] Her de leon section 1992-02-19 00:00:00 [facility] Raghu rmann Procedure<sup>1</sup> [facility] Lanny payton Plan of Care Planned Activity Planned Date Details Comments Source Instructions Urinary Tract Infection - Women [facility] Encounters Start Date/Time End Date/Time Encounter Type Admission Type Attendi [facility] Care Department Encounter ID Source 2018-10-02 05:53:00 Inpatient [facility] [id number] [facility] 2019-06-17 09:23:00 2019-06-21 14:10:00 Discharged Inpatient 1 [facility] [id number] [facility] 2019-04-09 09:58:00 2019-04-13 15:22:00 Discharged Inpatient 1 [facility] [id number] [facility] 2019-01-26 08:08:00 2019-01-26 08:08:00 Registered Surgical Day Care [facility] [id number] [facility] 2018-10-24 08:28:00 2018-10-24 23:59:00 Outpatient Nadine Evans [facility] [id number] 2018-10-24 08:28:00 2018-10-24 08:28:00 Outpatient [facility] [id number] [facility] 2018-10-02 05:53:00 2018-10-15 18:09:00 Outpatient Nadine Evans [facility] [id number] 2018-09-30 16:06:00 2018-09-30 23:59:00 Outpatient Nadine Evans [facility] [id number] 2018-09-30 16:06:00 2018-09-30 16:06:00 Outpatient [facility] [id number] [facility] 2018-09-11 11:11:00 2018-09-11 11:11:00 Registered Clinic 3 RONCLAUS [facility] [id number] [facility] 2018-07-09 15:30:00 2018-07-09 23:59:59 [facility] [id number] 2017-11-15 14:22:00 2017-11-19 17:33:00 Discharged Inpatient 1 KHADRA FONTANA [facility] [id number] [facility] Results Test Description Test Time Test Comments Results Result Comments Source CT ABDOMEN/PELVIS W 2019-11-27 00:28:00 [place] [address] Patient Name: DEWAYNE ROWE MR #: [id number] : 1950 Age/Sex: 69/F Req #: [id number] Adm Physician: Ordered by: CHRIS COLLINS MD Report #: [id number] Location: ER Room/Bed: Procedure: [id number] CT/CT ABDOMEN/PELVIS W Exam Date: 11/26/19 Exam Time: 1278 REPORT STATUS: Signed EXAM: CT Abdomen and Pelvis WITH contrast INDICATION: abd distension and vomiting COMPARISON: None. TECHNIQUE: Abdomen and pelvis were scanned utilizing a multidetector helical scanner from the lung base to the pubic symphysis after administration of IV contrast. Coronal and sagittal reformations were obtained. Routine protocol was performed. Scan was performed when during portal venous phase. IV CONTRAST: 100 mL of Isovue 370 ORAL CONTRAST: None COMPLICATIONS: None FINDINGS: LINES and TUBES: Gastrostomy tube. LOWER THORAX: Strandy and patchy groundglass bibasilar lung opacities, similar to prior CT, likely atelectasis. HEPATOBILIARY: No focal hepatic lesions. Unchanged mild dilatation of the intrahepatic biliary ducts. No extrahepatic biliary duct dilatation. GALLBLADDER: No radio-opaque stones or sludge. No wall thickening. SPLEEN: No splenomegaly. PANCREAS: No focal masses or ductal dilatation. ADRENALS: No adrenal nodules KIDNEYS/URETERS: Kidneys enhance symmetrically. No hydronephrosis. No cystic or solid mass lesions. Nonobstructive right intrarenal calculi measuring up to 1.2 cm. GI TRACT: Very large and colonic stool burden that spares the sigmoid colon and rectum. Marked circumferential wall thickening and hyperenhancement of the rectum. Appendix is not clearly identified. There is however no fat stranding or adenopathy in the right lower quadrant to suggest appendicitis. Gastrostomy tube. PELVIC ORGANS/BLADDER: Jain catheter in a nondistended urinary bladder which limits evaluation. Uterus is absent or atrophic. LYMPH NODES: No lymphadenopathy. VESSELS: Unremarkable. PERITONEUM / RETROPERITONEUM: No free air or fluid. BONES: Unremarkable. SOFT TISSUES: Unremarkable. IMPRESSION: 1. Very large pancolonic stool burden that spares the rectum consistent with recent disimpaction. 2. Marked circumferential wall thickening and hyperenhancement of the rectum may be reactive change to recent disimpacted stool ball (stercoral colitis). Proctitis could have a similar appearance. Signed by: Calista Montes MD on 11/27/2019 12:48 AM Di ctated By: CALISTA MONTES MD Transcribed By: JENNIFER on 11/27/1949 COPY TO: CHRIS COLLINS MD Fluoroscopic procedure less than one hour duration 2019-05-0 1 00:49:00 Test Item Coronavirus (PCR) (test [...] under 564(g) of the ACT.Testing performed by [address] FVJQAVKUL9538-21-04 15:34:00 [place] [address] Patient Name: DEWAYNE ROWE MR #: [id number] : 1950 Age/Sex: 69/F Req #: [id number] Adm Physician: JASBIR ESPARZA MD Ordered by: JASBIR ESPARZA MD Report #: [id number] Location: MED/SURG Room/Bed: 1101 Procedure: [id number] NM/LUNG PER FUSION Exam Date: 06/17/19 Exam [...] 3:39 PM Dictated By: BAILEY OLIVAREZ MD 1539 COPY TO: OBEY ESPARZA MD Blood leukocytes [...] Range Interpretation Comments Hemoglobin (test code = 02914-2) 12.2 12.0-16.0 [facility] hematocrit (volume fraction)2019-06-17 05:25:00* Test Item Value Reference Range Interpretation Comments Hematocrit (test code = 4544-3) 40.3 34.2-44.1 [facility] Austin[facility]ated erythrocyte mean corpuscular adfvin0542-40-55 05:25:00* Test Item Value Reference Range Interpretation [...] 786-4) 30.3 31-35 [facility] AustinRDW MmmFv-Elh2590-89-29 05:25:00* Test Item Value Reference Range Interpretation Comments Red Cell Distribution Width (test code = 51926-2) 13.6 11.7 -14.4 [facility] AustinAutselect [facility] hospitaled blood platelet count (count/volume)2019-06-17 05:25:00* Test Item Value Reference Range Interpretation Comments Platelet Count (test code = 777-3) 224 140-360 [facility] segmented neutrophil count as percentage of total ivrpqqrsdf6714-29-08 05:25:00* Test Item Value Reference Range Interpretation Comments Neutrophils (%) (Auto) (test code = 63653-7) 52.5 38.7-80.0 [facility]Autselect specialty hospitaled blood lymphocyte count as percentage ot total ifrwpynjhi7138-43-22 05:25:00* Test Item Value Reference Range Interpretation Comments Lymphocytes (%) (Auto) (test code = 736-9) 33.8 18.0-39.1 [facility] AustinAutomated blood monocyte count as percentage of total xwzmgvwppk4087-16-31 05:25:00* Test Item Value Reference Range Interpretation Comments Monocytes (%) (Auto) (test code = 5905-5) 9.8 4.4-11.3 [facility] AustinAutomated blood eosinophil count as percentage of total bkozkejbxr4070-20-58 05:25:00* Test Item Value Reference Range Interpretation Comments Eosinophils (%) (Auto) (test code = 713-8) 3.4 0.0-6.0 [facility] AustinAutomated blood basophil count as percentage of total migkgzhtxc2948-25-84 05:25:00* Test Item Value Reference Range Interpretation Comments Basophils (%) (Auto) (test code = 706-2) 0.4 0.0-1.0 [facility] AustinFluoroscopic procedure less than one hour nlvwmvez9477-72-96 05:25:00* Test Item Value Reference Range Interpretation [...] Comments Lymphocytes # (Auto) (test code = 02619-0) 2.5 1.0-3.2 [facility] AustinBlood monocytes automated count (number/volume)2019-06-17 05:25:00* Test Item [...] of AustinFluoroscopic procedure less than one hour jovpoaqy6794-49-26 05:25:00* Test Item Value Reference Range Interpretation Comments Absolute Immature Granulocyte (auto (felecia t code = Absolute Immature Granulocyte (auto) 0.01 0-0.1 [facility] or plasma sodium measurement (moles/volume)2019-06-17 05:25:00* Test Item Value Reference Range Interpretation Comments Sodium Level (test code = 2951-2) 141 136-145 [facility]villeerum or plasma potassium measurement (moles/volume)2019-06-17 05:25:00* Test Item Value Reference Range Interpretation Comments Potassium Level (test code = 2823-3) 4.0 3.5-5.1 [facility]ville[facility] or plasma chloride measurement (moles/volume)2019-06-17 05:25:00* Test Item Value Reference Range Interpretation Comments Chloride Level (test code = 2075-0) 111 98-107 [facility]villeerum or plasma carbon dioxide, total measurement (moles/volume)2019-06-17 05:25:00* Test Item Value Reference Range Interpretation Comments Carbon Dioxide Level (test code = 2028-9) 24 22-29 [facility]villeerum or plasma anion bhy4457-49-75 05:25:00* Test Item Value Reference Range Interpretation Comments Anion Gap (test code = 86815-1) 10.0 8-16 [facility]villeerum or plasma urea nitrogen measurement (mass/volume)2019-06-17 05:25:00* Test Item Value Reference Range Interpretation Comments Blood Urea Nitrogen (test code = 3094-0) 9 7-26 [facility]ville[facility] or plasma creatinine measurement (mass/volume)2019-06-17 05:25:00* Test Item Value Reference Range Interpretation Comments Creatinine (test code = 2160-0) 0.78 0.57-1.11 [facility]villeer[facility] or plasma urea nitrogen/creatinine mass inqdf6042-01-95 05:25:00* Test Item Value Reference Range Interpretation Comments BUN/Creatinine Ratio (test code = 3097-3) 12 6-25 [facility] AustinEstimated glomerular filtration rate (GFR) qtragfwtwhohx7836-25-28 05:25:00* Test Item Value Reference Range Interpretation Comments Estimat Glomerular Filtration Rate (test code = 753414534) > 60 >60 Ranges were taken from the National Kidney Disease Education Program and the [facility] Kidney Foundation literature.Reference ranges:60 or greater: Oitrgd01-19 ( for 3 consecutive months): Chronic kidney disease 15 or less: Kidney failureHeart Hospital of AustinGlucose algtypvjafc9601-78-12 05:25:00* Test Item Value Reference Range Interpretation Comments Glucose Level (test code = FQU0532) 104 74-118 [facility]villeerum or plasma calcium measurement (mass/volume)2019-06-17 05:25:00* Test Item Value Reference Range Interpretation Comments Calcium Level (test code = 50701-1) 8.6 8.4-10.2 [facility]villeer[facility] or plasma total bilirubin measurement (mass/volume)2019-06-17 05:25:00* Test Item Value Reference Range Interpretation Comments Total Bilirubin (test code = 1975-2) 0.6 0.2-1.2 [facility] AustinFluoroscopic procedure less than one hour tkkvtcso5436-07-60 05:25:00* Test Item Value Reference Range Interpretation Comments Aspartate Amino Transf (AST/SGOT) (test code = Aspartate Amino Transf (AST/SGOT)) 8 5-34 [facility]villeerum or plasma alanine aminotransferase measurement (enzymatic activity/volume)2019-06-17 05:25:00* Test Item Value Reference Range Interpretation Comments Alanine Aminotransferase (ALT/SGPT) (test code = 1742-6) < 6 0-55 [facility]villeer[facility] or plasma protein measurement (mass/volume)2019-06-17 05:25:00* Test Item Value Reference Range Interpretation Comments Total Protein (test code = 2885-2) 5.8 6.5-8.1 [facility]ville[facility] or plasma albumin measurement (mass/volume)2019-06-17 05:25:00* Test Item Value Reference Range Interpretation Comments Albumin (test code = 1751-7) 3.2 3.5-5.0 [facility] AustinPlasma globulin measurement (mass/volume) 2019-06-17 05:25:00* Test Item Value Reference Range Interpretation Comments Globulin (test code = 29332-7) 2.6 2.3-3.5 [facility]villeer[facility] or plasma albumin/globulin mass budcp3960-60-82 05:25:00* Test Item Value Reference Range Interpretation Comments Albumin/Globulin Ratio (test code = 1759-0) 1.2 0.8-2.0 [facility]villeer[facility] or plasma alkaline phosphatase measurement (enzymatic activity/volume)2019-06-17 05:25:00* Test Item Value Reference Range Interpretation Comments Alkaline Phosphatase (test code = 6768-6) 54 40-150 [facility] AustinCT CHEST L1604-73-45 20:34:00 [facility] [address] [place] [address] Patient Name: DEWAYNE ROWE MR #: [id number] : 1950 Age/Sex: 69/F Req #: [id number] Adm Physician: KHADRA FONTANA MD Ordered by: KHADRA FONTANA MD Report #: [id number] Location: MED/SURG Room/Bed: [facility] [place] Procedure: [id number] CT/CT CHEST W Exam Date: 06/16/19 Exam Time: 1915 REPORT STATUS: Signed EXAM: CT Chest WITH [...] COPY TO: KHADRA FONTANA MD Urine color iilzvsqjlhamn6755-30-74 16:15:00* Test Item Value Reference Range Interpretation Comments Urine Color (test code = 5778-6) STRAW YELLOW [facility] AustinUrine lifwxyf5287-46-27 16:15:00* Test Item Value Reference Range Interpretation Comments Urine Clarity (test code = 65148-1) SL CLOUDY CLEAR [facility] Greenvillepecific gravity of Urine by Test strip 2019-06-16 16:15:00* Test Item Value Reference Range Interpretation Comments Urine Specific [place] (test code = 5811-5) 1.025 1.010-1.02 5 [facility] AustinUrine pH measurement by automated test raxie3084-63-76 16:15:00* Test Item Value Reference Range Interpretation Comments Urine pH (test code = 03725-6) 6.5 5-7 [facility] AustinUrine leukocyte esterase detection by kzblnulz2515-35-02 16:15:00* Test Item Value Reference Range Interpretation Comments Urine Leukocyte Esterase (test code = 5799-2) TRACE NEGATIVE [facility] AustinUrine nitrite qgihnungx8454-41-03 16:15:00* Test Item Value Reference Range Interpretation Comments Urine Nitrite (test code = 74032-3) NEGATIVE NEGATIVE [facility] AustinUrine protein measurement by test strip (mass/volume)2019-06-16 16:15:00* Test Item Value Reference Range Interpretation Comments Urine Protein (test code = 5804-0) 1+ NEGATIVE [facility] AustinUrine glucose skqxkqloz9056-48-89 16:15:00* Test Item Value Reference Range Interpretation Comments Urine Glucose (UA) (test code = 2349-9) NEGATIVE NEGATIVE [facility] AustinUrine ketones detection by automated test nfkkr4510-73-61 16:15:00* Test Item Value Reference Range Interpretation Comments Urine Ketones (test code = 83244-7) TRACE NEGATIVE [facility] AustinUrine urobilinogen measurement by test strip (mass/volume)2019-06-16 16:15:00* Test Item Value Reference Range Interpretation Comments Urine Urobilinogen (test code = 03649-7) 0.2 0.2-1 [facility] AustinUrine total bilirubin measurement (mass/volume)2019-06-16 16:15:00* Test Item Value Reference Range Interpretation Comments Urine Bilirubin (test code = 1978-6) NEGATIVE NEGATIVE [facility] AustinUrine erythrocytes ybzptgkyd9379-18-85 16:15:00* Test Item Value Reference Range Interpretation Comments Urine Blood (test code = 49692-4) TRACE NEGATIVE [facility] AustinAutomated urine sediment leukocyte count by microscopy (number/high power field)2019-06-16 16:15:00* Test Item Value Reference Range Interpretation Comments Urine WBC (test code = 5821-4) 6-10 0-5 [facility] AustinErythrocytes detection in urine sediment by light sbkxlenlld8347-09-18 16:15:00* Test Item Value Reference Range Interpretation Comments Urine RBC (test code = 00759-3) 0-5 0-5 [facility] AustinBacteria detection in urine sediment by light nziyouzrtj6904-03-80 16:15:00* Test Item Value Reference Range Interpretation Comments Urine Bacteria (test code = 80185-6) FEW NONE [facility] AustinEpithelial cells detection in urine sediment by light ecguppnsxw2661-07-28 16:15:00* Test Item Value Reference Range Interpretation Comments Urine Epithelial Cells (test code = 06505-2) FEW NONE [facility] AustinCalcium oxalate crystals detection in urine sediment by light rwxtbtyqot5875-07-23 16:15:00* Test Item Value Reference Range Interpretation Comments Urine Calcium Oxalate Crystals (test code = 5774-5) RARE FE W [facility] AustinProthrombin time (PT) in platelet poor plasma by coagulation wustv7695-10-36 15:41:00* Test Item Value Reference Range Interpretation Comments Prothrombin Time (test code = 5902-2) 13.5 11.9-14.5 [facility] AustinINR in Platelet poor plasma by Coagulation zlscf8509-16-90 15:41:00* Test Item Value Reference Range Interpretation [...] (aPTT) in platelet poor plasma by coagulation dmxlc8650-96-72 15:41:00* Test Item Value Reference Range Interpretation Comments Activated Partial Thromboplast Time (test code = 77276-2) 26.1 23.8-35.5 [facility]villeerum or plasma magnesium measurement (mass/volume)2019-06-16 15:41:00* Test Item Value Reference Range Interpretation Comments Magnesium Level (test code = 57082-0) 1.7 1.3-2.1 [facility] AustinBNP Ibn-hIjr2686-11-28 15:41:00* Test Item Value Reference Range Interpretation Comments B-Type Natriuretic Peptide (test code = 48216-2) 17.9 0-100 [facility]villeerum or plasma creatine kinase measurement (enzymatic activity/volume)2019-06-16 15:41:00* Test Item Value Reference Range Interpretation Comments Creatine Kinase (test code = 2157-6) 31 29-168 [facility]villeerum or plasma creatine kinase MB measurement (mass/volume)2019-06-16 15:41:00* Test Item Value Reference Range Interpretation Comments Creatine Kinase MB (test code = 60445-9) 0.80 0-5.0 [facility] AustinTroponin I measurement by highly sensitive enzyme opbeqoxozmv4643-73-04 15:41:00* Test Item Value Reference Range Interpretation Comments Troponin I (test code = 23459-2) < 0.001 0-0.300 [facility] AustinBlood bqjwdbt9724-62-96 15:41:00* Test Item Value Reference Range Interpretation Comments Blood Culture (test code = 25044248) NO GROWTH AFTER 5 DAYS, FINAL REPORT [facility] AustinCHEST SINGLE (PORTABLE)2019-06-16 15:02:00 [facility] [address] [place] [address] Patient Name: DEWAYNE ROWE MR #: [id number] : 1950 Age/Sex: 69/F Req #: [id number] Adm Physician: JASBIR ESPARZA MD Ordered by: MATT HOUSE MD Report #: [id number] Location: MED/SURG Room/Bed: [facility] [place] Procedure: [id number] DX/CHEST SIN GLE (PORTABLE) Exam Date: 06/16/19 Exam Time: 1455 REPORT STATUS: Signed EXAM: CHES T SINGLE (PORTABLE) DATE: 06/16/2019 2:55 PM INDICATION: [...] MD 09 Transcribed By : JENNIFER on 06/16/19 1510 COPY TO: MATT HOUSE MD MODIFIED BA. HNPFOTI9315-08-68 09:05:00 [facility] [address] [place] [address] Patient Name: DEWAYNE ROWE MR #: [id number] : 1950 Age/Sex: 69/F Req #: [id number] Adm Physician: JASBIR ESPARZA MD Ordered by: JASBIR ESPARZA MD Report #: [id number] Location: MED/SURG Room/Bed: [facility] Procedure: [id number] DX/MODIFIED BA. SWALLOW Exam [...] Higgins MD on 04/21/2019 9:08 AM Dicta gerardo By: MARCELLA HIGGINS MD 7 Transcribed By: JENNIFER on 04/21/19 09 COPY TO: JASBIR ESPARZA MD Blood Qgzjqhw7934-04-76 10:40:00* Test Item Value Reference Range Interpretation Comments Blood Culture (test code = 81963762) NO GROWTH AFTER 5 DAYS, FINAL REPORT [facility]villeodium Voofn0065-98-74 06:09:00* Test Item Value Reference Range Interpretation Comments Sodium Level (test code = 2951-2) 140 136-145 [facility] Odvoz7636-14-61 06:09:00* Test Item Value Reference Range Interpretation Comments Potassium Level (test code = 2823-3) 4.2 3.5-5.1 [facility] AustinChloride Wawhr3734-96-59 06:09:00* Test Item Value Reference Range Interpretation Comments Chloride Level (test code = 2075-0) 110 98-107 H [facility] AustinCarbon Dioxide Hbuvk9193-41-52 06:09:00* Test Item Value Reference Range Interpretation Comments Carbon Dioxide Level (test code = 2028-9) 21 22-29 L [facility] AustinAnion Uis5040-43-16 06:09:00* Test Item Value Reference Range Interpretation Comments Anion Gap (test code = 47972-5) 13.2 8-16 [facility] AustinBlood Urea Ezgrrohi4365-90-11 06:09:00* Test Item Value Reference Range Interpretation Comments Blood Urea Nitrogen (test code = 3094-0) 13 7-26 [facility] AustinCreatinine2020-02-19 06:09:00* Test Item Value Reference Range Interpretation Comments Creatinine (test code = 2160-0) 0.91 0.57-1.11 [facility] AustinBUN/Creatinine Kfchq4567-57-71 06:09:00* Test Item Value Reference Range Interpretation Comments BUN/Creatinine Ratio (test code = 3097-3) 14 6-25 [facility] AustinEstimat Glomerular Filtration Rate 2019-04-08 06:09:00* Test Item Value Reference Range Interpretation Comments Estimat Glomerular Filtration Rate (test code = 391194052) > 60 >60 Ranges were taken from the National Kidney Disease Education Program and the [facility] Foundation literature.Reference ranges:60 or greater: Wfshne95-53 ( for 3 consecutive months): Chronic kidney disease 15 or less: Kidney failureHeart Hospital of AustinGlucose Gvmrt1742-70-10 06:09:00* Test Item Value Reference Range Interpretation Comments Glucose Level (test code = RLQ7953) 104 74-118 [facility] AustinCalcium Iatdk5272-96-14 06:09:00* Test Item Value Reference Range Interpretation Comments Calcium Level (test code = 13454-1) 8.2 8.4-10.2 L [facility] AustinTotal Enkzqjjca1959-02-34 06:09:00* Test Item Value Reference Range Interpretation [...] (ALT/SGPT) (test code = 1742-6) 9 0-55 [facility] Exoftkb9297-06-86 06:09:00* Test Item Value Reference Range Interpretation Comments Total Protein (test code = 2885-2) 6.2 6.5-8.1 L [facility] AustinAlbumin2020-02-19 06:09:00* Test Item Value Reference Range Interpretation Comments Albumin (test code = 1751-7) 3.2 3.5-5.0 L [facility] 06:09:00* Test Item Value Reference Range Interpretation Comments Globulin (test code = 33324-3) 3.0 2.3-3.5 [facility] AustinAlbumin/Globulin Jjqnz8991-09-06 06:09:00 * Test Item Value Reference Range Interpretation Comments Albumin/Globulin Ratio (test code = 1759-0) 1.1 0.8-2.0 [facility] AustinAlkaline Xgfkafgzmqf4817-88-07 06:09:00* Test Item Value Reference Range Interpretation Comments Alkaline Phosphatase (test code = 6768-6) 51 40-150 [facility] AustinWhite Blood Bcndl4903-27-10 05:36:00* Test Item Value Reference Range Interpretation Comments White Blood Count (test code = 6690-2) 9.13 4.8-10.8 [facility] AustinRed Blood Jhpsf2918-86-98 05:36:00* Test Item Value Reference Range Interpretation Comments Red Blood Count (test code = 789-8) 4.63 3.6-5.1 [facility] AustinHemoglobin2020-02-19 05:36:00* Test Item Value Reference Range Interpretation Comments Hemoglobin (test code = 58955-6) 11.9 12.0-16.0 L [facility] AustinHematocrit2020-02-19 05:36:00* Test Item Value Reference Range Interpretation Comments Hematocrit (test code = 4544-3) 38.2 34.2-44.1 [facility] AustinMean Corpuscular Ssgaad7023-70-86 05:36:00* Test Item Value Reference Range Interpretation Comments Mean Corpuscular Volume (test code = 787-2) 82.5 81-99 [facility] AustinMean Corpuscular Ndyziclgjt4257-55-24 05:36:00* Test Item Value Reference Range Interpretation Comments Mean Corpuscular Hemoglobin (test code = 785-6) 25.7 28-32 L [facility] AustinMean Corpuscular Hemoglobin Concent 2019-04-08 05:36:00* Test Item Value Reference Range Interpretation Comments Mean Corpuscular Hemoglobin Concent (test code = 786-4) 31.2 31-35 [facility] AustinRed Cell Distribution Xbrje3708-44-13 05:36:00* Test Item Value Reference Range Interpretation Comments Red Cell Distribution Width (test code = 36763-0) 15.1 11.7 -14.4 H [facility] AustinPlatelet Cdvua3745-87-29 05:36:00* Test Item Value Reference Range Interpretation Comments Platelet Count (test code = 777-3) 158 140-360 [facility] AustinNeutrophils (%) (Auto)2019-04-08 05:36:00 * Test Item Value Reference Range Interpretation Comments Neutrophils (%) (Auto) (test code = 21325-0) 69.9 38.7-80.0 [facility] AustinLymphocytes (%) [...] Comments Lymphocytes # (Auto) (test code = 96575-8) 1.8 1.0-3.2 [facility] AustinMonocytes # [...] (auto) 0.02 0-0.1 [facility] AustinCreatine Dwknqc7546-94-12 03:49:00* Test Item Value Reference Range Interpretation Comments Creatine Kinase (test code = 2157-6) 230 29-168 H VERIFIED PREVIOUS RESULTSHeart Hospital of AustinCreatine Kinase OA8647-19-92 03:49:00* Test Item Value Reference Range Interpretation Comments Creatine Kinase MB (test code = 32535-9) 1.10 0-5.0 [facility] AustinTroponin Z7745-89-80 03:49:00* Test Item Value Reference Range Interpretation Comments Troponin I (test code = VOC9353) < 0.001 0-0.300 [facility] AustinLactic Acid Nwplc3479-21-72 18:52:00* Test Item Value Reference Range Interpretation Comments Lactic Acid Level (test code = Lactic Acid Level) 1.1 0.5- 2.0 [facility] AustinUrine WLL1721-71-01 18:16:00* Test Item Value Reference Range Interpretation Comments Urine WBC (test code = 5821-4) 6-10 0-5 H [facility] AustinU[facility] BKD2618-61-76 18:16:00* Test Item Value Reference Range Interpretation Comments Urine RBC (test code = 18861-8) NONE 0-5 [facility] AustinU[facility] Akjwidkt1074-04-54 18:16:00* Test Item Value Reference Range Interpretation Comments Urine Bacteria (test code = 13257-0) FEW NONE [facility] Austin[facility] Epithelial Vbfhr5284-68-87 18:16:00 * Test Item Value Reference Range Interpretation Comments Urine Epithelial Cells (test code = 22444-3) MODERATE NONE [facility] AustinU[facility] Zfwbf4013-57-15 18:05:00* Test Item Value Reference Range Interpretation Comments Urine Color (test code = 5778-6) YELLOW YELLOW [facility] Austin[facility] Uejagcl7964-09-14 18:05:00* Test Item Value Reference Range Interpretation Comments Urine Clarity (test code = 68587-6) CLEAR CLEAR [facility] AustinU[facility] Specific Cirnpkr1131-89-17 18:05:00 * Test Item Value Reference Range Interpretation Comments Urine Specific [place] (test code = 5811-5) 1.020 1.010-1.02 5 [facility] AustinU[facility] xA6994-19-70 18:05:00* Test Item Value Reference Range Interpretation Comments Urine pH (test code = 89478-2) 6 5-7 [facility] Austin[facility] Leukocyte Xygfbsbi2419-94-41 18:05:00* Test Item Value Reference Range Interpretation Comments Urine Leukocyte Esterase (test code = 5799-2) NEGATIVE NEGATIVE [facility] Austin[facility] Pxyqwxl3836-21-38 18:05:00* Test Item Value Reference Range Interpretation Comments Urine Nitrite (test code = 40667-4) NEGATIVE NEGATIVE [facility] Austin[facility] Hrgmpui5979-08-52 18:05:00* Test Item Value Reference Range Interpretation Comments Urine Protein (test code = 5804-0) NEGATIVE NEGATIVE [facility] AustinU[facility] Glucose (UA)2019-04-07 18:05:00* Test Item Value Reference Range Interpretation Comments Urine Glucose (UA) (test code = 2349-9) NEGATIVE NEGATIVE [facility] AustinU[facility] Iyiugqp9997-36-10 18:05:00* Test Item Value Reference Range Interpretation Comments Urine Ketones (test code = 80834-8) NEGATIVE NEGATIVE [facility] Austin[facility] Ftjqslzryjch0638-18-67 18:05:00* Test Item Value Reference Range Interpretation Comments Urine Urobilinogen (test code = 69047-4) 0.2 0.2-1 [facility] AustinU[facility] Zafdrwstj3908-95-91 18:05:00* Test Item Value Reference Range Interpretation Comments Urine Bilirubin (test code = 1978-6) NEGATIVE NEGATIVE [facility] Austin[facility] Clwmw7116-21-67 18:05:00* Test Item Value Reference Range Interpretation Comments Urine Blood (test code = 57139-5) NEGATIVE NEGATIVE [facility] AustinFluoroscopic procedure less than one hour vqhpwdgk6120-01-94 17:21:00* Test Item Value Reference Range Interpretation Comments Lactic Acid Level (test code = Lactic Acid Level) 1.1 0.5- 2.0 [facility] AustinB-Type Natriuretic Bgtpziq1378-16-95 11:22:00* Test Item Value Reference Range Interpretation Comments B-Type Natriuretic Peptide (test code = 24209-0) 14.9 0-100 [facility] AustinCHEST 2 WRYDS0432-47-95 11:11:00 [place] [address] Patient Name: DEWAYNE ROWE MR #: [id number] : 1950 Age/Sex: 69/F Req #: [id number] Adm Physician: Ordered by: SALOME KAPOOR DO Report #: [id number] Location: ER Room/Bed: Procedure: [id number] DX /CHEST 2 VIEWS Exam Date: Exam [...] COPY TO: SALOME KAPOOR DO BLOOD BANK DIMIOHG2337-56-06 16:11:00Negative (10/24/18 11:11 AM)[facility]annCHEM HIDNM5143-54-19 09:45:32318Swwvpwne HermannCHEM EEFPA5211-27-91 09:45:0021[facility]annCHEM NIUAQ2706-05-75 09:45:000.60[facility]annCHEM AAORJ3145-57-28 09:45:28853Jbrwhaie HermannCHEM BJSTI9659-39-60 09:45:004.3 [facility]annCHEM BPQOH7706-67-89 09:45:57562Yhvyycfc HermannCHEM PANEL 2018-10-15 09:45:0027[facility]annCHEM SWZYG6436-36-22 09:45:0011.3[facility]annCHEM REEPD2402-41-55 09:45:009.0[facility]annCHEM OLNDQ5973-15-48 09:45:0093[facility] RvsrtwqPBILNVJOLP0714-55-50 09:45:00* Test Item Value Reference Range Interpretation Comments PT (test code = PT) 14.4 s 12.0-14.7 [facility]RfknrxjZIZXOVQGYF8007-46-23 09:45:00* Test Item Value Reference Range Interpretation Comments INR (test code = INR) 1.14 1 0.85-1.17 [facility] HospitalMvptgmsTCQXSNRVQZ1380-53-77 09:45:00* Test Item Value Reference Range Interpretation Comments PTT (test code = PTT) 30.2 s 22.9-35.8 [facility] HospitalAhtflgiVQBXMQUHOR6679-23-26 09:45:0010.4[facility]annHEMATOLOGY 2018-10-15 09:45:004.43[facility] HqpldsbHJPINWSFSY0958-53-29 09:45:0011.7[facility] DqutjrrYRBQNPGLIN3147-83-32 09:45:0035.7[facility] FlskcldLNSEVGMCGT9380-15-78 09:45:0080.5[facility] ShgrqmbURZDYCLHHF6956-36-95 09:45:00* Test Item Value Reference Range Interpretation Comments MCH (test code = MCH) 26.5 pg 27.0-31.0 [facility] BcxothzTDYPNAKNFA2032-29-31 09:45:0032.9[facility]annHEMATOLOGY 2018-10-15 09:45:0013.9[facility] XoqhphwYQRLWGRRAD2278-36-77 09:45:14608Nikqmczr BpkpjiiNHCYVXBDXO9667-69-61 09:45:007.0[facility] EtxyryrQQMOXWYSYZ3770-39-26 09:45:0073.3[facility] UsuzsdtPZIPYDYGSF1671-04-26 09:45:0014.5[facility] ZSBMAGLGSW0982-00-97 09:45:0010.1[facility] MtplvkeKNMKLENKVC7582-99-35 09:45:00 1.5[facility] MttufstZJTNPKGCZK4935-65-36 09:45:000.6[facility]annHEMATOLOGY 2018-10-15 09:45:007.6[facility] VefauojINJQBWIXMA5662-17-33 09:45:001.5[facility] UqyvhvyCJULRLRFQZ5407-69-20 09:45:001.1[facility] QbkioddQZDEEWONWR0539-13-49 09:45:000.2[facility] OzunabsNNIRKNVXKP9394-80-78 09:45:000.1[facility]annCHEM NDAEC6714-22-62 17:47:77135Wxhdpztt HermannCHEM GKEQN0084-17-23 17:47:0016 [facility]annCHEM OHQXT5453-70-34 17:47:000.61[facility]annCHEM PANEL 2018-10-14 17:47:23492Hmopqnfk HermannCHEM RFATC7764-50-72 17:47:004.5[facility]annCHEM JEJQW6446-11-79 17:47:0096[facility]annCHEM BKSZN6331-08-05 17:47:0031[facility]annCHEM UMPMG0494-19-97 17:47:008.8[facility]annCHEM UCIWA2061-69-03 17:47:0012.5[facility]annCHEM PPUEL0581-01-60 17:47:0092 [facility]annCHE[facility] SQEFC9870-82-56 12:55:71393Okvrjuyp HermannCHEM PANEL 2018-10-14 12:55:0016[facility]annCHEM CCLIK1350-06-49 12:55:000.57[facility]annCHEM QLJND2187-92-83 12:55:0027[facility]annCHEM HQZHU2143-99-38 12:55:009.1[facility]annCHEM CFIFR2771-73-68 12:55:0094[facility]annCHEM GPBEE7420-79-24 12:55:25103Diyqhqdl [facility]annCHEM YBFZX0936-12-11 12:55:004.7 [facility]annCHE[facility] FNLKP5811-45-02 12:55:0096[facility]annCHEM PANEL 2018-10-14 12:55:0011.7[facility] RfhzfwzAXIWERWZQQ6367-18-28 12:55:0013.8[facility] RfrpzozDLQMWIIGQZ2076-94-95 12:55:004.36[facility] AysyhnkKLZWPVPJLB8001-10-28 12:55:0011.5[facility] DqpbnzcLNEKIBKDCQ7353-11-53 12:55:0035.4[facility] FIMDDWRGKU2682-17-46 12:55:0081.2[facility] HnjeibsAADUEZCFCS9143-48-81 12:55:00* Test Item Value Reference Range Interpretation Comments MCH (test code = MCH) 26.3 pg 27.0-31.0 [facility] BppzokpJNTUWASNEY7436-86-71 12:55:0032.3[facility]annHEMATOLOGY 2018-10-14 12:55:0013.9[facility] FglpdbeCXQZUFETNA8585-91-71 12:55:39552Plxvumak MlhuxjsYLGNVOGWBT0008-24-02 12:55:006.7[facility] RzgqvqlWPQTBPLSDB0750-44-63 12:55:0079.7[facility] RsfidfpENGUDGKUEW6105-21-24 12:55:004.5[facility] FSWUXXJTLH0795-37-66 12:55:0014.4[facility] IdauqffARFRHJYEPF0829-32-92 12:55:00 0.8[facility] BlgcelkCTWTVKXVWU3037-61-29 12:55:000.6[facility]annHEMATOLOGY 2018-10-14 12:55:0011.0[facility] GwdxlgdBEDDHMCZUI5212-03-76 12:55:000.6[facility] MpkxnufVTORQZUTCF3798-38-61 12:55:002.0[facility] VupaztcNAOLOTJYTC1262-66-00 12:55:000.1[facility] ApohgmnQWCUOWEQYH4501-16-16 12:55:000.1[facility]annBLOOD [facility] UEMOCIT9143-06-90 05:07:00Negative (10/13/18 12:07 AM)[facility] Stewart GNFREDUTNE8366-69-82 05:07:00Normal (10/13/18 12:07 AM)[facility]annHEMATOLOGY 2018-10-13 05:07:00Normal (10/13/18 12:07 AM)[facility] VvqjrdjKTLAMAROBT1595-58-41 05:07:0075.9[facility] NjcafsuRKIJIUELFP9542-20-33 05:07:0012.3[facility] GPKVOZFQSP0321-24-48 05:07:009.1[facility] OzzpqffUGRRBPXSBY9856-48-25 05:07:001.8 [facility] GnnywyzZRKSPRWIVP8889-44-09 05:07:000.9[facility] HermannHEMATOLOGY 2018-10-13 05:07:0012.1[facility] BbkybgyYXIMABJKXK1379-56-77 05:07:002.0[facility] OmqmgunEVAEZMWJPL1303-87-91 05:07:001.5[facility] ZxbztsqUPWHSMHPCU0841-64-64 05:07:000.3[facility] QwzocjuQNDFLZRELH2338-21-32 05:07:000.2[facility] PJQRTKXHTP8336-14-73 05:07:0016.0[facility] SudgkmsBYUDUKOHPH9918-61-44 05:07:00 4.16[facility] JepkdupVZIRZEHOZU2687-27-09 05:07:0010.9[facility] HermannHEMATOLOGY 2018-10-13 05:07:0033.7[facility] AqsoenxRRCBYGHIXY8668-93-57 05:07:0081.1[facility] PcnqjypHETVJOCQQW3345-15-77 05:07:00* Test Item Value Reference Range Interpretation Comments MCH (test code = MCH) 26.3 pg 27.0-31.0 [facility] KcecgdrPWZUVIKUGG9435-81-98 05:07:0032.4[facility]annHEMATOLOGY 2018-10-13 05:07:0013.8[facility] DmcsewyYHGLAEEFRN8168-85-73 05:07:05364Qaayammb MwghnnoUTDBUUOLYI9354-86-60 05:07:007.3[facility] JbqwcokOYEVSQITOK3962-98-67 05:07:00* Test Item Value Reference Range Interpretation Comments INR (test code = INR) 0.96 1 0.85-1.17 [facility] FtrodnkUOFAJHCRMB0913-36-44 05:07:00* Test Item Value Reference Range Interpretation Comments PT (test code = PT) 12.6 s 12.0-14.7 [facility] IqdaabuAHBXNUVBVH4245-08-93 05:07:00* Test Item Value Reference Range Interpretation Comments PTT (test code = PTT) 26.3 s 22.9-35.8 [facility] HermannMOXIFLOXACIN:SUSC:PT:ISOLATE:ORDQN:PIQ2683-45-33 22:30:00 Serratia marcescensMemorial HermannURINE AND GHOYY1232-77-57 16:31:00Yellow *NA*(10/12/18 11:31 AM)[facility] AND QCASN8960-46-82 16:31:00Slight *ABN*(10/12/18 11:31 AM)[facility] AND YFTEW4611-02-93 16:31:00* Test Item Value Reference Range Interpretation Comments UA Spec Grav (test code = UA Spec Grav) 1.016 1 [facility]annUR[facility] AND UNICG7339-42-67 16:31:00* Test Item Value Reference Range Interpretation Comments UA pH (test code = UA pH) 7.0 1 5.0-8.0 [facility] AND FBSOC1325-15-11 16:31:00Negative *NA*(10/12/18 11:31 AM)[facility] AND IMGGS2399-39-35 16:31:00Negative (10/12/18 11:31 AM) [facility] BLIDY6140-95-65 16:31:00<1.0[facility]UR[facility] AND MMXZC1511-59-54 16:31:00Positive *ABN*(10/12/18 11:31 AM)[facility] AND VLZZC4018-29-99 16:31:00Negative (10/12/18 11:31 AM)[facility] AND HXGOQ5618-74-97 16:31:002[facility]annURINE AND NHNLZ6738-75-05 16:31:001 [facility]annCHEM NTHFQ9523-32-25 10:52:00<0.05[facility] HermannCHEM PANEL 2018-10-10 05:38:002.9[facility] HermannCHEM BVQUW2311-83-28 05:38:002.4[facility] HermannPARATHYROID TSLSEKM1275-92-07 05:38:001.08[facility] HermannPARATHYROID MVVDSOY8675-31-53 05:38:001.12[facility] HermannCHEM IZRJF0487-60-90 05:48:002.2 [facility]annCHEM APJRQ1081-37-92 05:48:002.0[facility] HermannPARATHYROID OMJNMFX2849-29-81 05:48:001.14[facility] HermannPARATHYROID RZFPAVA1388-73-59 05:48:001.15[facility]annCHEM YTPGT3104-71-24 05:01:002.2[facility]annCHEM JMXVM5208-66-29 05:01:002.7[facility] DhgrmdmFALPBODEHH5883-56-73 05:01:00Normal (10/08/18 12:01 AM)[facility] DcwfxojRCJJGMPCLJ4947-87-62 05:01:00Normal (10/08/18 12:01 AM)[facility] HermannPARATHYROID WHVXOYJ6166-01-67 05:01:001.18[facility] HermannPARATHYROID XVZTLPZ4217-22-98 05:01:001.21[facility] HermannCARDIAC ENZYMES 2018-10-05 06:36:00<0.02[facility] HermannBACTERIAL - YHZTOGJF0750-44-25 23:03:00 Negative (10/04/18 6:03 PM)[facility] HermannCARDIAC OGAHDYJ6126-90-05 23:03:00< 0.02[facility]annCHEM OSPXB7807-19-06 23:03:00* Test Item Value Reference Range Interpretation Comments B/C Ratio (test code = B/C Ratio) 31 1 6-25 [facility]annCHEM LBHOL7586-22-13 23:03:006.5[facility]annCHEM PANEL 2018-10-04 23:03:002.8[facility] HermannCHEM BBYTW5090-05-66 23:03:003.7[facility]annCHEM FTNGB8048-90-17 23:03:00* Test Item Value Reference Range Interpretation Comments A/G Ratio (test code = A/G Ratio) 0.8 1 0.7-1.6 [facility]annCHEM EPYEY4676-22-46 23:03:00<6[facility] HermannCHEM PANEL 2018-10-04 23:03:0014[facility] HermannCHEM LCXDR3842-88-43 23:03:0070[facility] HermannCHEM NYLKX3813-64-57 23:03:000.7[facility] HermannCHEM ZYXEV8743-63-75 23:03:000.8[facility] ZksbeqgYGLBINWUJO8425-07-91 01:47:00* Test Item Value Reference Range Interpretation Comments PT (test code = PT) 13.4 s 12.0-14.7 [facility] KwpylboGOEOVIMXZW0536-66-65 01:47:00* Test Item Value Reference Range Interpretation Comments INR (test code = INR) 1.04 1 0.85-1.17 [facility]YpghsdpAODAXVKJKS5053-14-34 01:47:00* Test Item Value Reference Range Interpretation Comments PTT (test code = PTT) 27.2 s 22.9-35.8 [facility] IUUESQE9605-79-95 12:01:00Negative (10/02/18 7:01 AM) [facility]annCHEM SHSXO2191-53-94 23:59:000.8[facility] HermannCHEM PANEL 2018-09-30 23:59:0075Memorinj HermannStress Test - Treadmill BCVQ9746-26-39 12:07:00 [place] [address] Patient Name : DEWAYNE ROWE MR #: [id number] : 1950 Age/Sex: 68/F Adm Physician : CLAUS VELASQUEZ DO Admit Date : 09/11/18 Location : NE Room/Bed : _ REPORT: Mallory crowe Test DATE OF STUDY: 09/11/2018 11:32:00 Stress [...] regional wall motion abnormalities. Hedy Bay MD ABS/MODL T: 09/18 12:46:45 /[id number] Signature Date D ictated By: HEDY BAY MD Transcribed By: MODL on 09/18/18 < Electronically signed by HEDY BAY MD><<Signature on File>>10/28/18 1255 COPY TO: Bacterial urine epqlbfp4842-72-54 05:57:00* Test Item Value Reference Range Interpretation Comments Urine Culture (test code = 630-4) Organism: ESCHERICHIA COLI [facility] BG2597-41-92 16:11:00 [place] [address] Patient Name: DEWAYNE ROWE MR #: [id number] : 1950 Age/Sex: 67/F Req #: [id number] Adm Physicia n: KHADRA FONTANA MD Ordered by: HOLLIE ELLIS MD Report #: [id number] Location: MED/SURG3 Room/Bed: [facility] Procedure: [id number] CT/CT ABDOMEN/PELVIS WO Exam Date: 11/16/17 Exam [...] P M Dictated By: MERISSA ALBERTS MD 1617 Transcribed By: JENNIFER on 11/16/17 1615 COPY TO: HOLLIE ELLIS MD Bedside Vgggfos1932-39-88 16:07:00* Test Item Value Reference Range Interpretation Comments Bedside Glucose (test code = 58422-2) 106 70-120 M[facility] ID[id number] SING[facility] ([facility])2017-11-16 06:12:00 [place] [address] Patient Name: DEWAYNE ROWE MR #: [id number] : 1950 Age/Sex: 67/F Req #: [id number] Adm Physician: KHADRA FONTANA MD Ordered by: KARAN VILLALBA NP Report #: [id number] Location: MED/SURG3 Room/Bed: [facility] Procedure: [id number] DX /CHEST SINGLE (PORTABLE) Exam Date: 11/16/17 [...] COPY TO: KARAN VILLALBA NP Creatine Kinase VY6674-02-16 05:06:00* Test Item Value Reference Range Interpretation Comments Creatine Kinase MB (test code = 51413-0) 0.60 0-5.0 [facility] CenterTroponi S3458-11-07 05:06:00* Test Item Value Reference Range Interpretation Comments Troponin I (test code = FTS5836) -0.001 0-0.300 [facility]villeodium Keaoc2948-31-01 04:55:00* Test Item Value Reference Range Interpretation Comments Sodium Level (test code = 2951-2) 138 136-145 [facility] Rhuij2307-93-09 04:55:00* Test Item Value Reference Range Interpretation Comments Potassium Level (test code = 2823-3) 4.3 3.5-5.1 [facility] AustinChloride Uhzqi2179-78-16 04:55:00* Test Item Value Reference Range Interpretation Comments Chloride Level (test code = 2075-0) 106 98-107 [facility] AustinCarbon Dioxide Jboqu3859-35-56 04:55:00* Test Item Value Reference Range Interpretation Comments Carbon Dioxide Level (test code = 2028-9) 22 22-29 [facility] AustinAnion Cjy7666-79-22 04:55:00* Test Item Value Reference Range Interpretation Comments Anion Gap (test code = 90696-2) 14.3 8-16 [facility] AustinBlood Urea Lvssurmp6734-85-14 04:55:00* Test Item Value Reference Range Interpretation Comments Blood Urea Nitrogen (test code = 3094-0) 29 7-26 H [facility] AustinCreatinine2018-09-29 04:55:00* Test Item Value Reference Range Interpretation Comments Creatinine (test code = 2160-0) 1.13 0.57-1.11 H [facility] AustinBUN/Creatinine Obtdq1415-18-30 04:55:00* Test Item Value Reference Range Interpretation Comments BUN/Creatinine Ratio (test code = 3097-3) 26 6-25 H [facility] AustinEstimat Glomerular Filtration Rate 2017-11-16 04:55:00* Test Item Value Reference Range Interpretation Comments Estimat Glomerular Filtration Rate (test code = 862031759) 48 >60 L Ranges were taken from the National Kidney Disease Education Program and the [facility] Kidney Foundation literature.Reference ranges:60 or greater: Rvbxgx36-67 ( for 3 consecutive months): Chronic kidney disease 15 or less: Kidney failureHeart Hospital of AustinGlucose Tlanh5727-19-39 04:55:00* Test Item Value Reference Range Interpretation Comments Glucose Level (test code = TLF9718) 99 74-118 [facility] AustinCalcium Dvvwn3141-14-82 04:55:00* Test Item Value Reference Range Interpretation Comments Calcium Level (test code = 25432-0) 9.3 8.4-10.2 [facility] AustinTotal Ustzmnkcb7258-55-05 04:55:00* Test Item Value Reference Range Interpretation [...] (ALT/SGPT) (test code = 1742-6) -6 0-55 [facility]tal Stqqomd8678-06-61 04:55:00* Test Item Value Reference Range Interpretation Comments Total Protein (test code = 2885-2) 6.5 6.5-8.1 [facility] AustinAlbumin2018-09-29 04:55:00* Test Item Value Reference Range Interpretation Comments Albumin (test code = 1751-7) 3.7 3.5-5.0 [facility] AustinGlobulin2018-09-29 04:55:00* Test Item Value Reference Range Interpretation Comments Globulin (test code = 70563-0) 2.8 2.3-3.5 [facility] AustinAlbumin/Globulin Mpbgo0906-26-33 04:55:00 * Test Item Value Reference Range Interpretation Comments Albumin/Globulin Ratio (test code = 1759-0) 1.3 0.8-2.0 [facility] AustinAlkaline Kgrsafhfemw3260-12-21 04:55:00* Test Item Value Reference Range Interpretation Comments Alkaline Phosphatase (test code = 6768-6) 53 40-150 [facility] AustinCreatine Alphin6960-10-57 04:55:00* Test Item Value Reference Range Interpretation Comments Creatine Kinase (test code = 2157-6) 64 29-168 [facility] AustinWhite Blood Oqhix7500-08-23 04:32:00* Test Item Value Reference Range Interpretation Comments White Blood Count (test code = 6690-2) 6.61 4.8-10.8 [facility] AustinRed Blood Htuwd7183-97-68 04:32:00* Test Item Value Reference Range Interpretation Comments Red Blood Count (test code = 789-8) 4.89 3.6-5.1 [facility] AustinHemoglobin2018-09-29 04:32:00* Test Item Value Reference Range Interpretation Comments Hemoglobin (test code = 86575-7) 12.7 12.0-16.0 [facility] AustinHematocrit2018-09-29 04:32:00* Test Item Value Reference Range Interpretation Comments Hematocrit (test code = 4544-3) 39.6 34.2-44.1 [facility] AustinMean Corpuscular Drxthw8224-37-00 04:32:00* Test Item Value Reference Range Interpretation Comments Mean Corpuscular Volume (test code = 787-2) 81.0 81-99 [facility] Corpuscular [id number] 04:32:00* Test Item Value Reference Range Interpretation Comments Mean Corpuscular Hemoglobin (test code = 785-6) 26.0 28-32 L [facility] Hemoglobin Concent 2017-11-16 04:32:00* Test Item Value Reference Range Interpretation Comments Mean Corpuscular Hemoglobin Concent (test code = 786-4) 32.1 31-35 [facility]Red Cell Distribution [id number] 04:32:00* Test Item Value Reference Range Interpretation Comments Red Cell Distribution Width (test code = 83015-9) 13.2 11.7 -14.4 [facility]Platelet [id number] 04:32:00* Test Item Value Reference Range Interpretation Comments Platelet Count (test code = 777-3) 204 140-360 [facility]Neut[facility] (%) (Auto)2017-11-16 04:32:00 * Test Item Value Reference Range Interpretation Comments Neutrophils (%) (Auto) (test code = 56853-3) 55.4 38.7-80.0 [facility] AustinLymphocytes (%) [...] Comments Lymphocytes # (Auto) (test code = 66865-8) 1.9 1.0-3.2 [facility] AustinMon[facility] # [...] (auto) 0.01 0-0.1 [facility] AustinU[facility] [id number] 13:27:00* Test Item Value Reference Range Interpretation Comments Urine WBC (test code = 5821-4) 6-10 0-5 H [facility] Austin[facility] [id number] 13:27:00* Test Item Value Reference Range Interpretation Comments Urine RBC (test code = 42378-2) NONE 0-5 [facility] [id number] 13:27:00* Test Item Value Reference Range Interpretation Comments Urine Bacteria (test code = 36980-2) MANY NONE H [facility] Epithelial [id number] 13:27:00 * Test Item Value Reference Range Interpretation Comments Urine Epithelial Cells (test code = 07457-0) RARE NONE [facility]CT BRAIN [id number] 13:22:00 [facility] [address] [place] [address] Patient Name: DEWAYNE ROWE MR #: [id number] : 1950 Age/Sex: 67/F Req #: [id number] Adm Physician: Ordered by: KARAN VILLALBA NP Report #: [id number] Location: ER Room/B ed: Procedure: [id number] CT/CT BRAIN WO Exam Date: 0 11/15/17 [...] TO: KARAN VILLALBA NP CT CERVICAL SPINE [id number] 13:22:00 [place] [address] Patient Name: DEWAYNE ROWE MR #: [id number] : 1950 Age/Sex: 67/F Req #: [id number] Adm Physician: Ordered by: KARAN VILLALBA NP Report #: [id number] Location: ER Room/Bed: Procedure: [id number] CT/CT CERVICAL SPINE WO Yazmin membreno Date: 11/15/17 Exam Time: 1230 REPORT STATUS: [...] 3. Mild chronic microvascular ischemic changes. 4. Neurophysiology Tech dennis bilateral subinsular lacunar infarcts vs. prominent [...] 1:45 PM Dictated By: GLORIA HICKEY MD Electron ically Signed By: GLORIA HICKEY MD on 11/15/17 1342 Transcribed By: JENNIFER odell 11/15/17 134 COPY TO: KARAN VILLALBA NP CHEST SINGLE (PORTABLE) 2017-11-15 13:21:00 [place] [address] Patient Name: DEWAYNE ROWE MR #: [id number] : 1950 Age/Sex: 67/F Req #: [id number] Adm Physician: Ordered by: KARAN VILLALBA NP Report #: [id number] Location: ER Room/Bed: Procedure: [id number] DX/CHEST SINGLE (PORTABLE) Exam Date: Exam Time: [...] JENNIFER on 11/15/17 1322 COPY TO: KARAN VILLALBA BREAKFAST BAR ATTENDANT Urine [id number] 13:15:00* Test Item Value Reference Range Interpretation Comments Urine Color (test code = 5778-6) YELLOW YELLOW [facility] Qtlvabh4857-34-86 13:15:00* Test Item Value Reference Range Interpretation Comments Urine Clarity (test code = 39292-4) HAZY CLEAR [facility] Specific Vmatbun6372-14-65 13:15:00 * Test Item Value Reference Range Interpretation Comments Urine Specific [place] (test code = 5811-5) 1.015 1.010-1.02 5 [facility] [id number] 13:15:00* Test Item Value Reference Range Interpretation Comments Urine pH (test code = 72660-0) 6 5-7 [facility] Leukocyte Wqzvkeaq8572-78-33 13:15:00* Test Item Value Reference Range Interpretation Comments Urine Leukocyte Esterase (test code = 5799-2) TRACE NEGATIVE H [facility] Iqoditj2773-85-32 13:15:00* Test Item Value Reference Range Interpretation Comments Urine Nitrite (test code = 53448-6) NEGATIVE NEGATIVE [facility] Meluaaz3077-78-47 13:15:00* Test Item Value Reference Range Interpretation Comments Urine Protein (test code = 5804-0) NEGATIVE NEGATIVE [facility] Glucose (UA)2017-11-15 13:15:00* Test Item Value Reference Range Interpretation Comments Urine Glucose (UA) (test code = 2349-9) NEGATIVE NEGATIVE [facility] Ffrusek3632-11-15 13:15:00* Test Item Value Reference Range Interpretation Comments Urine Ketones (test code = 65946-6) NEGATIVE NEGATIVE [facility] Tlsktkbjjsxc3944-10-76 13:15:00* Test Item Value Reference Range Interpretation Comments Urine Urobilinogen (test code = 97068-6) 0.2 0.2-1 [facility] Mjxytcjpu6677-82-34 13:15:00* Test Item Value Reference Range Interpretation Comments Urine Bilirubin (test code = 1978-6) NEGATIVE NEGATIVE [facility] Scqcg6429-09-07 13:15:00* Test Item Value Reference Range Interpretation Comments Urine Blood (test code = 14721-0) NEGATIVE NEGATIVE [facility] RIGHT [id number] 13:12:00 [facility] [address] [place] [address] Patient Name: DEWAYNE ROWE MR #: [id number] : 1950 Age/Sex: 67/F Req #: [id number] Adm Physician: Ordered by: KARAN VILLALBA BREAKFAST BAR ATTENDANT Report #: [id number] Location: ER Room/Bed: Procedure: [id number] DX/SHOULDER RIGHT COMPLETE Exam Date: Exam Time: [...] COPY TO: KARAN VILLALBA KNEE RIGHT THREE [id number] 13:06:00 [place] [address] Patient Name: DEWAYNE ROWE MR #: [id number] : 1950 Age/Sex: 67/F Req #: [id number] Adm Physician: Ordered by: KARAN VILLALBA BREAKFAST BAR ATTENDANT Report #: [id number] Location: ER Room/Bed: Procedure: [id number] DX/KNEE RIGHT THREE VIEWS E xam Date: [...] DAO MD 09 Transcribed By: JENNIFER on 11/15/171309 Jannie OPY TO: KARAN VILLALBA NP Activated Partial Thromboplast Erpl6086-96-59 13:00:00* Test Item Value Reference Range Interpretation Comments Activated Partial Thromboplast Time (test code = 47962-4) 23.0 23.8-35.5 L [facility] Wnsn0877-82-08 12:41:00* Test Item Value Reference Range Interpretation [...]
[2019-11-27] MEDS ORDERED: ONDANSETRON HCL INJ 2MG/ML 2ML 2 MG/ML VIAL IV PRN (01:00)
[2019-11-27] MEDS: CEFTRIAXONE SOD 1 GM/NS 50 ML 50 ML IV SCH (01:09)
[2019-11-27] MEDS ORDERED: LORAZEPAM0.5 GM GT (02:58)
[2019-11-27] MEDS ORDERED: FAMOTIDINE20 MG GT (02:58)
[2019-11-27] MEDS ORDERED: METHENAMINE HIPP1 GM GT (02:58)
[2019-11-27] MEDS ORDERED: OXYBUTYNIN CHLOR5 MG GT (02:58)
[2019-11-27] MEDS ORDERED: RYTARY ER 48.71 EACH GT (02:58)
[2019-11-27] MEDS ORDERED: MIDODRINE HCL5 MG PO (02:58)
[2019-11-27] MEDS ORDERED: SINEMET 25-1001 EACH GT (02:58)
[2019-11-27] MEDS: SODIUM CHLORIDE 0.9% 1000ML 1,000 ML IV SCH ×2 (03:43→11:00)
--- NOTE | 2019-11-27 19:47 | NUR ---
Received change of shift report from AM nurse. Walking rounds completed.
--- NOTE | 2019-11-27 22:07 | NUR ---
Enema completed q2 hours. Light brown fluid with small part. of stool. Patient tolerated well. Remain on left side. Continue monitor.
[2019-11-28] VITALS (8 sets, daily range): BP systolic 106–126; BP diastolic 65–89
[2019-11-28] MEDS: CEFTRIAXONE SOD 1 GM/NS 50 ML 50 ML IV SCH (01:00)
[2019-11-28] MEDS: SODIUM CHLORIDE 0.9% 1000ML 1,000 ML IV SCH ×3 (01:41→17:00)
--- NOTE | 2019-11-28 05:50 | NUR ---
Patient resting quitly at this time.
--- NOTE | 2019-11-28 06:55 | NUR ---
SBAR BEDSIDE REPORT RECEIVED FROM PM SHIFT RN. PATIENT FOUND LYING IN BED IN NO ACUTE DISTRESS. PATIENT IS AAOX2, BEDBOUND, AND DENIES ANY FURTHER NEEDS. PATIENT WAS EDUCATED ON FALL RISK PRECAUTIONS AND VERBALIZED UNDERSTANDING. CALL LIGHT AND BELONGINGS PLACED NEARBY. PATIENT AWARE OF HOURLY ROUNDS. I WILL CONTINUE TO MONITOR.
--- NOTE | 2019-11-28 13:49 | NUR ---
Nutrition Intervention Note RD Recommendation(s) for Physician: - Diet per MD; if PO is initiated, diet texture per BRAZING FURNACE FEEDER Home diet: ground texture, meds and liquid through PEG only, oral care and mouth swab for dry lips, pt requires 1:1 feeding assistance (risk of aspiration) -If PO is not feasible, rec initiating bolus feeds with Jevity 1.5, 400ml x 3 daily, providing 1800kcal, 77g protein, 912ml water Plan of Care: RD following, monitoring for tolerance and adequacy Nutrition reason for involvement: MST RD Assessment 11/27 - 69yo F, from home on hospice, who was admitted for fecal impaction of colon and UTI. Visited pt in the room. Pt was very tearful, poor historian. Per RN, pt is getting enema every 2hr, with multiple BM today. Spoke with on the phone. Per , pt has lost over 20lbs in the last 6 months. Pt was getting pleasure feeding by mouth at home. Pt can tolerates ground diet texture by mouth, liquid and medications go through PEG tube only. Pt requires 1:1 feeding assistance as pt has high risk of aspiration due to poor motor skills and often pocket foods in mouth. Pt only takes 1 carton of Jevity 1.2 via PEG daily. Currently still NPO and no plan to start EN yet. Principal Problems/Diagnoses: fecal impaction of colon, UTI PMH: hypertension, hyperlipidemia, and parkinsonism I/O: reviewed GI: abdomen round, firm, distended, + flatus, multiple BM with enema given Skin: stage I wound per chart Labs: (11/27) Na 133 L, Glucose 122 H, AST 4 L, lipase 7 L Meds: NaCl, enema Ht: 62in Wt: 152lb BMI: 27.8kg/m2 IBW: 110lb +/- 10% Malnutrition Evaluation (11/28/19) The patient meets criteria for MODERATE protein-calorie malnutrition. Energy intake: <75% of estimated energy requirements for >3 months Weight loss: >10% in 6 months (Chronic) Fat loss: Moderate hollow around orbital area Muscle loss: Moderate - temporal depression Supporting Evidence: Fluid accumulation: no accumulation identified Functional Status: no changes Nutrition Prescription (Diet Order): NPO Estimated Nutritional Needs: Calories: 1650 1980kcal(25-30kcal/kg UBW 145lb) Protein : 79 99g(1.2-1.5g/kg UBW) Diet Adequacy: Not meeting calorie needs, Not meeting protein needs Tolerance: N/A Diet Education Needs Assessment: Diet education not indicated. Nutrition Care Level: High Nutrition Diagnosis: Malnutrition related to failure to thrive as evidenced by weight loss, moderate fat/ muscle loss and suboptimal oral/ enteral nutrition intake. Goal: Patient will meet 75-100% of estimated needs by follow up Progress: N/A Interventions: Composition, Rate, Route, Modified diet Monitoring/Evaluation: Total energy intake, Total protein intake, Formula/Solution, Modified diet, Weight change Signed: Mary Hua MS, RD, LD
--- NOTE | 2019-11-28 14:58 | NUR ---
DR SALCEDO ROUNDING FOR DR ESAPRZA TODAY PT EAGER TO GO HOME HAS HAD SEVERAL ENEMAS AND 8 BM'S SINCE ADMIT CALL PLACED TO DR SALCEDO ASKING FOR DC ORDERS
--- NOTE | 2019-11-28 17:00 | NUR ---
JEVITY 1.2 RANGEL AT 50 CC/HR CONTINOUS FEEDINGS. PATIENT CAN DISCHARGE BACK TO HOSPICE WHEN TOLERATING TUBE FEEDING PER DR. BETTY SALCEDO.
--- NOTE | 2019-11-28 18:33 | Discharge Summary ---
HOSPITAL COURSE: A 69-year-old female with past medical history positive for hypertension, end-stage Parkinson disease. She has been in hospice, admitted to the hospital because of fecal impaction. Fecal impaction is resolved. The patient can go home today under hospice. PHYSICAL EXAMINATION: VITAL SIGNS: Showed regular rhythm. Normal S1 and S2 sound. LUNGS: Clear bilaterally. ABDOMEN: Soft. EXTREMITIES: Show no edema. VITAL SIGNS: Blood pressure 124/73, temperature 98.3, heart rate 89 per minute, respiratory rate 18 per minute, and oxygen saturation is 100%. LABORATORY DATA: On the CBC; white blood count 13,000, hemoglobin 12.8, hematocrit 40.0, and platelet count 282,000. On the BMP; sodium 133, potassium 4.0, chloride 97, CO2 25, BUN 8, creatinine 0.77, and glucose 132. FINAL IMPRESSION: 1. Fecal impaction. 2. Parkinson disease. 3. Colitis, most likely secondary to fecal impaction. 4. Leukocytosis. PLAN OF TREATMENT: The patient is going to be discharged home, to resume hospice services. I am going to prescribe Keflex 250 mg q.6 hours x3 days for possible UTI. We are going to give her MiraLAX 17 g daily as needed every day for constipation. The patient went home under hospice. Case management working on that. MD HANNA Womack/MARIELENA /[id number]
--- NOTE | 2019-11-28 18:37 | NUR ---
CALL PLACED TO [facility] TO FIND OUT WHAT IS NEEDED TO READMIT THE PATIENT TO HOME HOSPICE. [facility]UN [facility] ([phone]) RETURNED THE CALL AND REQUESTED CLINICAL NOTES, MD ORDER FOR HOSPICE TO EVAL AND TREAT. NOTES AND ORDER NEED TO BE FAXED TO [phone] (FAX).
--- NOTE | 2019-11-28 20:35 | NUR ---
PT RESTING COMFORTABLY IN BED NO SIGNS OF DISTRESS NO COMPLAINTS AT THIS TIME
[2019-11-29] VITALS: BP 139/73
[2019-11-29] MEDS: CEFTRIAXONE SOD 1 GM/NS 50 ML 50 ML IV SCH (00:22)
--- NOTE | 2019-11-29 02:11 | NUR ---
PT RESTING COMFORTABLY IN BED NO SIGNS OF DISTRESS NO COMPLAINTS AT THIS TIME
[2019-11-29] MEDS: SODIUM CHLORIDE 0.9% 1000ML 1,000 ML IV SCH (02:48)
[2019-11-29 04:00] VITALS: BP 123/75
[2019-11-29 08:00] VITALS: BP 138/83
--- NOTE | 2019-11-29 08:13 | NUR ---
CM called and spoke with pt's Latoya Ashton [phone]. Informed him plan is to dc today and that we would need to resume hospice services, if he wishes to continue hospice for pt. Mr. Ashton gave choice for [facility]. Choice letter placed in chart. Order/clinical faxed to [phone]. Confirmation received.
--- NOTE | 2019-11-29 08:56 | NUR ---
Received call from Nikki with [facility]. States she received clinical and has called and spoken with pt's . She will arrange for transport home. Will call CM back with JASPER.
[2019-11-29 09:00] VITALS: BP 138/83
--- NOTE | 2019-11-29 09:56 | NUR ---
Received call back from Nikki with [facility]. Transport set for 1230. Pt is full code, no OOH DNR. BARTOLOME Knott updated. Called and left message for pt's .
[2019-11-29 12:00] VITALS: BP 138/82
--- NOTE | 2019-11-29 13:05 | NUR ---
PATIENT DISCHARGED HOME WITH [facility] VIA EMS. PERIPHERAL IV DISCONTINUED; CATHETER INTACT WITHOUT RESISTANCE. TELEPHONE CONSENT FOR DISCHARGE OBTAINED FROM SHARIFA ROWE, SPOUSE. PATIENT RECEIVED DISCHARGE INSTRUCTIONS, WRITTEN PRESCRIPTIONS, AND EDUCATION. SHARIFA ROWE, SPOUSE, VOICED UNDERSTANDING.
== END 2019-11-29 13:08 | disposition hospice, home (50) ==
LOC: ER 21:55 → ERHOLD 11-27 00:50 → MED/SURG2 11-27 01:13
DX: K56.41 Fecal impaction (principal); L89.152 Pressure ulcer of sacral region, stage 2; I10 Essential (primary) hypertension; E78.5 Hyperlipidemia, unspecified; G20 Parkinson's disease; Z88.8 Allergy status to other drugs, medicaments and biological substances; N39.0 Urinary tract infection, site not specified; D72.829 Elevated white blood cell count, unspecified; Z11.59 Encounter for screening for other viral diseases
CPT/HCPCS: 36415; 51700; 74177; 80053; 81001; 82150; 83690; 85025; 99285; G0378 ×3; J0696 ×2; J7030 ×3; Q9967; U0002

== ENCOUNTER 2019-12-03 23:50 | Inpatient (IN) | payer MEDICARE, BC ==
[~2019-12-03] VITALS: Ht 157.5 cm; Wt 61.4 kg
[~2019-12-03 23:50] MED LIST changes: +FAMOTIDINE20 MG GT; +LORAZEPAM0.5 GM GT; +METHENAMINE HIPP1 GM GT; +MIDODRINE HCL5 MG PO; +OXYBUTYNIN CHLOR5 MG GT; +RYTARY ER 48.71 EACH GT; +SINEMET 25-1001 EACH GT
[2019-12-04] VITALS (9 sets, daily range): BP systolic 101–116; BP diastolic 58–68
[2019-12-04] MEDS ORDERED: CITRATE OF MAGNESIA 300ML BOTTLE PO ONE ×2 (00:15→23:30)
[2019-12-04] MEDS ORDERED: LACTULOSE SYRUP 20 GM/30 ML UDC PO ONE (00:15)
[2019-12-04] MEDS ORDERED: MINERAL OIL 132 ML BTL PR ONE (00:15)
[2019-12-04 01:20] LABS: BASOPHILS % 0.4 % (0.0-1.0); EOSINOPHILS # (AUTO) 0.4 (0.0-0.4); EOSINOPHILS % 3.9 % (0.0-6.0); HEMATOCRIT 37.2 % (34.2-44.1); LYMPHOCYTES # (AUTO) 2.5 (1.0-3.2); LYMPHOCYTES % 25.7 % (18.0-39.1); MEAN CORPUSCULAR HEMOGLOBIN 26.4 pg (28-32); MEAN CORPUSCULAR HGB CONC 32.3 g/dL (31-35); MEAN CORPUSCULAR VOLUME 81.8 fL (81-99); MONOCYTES # (AUTO) 0.7 (0.2-0.8); MONOCYTES % 7.2 % (4.4-11.3); NEUTROPHILS # (AUTO) 6.1 (2.1-6.9); NEUTROPHILS % 62.6 % (38.7-80.0); PLATELET COUNT 351 x10e3/uL (140-360); RED BLOOD COUNT 4.55 x10e6/uL (3.6-5.1)
[2019-12-04 01:34] LABS: ALANINE AMINOTRANSFERASE 7 IU/L (0-55); ALBUMIN 3.5 g/dL (3.5-5.0); ALBUMIN/GLOBULIN RATIO 1.1 (0.8-2.0); ALKALINE PHOSPHATASE 51 IU/L (40-150); ANION GAP 15.8 mmol/L (8-16); BLOOD UREA NITROGEN 6 mg/dL (7-26); BUN/CREATININE RATIO 9 (6-25); CARBON DIOXIDE 21 mmol/L (22-29); CHLORIDE 97 mmol/L (98-107); CREATININE, SERUM 0.66 mg/dL (0.57-1.11); EST GLOMERULAR FILTRATION RATE > 60 ML/MIN (60-); GLUCOSE 112 mg/dL (74-118); POTASSIUM 4.8 mmol/L (3.5-5.1); SODIUM 129 mmol/L (136-145)
[2019-12-04] MEDS ORDERED: LEVSIN0.125 MG PO (02:24)
[2019-12-04] MEDS ORDERED: CARBIDOPA-LEVO1 EAC5 (02:24)
[2019-12-04] MEDS ORDERED: GENERLAC10 GM/15 M PEG (02:24)
[2019-12-04] MEDS ORDERED: RYTARY ER 48.71 EACH PO (02:24)
[2019-12-04] MEDS ORDERED: CEPHALEXIN250 MG PO (02:24)
[2019-12-04] MEDS: SODIUM CHLORIDE 0.9% 1000ML 1,000 ML IV SCH ×3 (04:12→17:04)
[2019-12-05] VITALS (8 sets, daily range): BP systolic 91–117; BP diastolic 45–90
[2019-12-05] MEDS ORDERED: BISACODYL 5 MG TAB EC PO ONE ×3 (01:45→02:45)
[2019-12-05] MEDS: SODIUM CHLORIDE 0.9% 1000ML 1,000 ML IV SCH ×3 (02:00→17:02)
[2019-12-05] MEDS ORDERED: CITRATE OF MAGNESIA 300ML BOTTLE PO ONE (05:00)
[2019-12-05 06:04] LABS: BASOPHILS # (AUTO) 0.1 (0.0-0.1); BASOPHILS % 0.5 % (0.0-1.0); EOSINOPHILS # (AUTO) 0.4 (0.0-0.4); EOSINOPHILS % 3.8 % (0.0-6.0); HEMATOCRIT 40.3 % (34.2-44.1); HEMOGLOBIN 12.3 g/dL (12.0-16.0); LYMPHOCYTES # (AUTO) 2.4 (1.0-3.2); LYMPHOCYTES % 22.3 % (18.0-39.1); MEAN CORPUSCULAR HEMOGLOBIN 25.9 pg (28-32); MEAN CORPUSCULAR HGB CONC 30.5 g/dL (31-35); MEAN CORPUSCULAR VOLUME 84.8 fL (81-99); MONOCYTES # (AUTO) 0.9 (0.2-0.8); MONOCYTES % 8.1 % (4.4-11.3); NEUTROPHILS # (AUTO) 6.9 (2.1-6.9); PLATELET COUNT 317 x10e3/uL (140-360); RED BLOOD COUNT 4.75 x10e6/uL (3.6-5.1); RED CELL DISTRIBUTION WIDTH 13.2 % (11.7-14.4)
[2019-12-05 06:23] LABS: ALBUMIN 3.7 g/dL (3.5-5.0); ALBUMIN/GLOBULIN RATIO 1.2 (0.8-2.0); ALKALINE PHOSPHATASE 59 IU/L (40-150); ANION GAP 15.1 mmol/L (8-16); BLOOD UREA NITROGEN 7 mg/dL (7-26); BUN/CREATININE RATIO 10 (6-25); CARBON DIOXIDE 21 mmol/L (22-29); CHLORIDE 107 mmol/L (98-107); EST GLOMERULAR FILTRATION RATE > 60 ML/MIN (60-); GLUCOSE 115 mg/dL (74-118); POTASSIUM 4.1 mmol/L (3.5-5.1); SODIUM 139 mmol/L (136-145)
[2019-12-05 06:24] LABS: ALANINE AMINOTRANSFERASE < 6 IU/L (0-55)
[2019-12-05] MEDS: POLYETHYLENE GLYCOL 3350 17 GM PACK PO SCH ×2 (15:05→22:15)
[2019-12-05] MEDS ORDERED: LORAZEPAM GT PRN (17:30)
[2019-12-05] MEDS ORDERED: CEPHALEXIN MONOHYDRATE 250 MG CAP PO SCH (18:00)
[2019-12-05] MEDS: HYOSCYAMINE 0.125 MG TAB PO SCH ×2 (18:38→23:58)
[2019-12-05] MEDS: CARBIDOPA/LEVODOPA 25/100 TAB PO SCH ×2 (18:38→22:15)
[2019-12-05] MEDS: CEPHALEXIN MONOHYDRATE 250 MG CAP PO SCH (21:00)
[2019-12-05] MEDS: SIMVASTATIN 20 MG TAB PO SCH (22:15)
[2019-12-06] VITALS (7 sets, daily range): BP systolic 93–145; BP diastolic 47–105
[2019-12-06] MEDS: SODIUM CHLORIDE 0.9% 1000ML 1,000 ML IV SCH ×4 (00:07→17:24)
[2019-12-06] MEDS: POLYETHYLENE GLYCOL 3350 17 GM PACK PO SCH ×3 (05:28→21:00)
[2019-12-06] MEDS: HYOSCYAMINE 0.125 MG TAB PO SCH ×3 (05:28→17:24)
[2019-12-06] MEDS: PANTOPRAZOLE SOD 40 MG TABEC PO SCH (08:18)
[2019-12-06] MEDS: OXYBUTYNIN CHLORIDE 5 MG TAB GT SCH ×2 (08:18→17:23)
[2019-12-06] MEDS: FAMOTIDINE 20 MG TAB GT SCH (08:18)
[2019-12-06] MEDS: PROPRANOLOL HCL 10 MG TAB PO SCH ×2 (08:18→17:24)
[2019-12-06] MEDS: CARBIDOPA/LEVODOPA 25/100 TAB PO SCH ×4 (08:19→21:00)
[2019-12-06] MEDS: MIDODRINE HCL 5 MG TABLET PO SCH ×2 (08:19→17:24)
[2019-12-06] MEDS: MULTIVITAMINS/MINERALS TAB PO SCH (08:19)
[2019-12-06] MEDS: LORAZEPAM 0.5 MG TAB GT PRN ×2 (08:20→19:12)
[2019-12-06] MEDS ORDERED: METHENAMINE HIPPURATE GT SCH (09:00)
[2019-12-06] MEDS ORDERED: SCOPOLAMINE 1.5 MG PATCH TD SCH (09:30)
[2019-12-06] MEDS: CEPHALEXIN MONOHYDRATE 250 MG CAP PO SCH ×4 (11:41→21:00)
[2019-12-06] MEDS: CARBIDOPA PO SCH ×2 (11:41→21:00)
[2019-12-06] MEDS: LEVODOPA PO SCH ×2 (11:41→21:00)
[2019-12-06] MEDS: RASAGILINE 1 MG TAB PO SCH (11:42)
[2019-12-06] MEDS: NON-FORMULARY MEDICATION (Methenamine Hippurate 1 TAB) GT SCH (17:23)
[2019-12-06] MEDS: SIMVASTATIN 20 MG TAB PO SCH (21:00)
[2019-12-07] VITALS (9 sets, daily range): BP systolic 95–144; BP diastolic 55–74
[2019-12-07] MEDS: SODIUM CHLORIDE 0.9% 1000ML 1,000 ML IV SCH ×2 (00:22→09:18)
[2019-12-07] MEDS: HYOSCYAMINE 0.125 MG TAB PO SCH ×3 (00:22→12:23)
[2019-12-07] MEDS: POLYETHYLENE GLYCOL 3350 17 GM PACK PO SCH ×2 (05:06→12:23)
[2019-12-07] MEDS: LORAZEPAM 0.5 MG TAB GT PRN (05:09)
[2019-12-07] MEDS: PANTOPRAZOLE SOD 40 MG TABEC PO SCH (09:17)
[2019-12-07] MEDS: FAMOTIDINE 20 MG TAB GT SCH (09:17)
[2019-12-07] MEDS: RASAGILINE 1 MG TAB PO SCH (09:17)
[2019-12-07] MEDS: NON-FORMULARY MEDICATION (Methenamine Hippurate 1 TAB) GT SCH (09:17)
[2019-12-07] MEDS: OXYBUTYNIN CHLORIDE 5 MG TAB GT SCH (09:17)
[2019-12-07] MEDS: CEPHALEXIN MONOHYDRATE 250 MG CAP PO SCH ×2 (09:18→12:21)
[2019-12-07] MEDS: CARBIDOPA/LEVODOPA 25/100 TAB PO SCH ×2 (09:18→12:21)
[2019-12-07] MEDS: MIDODRINE HCL 5 MG TABLET PO SCH (09:18)
[2019-12-07] MEDS: MULTIVITAMINS/MINERALS TAB PO SCH (09:18)
[2019-12-07] MEDS: PROPRANOLOL HCL 10 MG TAB PO SCH (09:18)
[2019-12-07] MEDS ORDERED: GLUCAGON FOR INJ 1 MG VIAL ONE (13:03)
[2019-12-07] MEDS ORDERED: PROPOFOL IV EMULSION 10 MG/ML 20 ML VIAL ONE (13:03)
[2019-12-07] MEDS ORDERED: LIDOCAINE HCL 2% LOCAL INJ 5 ML SDV VIAL INJ ONE (13:03)
== END 2019-12-07 18:30 | disposition hospice, inpatient (51) | DRG 389 ==
LOC: ER 12-04 00:17 → ERHOLD 12-04 01:58 → MED/SURG2 12-04 02:21 → OBSVTOIN 12-05 11:06
PROC: 0DJD8ZZ Inspection of Lower Intestinal Tract, Via Natural or Artificial Opening Endoscopic (ICD-10-PCS; principal; 2019-12-05 12:00)
DX: K56.41 Fecal impaction (principal); E87.1 Hypo-osmolality and hyponatremia; G20 Parkinson's disease; I10 Essential (primary) hypertension; E78.5 Hyperlipidemia, unspecified; R23.0 Cyanosis; Z74.01 Bed confinement status; Z11.59 Encounter for screening for other viral diseases
CPT/HCPCS: 36415; 45378; 74018; 80053; 82948; 85025; 96365; 99251; 99284; G0378; J1610; J2001; J7030; U0002

== ENCOUNTER 2020-02-18 21:34 | Emergency (ER) | payer MEDICARE, BC ==
[~2020-02-18] VITALS: Ht 157.5 cm; Wt 61.2 kg
[~2020-02-18 21:34] MED LIST changes: +CARBIDOPA-LEVO1 EAC5; +CEPHALEXIN250 MG PO; +GENERLAC10 GM/15 M PEG; +LEVSIN0.125 MG PO; +RYTARY ER 48.71 EACH PO
[2020-02-19 00:39] VITALS: BP 109/68
== END 2020-02-19 02:06 | disposition home or self-care (01) ==
LOC: ER 21:50
DX: K56.41 Fecal impaction (principal); I10 Essential (primary) hypertension; E78.5 Hyperlipidemia, unspecified; G20 Parkinson's disease
CPT/HCPCS: 74018; 99284